=== PATIENT | female | born 1935 | race Caucasian/White ===

== ENCOUNTER → 2016-11-10 | Outpatient (CLI) | payer MEDICARE, BC ==
[2016-11-10 11:30] LABS: Basophils % (A) 0 %; CH 26.2; CHCM 31.7; Eosinophils # (A) 0.3 k/uL (0-0.7); Eosinophils % (A) 2 %; HCT 32.1 % (34.0-46.0); HDW 2.51; HGB 10.2 gm/dL (11.4-16.0); Luc # (Auto) 0.29; Luc % (Auto) 2; Lymphocytes # (A) 2.5 k/uL (1.0-4.8); Lymphocytes % (A) 17 %; MCH 26.3 pg (25.0-35.0); MCHC 31.7 g/dL (31.0-37.0); MCV 83.1 fL (80.0-100.0); Mean Platelet Volume 6.5; Monocytes # (A) 1.3 k/uL (0-1.0); Monocytes % (A) 8 %; Neutrophils # (A) 10.9 k/uL (1.3-7.7); Neutrophils % (A) 71 %; RBC 3.86 m/uL (3.80-5.40); RDW 14.2 % (11.5-15.5); WBC 15.4 k/uL (3.8-10.6); WBC (Perox) 16.29
[2016-11-10 11:33] LABS: ALT 23 U/L (9-52); AST 26 U/L (14-36); Alkaline Phosphatase 167 U/L (38-126); Anion Gap 16 mmol/L; Blood Urea Nitrogen 31 mg/dL (7-17); Calcium 9.6 mg/dL (8.4-10.2); Carbon Dioxide 20 mmol/L (22-30); Chloride 102 mmol/L (98-107); Glucose 121 mg/dL (74-99); Non-African American GFR(MDRD) 55 (>60 ml/min/1.73 sqM); Potassium 4.2 mmol/L (3.5-5.1); Sodium 138 mmol/L (137-145); Total Bilirubin 0.7 mg/dL (0.2-1.3); Total Protein 7.4 g/dL (6.3-8.2)
== END | disposition home or self-care (01) ==
LOC: LABWHC1 10:53
PROVIDERS: ATTEND Family Medicine
DX: I10 Essential (primary) hypertension (principal); R79.9 Abnormal finding of blood chemistry, unspecified
CPT/HCPCS: 36415; 80053; 85025; 87086

== ENCOUNTER → 2017-05-16 | Outpatient (CLI) | payer MEDICARE, BC ==
[2017-05-16 10:44] LABS: Basophils # (A) 0.1 k/uL (0-0.2); Basophils % (A) 0 %; CH 27.4; CHCM 30.1; Eosinophils # (A) 0.2 k/uL (0-0.7); Eosinophils % (A) 1 %; HCT 40.9 % (34.0-46.0); HDW 2.34; HGB 12.5 gm/dL (11.4-16.0); Hypochromasia Moderate; Luc # (Auto) 0.29; Luc % (Auto) 2; Lymphocytes # (A) 2.8 k/uL (1.0-4.8); Lymphocytes % (A) 23 %; MCH 28.1 pg (25.0-35.0); MCHC 30.7 g/dL (31.0-37.0); MCV 91.6 fL (80.0-100.0); Mean Platelet Volume 6.5; Monocytes # (A) 1.1 k/uL (0-1.0); Monocytes % (A) 9 %; Neutrophils # (A) 7.7 k/uL (1.3-7.7); Neutrophils % (A) 64 %; RBC 4.46 m/uL (3.80-5.40); RDW 14.6 % (11.5-15.5); WBC 12.2 k/uL (3.8-10.6); WBC (Perox) 12.27
[2017-05-16 11:07] LABS: ALT 16 U/L (9-52); AST 27 U/L (14-36); Alkaline Phosphatase 78 U/L (38-126); Anion Gap 12 mmol/L; Blood Urea Nitrogen 28 mg/dL (7-17); Calcium 10.6 mg/dL (8.4-10.2); Carbon Dioxide 26 mmol/L (22-30); Chloride 102 mmol/L (98-107); Cholesterol 188 mg/dL (<200); Glucose 100 mg/dL (74-99); HDL Cholesterol 70 mg/dL (40-60); Non-African American GFR(MDRD) >60 (>60 ml/min/1.73 sqM); Potassium 3.8 mmol/L (3.5-5.1); Sodium 140 mmol/L (137-145); Total Bilirubin 0.6 mg/dL (0.2-1.3); Total Protein 7.6 g/dL (6.3-8.2)
== END | disposition home or self-care (01) ==
LOC: LABWHC1 09:16
PROVIDERS: ATTEND Family Medicine
DX: I10 Essential (primary) hypertension (principal); R73.01 Impaired fasting glucose; E87.6 Hypokalemia; E55.9 Vitamin D deficiency, unspecified; R94.5 Abnormal results of liver function studies; D72.829 Elevated white blood cell count, unspecified; R79.89 Other specified abnormal findings of blood chemistry
CPT/HCPCS: 36415; 80053; 80061; 84443; 85025

== ENCOUNTER 2019-12-23 09:59 | Inpatient (IN) | payer MEDICARE, OTHER ==
[2019-12-23] MEDS ORDERED: SODIUM CHLORIDE 0.9% 1,000 ML IV ONE ×2 (10:11→11:55)
--- NOTE | 2019-12-23 10:15 | ED ---
General Adult HPI - General Stated complaint: Altered mental status Time Seen by Provider: 12/23/19 10:00 Source: EMS, RN notes reviewed, old records reviewed - History of Present Illness Initial comments: This is an 84-year-old female who is sent into the emergency room for altered mental status. The only report I get is from EMS. According to EMS family states they gave her Marina a muscle relaxant and a sleeping pill last night when he woke up this morning she was not able to answer any questions and she was not responding to them in any way. Patient is unable to give any history. Patient is awake but oriented 0. According to EMS family states the patient was completely fine yesterday and alert and oriented 3 and a baseline but today completely unresponsive any other questions. EMS states her sugar was in the 200s and they did give the patient Narcan it did not help. - Related Data Home Medications Medication Instructions Recorded Confirmed Losartan Potassium 100 mg PO DAILY 07/09/16 12/23/19 Baclofen [Lioresal] 10 mg PO Q6H PRN 12/23/19 12/23/19 Docusate [Colace] 100 mg PO DAILY 12/23/19 12/23/19 HYDROcodone/APAP 7.5-325MG [Parshall 1 tab PO TID 12/23/19 12/23/19 7.5-325] Hydrochlorothiazide 25 mg PO DAILY 12/23/19 12/23/19 Temazepam 30 mg PO HS PRN 12/23/19 12/23/19 methylPREDNISolone Dose Pack See Taper PO DIRECTED 12/23/19 12/23/19 [Medrol Dose Pack] Allergies Allergy/AdvReac Type Severity Reaction Status Date / Time codeine AdvReac Nausea & Verified 07/03/16 15:33 Vomiting Review of Systems ROS Statement: Those systems with pertinent positive or pertinent negative responses have been documented in the HPI. ROS Other: All systems not noted in ROS Statement are negative. Past Medical History Past Medical History: Cancer, Hypertension, Musculoskeletal Disorder Additional Past Medical History / Comment(s): CONSITPATION, DIVERTICULITIS, CHRONIC BACK PAIN History of Any Multi-Drug Resistant Organisms: None Reported Past Surgical History: Breast Surgery, Hysterectomy Additional Past Surgical History / Comment(s): RIGHT MASTECTOMY, EYE SURGERY(hole in left retina) 4-5 yrs ago. wilbert cataracts. Past Anesthesia/Blood Transfusion Reactions: No Reported Reaction Past Psychological History: Depression Smoking Status: Never smoker Past Alcohol Use History: Rare Past Drug Use History: None Reported - Past Family History Brother(s) Additional Family Medical History / Comment(s): Hodgkin's Lymphoma Mother Family Medical History: Cancer General Exam - General Exam Comments Initial Comments: GENERAL: Patient is well-developed and well-nourished. Patient is nontoxic and well- hydrated and completely unresponsive she will withdraw to pain ENT: Neck is soft and supple. No significant lymphadenopathy is noted. Oropharynx is clear. Dry mucous membranes. Neck has full range of motion without eliciti ng any pain. EYES: The sclera were anicteric and conjunctiva were pink and moist. Extraocular mo vements were intact and pupils were equal round and reactive to light. Eyelids were unremarkable. PULMONARY: Unlabored respirations. Good breath sounds bilaterally. No audible rales rhonchi or wheezing was noted. CARDIOVASCULAR: There is a regular rate and rhythm without any murmurs gallops or rubs. ABDOMEN: Soft and nontender with normal bowel sounds. SKIN: Skin is clear with no lesions or rashes and otherwise unremarkable. NEUROLOGIC: Patient is awake but unresponsive to any verbal commands and is not making is withdrawing to pain and is just moaning and groaning the pain as well patient is not speaking at all. MUSCULOSKELETAL: Patient spontaneously does move all 4 extremities PSYCHIATRIC: Normal psychiatric evaluation. Course Vital Signs 12/23/19 12/23/19 12/23/19 10:02 11:18 11:49 Temperature 99 F Pulse Rate 137 H 129 H 124 H Respiratory 18 16 22 Rate Blood Pressure 114/90 146/122 136/91 O2 Sat by Pulse 98 98 96 Oximetry Procedures - Sepsis Sepsis Focused Exam #1 Time Sepsis Criteria Met: 11:30 Sepsis Focused Exam Date: 12/23/19 Sepsis Focused Exam Time: 12:38 Sepsis Focused Exam Complete: Yes Vital Signs & RN Notes Reviewed: Yes Capillary Refill: > 2 Seconds: Fingers (Difficult to tell because the patient was anemic) Peripheral Pulses: Normal: Radial (R) (Tachycardic) Skin Color: Pallor Respiratory Exam: normal lung sounds Cardiovascular Exam: tachycardia Medical Decision Making - Medical Decision Making EKG shows sinus tachycardia at 137 bpm WI interval is 126 QRS 76 QT intervals 298 QTC is 449. Patient's EKG does not show any obvious ST segment elevation however EKG is of poor quality secondary to the fact the patient is agitated and moving Patient received Rocephin in the emergency department. Patient received over 2 L of fluid in the emergency department as well. I spoke with Dr. Madden he agreed to admit the patient admitted the patient. - Lab Data Result diagrams: 12/23/19 10:15 12/23/19 10:15 Lab Results 12/23/19 12/23/19 12/23/19 Range/Units 10:15 10:15 10:15 WBC 47.6 H (3.8-10.6) k/uL RBC 3.62 L (3.80-5.40) m/uL Hgb 6.7 L* (11.4-16.0) gm/dL Hct 24.8 L (34.0-46.0) % MCV 68.5 L (80.0-100.0) fL MCH 18.4 L (25.0-35.0) pg MCHC 26.9 L (31.0-37.0) g/dL RDW 16.4 H (11.5-15.5) % Plt Count 709 H (150-450) k/uL Neutrophils % 92 % Lymphocytes % 3 % Monocytes % 3 % Eosinophils % 0 % Basophils % 1 % Neutrophils # 43.9 H (1.3-7.7) k/uL Lymphocytes # 1.2 (1.0-4.8) k/uL Monocytes # 1.5 H (0-1.0) k/uL Eosinophils # 0.0 (0-0.7) k/uL Basophils # 0.4 H (0-0.2) k/uL Manual Slide Review Performed Polychromasia Present Hypochromasia Marked Poikilocytosis Slight Anisocytosis Slight Microcytosis Marked Target Cells Present PT 10.4 (9.0-12.0) sec INR 1.0 (<1.2) APTT 24.3 (22.0-30.0) sec Sodium 137 (137-145) mmol/L Potassium 4.1 (3.5-5.1) mmol/L Chloride 100 (98-107) mmol/L Carbon Dioxide 17 L (22-30) mmol/L Anion Gap 20 mmol/L BUN 41 H (7-17) mg/dL Creatinine 1.37 H (0.52-1.04) mg/dL Est GFR (CKD-EPI)AfAm 41 (>60 ml/min/1.73 sqM) Est GFR (CKD-EPI)NonAf 36 (>60 ml/min/1.73 sqM) Glucose 216 H (74-99) mg/dL Plasma Lactic Acid Zachariah (0.7-2.0) mmol/L Calcium 10.0 (8.4-10.2) mg/dL Total Bilirubin 0.5 (0.2-1.3) mg/dL AST 19 (14-36) U/L ALT 10 (4-34) U/L Alkaline Phosphatase 142 H (38-126) U/L Creatine Kinase 119 (30-135) U/L Troponin I (0.000-0.034) ng/mL Total Protein 7.6 (6.3-8.2) g/dL Albumin 3.7 (3.5-5.0) g/dL Urine Color Urine Appearance (Clear) Urine pH (5.0-8.0) Ur Specific [place] (1.001-1.035) Urine Protein (Negative) Urine Glucose (UA) (Negative) Urine Ketones (Negative) Urine Blood (Negative) Urine Nitrite (Negative) Urine Bilirubin (Negative) Urine Urobilinogen (<2.0) mg/dL Ur Leukocyte Esterase (Negative) Urine RBC (0-5) /hpf Urine WBC (0-5) /hpf Urine WBC Clumps (None) /hpf Stool Occult Blood (Negative) Urine Opiates Screen (NotDetected) Ur Oxycodone Screen (NotDetected) Urine Methadone Screen (NotDetected) Ur Propoxyphene Screen (NotDetected) Acetaminophen <10.0 ug/mL Ur Barbiturates Screen (NotDetected) U Tricyclic Antidepress (NotDetected) Ur Phencyclidine Scrn (NotDetected) Ur Amphetamines Screen (NotDetected) U Methamphetamines Scrn (NotDetected) U Benzodiazepines Scrn (NotDetected) Urine Cocaine Screen (NotDetected) U Marijuana (THC) Screen (NotDetected) Coronavirus (PCR) (Not Detectd) 12/23/19 12/23/19 12/23/19 Range/Units 10:15 10:15 11:15 WBC (3.8-10.6) k/uL RBC (3.80-5.40) m/uL Hgb (11.4-16.0) gm/dL Hct (34.0-46.0) % MCV (80.0-100.0) fL MCH (25.0-35.0) pg MCHC (31.0-37.0) g/dL RDW (11.5-15.5) % Plt Count (150-450) k/uL Neutrophils % % Lymphocytes % % Monocytes % % Eosinophils % % Basophils % % Neutrophils # (1.3-7.7) k/uL Lymphocytes # (1.0-4.8) k/uL Monocytes # (0-1.0) k/uL Eosinophils # (0-0.7) k/uL Basophils # (0-0.2) k/uL Manual Slide Review Polychromasia Hypochromasia Poikilocytosis Anisocytosis Microcytosis Target Cells PT (9.0-12.0) sec INR (<1.2) APTT (22.0-30.0) sec Sodium (137-145) mmol/L Potassium (3.5-5.1) mmol/L Chloride (98-107) mmol/L Carbon Dioxide (22-30) mmol/L Anion Gap mmol/L BUN (7-17) mg/dL Creatinine (0.52-1.04) mg/dL Est GFR (CKD-EPI)AfAm (>60 ml/min/1.73 sqM) Est GFR (CKD-EPI)NonAf (>60 ml/min/1.73 sqM) Glucose (74-99) mg/dL Plasma Lactic Acid Zachariah 4.3 H* (0.7-2.0) mmol/L Calcium (8.4-10.2) mg/dL Total Bilirubin (0.2-1.3) mg/dL AST (14-36) U/L ALT (4-34) U/L Alkaline Phosphatase (38-126) U/L Creatine Kinase (30-135) U/L Troponin I <0.012 (0.000-0.034) ng/mL Total Protein (6.3-8.2) g/dL Albumin (3.5-5.0) g/dL Urine Color Urine Appearance (Clear) Urine pH (5.0-8.0) Ur Specific [place] (1.001-1.035) Urine Protein (Negative) Urine Glucose (UA) (Negative) Urine Ketones (Negative) Urine Blood (Negative) Urine Nitrite (Negative) Urine Bilirubin (Negative) Urine Urobilinogen (<2.0) mg/dL Ur Leukocyte Esterase (Negative) Urine RBC (0-5) /hpf Urine WBC (0-5) /hpf Urine WBC Clumps (None) /hpf Stool Occult Blood (Negative) Urine Opiates Screen (NotDetected) Ur Oxycodone Screen (NotDetected) Urine Methadone Screen (NotDetected) Ur Propoxyphene Screen (NotDetected) Acetaminophen ug/mL Ur Barbiturates Screen (NotDetected) U Tricyclic Antidepress (NotDetected) Ur Phencyclidine Scrn (NotDetected) Ur Amphetamines Screen (NotDetected) U Methamphetamines Scrn (NotDetected) U Benzodiazepines Scrn (NotDetected) Urine Cocaine Screen (NotDetected) U Marijuana (THC) Screen (NotDetected) Coronavirus (PCR) Not Detected (Not Detectd) 12/23/19 12/23/19 12/23/19 Range/Units 11:35 11:35 11:35 WBC (3.8-10.6) k/uL RBC (3.80-5.40) m/uL Hgb (11.4-16.0) gm/dL Hct (34.0-46.0) % MCV (80.0-100.0) fL MCH (25.0-35.0) pg MCHC (31.0-37.0) g/dL RDW (11.5-15.5) % Plt Count (150-450) k/uL Neutrophils % % Lymphocytes % % Monocytes % % Eosinophils % % Basophils % % Neutrophils # (1.3-7.7) k/uL Lymphocytes # (1.0-4.8) k/uL Monocytes # (0-1.0) k/uL Eosinophils # (0-0.7) k/uL Basophils # (0-0.2) k/uL Manual Slide Review Polychromasia Hypochromasia Poikilocytosis Anisocytosis Microcytosis Target Cells PT (9.0-12.0) sec INR (<1.2) APTT (22.0-30.0) sec Sodium (137-145) mmol/L Potassium (3.5-5.1) mmol/L Chloride (98-107) mmol/L Carbon Dioxide (22-30) mmol/L Anion Gap mmol/L BUN (7-17) mg/dL Creatinine (0.52-1.04) mg/dL Est GFR (CKD-EPI)AfAm (>60 ml/min/1.73 sqM) Est GFR (CKD-EPI)NonAf (>60 ml/min/1.73 sqM) Glucose (74-99) mg/dL Plasma Lactic Acid Zachariah (0.7-2.0) mmol/L Calcium (8.4-10.2) mg/dL Total Bilirubin (0.2-1.3) mg/dL AST (14-36) U/L ALT (4-34) U/L Alkaline Phosphatase (38-126) U/L Creatine Kinase (30-135) U/L Troponin I (0.000-0.034) ng/mL Total Protein (6.3-8.2) g/dL Albumin (3.5-5.0) g/dL Urine Color Yellow Urine Appearance Turbid H (Clear) Urine pH 6.0 (5.0-8.0) Ur Specific [place] 1.015 (1.001-1.035) Urine Protein 2+ H (Negative) Urine Glucose (UA) Negative (Negative) Urine Ketones Negative (Negative) Urine Blood Moderate H (Negative) Urine Nitrite Negative (Negative) Urine Bilirubin Negative (Negative) Urine Urobilinogen <2.0 (<2.0) mg/dL Ur Leukocyte Esterase Large H (Negative) Urine RBC 12 H (0-5) /hpf Urine WBC >182 H (0-5) /hpf Urine WBC Clumps Many H (None) /hpf Stool Occult Blood Positive H (Negative) Urine Opiates Screen Detected H (NotDetected) Ur Oxycodone Screen Not Detected (NotDetected) Urine Methadone Screen Not Detected (NotDetected) Ur Propoxyphene Screen Not Detected (NotDetected) Acetaminophen ug/mL Ur Barbiturates Screen Not Detected (NotDetected) U Tricyclic Antidepress Not Detected (NotDetected) Ur Phencyclidine Scrn Not Detected (NotDetected) Ur Amphetamines Screen Not Detected (NotDetected) U Methamphetamines Scrn Not Detected (NotDetected) U Benzodiazepines Scrn Detected H (NotDetected) Urine Cocaine Screen Not Detected (NotDetected) U Marijuana (THC) Screen Not Detected (NotDetected) Coronavirus (PCR) (Not Detectd) Critical Care Time Critical Care Time: Yes Total Critical Care Time: 35 Disposition Clinical Impression: Sepsis, Urinary tract infection, GI bleed, Anemia, Altered mental status, Leukocytosis, Renal insufficiency Disposition: ADMITTED IP TO THIS HOSP Referrals: Bertha Mejia MD [Primary Care Provider] - 1-2 days Time of Disposition: 12:37
[2019-12-23 10:47] LABS: Anisocytosis Slight; Basophils # (A) 0.4 k/uL (0-0.2); Basophils % (A) 1 %; Eosinophils % (A) 0 %; HCT 24.8 % (34.0-46.0); Hypochromasia Marked; Lymphocytes # (A) 1.2 k/uL (1.0-4.8); Lymphocytes % (A) 3 %; MCH 18.4 pg (25.0-35.0); MCHC 26.9 g/dL (31.0-37.0); MCV 68.5 fL (80.0-100.0); Mean Platelet Volume 7.2; Microcytosis Marked; Monocytes # (A) 1.5 k/uL (0-1.0); Monocytes % (A) 3 %; Neutrophils # (A) 43.9 k/uL (1.3-7.7); Neutrophils % (A) 92 %; Platelet Count 709 k/uL (150-450); Poikilocytosis Slight; RBC 3.62 m/uL (3.80-5.40); RDW 16.4 % (11.5-15.5); WBC 47.6 k/uL (3.8-10.6)
[2019-12-23 10:53] LABS: Partial Thromboplastin Time 24.3 sec (22.0-30.0); Prothrombin Time 10.4 sec (9.0-12.0)
[2019-12-23 10:56] LABS: ALT 10 U/L (4-34); AST 19 U/L (14-36); Acetaminophen <10.0 ug/mL; African American GFR (CKD) 41 (>60 ml/min/1.73 sqM); Albumin 3.7 g/dL (3.5-5.0); Alkaline Phosphatase 142 U/L (38-126); Anion Gap 20 mmol/L; Blood Urea Nitrogen 41 mg/dL (7-17); Carbon Dioxide 17 mmol/L (22-30); Chloride 100 mmol/L (98-107); Creatine Kinase 119 U/L (30-135); Glucose 216 mg/dL (74-99); Non-African American GFR(CKD) 36 (>60 ml/min/1.73 sqM); Potassium 4.1 mmol/L (3.5-5.1); Sodium 137 mmol/L (137-145); Total Bilirubin 0.5 mg/dL (0.2-1.3); Total Protein 7.6 g/dL (6.3-8.2)
[2019-12-23 10:59] LABS: HGB 6.7 gm/dL (11.4-16.0)
--- NOTE | 2019-12-23 11:04 | XR ---
EXAMINATION TYPE: XR chest 1V portable DATE OF EXAM: 12/23/2019 COMPARISON: 07/11/2016 HISTORY: Altered mental status. Combative patient. TECHNIQUE: Single frontal view of the chest is obtained. FINDINGS: Diffuse interstitial prominence and mild pulmonary vascular congestion are seen although i nterstitial prominence appears chronic. Cardia mediastinal silhouette is enlarged exaggerated by low lung volumes. Diffuse osseous demineralization is seen. No sizable pleural effusion or focal consolid ation. IMPRESSION: Pulmonary vasculature is exaggerated by low lung volumes however there appears to be mil d pulmonary vascular congestion. Consider congestive heart failure. Chronic interstitial prominence.
[2019-12-23 11:07] LABS: Polychromasia Present; Target Cells Present
[2019-12-23] MEDS ORDERED: cefTRIAXone IN SWFI 1,000 MG/10 ML SYRINGE IVP STA (11:13)
--- NOTE | 2019-12-23 11:44 | CT ---
EXAMINATION TYPE: CT brain wo con DATE OF EXAM: 12/23/2019 COMPARISON: None HISTORY: altered mental status CT DLP: 1099.4 mGycm Automated exposure control for dose reduction was used. TECHNIQUE: CT scan of the head is performed without contrast. Exam is somewhat limited by patient mot ion. FINDINGS: There is no acute intracranial hemorrhage or midline shift identified. There is diffuse v entricular and sulcal prominence consistent with diffuse age-related cerebral atrophy. There is low- attenuation in the periventricular white matter consistent with chronic small vessel ischemic change. The globes are intact and the visualized sinuses are clear. IMPRESSION: No acute intracranial hemorrhage or midline shift. There is diffuse age-related cerebra l atrophy and chronic small vessel ischemic change noted.
[2019-12-23 11:59] LABS: Appearance,Urine Turbid (Clear); Bilirubin,Urine Negative (Negative); Blood,Urine Moderate (Negative); Color,Urine Yellow; Glucose,Urine (UA) Negative (Negative); Ketones,Urine Negative (Negative); Leukocyte Esterase,Urine Large (Negative); Nitrite,Urine Negative (Negative); Protein,Urine 2+ (Negative); RBC,Urine 12 /hpf (0-5); Specific Gravity,Urine 1.015 (1.001-1.035); Urobilinogen,Urine <2.0 mg/dL (<2.0); WBC,Urine >182 /hpf (0-5)
[2019-12-23 12:03] LABS: Amphetamine Screen,Urine Not Detected (NotDetected); Barbiturate Screen,Urine Not Detected (NotDetected); Benzodiazepines Screen,Urine Detected (NotDetected); Cocaine Screen,Urine Not Detected (NotDetected); Methadone Screen, Urine Not Detected (NotDetected); Opiate Screen,Urine Detected (NotDetected); Oxycodone Screen, Urine Not Detected (NotDetected); Phencyclidine Screen,Urine Not Detected (NotDetected); Tricyclic Antidepressant,Urine Not Detected (NotDetected); Urn Cannabinoid Scrn Not Detected (NotDetected)
[2019-12-23] MEDS: SODIUM CHLORIDE 0.9% 1,000 ML IV SCH ×3 (13:15→23:46)
--- NOTE | 2019-12-23 16:25 | P.HPIM ---
History of Present Illness H&P Date: 12/23/19 Chief Complaint: Mental status changes Jaqui Garza is an 84 -year-old female who was brought in to [facility] emergency room due to mental status changes, per emergency room notes, patient was fine yesterday, she took Watson baclofen and a sleeping pill b efore going to bed, this morning she was unarousable and family called EMS and patient was brought in to [facility]. In the emergency room patient had a computed tomography scan of the brain without contrast that failed to reveal any evidence of hemorrhage or any acute abnormality, Narcan was given but did not help much, patient had significantly abnormal labs with evidence of urinary tract infection, severe leukocytosis, anemia with hemoglobin of 6.9, heme positive stools, and elevated lactic acid, she was started on IV fluid, IV Rocephin, and was admitted to medical floor for further evaluation. 1 unit of red blood cell transfusion was ordered. Patient was seen and examined on the medical floor, she is responding to stimuli but goes back to sleep, she is nonverbal at this time, no history could be obtained from her. Past Medical History Past Medical History: Cancer, Hypertension, Musculoskeletal Disorder Additional Past Medical History / Comment(s): CONSITPATION, DIVERTICULITIS, CHRONIC BACK PAIN History of Any Multi-Drug Resistant Organisms: None Reported Past Surgical History: Breast Surgery, Hysterectomy Additional Past Surgical History / Comment(s): RIGHT MASTECTOMY, EYE SURGERY(hole in left retina) 4-5 yrs ago. wilbert cataracts. Past Anesthesia/Blood Transfusion Reactions: No Reported Reaction Past Psychological History: Depression Smoking Status: Never smoker Past Alcohol Use History: Rare Past Drug Use History: None Reported - Past Family History Brother(s) Additional Family Medical History / Comment(s): Hodgkin's Lymphoma Mother Family Medical History: Cancer Medications and Allergies Home Medications Medication Instructions Recorded Confirmed Type Losartan Potassium 100 mg PO DAILY 07/09/16 12/23/19 History Baclofen [Lioresal] 10 mg PO Q6H PRN 12/23/19 12/23/19 History Docusate [Colace] 100 mg PO DAILY 12/23/19 12/23/19 History HYDROcodone/APAP 7.5-325MG [Watson 1 tab PO TID 12/23/19 12/23/19 History 7.5-325] Hydrochlorothiazide 25 mg PO DAILY 12/23/19 12/23/19 History Temazepam 30 mg PO HS PRN 12/23/19 12/23/19 History methylPREDNISolone Dose Pack See Taper PO DIRECTED 12/23/19 12/23/19 History [Medrol Dose Pack] Allergies Allergy/AdvReac Type Severity Reaction Status Date / Time codeine AdvReac Nausea & Verified 07/03/16 15:33 Vomiting Physical Exam Vitals: Vital Signs Temp Pulse Resp BP Pulse Ox 12/23/19 14:08 98.5 F 121 H 18 150/78 100 12/23/19 13:51 116 H 18 129/85 98 12/23/19 13:42 98.0 F 116 H 18 148/86 98 12/23/19 13:38 98.0 F 116 H 18 148/84 97 12/23/19 13:28 98.0 F 110 H 18 138/84 97 12/23/19 13:10 118 H 18 140/67 94 L 12/23/19 12:48 122 H 20 143/88 96 12/23/19 11:49 124 H 22 136/91 96 12/23/19 11:18 129 H 16 146/122 98 12/23/19 10:02 99 F 137 H 18 114/90 98 Intake and Output 12/23/19 12/23/19 12/23/19 06:59 14:59 22:59 Intake Total 0 Balance 0 Intake: Blood Product 0 Rc As-1 Unit 0 [id number] Other: Weight 68.039 kg In general patient is somnolent, arousable to stimuli but goes back to sleep, nonverbal HEENT head normocephalic and atraumatic Neck is supple no JVD no goiter no lymphadenopathy Chest exam reveals a few scattered rhonchi no wheezing Cardiac exam reveals regular heart sounds S1 and S2 no gallops no murmurs Abdomen is soft nontender no organomegaly with normal bowel sounds Extremity exam reveals minimal edema no cyanosis or clubbing Neurological examination patient is somnolent responsive to stimuli, moving all 4 extremities Results CBC & Chem 7: 12/23/19 10:15 12/23/19 10:15 Labs: Abnormal Lab Results - Last 24 Hours (Table) 12/23/19 12/23/19 12/23/19 Range/Units 10:15 10:15 10:15 WBC 47.6 H (3.8-10.6) k/uL RBC 3.62 L (3.80-5.40) m/uL Hgb 6.7 L* (11.4-16.0) gm/dL Hct 24.8 L (34.0-46.0) % MCV 68.5 L (80.0-100.0) fL MCH 18.4 L (25.0-35.0) pg MCHC 26.9 L (31.0-37.0) g/dL RDW 16.4 H (11.5-15.5) % Plt Count 709 H (150-450) k/uL Neutrophils # 43.9 H (1.3-7.7) k/uL Monocytes # 1.5 H (0-1.0) k/uL Basophils # 0.4 H (0-0.2) k/uL Carbon Dioxide 17 L (22-30) mmol/L BUN 41 H (7-17) mg/dL Creatinine 1.37 H (0.52-1.04) mg/dL Glucose 216 H (74-99) mg/dL Plasma Lactic Acid Zachariah (0.7-2.0) mmol/L Alkaline Phosphatase 142 H (38-126) U/L Urine Appearance (Clear) Urine Protein (Negative) Urine Blood (Negative) Ur Leukocyte Esterase (Negative) Urine RBC (0-5) /hpf Urine WBC (0-5) /hpf Urine WBC Clumps (None) /hpf Stool Occult Blood (Negative) Urine Opiates Screen (NotDetected) U Benzodiazepines Scrn (NotDetected) Crossmatch See Detail 12/23/19 12/23/19 12/23/19 Range/Units 10:15 11:35 11:35 WBC (3.8-10.6) k/uL RBC (3.80-5.40) m/uL Hgb (11.4-16.0) gm/dL Hct (34.0-46.0) % MCV (80.0-100.0) fL MCH (25.0-35.0) pg MCHC (31.0-37.0) g/dL RDW (11.5-15.5) % Plt Count (150-450) k/uL Neutrophils # (1.3-7.7) k/uL Monocytes # (0-1.0) k/uL Basophils # (0-0.2) k/uL Carbon Dioxide (22-30) mmol/L BUN (7-17) mg/dL Creatinine (0.52-1.04) mg/dL Glucose (74-99) mg/dL Plasma Lactic Acid Zachariah 4.3 H* (0.7-2.0) mmol/L Alkaline Phosphatase (38-126) U/L Urine Appearance Turbid H (Clear) Urine Protein 2+ H (Negative) Urine Blood Moderate H (Negative) Ur Leukocyte Esterase Large H (Negative) Urine RBC 12 H (0-5) /hpf Urine WBC >182 H (0-5) /hpf Urine WBC Clumps Many H (None) /hpf Stool Occult Blood (Negative) Urine Opiates Screen Detected H (NotDetected) U Benzodiazepines Scrn Detected H (NotDetected) Crossmatch 12/23/19 Range/Units 11:35 WBC (3.8-10.6) k/uL RBC (3.80-5.40) m/uL Hgb (11.4-16.0) gm/dL Hct (34.0-46.0) % MCV (80.0-100.0) fL MCH (25.0-35.0) pg MCHC (31.0-37.0) g/dL RDW (11.5-15.5) % Plt Count (150-450) k/uL Neutrophils # (1.3-7.7) k/uL Monocytes # (0-1.0) k/uL Basophils # (0-0.2) k/uL Carbon Dioxide (22-30) mmol/L BUN (7-17) mg/dL Creatinine (0.52-1.04) mg/dL Glucose (74-99) mg/dL Plasma Lactic Acid Zachariah (0.7-2.0) mmol/L Alkaline Phosphatase (38-126) U/L Urine Appearance (Clear) Urine Protein (Negative) Urine Blood (Negative) Ur Leukocyte Esterase (Negative) Urine RBC (0-5) /hpf Urine WBC (0-5) /hpf Urine WBC Clumps (None) /hpf Stool Occult Blood Positive H (Negative) Urine Opiates Screen (NotDetected) U Benzodiazepines Scrn (NotDetected) Crossmatch Assessment and Plan Plan: 1. Evidence of urinary tract infection, patient was started on IV Rocephin, blood culture and urine culture were ordered, infectious disease consultation was requested. 2. Sepsis, likely related to urinary tract infection, with severe leukocytosis, elevated lactic acid, tachycardia and tachypnea 3. Severe elevation in white blood count, could be related to infection however, possibility of leukocytosis related to leukemia needs to be ruled out, consultation for hematology was initiated. 4. Severe anemia, 1 unit of red blood cell transfusion was ordered, patient has heme positive stools, consultation for gastroenterology was initiated 5. Underlying history of hypertension. At this time we are holding blood pressure medication Will monitor closely 6. Underlying history of osteoarthritis with severe pain requiring narcotic medications. At this time will hold narcotic sleeping pill and muscle relaxers will monitor mental status closely. 7. Mental status changes, likely related to sepsis, metabolic encephalopathy, and affect of narcotic medication and sleeping., No abnormality seen on computed tomography scan without contrast, however if mental status does not improve in 24 hours, will proceed was more imaging and consultation for neurology. Patient prognosis is guarded She was started on IV fluid, IV antibiotics, red blood cell transfusion Consultation for hematology, infectious disease, and gastroenterology initiated Will repeat labs and follow closely
[2019-12-23 16:34] LABS: Glucose,Whole Blood 182 mg/dL (75-99)
[2019-12-23] MEDS: HYDROcodone/APAP 7.5-325MG 1 EACH TAB PO SCH ×2 (17:49→22:11)
[2019-12-23] MEDS ORDERED: AMPICILLIN-SULBACTAM 3 GM in SODIUM CHLORIDE 0.9% 100 ML IVPB SCH (18:00)
[2019-12-23] MEDS: AMPICILLIN-SULBACTAM 3 GM in SODIUM CHLORIDE 0.9% 100 ML IVPB SCH (19:05)
[2019-12-23 19:47] LABS: Anisocytosis Slight; Basophils # (A) 0.1 k/uL (0-0.2); Basophils % (A) 0 %; Eosinophils % (A) 0 %; HCT 24.8 % (34.0-46.0); HGB 7.1 gm/dL (11.4-16.0); Hypochromasia Marked; Lymphocytes # (A) 0.8 k/uL (1.0-4.8); Lymphocytes % (A) 2 %; MCH 21.3 pg (25.0-35.0); MCHC 28.7 g/dL (31.0-37.0); Mean Platelet Volume 7.1; Microcytosis Moderate; Monocytes # (A) 1.5 k/uL (0-1.0); Monocytes % (A) 4 %; Neutrophils # (A) 36.3 k/uL (1.3-7.7); Neutrophils % (A) 93 %; Platelet Count 491 k/uL (150-450); Poikilocytosis Moderate; RBC 3.33 m/uL (3.80-5.40); WBC 39.1 k/uL (3.8-10.6)
[2019-12-23 19:48] LABS: MCV 74.4 fL (80.0-100.0)
--- NOTE | 2019-12-23 19:51 | US ---
EXAMINATION TYPE: US abdomen complete DATE OF EXAM: 12/23/2019 COMPARISON: CT & US 2016 CLINICAL HISTORY: right sided abd tenderness. Patient disoriented, exam done portable. EXAM MEASUREMENTS: Liver Length: 15.2 cm Gallbladder Wall: 0.2 cm CBD: 0.4 cm Spleen: n/a Right Kidney: 10.4 x 5.2 x 4.6 cm Left Kidney: n/a Very difficult and limited study due to patient body habitus, patient position and overlying bowel gas Pancreas: obscured by overlying midline bowel gas Liver: visualized portions appear wnl Gallbladder: wnl Evidence for sonographic Camejo's sign: n/a CBD: visualized portions wnl Spleen: not seen due to limitations listed above Right Kidney: hydronephrosis Left Kidney: not seen due to limitations listed above Upper IVC: wnl Abd Aorta: obscured by overlying midline bowel gas The liver is poorly seen in its entirety. The intrahepatic portion of the IVC is only visualized in a limited fashion. There is no evidence of cholelithiasis. Common bile duct is unremarkable. The v isualized portions of the pancreas are. Left kidney is not seen, suspect some right renal atrophy, th ere is cortical thinning. The spleen is not seen. IMPRESSION: Exam is limited technically. Right-sided hydronephrosis suspected.
[2019-12-23 20:29] LABS: Glucose,Whole Blood 175 mg/dL (75-99)
--- NOTE | 2019-12-23 22:58 | P.CONS ---
History of Present Illness - Reason for Consult Consult date: 12/23/19 UTI Requesting physician: Dalton Madden - Chief Complaint UNRESPONSIVE X 1 DAY - History of Present Illness Patient is 84 female who was brought to [facility] for evaluation of mental status changes currently the patient was doing fine yesterday and she took [place] baclofen and sleeping before going to bed this morning the patient was not arousable by the family EMS was called 9 and the patient subsequently brought to the hospital on arrival to the ER the patient had did have a low-grade fever of 99 F she did have white count of 47,000 also anemic with hemoglobin 6.7 Hemoccult positive urine was positive lactic acid was elevated urine testing was positive for opiates and benzo CT of the brain was negative for any bleed chest x-ray pulmonary vascular congestion but no consolidation gomes PCR was negative patient was started on Rocephin has been admitted to hospital infectious disease was consulted for further recommendation regarding antibiotic therapy, most information has been obtained from review the chart talking nursing staff at the patient currently do open the eyes by responding to her name but did not answer any question to provide any meaningful history Review of Systems Positive point has been mentioned in HPI rest of the systems are negative Past Medical History Past Medical History: Cancer, Hypertension, Musculoskeletal Disorder Additional Past Medical History / Comment(s): CONSITPATION, DIVERTICULITIS, CHRONIC BACK PAIN History of Any Multi-Drug Resistant Organisms: None Reported Past Surgical History: Breast Surgery, Hysterectomy Additional Past Surgical History / Comment(s): RIGHT MASTECTOMY, EYE SURGERY(hole in left retina) 4-5 yrs ago. wilbert cataracts. Past Anesthesia/Blood Transfusion Reactions: No Reported Reaction Past Psychological History: Depression Smoking Status: Never smoker Past Alcohol Use History: Rare Past Drug Use History: None Reported - Past Family History Brother(s) Additional Family Medical History / Comment(s): Hodgkin's Lymphoma Mother Family Medical History: Cancer Medications and Allergies Home Medications Medication Instructions Recorded Confirmed Type Losartan Potassium 100 mg PO DAILY 07/09/16 12/23/19 History Baclofen [Lioresal] 10 mg PO Q6H PRN 12/23/19 12/23/19 History Docusate [Colace] 100 mg PO DAILY 12/23/19 12/23/19 History HYDROcodone/APAP 7.5-325MG [[place] 1 tab PO TID 12/23/19 12/23/19 History 7.5-325] Hydrochlorothiazide 25 mg PO DAILY 12/23/19 12/23/19 History Temazepam 30 mg PO HS PRN 12/23/19 12/23/19 History methylPREDNISolone Dose Pack See Taper PO DIRECTED 12/23/19 12/23/19 History [Medrol Dose Pack] Allergies Allergy/AdvReac Type Severity Reaction Status Date / Time codeine AdvReac Nausea & Verified 07/03/16 15:33 Vomiting Physical Exam Vitals: Vital Signs Temp Pulse Resp BP Pulse Ox 12/23/19 14:08 98.5 F 121 H 18 150/78 100 12/23/19 13:51 116 H 18 129/85 98 12/23/19 13:42 98.0 F 116 H 18 148/86 98 12/23/19 13:38 98.0 F 116 H 18 148/84 97 12/23/19 13:28 98.0 F 110 H 18 138/84 97 12/23/19 13:10 118 H 18 140/67 94 L 12/23/19 12:48 122 H 20 143/88 96 12/23/19 11:49 124 H 22 136/91 96 12/23/19 11:18 129 H 16 146/122 98 12/23/19 10:02 99 F 137 H 18 114/90 98 Intake and Output 12/23/19 12/23/19 12/23/19 06:59 14:59 22:59 Intake Total 0 Balance 0 Intake: Blood Product 0 Rc As-1 Unit 0 [id number] Other: # Voids 3 Weight 68.039 kg GENERAL DESCRIPTION: Elderly female lying in bed, no distress. No tachypnea or accessory muscle of respiration use. HEENT: Shows Pallor , no scleral icterus. Oral mucous membrane is dry. NECK: Trachea central, no thyromegaly. LUNGS: Unlabored breathing. Clear to auscultation anteriorly. No wheeze or crackle. HEART: S1, S2, regular rate and rhythm. ABDOMEN: Soft, right-sided tenderness ,no guarding or rigidity EXTREMITIES: No edema of feet. SKIN: No rash, no masses palpable. NEUROLOGICAL: The patient is sleepy lethargic orientation could not be determined and no neck rigidity Results CBC & Chem 7: 12/23/19 18:40 12/23/19 10:15 Labs: Abnormal Lab Results - Last 24 Hours (Table) 12/23/19 12/23/19 12/23/19 Range/Units 10:15 10:15 10:15 WBC 47.6 H (3.8-10.6) k/uL RBC 3.62 L (3.80-5.40) m/uL Hgb 6.7 L* (11.4-16.0) gm/dL Hct 24.8 L (34.0-46.0) % MCV 68.5 L (80.0-100.0) fL MCH 18.4 L (25.0-35.0) pg MCHC 26.9 L (31.0-37.0) g/dL RDW 16.4 H (11.5-15.5) % Plt Count 709 H (150-450) k/uL Neutrophils # 43.9 H (1.3-7.7) k/uL Monocytes # 1.5 H (0-1.0) k/uL Basophils # 0.4 H (0-0.2) k/uL Carbon Dioxide 17 L (22-30) mmol/L BUN 41 H (7-17) mg/dL Creatinine 1.37 H (0.52-1.04) mg/dL Glucose 216 H (74-99) mg/dL POC Glucose (mg/dL) (75-99) mg/dL Plasma Lactic Acid Zachariah (0.7-2.0) mmol/L Alkaline Phosphatase 142 H (38-126) U/L Urine Appearance (Clear) Urine Protein (Negative) Urine Blood (Negative) Ur Leukocyte Esterase (Negative) Urine RBC (0-5) /hpf Urine WBC (0-5) /hpf Urine WBC Clumps (None) /hpf Stool Occult Blood (Negative) Urine Opiates Screen (NotDetected) U Benzodiazepines Scrn (NotDetected) Crossmatch See Detail 12/23/19 12/23/19 12/23/19 Range/Units 10:15 11:35 11:35 WBC (3.8-10.6) k/uL RBC (3.80-5.40) m/uL Hgb (11.4-16.0) gm/dL Hct (34.0-46.0) % MCV (80.0-100.0) fL MCH (25.0-35.0) pg MCHC (31.0-37.0) g/dL RDW (11.5-15.5) % Plt Count (150-450) k/uL Neutrophils # (1.3-7.7) k/uL Monocytes # (0-1.0) k/uL Basophils # (0-0.2) k/uL Carbon Dioxide (22-30) mmol/L BUN (7-17) mg/dL Creatinine (0.52-1.04) mg/dL Glucose (74-99) mg/dL POC Glucose (mg/dL) (75-99) mg/dL Plasma Lactic Acid Zachariah 4.3 H* (0.7-2.0) mmol/L Alkaline Phosphatase (38-126) U/L Urine Appearance Turbid H (Clear) Urine Protein 2+ H (Negative) Urine Blood Moderate H (Negative) Ur Leukocyte Esterase Large H (Negative) Urine RBC 12 H (0-5) /hpf Urine WBC >182 H (0-5) /hpf Urine WBC Clumps Many H (None) /hpf Stool Occult Blood (Negative) Urine Opiates Screen Detected H (NotDetected) U Benzodiazepines Scrn Detected H (NotDetected) Crossmatch 12/23/19 12/23/19 Range/Units 11:35 16:33 WBC (3.8-10.6) k/uL RBC (3.80-5.40) m/uL Hgb (11.4-16.0) gm/dL Hct (34.0-46.0) % MCV (80.0-100.0) fL MCH (25.0-35.0) pg MCHC (31.0-37.0) g/dL RDW (11.5-15.5) % Plt Count (150-450) k/uL Neutrophils # (1.3-7.7) k/uL Monocytes # (0-1.0) k/uL Basophils # (0-0.2) k/uL Carbon Dioxide (22-30) mmol/L BUN (7-17) mg/dL Creatinine (0.52-1.04) mg/dL Glucose (74-99) mg/dL POC Glucose (mg/dL) 182 H (75-99) mg/dL Plasma Lactic Acid Zachariah (0.7-2.0) mmol/L Alkaline Phosphatase (38-126) U/L Urine Appearance (Clear) Urine Protein (Negative) Urine Blood (Negative) Ur Leukocyte Esterase (Negative) Urine RBC (0-5) /hpf Urine WBC (0-5) /hpf Urine WBC Clumps (None) /hpf Stool Occult Blood Positive H (Negative) Urine Opiates Screen (NotDetected) U Benzodiazepines Scrn (NotDetected) Crossmatch Microbiology - Last 24 Hours (Table) 12/23/19 11:35 Urine Culture - Preliminary Urine,Voided Assessment and Plan Assessment: -patient presented hospital with mental status changes and this patient noticed to have significant elevated white count anemia with Hemoccult positive stool and right-sided abdominal tenderness concern for possible abdominal source with a question of pyelonephritis versus ischemic colitis and will need to cover for the enteric gram-negative both aerobes and anaerobes (1) Leukocytosis Current Visit: Yes Status: Acute Priority: High Code(s): D72.829 - ELEVATED WHITE BLOOD CELL COUNT, UNSPECIFIED SNOMED Code(s): 281745659 (2) Urinary tract infection Current Visit: Yes Status: Acute Code(s): N39.0 - URINARY TRACT INFECTION, SITE NOT SPECIFIED SNOMED Code(s): 92169194 Plan: 1-we will discontinue the Rocephin 2-start the patient Unasyn 3 g every 12hr dose adjusted to the kidney function 3-we will obtain ultrasound of the abdomen ideally would have done a CT however the patient will not be able to hold rectal contrast that would limit the usefulness of CT abdominal pelvis 4-IV fluids We will follow on clinical condition and cultures to further adjust medication if needed Thank you for this consultation we will follow the patient along with you Time with Patient: Greater than 30
[2019-12-24] MEDS: AMPICILLIN-SULBACTAM 3 GM in SODIUM CHLORIDE 0.9% 100 ML IVPB SCH ×2 (05:30→18:04)
[2019-12-24 06:05] LABS: Glucose,Whole Blood 141 mg/dL (75-99)
[2019-12-24 07:10] LABS: Anisocytosis Slight; Basophils % (A) 0 %; Eosinophils % (A) 0 %; HCT 22.4 % (34.0-46.0); Hypochromasia Marked; Lymphocytes # (A) 1.1 k/uL (1.0-4.8); Lymphocytes % (A) 3 %; MCH 21.4 pg (25.0-35.0); MCHC 28.8 g/dL (31.0-37.0); MCV 74.4 fL (80.0-100.0); Microcytosis Moderate; Monocytes # (A) 1.9 k/uL (0-1.0); Monocytes % (A) 5 %; Neutrophils # (A) 32.9 k/uL (1.3-7.7); Neutrophils % (A) 90 %; Platelet Count 548 k/uL (150-450); Poikilocytosis Marked; RBC 3.01 m/uL (3.80-5.40); RDW 17.9 % (11.5-15.5); WBC 36.5 k/uL (3.8-10.6)
[2019-12-24 07:24] LABS: HGB 6.4 gm/dL (11.4-16.0)
[2019-12-24 07:25] LABS: Albumin 2.5 g/dL (3.5-5.0); Calcium 7.9 mg/dL (8.4-10.2); Total Bilirubin 0.4 mg/dL (0.2-1.3); Total Protein 5.5 g/dL (6.3-8.2)
[2019-12-24 07:29] LABS: Potassium 2.7 mmol/L (3.5-5.1)
[2019-12-24 08:06] LABS: Polychromasia Present; Target Cells Present
[2019-12-24] MEDS ORDERED: Potassium Replacement Protocol 1 EACH MISC MISCELLANE PRN (08:30)
[2019-12-24] MEDS: PANTOPRAZOLE 40 MG/10 ML VIAL IV SCH (09:01)
[2019-12-24] MEDS: POTASSIUM CHLORIDE ER 20 MEQ TAB.ER PO SCH ×5 (09:01→19:47)
[2019-12-24] MEDS: HYDROcodone/APAP 7.5-325MG 1 EACH TAB PO SCH ×3 (09:02→23:06)
[2019-12-24] MEDS: SODIUM CHLORIDE 0.9% 1,000 ML IV SCH ×2 (09:02→19:56)
[2019-12-24 12:05] LABS: Glucose,Whole Blood 156 mg/dL (75-99)
--- NOTE | 2019-12-24 12:28 | P.CONS ---
History of Present Illness - Reason for Consult Consult date: 12/24/19 leukocytosis and anemia Requesting physician: Dalton Madden - Chief Complaint altered mentation - History of Present Illness Ms. Garza is an 84 yo female who is here for altered mentation. Work up revealed severely elevated neutrophil predominant leukocytosis at 47, as well as anemia at 6.6. UA concerning for UTI. Pt admitted for sepsis due to UTI with ID consult. We were called regarding her CBC abnormalities and possible concerns for leukemia. CBC on presentation with WBC 47, Hgb 6.7, MCV 68, pt 708. Repeat CBC with WBC down to 36, Hgb 6.4, plt 700. CMP unremarkable. Her anemia dates back to at least 2016, prior to which her Hgb was normal at 13. WBC has been elevated on several occasions in the past, mainly admissions. Plts normal until this admission. She was found to be iron deficient in 2013 as well as 2016. Review of Systems All systems: negative Constitutional: Reports as per HPI Past Medical History Past Medical History: Cancer, Hypertension, Musculoskeletal Disorder Additional Past Medical History / Comment(s): CONSITPATION, DIVERTICULITIS, CHRONIC BACK PAIN History of Any Multi-Drug Resistant Organisms: None Reported Past Surgical History: Breast Surgery, Hysterectomy Additional Past Surgical History / Comment(s): RIGHT MASTECTOMY, EYE SURGERY(hole in left retina) 4-5 yrs ago. wilbert cataracts. Past Anesthesia/Blood Transfusion Reactions: No Reported Reaction Past Psychological History: Depression Smoking Status: Never smoker Past Alcohol Use History: Rare Past Drug Use History: None Reported - Past Family History Brother(s) Additional Family Medical History / Comment(s): Hodgkin's Lymphoma Mother Family Medical History: Cancer Medications and Allergies Home Medications Medication Instructions Recorded Confirmed Type Losartan Potassium 100 mg PO DAILY 07/09/16 12/23/19 History Baclofen [Lioresal] 10 mg PO Q6H PRN 12/23/19 12/23/19 History Docusate [Colace] 100 mg PO DAILY 12/23/19 12/23/19 History HYDROcodone/APAP 7.5-325MG [[place] 1 tab PO TID 12/23/19 12/23/19 History 7.5-325] Hydrochlorothiazide 25 mg PO DAILY 12/23/19 12/23/19 History Temazepam 30 mg PO HS PRN 12/23/19 12/23/19 History methylPREDNISolone Dose Pack See Taper PO DIRECTED 12/23/19 12/23/19 History [Medrol Dose Pack] Allergies Allergy/AdvReac Type Severity Reaction Status Date / Time codeine AdvReac Nausea & Verified 07/03/16 15:33 Vomiting Physical Exam Vitals: Vital Signs Temp Pulse Pulse Resp BP BP Pulse Ox 12/24/19 04:00 98.5 F 95 18 120/60 100 12/24/19 00:00 97.6 F 103 H 18 127/79 95 12/23/19 20:00 98.6 F 73 18 110/56 92 L 12/23/19 16:30 98.7 F 112 H 16 153/67 99 12/23/19 14:08 98.5 F 121 H 18 150/78 100 12/23/19 13:51 116 H 18 129/85 98 12/23/19 13:42 98.0 F 116 H 18 148/86 98 12/23/19 13:38 98.0 F 116 H 18 148/84 97 12/23/19 13:28 98.0 F 110 H 18 138/84 97 12/23/19 13:10 118 H 18 140/67 94 L 12/23/19 12:48 122 H 20 143/88 96 12/23/19 11:49 124 H 22 136/91 96 12/23/19 11:18 129 H 16 146/122 98 12/23/19 10:02 99 F 137 H 18 114/90 98 Intake and Output 12/23/19 12/24/19 12/24/19 22:59 06:59 14:59 Intake Total 3108 Output Total 175 600 Balance 2933 -600 Intake: Intake, IV Titration 2798 Amount Ampicillin-Sulbactam 3 gm 100 In Sodium Chloride 0.9% 100 ml @ 200 mls/hr IVPB Q12H [facility] Rx#:[id number] Sodium Chloride 0.9% 1, 650 000 ml @ 130 mls/hr IV . Q7H42M [facility] Rx#:[id number] Sodium Chloride 0.9% 1, 999 000 ml @ 999 mls/hr IV . Q1H1M [facility] Rx#:[id number] Sodium Chloride 0.9% 1, 999 000 ml @ 999 mls/hr IV . Q1H1M [facility] Rx#:[id number] cefTRIAXone 1 gm In 50 Sodium Chloride 0.9% 50 ml @ 100 mls/hr IVPB [facility] Rx#:[id number] Blood Product 310 Rc As-1 Unit 310 [id number] Output: Urine 175 600 Other: Voiding Method Diaper Diaper Incontinent Incontinent # Bowel Movements 1 1 Weight 68.039 kg 65 kg Constitutional: No acute distress. HEENT: No scleral icterus. She does have conjunctival pallor. Mucosa moist. Neck: Neck supple. Lungs: No respiratory distress. Heart: Regular rate. No LE edema. Abdomen: Soft, nontender, nondistended. MSK: 4/4 strength in all 4 extremities. Neuro: Alert and oriented x 3. Skin: No jaundice or rash. Psych: Appropriate affect. Results CBC & Chem 7: 12/24/19 05:56 12/24/19 05:56 Labs: Abnormal Lab Results - Last 24 Hours (Table) 12/23/19 12/23/19 12/23/19 Range/Units 10:15 10:15 10:15 WBC 47.6 H (3.8-10.6) k/uL RBC 3.62 L (3.80-5.40) m/uL Hgb 6.7 L* (11.4-16.0) gm/dL Hct 24.8 L (34.0-46.0) % MCV 68.5 L (80.0-100.0) fL MCH 18.4 L (25.0-35.0) pg MCHC 26.9 L (31.0-37.0) g/dL RDW 16.4 H (11.5-15.5) % Plt Count 709 H (150-450) k/uL Neutrophils # 43.9 H (1.3-7.7) k/uL Lymphocytes # (1.0-4.8) k/uL Monocytes # 1.5 H (0-1.0) k/uL Basophils # 0.4 H (0-0.2) k/uL Potassium (3.5-5.1) mmol/L Chloride (98-107) mmol/L Carbon Dioxide 17 L (22-30) mmol/L BUN 41 H (7-17) mg/dL Creatinine 1.37 H (0.52-1.04) mg/dL Glucose 216 H (74-99) mg/dL POC Glucose (mg/dL) (75-99) mg/dL Plasma Lactic Acid Zachariah (0.7-2.0) mmol/L Calcium (8.4-10.2) mg/dL Alkaline Phosphatase 142 H (38-126) U/L Total Protein (6.3-8.2) g/dL Albumin (3.5-5.0) g/dL Urine Appearance (Clear) Urine Protein (Negative) Urine Blood (Negative) Ur Leukocyte Esterase (Negative) Urine RBC (0-5) /hpf Urine WBC (0-5) /hpf Urine WBC Clumps (None) /hpf Stool Occult Blood (Negative) Urine Opiates Screen (NotDetected) U Benzodiazepines Scrn (NotDetected) Crossmatch See Detail 12/23/19 12/23/19 12/23/19 Range/Units 10:15 11:35 11:35 WBC (3.8-10.6) k/uL RBC (3.80-5.40) m/uL Hgb (11.4-16.0) gm/dL Hct (34.0-46.0) % MCV (80.0-100.0) fL MCH (25.0-35.0) pg MCHC (31.0-37.0) g/dL RDW (11.5-15.5) % Plt Count (150-450) k/uL Neutrophils # (1.3-7.7) k/uL Lymphocytes # (1.0-4.8) k/uL Monocytes # (0-1.0) k/uL Basophils # (0-0.2) k/uL Potassium (3.5-5.1) mmol/L Chloride (98-107) mmol/L Carbon Dioxide (22-30) mmol/L BUN (7-17) mg/dL Creatinine (0.52-1.04) mg/dL Glucose (74-99) mg/dL POC Glucose (mg/dL) (75-99) mg/dL Plasma Lactic Acid Zachariah 4.3 H* (0.7-2.0) mmol/L Calcium (8.4-10.2) mg/dL Alkaline Phosphatase (38-126) U/L Total Protein (6.3-8.2) g/dL Albumin (3.5-5.0) g/dL Urine Appearance Turbid H (Clear) Urine Protein 2+ H (Negative) Urine Blood Moderate H (Negative) Ur Leukocyte Esterase Large H (Negative) Urine RBC 12 H (0-5) /hpf Urine WBC >182 H (0-5) /hpf Urine WBC Clumps Many H (None) /hpf Stool Occult Blood (Negative) Urine Opiates Screen Detected H (NotDetected) U Benzodiazepines Scrn Detected H (NotDetected) Crossmatch 12/23/19 12/23/19 12/23/19 Range/Units 11:35 16:33 18:40 WBC 39.1 H (3.8-10.6) k/uL RBC 3.33 L (3.80-5.40) m/uL Hgb 7.1 L (11.4-16.0) gm/dL Hct 24.8 L (34.0-46.0) % MCV 74.4 L D (80.0-100.0) fL MCH 21.3 L (25.0-35.0) pg MCHC 28.7 L (31.0-37.0) g/dL RDW 19.0 H (11.5-15.5) % Plt Count 491 H (150-450) k/uL Neutrophils # 36.3 H (1.3-7.7) k/uL Lymphocytes # 0.8 L (1.0-4.8) k/uL Monocytes # 1.5 H (0-1.0) k/uL Basophils # (0-0.2) k/uL Potassium (3.5-5.1) mmol/L Chloride (98-107) mmol/L Carbon Dioxide (22-30) mmol/L BUN (7-17) mg/dL Creatinine (0.52-1.04) mg/dL Glucose (74-99) mg/dL POC Glucose (mg/dL) 182 H (75-99) mg/dL Plasma Lactic Acid Zachariah (0.7-2.0) mmol/L Calcium (8.4-10.2) mg/dL Alkaline Phosphatase (38-126) U/L Total Protein (6.3-8.2) g/dL Albumin (3.5-5.0) g/dL Urine Appearance (Clear) Urine Protein (Negative) Urine Blood (Negative) Ur Leukocyte Esterase (Negative) Urine RBC (0-5) /hpf Urine WBC (0-5) /hpf Urine WBC Clumps (None) /hpf Stool Occult Blood Positive H (Negative) Urine Opiates Screen (NotDetected) U Benzodiazepines Scrn (NotDetected) Crossmatch 12/23/19 12/24/19 12/24/19 Range/Units 20:28 05:56 05:56 WBC 36.5 H (3.8-10.6) k/uL RBC 3.01 L (3.80-5.40) m/uL Hgb 6.4 L* (11.4-16.0) gm/dL Hct 22.4 L (34.0-46.0) % MCV 74.4 L (80.0-100.0) fL MCH 21.4 L (25.0-35.0) pg MCHC 28.8 L (31.0-37.0) g/dL RDW 17.9 H (11.5-15.5) % Plt Count 548 H (150-450) k/uL Neutrophils # (1.3-7.7) k/uL Lymphocytes # (1.0-4.8) k/uL Monocytes # (0-1.0) k/uL Basophils # (0-0.2) k/uL Potassium 2.7 L* (3.5-5.1) mmol/L Chloride 113 H (98-107) mmol/L Carbon Dioxide 19 L (22-30) mmol/L BUN 28 H (7-17) mg/dL Creatinine 1.06 H (0.52-1.04) mg/dL Glucose 120 H (74-99) mg/dL POC Glucose (mg/dL) 175 H (75-99) mg/dL Plasma Lactic Acid Zachariah (0.7-2.0) mmol/L Calcium 7.9 L (8.4-10.2) mg/dL Alkaline Phosphatase (38-126) U/L Total Protein 5.5 L (6.3-8.2) g/dL Albumin 2.5 L (3.5-5.0) g/dL Urine Appearance (Clear) Urine Protein (Negative) Urine Blood (Negative) Ur Leukocyte Esterase (Negative) Urine RBC (0-5) /hpf Urine WBC (0-5) /hpf Urine WBC Clumps (None) /hpf Stool Occult Blood (Negative) Urine Opiates Screen (NotDetected) U Benzodiazepines Scrn (NotDetected) Crossmatch 12/24/19 Range/Units 06:04 WBC (3.8-10.6) k/uL RBC (3.80-5.40) m/uL Hgb (11.4-16.0) gm/dL Hct (34.0-46.0) % MCV (80.0-100.0) fL MCH (25.0-35.0) pg MCHC (31.0-37.0) g/dL RDW (11.5-15.5) % Plt Count (150-450) k/uL Neutrophils # (1.3-7.7) k/uL Lymphocytes # (1.0-4.8) k/uL Monocytes # (0-1.0) k/uL Basophils # (0-0.2) k/uL Potassium (3.5-5.1) mmol/L Chloride (98-107) mmol/L Carbon Dioxide (22-30) mmol/L BUN (7-17) mg/dL Creatinine (0.52-1.04) mg/dL Glucose (74-99) mg/dL POC Glucose (mg/dL) 141 H (75-99) mg/dL Plasma Lactic Acid Zachariah (0.7-2.0) mmol/L Calcium (8.4-10.2) mg/dL Alkaline Phosphatase (38-126) U/L Total Protein (6.3-8.2) g/dL Albumin (3.5-5.0) g/dL Urine Appearance (Clear) Urine Protein (Negative) Urine Blood (Negative) Ur Leukocyte Esterase (Negative) Urine RBC (0-5) /hpf Urine WBC (0-5) /hpf Urine WBC Clumps (None) /hpf Stool Occult Blood (Negative) Urine Opiates Screen (NotDetected) U Benzodiazepines Scrn (NotDetected) Crossmatch Microbiology - Last 24 Hours (Table) 12/23/19 11:35 Urine Culture - Preliminary Urine,Voided CT Scan - head: report reviewed US - abdomen: report reviewed Assessment and Plan Assessment: 1. Leukocytosis, neutrophil predominant 2. Microcytic anemia 3. Thrombocytosis 4. Sepsis with UTI Plan: Ms. McKillop is a very pleasant 84 yo female who is here for altered mentation, work up revealed severely elevated WBC at 47, microcytic anemia at 6.7 with MCV 68, thrombocytosis at 700. Leukocytosis is downtrending. She was transfused 1 unit pRBC with Hgb increasing to 7. I suspect her leukocytosis is reactive due to sepsis, with reactive throbmocytosis due to infection and iron deficiency. Her microcytic anemia is likely related to iron deficiency. Will obtain anemia work up. Continue antibiotics and supportive transfusion as needed for Hgb <7 and plt <15. Further work up if pt's leukocytosis persists or initial anemia work up unrevealing.
[2019-12-24 12:36] LABS: Reticulocyte % 2.3 % (0.5-2.0)
--- NOTE | 2019-12-24 13:20 | P.PN ---
Subjective Progress Note Date: 12/24/19 Jaqui Garza is an 84 -year-old female who was brought in to [facility] emergency room due to mental status changes, per emergency room notes, patient was fine yesterday, she took [place] baclofen and a sleeping pill before going to bed, this morning she was unarousable and family called EMS and patient was brought in to [facility]. In the emergency room patient had a computed tomography scan of the brain without contrast that failed to reveal any evidence of hemorrhage or any acute abnormality, Narcan was given but did not help much, patient had significantly abnormal labs with evidence of urinary tract infection, severe leukocytosis, anemia with hemoglobin of 6.9, heme positive stools, and elevated lactic acid, she was started on IV fluid, IV Rocephin, and was admitted to medical floor for further evaluation. 1 unit of red blood cell transfusion was ordered. Patient was seen and examined on the medical floor, she is responding to stimuli but goes back to sleep, she is nonverbal at this time, no history could be obtained from her. On 12/24/2019 patient was seen and examined on the medical floor she is alert, responsive answering questions appropriately, there is no fever or chills no headache or dizziness no chest pain no shortness of breath no cough no nausea or vomiting no abdominal pain no diarrhea no blood in the stools, she is having urine incontinence and has an external catheter. Objective - Vital Signs Vital signs: Vital Signs Temp 98.9 F 12/24/19 11:41 Pulse 90 12/24/19 11:41 Resp 18 12/24/19 04:00 BP 143/65 12/24/19 11:41 Pulse Ox 99 12/24/19 11:41 Intake & Output 12/23/19 12/24/19 12/24/19 18:59 06:59 18:59 Intake Total 310 2798 0 Output Total 775 Balance 310 3 0 Weight 68.039 kg 65 kg 65 kg Intake: Intake, IV Titration 2798 Amount Ampicillin-Sulbactam 3 gm 100 In Sodium Chloride 0.9% 100 ml @ 200 mls/hr IVPB Q12H [facility] Rx#:[id number] Sodium Chloride 0.9% 1, 650 000 ml @ 130 mls/hr IV . Q7H42M [facility] Rx#:[id number] Sodium Chloride 0.9% 1, 999 000 ml @ 999 mls/hr IV . Q1H1M [facility] Rx#:[id number] Sodium Chloride 0.9% 1, 999 000 ml @ 999 mls/hr IV . Q1H1M ONE Rx#:[id number] cefTRIAXone 1 gm In 50 Sodium Chloride 0.9% 50 ml @ 100 mls/hr IVPB ONCE STA Rx#:[id number] Blood Product 310 0 Rc As-1 Unit 0 [id number] Rc As-1 Unit 310 [id number] Output: Urine 775 Other: Voiding Method Incontinent Diaper Diaper Incontinent Incontinent # Voids 3 0 # Bowel Movements 1 1 0 - Exam In general patient is alert responsive in no apparent distress HEENT head normocephalic and atraumatic Neck is supple no JVD no goiter no lymphadenopathy Chest exam reveals a few scattered rhonchi no wheezing Cardiac exam reveals regular heart sounds S1 and S2 no gallops no murmurs Abdomen is soft nontender no organomegaly with normal bowel sounds Extremity exam reveals minimal edema no cyanosis or clubbing Neurological examination patient is somnolent responsive to stimuli, moving all 4 extremities - Labs CBC & Chem 7: 12/24/19 05:56 12/24/19 05:56 Labs: Abnormal Lab Results - Last 24 Hours (Table) 12/23/19 12/23/19 12/23/19 Range/Units 10:15 16:33 18:40 WBC 39.1 H (3.8-10.6) k/uL RBC 3.33 L (3.80-5.40) m/uL Hgb 7.1 L (11.4-16.0) gm/dL Hct 24.8 L (34.0-46.0) % MCV 74.4 L D (80.0-100.0) fL MCH 21.3 L (25.0-35.0) pg MCHC 28.7 L (31.0-37.0) g/dL RDW 19.0 H (11.5-15.5) % Plt Count 491 H (150-450) k/uL Neutrophils # 36.3 H (1.3-7.7) k/uL Lymphocytes # 0.8 L (1.0-4.8) k/uL Monocytes # 1.5 H (0-1.0) k/uL Retic Count (0.5-2.0) % Potassium (3.5-5.1) mmol/L Chloride (98-107) mmol/L Carbon Dioxide (22-30) mmol/L BUN (7-17) mg/dL Creatinine (0.52-1.04) mg/dL Glucose (74-99) mg/dL POC Glucose (mg/dL) 182 H (75-99) mg/dL Calcium (8.4-10.2) mg/dL Total Protein (6.3-8.2) g/dL Albumin (3.5-5.0) g/dL Crossmatch See Detail 12/23/19 12/24/19 12/24/19 Range/Units 20:28 05:56 05:56 WBC 36.5 H (3.8-10.6) k/uL RBC 3.01 L (3.80-5.40) m/uL Hgb 6.4 L* (11.4-16.0) gm/dL Hct 22.4 L (34.0-46.0) % MCV 74.4 L (80.0-100.0) fL MCH 21.4 L (25.0-35.0) pg MCHC 28.8 L (31.0-37.0) g/dL RDW 17.9 H (11.5-15.5) % Plt Count 548 H (150-450) k/uL Neutrophils # 32.9 H (1.3-7.7) k/uL Lymphocytes # (1.0-4.8) k/uL Monocytes # 1.9 H (0-1.0) k/uL Retic Count (0.5-2.0) % Potassium 2.7 L* (3.5-5.1) mmol/L Chloride 113 H (98-107) mmol/L Carbon Dioxide 19 L (22-30) mmol/L BUN 28 H (7-17) mg/dL Creatinine 1.06 H (0.52-1.04) mg/dL Glucose 120 H (74-99) mg/dL POC Glucose (mg/dL) 175 H (75-99) mg/dL Calcium 7.9 L (8.4-10.2) mg/dL Total Protein 5.5 L (6.3-8.2) g/dL Albumin 2.5 L (3.5-5.0) g/dL Crossmatch 12/24/19 12/24/19 12/24/19 Range/Units 05:56 06:04 11:56 WBC (3.8-10.6) k/uL RBC (3.80-5.40) m/uL Hgb (11.4-16.0) gm/dL Hct (34.0-46.0) % MCV (80.0-100.0) fL MCH (25.0-35.0) pg MCHC (31.0-37.0) g/dL RDW (11.5-15.5) % Plt Count (150-450) k/uL Neutrophils # (1.3-7.7) k/uL Lymphocytes # (1.0-4.8) k/uL Monocytes # (0-1.0) k/uL Retic Count 2.3 H (0.5-2.0) % Potassium (3.5-5.1) mmol/L Chloride (98-107) mmol/L Carbon Dioxide (22-30) mmol/L BUN (7-17) mg/dL Creatinine (0.52-1.04) mg/dL Glucose (74-99) mg/dL POC Glucose (mg/dL) 141 H 156 H (75-99) mg/dL Calcium (8.4-10.2) mg/dL Total Protein (6.3-8.2) g/dL Albumin (3.5-5.0) g/dL Crossmatch Microbiology - Last 24 Hours (Table) 12/23/19 11:35 Urine Culture - Final Urine,Voided Assessment and Plan Plan: 1. Evidence of urinary tract infection, patient was started on IV Rocephin, blood culture and urine culture were ordered, infectious disease consultation was requested. 2. Sepsis, likely related to urinary tract infection, with severe leukocytosis, elevated lactic acid, tachycardia and tachypnea 3. Severe elevation in white blood count, could be related to infection however, possibility of leukocytosis related to leukemia needs to be ruled out, consultation for hematology was initiated. 4. Severe anemia, 1 unit of red blood cell transfusion was ordered, patient has heme positive stools, consultation for gastroenterology was initiated 5. Underlying history of hypertension. At this time we are holding blood pressure medication Will monitor closely 6. Underlying history of osteoarthritis with severe pain requiring narcotic medications. At this time will hold narcotic sleeping pill and muscle relaxers will monitor mental status closely. 7. Mental status changes, likely related to sepsis, metabolic encephalopathy, and affect of narcotic medication and sleeping., No abnormality seen on computed tomography scan without contrast, however if mental status does not improve in 24 hours, will proceed was more imaging and consultation for neur ology. 8. Hypokalemia Corps correcting 9. Acute renal failure on admission with elevated BUN at 41 creatinine at 1.37, improving BUN is down to 28 and creatinine 1.06 Patient prognosis is guarded She was started on IV fluid, IV antibiotics, red blood cell transfusion Consultation for hematology, infectious disease, and gastroenterology initiated Will repeat labs and follow closely
--- NOTE | 2019-12-24 14:20 | US ---
EXAMINATION TYPE: US kidneys/renal and bladder DATE OF EXAM: 12/24/2019 COMPARISON: US 12/23/2019 CLINICAL HISTORY: hydronephrosis. Difficult and limited exam. Patient is disoriented, cannot move or take a deep breath in and hold EXAM MEASUREMENTS: Right Kidney: 10.3 x 4.6 x 4.4 cm Left Kidney: 9.4 x 4.0 x 4.7 cm Right Kidney: Hydronephrosis Left Kidney: hydronephrosis Bladder: wnl Bilateral Jets seen: Yes IMPRESSION: There is bilateral hydronephrosis of uncertain etiology. Right-sided renal parenchymal thinning noted .
[2019-12-24 16:34] LABS: Anisocytosis Slight; HCT 28.3 % (34.0-46.0); HGB 8.2 gm/dL (11.4-16.0); Hypochromasia Marked; MCH 21.8 pg (25.0-35.0); MCHC 29.1 g/dL (31.0-37.0); MCV 74.9 fL (80.0-100.0); Mean Platelet Volume 6.9; Microcytosis Moderate; Platelet Count 485 k/uL (150-450); Poikilocytosis Marked; RBC 3.78 m/uL (3.80-5.40); RDW 18.2 % (11.5-15.5); WBC 33.7 k/uL (3.8-10.6)
[2019-12-24 16:43] LABS: Ferritin 56.7 ng/mL (10.0-291.0); Folate, Serum 3.8 ng/mL
[2019-12-24 16:46] LABS: % Iron Saturation 7.62 (12.00-45.00)
[2019-12-24 16:56] LABS: Protein, Total 7.2 g/dL (6.2-8.2)
[2019-12-24 17:07] LABS: Glucose,Whole Blood 113 mg/dL (75-99)
--- NOTE | 2019-12-24 17:23 | PN ---
PROGRESS NOTE DATE OF SERVICE: 12/24/2019 REASON FOR FOLLOWUP: Leukocytosis and a question of UTI. INTERVAL HISTORY: The patient is currently afebrile. The patient is more awake and alert. She is breathing comfortably. No chest pain or cough. Denies any abdominal pain or diarrhea. PHYSICAL EXAMINATION: Blood pressure 124/61 with a pulse of 83, temperature 98.9. She is 99% on 2 L nasal cannula. General description is an elderly female lying in bed in no distress. Respiratory system: Unlabored breathing. Clear to auscultation anteriorly. Heart S1, S2. Regular rate and rhythm. ABDOMEN: Soft, no tenderness. LABS: Hemoglobin 8.1 with a white count 3.7. Creatinine 1.06. Blood culture has been negative. Urine so far negative. DIAGNOSTIC IMPRESSION AND PLAN: Patient with significantly elevated white count with concern for urinary tract infection. She did have some tenderness. Ultrasound was suggestive of right sided hydronephrosis with her anemia and concern for possible diverticulosis. We will go ahead and check a CT abdomen and and pelvis with oral contrast. Continue Unasyn, dose to be adjusted up in view of improvement in kidney function and monitor clinical course closely. MMODL / IJN: [id number] /
[2019-12-24 17:30] LABS: Lymphocytes # (M) 2.02 k/uL (1.0-4.8); Neutrophils # (M) 29.32 k/uL (1.3-7.7); Neutrophils % (M) 87 %; Nucleated Red Blood Cells 0 /100 WBC (0-0); Total Cells Counted 200
[2019-12-24 17:32] LABS: Target Cells Present
[2019-12-24 20:41] LABS: Glucose,Whole Blood 217 mg/dL (75-99)
[2019-12-25] MEDS: AMPICILLIN-SULBACTAM 3 GM in SODIUM CHLORIDE 0.9% 100 ML IVPB SCH ×3 (02:25→20:31)
[2019-12-25] MEDS: SODIUM CHLORIDE 0.9% 1,000 ML IV SCH ×3 (06:07→20:35)
[2019-12-25 06:24] LABS: Glucose,Whole Blood 149 mg/dL (75-99)
[2019-12-25 07:15] LABS: Albumin 2.6 g/dL (3.5-5.0); Calcium 7.9 mg/dL (8.4-10.2); Potassium 4.1 mmol/L (3.5-5.1); Total Bilirubin 0.5 mg/dL (0.2-1.3); Total Protein 5.8 g/dL (6.3-8.2)
[2019-12-25 07:30] LABS: Anisocytosis Slight; HCT 26.4 % (34.0-46.0); HGB 7.6 gm/dL (11.4-16.0); Hypochromasia Marked; MCH 21.8 pg (25.0-35.0); MCHC 28.9 g/dL (31.0-37.0); MCV 75.3 fL (80.0-100.0); Mean Platelet Volume 7.7; Microcytosis Moderate; Platelet Count 461 k/uL (150-450); Poikilocytosis Marked; RBC 3.51 m/uL (3.80-5.40); RDW 18.6 % (11.5-15.5); WBC 30.4 k/uL (3.8-10.6)
[2019-12-25 08:34] LABS: Lymphocytes # (M) 1.52 k/uL (1.0-4.8); Monocytes # (M) 0.61 k/uL (0-1.0); Neutrophils # (M) 28.27 k/uL (1.3-7.7); Neutrophils % (M) 93 %; Nucleated Red Blood Cells 0 /100 WBC (0-0); Target Cells Present; Total Cells Counted 100
--- NOTE | 2019-12-25 08:48 | P.CONS ---
History of Present Illness - Reason for Consult Consult date: 12/24/19 Anemia Requesting physician: Dalton Madden - Chief Complaint Altered mental status - History of Present Illness 84-year-old female with a medical history significant for diverticulitis, chronic constipation, back pain and hypertension who presented to the hospital due to concerns over altered mental status. The patient had taken a [place], baclofen and a sleeping pill on the night prior to presentation. She subsequently was noted to have altered mental status, unarousable the next morning and EMS was called to bring the patient to [facility]. The patient had computed tomography scan of the head on presentation which was essentially negative. She was found to have a urinary tract infection and is currently undergoing antibiotic therapy. The patient was also found to have a significant leukocytosis with a WBC of 47,000 on presentation and was found to be anemic with a hemoglobin of 6.7, improved after transfusion. Other laboratory evaluation significant for hypokalemia with a potassium 2.1, INR 1, platelet count 548,000, total bilirubin 0.4, alkaline phosphatase 96, AST 18 and ALTs 6. Ultrasound of the abdomen showed right hydronephrosis. On review of the medical record patient was previously seen in the hospital and treated for uncomplicated diverticulitis. She believes her last colonoscopy was approximately 10 years ago. She denies any signs or symptoms of GI bleeding with no hematochezia, melena, and also denies any change in bowel habits. No nausea or vomiting. She does report tolerating her diet. Stool testing was positive for blood. Review of Systems REVIEW OF SYSTEMS: CONSTITUTIONAL: Denies any fevers, chills, weight change or fatigue. CARDIOVASCULAR: Denies any chest pain, palpitations high or low blood pressures RESPIRATORY: Denies any shortness of breath, hemoptysis or cough. GENITOURINARY: Currently being treated for urinary tract infection. MUSCULOSKELETAL: No weakness reported. SKIN: Denies any new rashes or lesions, jaundice or pallor. PSYCHIATRIC: Denies any depression or anxiety. NEUROLOGY: Denies headache, denies any new focal deficits. EARS/NOSE/THROAT: No recent hearing change, congestion, nasal discharge or sore throat. EYES: No pain in eyes, discharge or change in vision. GASTROINTESTINAL: As per HPI. Past Medical History Past Medical History: Cancer, Hypertension, Musculoskeletal Disorder Additional Past Medical History / Comment(s): CONSITPATION, DIVERTICULITIS, CHRONIC BACK PAIN History of Any Multi-Drug Resistant Organisms: None Reported Past Surgical History: Breast Surgery, Hysterectomy Additional Past Surgical History / Comment(s): RIGHT MASTECTOMY, EYE SURGERY(hole in left retina) 4-5 yrs ago. wilbert cataracts. Past Anesthesia/Blood Transfusion Reactions: No Reported Reaction Past Psychological History: Depression Smoking Status: Never smoker Past Alcohol Use History: Rare Past Drug Use History: None Reported - Past Family History Brother(s) Additional Family Medical History / Comment(s): Hodgkin's Lymphoma Mother Family Medical History: Cancer Medications and Allergies Home Medications Medication Instructions Recorded Confirmed Type Losartan Potassium 100 mg PO DAILY 07/09/16 12/23/19 History Baclofen [Lioresal] 10 mg PO Q6H PRN 12/23/19 12/23/19 History Docusate [Colace] 100 mg PO DAILY 12/23/19 12/23/19 History HYDROcodone/APAP 7.5-325MG [[place] 1 tab PO TID 12/23/19 12/23/19 History 7.5-325] Hydrochlorothiazide 25 mg PO DAILY 12/23/19 12/23/19 History Temazepam 30 mg PO HS PRN 12/23/19 12/23/19 History methylPREDNISolone Dose Pack See Taper PO DIRECTED 12/23/19 12/23/19 History [Medrol Dose Pack] Allergies Allergy/AdvReac Type Severity Reaction Status Date / Time codeine AdvReac Nausea & Verified 07/03/16 15:33 Vomiting Physical Exam Vitals: Vital Signs Temp Pulse Pulse Resp BP BP Pulse Ox 12/24/19 12:00 98.9 F 90 143/65 99 12/24/19 11:41 98.9 F 90 143/65 99 12/24/19 11:31 98.7 F 84 137/72 99 12/24/19 08:00 97.9 F 97 133/63 98 12/24/19 04:00 98.5 F 95 18 120/60 100 12/24/19 00:00 97.6 F 103 H 18 127/79 95 12/23/19 20:00 98.6 F 73 18 110/56 92 L 12/23/19 16:30 98.6 F 97 112 H 16 139/60 153/67 100 12/23/19 14:08 98.5 F 121 H 18 150/78 100 12/23/19 13:51 116 H 18 129/85 98 12/23/19 13:42 98.0 F 116 H 18 148/86 98 Intake and Output 12/23/19 12/24/19 12/24/19 22:59 06:59 14:59 Intake Total 3108 0 Output Total 175 600 Balance 2933 -600 0 Intake: Intake, IV Titration 2798 Amount Ampicillin-Sulbactam 3 gm 100 In Sodium Chloride 0.9% 100 ml @ 200 mls/hr IVPB Q12H [facility] Rx#:[id number] Sodium Chloride 0.9% 1, 650 000 ml @ 130 mls/hr IV . Q7H42M [facility] Rx#:[id number] Sodium Chloride 0.9% 1, 999 000 ml @ 999 mls/hr IV . Q1H1M [facility] Rx#:[id number] Sodium Chloride 0.9% 1, 999 000 ml @ 999 mls/hr IV . Q1H1M [facility] Rx#:[id number] cefTRIAXone 1 gm In 50 Sodium Chloride 0.9% 50 ml @ 100 mls/hr IVPB ONCE STA Rx#:[id number] Blood Product 310 0 Rc As-1 Unit 0 [id number] Rc As-1 Unit 310 [id number] Output: Urine 175 600 Other: Voiding Method Diaper Diaper Incontinent Incontinent Incontinent # Voids 0 # Bowel Movements 1 1 0 Weight 68.039 kg 65 kg 65 kg On physical examination, patient appears comfortable in no apparent distress. HEAD: Normocephalic, atraumatic. EYES: No scleral icterus. No conjunctival injection. MOUTH: No lesions, tongue midline. NECK: Trachea midline, no gross abnormalities. CHEST: Clear to auscultation with no wheezing or rhonchi appreciated. HEART: Regular rate and rhythm. ABDOMEN: Soft, obese. Bowel sounds are positive. No organomegaly. No guarding or rigidity. EXTREMITIES: No pedal edema. SKIN: No rashes, no jaundice. NEUROLOGIC: Alert and oriented to person. No focal deficits. Results CBC & Chem 7: 12/25/19 06:10 12/25/19 06:10 Labs: Abnormal Lab Results - Last 24 Hours (Table) 12/23/19 12/23/19 12/23/19 Range/Units 10:15 16:33 18:40 WBC 39.1 H (3.8-10.6) k/uL RBC 3.33 L (3.80-5.40) m/uL Hgb 7.1 L (11.4-16.0) gm/dL Hct 24.8 L (34.0-46.0) % MCV 74.4 L D (80.0-100.0) fL MCH 21.3 L (25.0-35.0) pg MCHC 28.7 L (31.0-37.0) g/dL RDW 19.0 H (11.5-15.5) % Plt Count 491 H (150-450) k/uL Neutrophils # 36.3 H (1.3-7.7) k/uL Lymphocytes # 0.8 L (1.0-4.8) k/uL Monocytes # 1.5 H (0-1.0) k/uL Retic Count (0.5-2.0) % Potassium (3.5-5.1) mmol/L Chloride (98-107) mmol/L Carbon Dioxide (22-30) mmol/L BUN (7-17) mg/dL Creatinine (0.52-1.04) mg/dL Glucose (74-99) mg/dL POC Glucose (mg/dL) 182 H (75-99) mg/dL Calcium (8.4-10.2) mg/dL Total Protein (6.3-8.2) g/dL Albumin (3.5-5.0) g/dL Crossmatch See Detail 12/23/19 12/24/19 12/24/19 Range/Units 20:28 05:56 05:56 WBC 36.5 H (3.8-10.6) k/uL RBC 3.01 L (3.80-5.40) m/uL Hgb 6.4 L* (11.4-16.0) gm/dL Hct 22.4 L (34.0-46.0) % MCV 74.4 L (80.0-100.0) fL MCH 21.4 L (25.0-35.0) pg MCHC 28.8 L (31.0-37.0) g/dL RDW 17.9 H (11.5-15.5) % Plt Count 548 H (150-450) k/uL Neutrophils # 32.9 H (1.3-7.7) k/uL Lymphocytes # (1.0-4.8) k/uL Monocytes # 1.9 H (0-1.0) k/uL Retic Count (0.5-2.0) % Potassium 2.7 L* (3.5-5.1) mmol/L Chloride 113 H (98-107) mmol/L Carbon Dioxide 19 L (22-30) mmol/L BUN 28 H (7-17) mg/dL Creatinine 1.06 H (0.52-1.04) mg/dL Glucose 120 H (74-99) mg/dL POC Glucose (mg/dL) 175 H (75-99) mg/dL Calcium 7.9 L (8.4-10.2) mg/dL Total Protein 5.5 L (6.3-8.2) g/dL Albumin 2.5 L (3.5-5.0) g/dL Crossmatch 12/24/19 12/24/19 12/24/19 Range/Units 05:56 06:04 11:56 WBC (3.8-10.6) k/uL RBC (3.80-5.40) m/uL Hgb (11.4-16.0) gm/dL Hct (34.0-46.0) % MCV (80.0-100.0) fL MCH (25.0-35.0) pg MCHC (31.0-37.0) g/dL RDW (11.5-15.5) % Plt Count (150-450) k/uL Neutrophils # (1.3-7.7) k/uL Lymphocytes # (1.0-4.8) k/uL Monocytes # (0-1.0) k/uL Retic Count 2.3 H (0.5-2.0) % Potassium (3.5-5.1) mmol/L Chloride (98-107) mmol/L Carbon Dioxide (22-30) mmol/L BUN (7-17) mg/dL Creatinine (0.52-1.04) mg/dL Glucose (74-99) mg/dL POC Glucose (mg/dL) 141 H 156 H (75-99) mg/dL Calcium (8.4-10.2) mg/dL Total Protein (6.3-8.2) g/dL Albumin (3.5-5.0) g/dL Crossmatch Microbiology - Last 24 Hours (Table) 12/23/19 11:35 Urine Culture - Final Urine,Voided US - abdomen: report reviewed (Technically limited ultrasound of the abdomen with some right hydronephrosis noted.) Assessment and Plan (1) Iron deficiency anemia Narrative/Plan: 84-year-old female with multiple medical comorbidities presenting due to altered mental status. The patient had taken [place], baclofen and a sleeping pill on the night prior to presentation. She was found to be unarousable next day and brought in for further evaluation. Computed tomography scan at that was negative the patient was found to have a urinary tract infection with some hydronephrosis on ultrasound of the abdomen and is currently being treated with antibiotic therapy. Patient also found to have markedly elevated leukocytosis with a microcytic iron deficiency anemia and thrombocytosis. Hematology has been consult to see the patient. She denies any signs or symptoms of GI bleeding but was found to have stool testing that was positive for blood. Unclear if anemia is partly due to urinary tract infection and hematuria, cannot rule out a component of GI bleed, with the hematology service evaluating possible hematologic pathology. Current Visit: Yes Status: Acute Code(s): D50.9 - IRON DEFICIENCY ANEMIA, UNSPECIFIED SNOMED Code(s): 63696297 (2) Altered mental status Current Visit: Yes Status: Acute Code(s): R41.82 - ALTERED MENTAL STATUS, UNSPECIFIED SNOMED Code(s): 341769701 (3) Urinary tract infection Current Visit: Yes Status: Acute Code(s): N39.0 - URINARY TRACT INFECTION, SITE NOT SPECIFIED SNOMED Code(s): 02605094 Plan: Supportive care Continue monitor hemoglobin and hematocrit and transfuse as needed Iron supplementation ordered Appreciate recommendations from infectious disease, hematology and primary team Anemia workup per hematology service Continue broad-spectrum antibiotic therapy We'll continue to follow the patient, with consideration for endoscopic evaluation when the patient is medically stable if no source for anemia is found Thank you for allowing us to participate in the care of the patient
[2019-12-25] MEDS: IOPAMIDOL CONTRAST (ORAL USE) VIAL PO PRN ×2 (08:56→09:30)
[2019-12-25] MEDS: HYDROcodone/APAP 7.5-325MG 1 EACH TAB PO SCH ×3 (08:56→22:40)
[2019-12-25] MEDS: PANTOPRAZOLE 40 MG/10 ML VIAL IV SCH (08:57)
[2019-12-25] MEDS: SODIUM FERRIC GLUCONAT-SUCROSE 125 MG in SODIUM CHLORIDE 0.9% 100 ML IVPB SCH (09:23)
--- NOTE | 2019-12-25 11:10 | CT ---
EXAMINATION TYPE: CT abdomen pelvis wo con DATE OF EXAM: 12/25/2019 COMPARISON: Previous study dated 03/14/2016. HISTORY: Patient poor historian. CT DLP: 618.9 mGycm Automated exposure control for dose reduction was used. FINDINGS: There are small, bilateral effusions. There is associated relaxation atelectasis. There is no pericardial fluid. The heart is enlarged. There is a moderate, sliding hiatal hernia. Within the abdomen, the liver, spleen and gallbladder are normal. Both adrenal glands are normal. There is bilateral hydronephrosis and hydroureter down to the level of the bladder. No definite urete titus calculus is seen on the right. There is a 1 to 2 mm calcification just cephalad to the UVJ on the left. I do not believe this is within the ureter. The pancreas is atrophic. There is moderate atheromatous calcification of the visualized arterial tree. There is no significant retroperitoneal, iliac or inguinal adenopathy. The bladder is unremarkable. There is a large amount of stool within the rectum. There is some thickening of the sigmoid colon. Th is may Stercoral colitis. There are scattered diverticula present throughout the sigmoid colon without radio graphic evidence of diverticulitis. There is a large filling defect within the cecum. This may repres ent feces. Neoplasm cannot be excluded based on this examination. The appendix is normal. Small bowel loops are normal. There is no free fluid and no free air. There is minor anasarca overlying the lower pelvis and proximal thighs. There is been a previous interpedicular fusion at L3, L4 and L5. There is degenerative disc disease a nd hypertrophic spondylosis throughout the spine. There has been a laminectomy at L4 and L5. IMPRESSION: 1. SMALL, BILATERAL EFFUSIONS. 2. CARDIOMEGALY. 3. MODERATE SLIDING HIATAL HERNIA. 4. BILATERAL HYDRONEPHROSIS AND HYDROURETER WITHOUT DEFINITE OBSTRUCTING CALCULUS. 5. CONSTIPATION. THICKENING OF THE SIGMOID COLON MAY BE SECONDARY TO STERCORAL COLITIS. 6. FILLING DEFECT IN THE CECUM MAY SIMPLY REPRESENT STOOL. DIRECT VISUALIZATION WOULD BE SUGGESTED. 7. MILD ANASARCA. 8. DEGENERATIVE AND POSTSURGICAL CHANGES WITHIN THE SPINE.
--- NOTE | 2019-12-25 11:11 | P.GSCN ---
History of Present Illness Consult date: 12/25/19 Reason for Consult: Bilateral hydronephrosis History of present illness: The patient is an 84-year-old female who was taken to the emergency room on 12/22 by her family due to decreased responsiveness. Her white blood count was elevated at 39,000 and hemoglobin was 7.1. She has received a blood transfusion and there is concern for a GI source of the bleeding due to dark-colored stools. BUN/creatinine on admission were 41/1.37 and her bicarbonate was 17. Her urinalysis showed pyuria and she was suspected to be septic from a urinary tract infection and was started on Rocephin and then switched to Unasyn. Urine culture has shown no growth. Her white blood count this morning is 30,400. BUN/creatinine are 26/1.13. Bicarb is 15. She is back to her normal level of mentation. Abdominal ultrasound was performed on 12/23 and this showed moderately severe bilateral hydronephrosis. I was asked to see the patient for further evaluation. I had previously seen the patient over 20 years ago due to microscopic hematuria. IVP and cystoscopy at that time were unremarkable. The patient was seen by Dr. Davenport in 2013 due to urinary retention and at that time 1000 cc drained from her bladder. CT scan of the abdomen on 03/14/2016 showed some dilation of the right renal pelvis and a somewhat distended bladder. The patient has had 2 bladder scans over the last 24 hours that have shown less than 180 cc in the bladder. CT scan of the abdomen and pelvis without IV contrast performed this morning shows evidence of bilateral hydroureteronephrosis with dilated ureters down to the level of the bladder. There was no evidence of calculus present in the kidneys or ureters. The bladder wall shows some non- specific thickening. The patient has a history of urge and stress incontinence and has been wearing a pad. She says she usually voids every 2 hours during the day and once at night. She says her bowels have been moving. She has had some urinary tract infections in the past. Review of Systems - Constitutional Denies chills, Denies fever - Cardiovascular Denies shortness of breath - Gastrointestinal Denies abdominal pain - Genitourinary Genitourinary: Reports as per HPI - Neurological Reports balance difficulties, Reports memory loss Past Medical History Past Medical History: Cancer (right breast), Hypertension, Musculoskeletal Disorder Additional Past Medical History / Comment(s): CONSITPATION, DIVERTICULITIS, CHRONIC BACK PAIN History of Any Multi-Drug Resistant Organisms: None Reported Past Surgical History: Breast Surgery, Hysterectomy (abdominal) Additional Past Surgical History / Comment(s): RIGHT MASTECTOMY, EYE SURGERY(hole in left retina) 4-5 yrs ago. wilbert cataracts. Past Anesthesia/Blood Transfusion Reactions: No Reported Reaction Past Psychological History: Depression Smoking Status: Never smoker Past Alcohol Use History: Rare Past Drug Use History: None Reported - Past Family History Brother(s) Additional Family Medical History / Comment(s): Hodgkin's Lymphoma Mother Family Medical History: Cancer Medications and Allergies Home Medications Medication Instructions Recorded Confirmed Type Losartan Potassium 100 mg PO DAILY 07/09/16 12/23/19 History Baclofen [Lioresal] 10 mg PO Q6H PRN 12/23/19 12/23/19 History Docusate [Colace] 100 mg PO DAILY 12/23/19 12/23/19 History HYDROcodone/APAP 7.5-325MG [[place] 1 tab PO TID 12/23/19 12/23/19 History 7.5-325] Hydrochlorothiazide 25 mg PO DAILY 12/23/19 12/23/19 History Temazepam 30 mg PO HS PRN 12/23/19 12/23/19 History methylPREDNISolone Dose Pack See Taper PO DIRECTED 12/23/19 12/23/19 History [Medrol Dose Pack] Allergies Allergy/AdvReac Type Severity Reaction Status Date / Time codeine AdvReac Nausea & Verified 07/03/16 15:33 Vomiting Surgical - Exam Vital Signs Temp Pulse Resp BP Pulse Ox 99 F 137 H 18 114/90 98 12/23/19 10:02 12/23/19 10:02 12/23/19 10:02 12/23/19 10:02 12/23/19 10:02 - General well developed, well nourished, no distress - ENT no hearing loss - Neck no masses, no lymphadectomy - Respiratory normal respiratory effort - Abdomen Abdomen: soft, no organomegaly Hernia: none - Psychiatric oriented to time, oriented to place, speech is normal Results - Labs 12/25/19 06:10 12/25/19 06:10 Abnormal Lab Results - Last 24 Hours (Table) 12/23/19 12/24/19 12/24/19 Range/Units 10:15 05:56 05:56 WBC (3.8-10.6) k/uL RBC (3.80-5.40) m/uL Hgb (11.4-16.0) gm/dL Hct (34.0-46.0) % MCV (80.0-100.0) fL MCH (25.0-35.0) pg MCHC (31.0-37.0) g/dL RDW (11.5-15.5) % Plt Count (150-450) k/uL Neutrophils # (Manual) (1.3-7.7) k/uL Monocytes # (Manual) (0-1.0) k/uL Retic Count 2.3 H (0.5-2.0) % Potassium (3.5-5.1) mmol/L Chloride (98-107) mmol/L Carbon Dioxide (22-30) mmol/L BUN (7-17) mg/dL Creatinine (0.52-1.04) mg/dL Glucose (74-99) mg/dL POC Glucose (mg/dL) (75-99) mg/dL Calcium (8.4-10.2) mg/dL Iron 17 L (50-170) ug/dL TIBC 223 L (228-460) ug/dL % Saturation 7.62 L (12.00-45.00) Total Protein (6.3-8.2) g/dL Albumin (3.5-5.0) g/dL Vitamin B12 1431.0 H (200.0-944.0) pg/mL Crossmatch See Detail 12/24/19 12/24/19 12/24/19 Range/Units 11:56 15:50 15:50 WBC 33.7 H (3.8-10.6) k/uL RBC 3.78 L (3.80-5.40) m/uL Hgb 8.2 L D (11.4-16.0) gm/dL Hct 28.3 L (34.0-46.0) % MCV 74.9 L (80.0-100.0) fL MCH 21.8 L (25.0-35.0) pg MCHC 29.1 L (31.0-37.0) g/dL RDW 18.2 H (11.5-15.5) % Plt Count 485 H (150-450) k/uL Neutrophils # (Manual) 29.32 H (1.3-7.7) k/uL Monocytes # (Manual) 2.70 H (0-1.0) k/uL Retic Count (0.5-2.0) % Potassium 3.4 L (3.5-5.1) mmol/L Chloride (98-107) mmol/L Carbon Dioxide (22-30) mmol/L BUN (7-17) mg/dL Creatinine (0.52-1.04) mg/dL Glucose (74-99) mg/dL POC Glucose (mg/dL) 156 H (75-99) mg/dL Calcium (8.4-10.2) mg/dL Iron (50-170) ug/dL TIBC (228-460) ug/dL % Saturation (12.00-45.00) Total Protein (6.3-8.2) g/dL Albumin (3.5-5.0) g/dL Vitamin B12 (200.0-944.0) pg/mL Crossmatch 12/24/19 12/24/19 12/25/19 Range/Units 16:58 20:39 06:10 WBC 30.4 H (3.8-10.6) k/uL RBC 3.51 L (3.80-5.40) m/uL Hgb 7.6 L (11.4-16.0) gm/dL Hct 26.4 L (34.0-46.0) % MCV 75.3 L (80.0-100.0) fL MCH 21.8 L (25.0-35.0) pg MCHC 28.9 L (31.0-37.0) g/dL RDW 18.6 H (11.5-15.5) % Plt Count 461 H (150-450) k/uL Neutrophils # (Manual) 28.27 H (1.3-7.7) k/uL Monocytes # (Manual) (0-1.0) k/uL Retic Count (0.5-2.0) % Potassium (3.5-5.1) mmol/L Chloride (98-107) mmol/L Carbon Dioxide (22-30) mmol/L BUN (7-17) mg/dL Creatinine (0.52-1.04) mg/dL Glucose (74-99) mg/dL POC Glucose (mg/dL) 113 H 217 H (75-99) mg/dL Calcium (8.4-10.2) mg/dL Iron (50-170) ug/dL TIBC (228-460) ug/dL % Saturation (12.00-45.00) Total Protein (6.3-8.2) g/dL Albumin (3.5-5.0) g/dL Vitamin B12 (200.0-944.0) pg/mL Crossmatch 12/25/19 12/25/19 Range/Units 06:10 06:22 WBC (3.8-10.6) k/uL RBC (3.80-5.40) m/uL Hgb (11.4-16.0) gm/dL Hct (34.0-46.0) % MCV (80.0-100.0) fL MCH (25.0-35.0) pg MCHC (31.0-37.0) g/dL RDW (11.5-15.5) % Plt Count (150-450) k/uL Neutrophils # (Manual) (1.3-7.7) k/uL Monocytes # (Manual) (0-1.0) k/uL Retic Count (0.5-2.0) % Potassium (3.5-5.1) mmol/L Chloride 115 H (98-107) mmol/L Carbon Dioxide 15 L (22-30) mmol/L BUN 26 H (7-17) mg/dL Creatinine 1.13 H (0.52-1.04) mg/dL Glucose 123 H (74-99) mg/dL POC Glucose (mg/dL) 149 H (75-99) mg/dL Calcium 7.9 L (8.4-10.2) mg/dL Iron (50-170) ug/dL TIBC (228-460) ug/dL % Saturation (12.00-45.00) Total Protein 5.8 L (6.3-8.2) g/dL Albumin 2.6 L (3.5-5.0) g/dL Vitamin B12 (200.0-944.0) pg/mL Crossmatch Microbiology - Last 24 Hours (Table) 12/23/19 11:43 Blood Culture - Preliminary Blood No Growth after 24 hours 12/23/19 11:35 Urine Culture - Final Urine,Voided Diabetes panel 12/24/19 12/25/19 Range/Units 15:50 06:10 Sodium 140 (137-145) mmol/L Potassium 3.4 L 4.1 (3.5-5.1) mmol/L Chloride 115 H (98-107) mmol/L Carbon Dioxide 15 L (22-30) mmol/L BUN 26 H (7-17) mg/dL Creatinine 1.13 H (0.52-1.04) mg/dL Glucose 123 H (74-99) mg/dL Calcium 7.9 L (8.4-10.2) mg/dL AST 22 (14-36) U/L ALT 9 (4-34) U/L Alkaline Phosphatase 91 (38-126) U/L Total Protein 5.8 L (6.3-8.2) g/dL Albumin 2.6 L (3.5-5.0) g/dL Calcium panel 12/25/19 Range/Units 06:10 Calcium 7.9 L (8.4-10.2) mg/dL Albumin 2.6 L (3.5-5.0) g/dL Pituitary panel 12/24/19 12/25/19 Range/Units 15:50 06:10 Sodium 140 (137-145) mmol/L Potassium 3.4 L 4.1 (3.5-5.1) mmol/L Chloride 115 H (98-107) mmol/L Carbon Dioxide 15 L (22-30) mmol/L BUN 26 H (7-17) mg/dL Creatinine 1.13 H (0.52-1.04) mg/dL Glucose 123 H (74-99) mg/dL Calcium 7.9 L (8.4-10.2) mg/dL Adrenal panel 12/24/19 12/25/19 Range/Units 15:50 06:10 Sodium 140 (137-145) mmol/L Potassium 3.4 L 4.1 (3.5-5.1) mmol/L Chloride 115 H (98-107) mmol/L Carbon Dioxide 15 L (22-30) mmol/L BUN 26 H (7-17) mg/dL Creatinine 1.13 H (0.52-1.04) mg/dL Glucose 123 H (74-99) mg/dL Calcium 7.9 L (8.4-10.2) mg/dL Total Bilirubin 0.5 (0.2-1.3) mg/dL AST 22 (14-36) U/L ALT 9 (4-34) U/L Alkaline Phosphatase 91 (38-126) U/L Total Protein 5.8 L (6.3-8.2) g/dL Albumin 2.6 L (3.5-5.0) g/dL Assessment and Plan (1) Hydroureteronephrosis Narrative/Plan: The source of the patient's bilateral hydroureteronephrosis is unclear. I initially suspected that the hydronephrosis was from urinary retention but she does not appear to have a distended bladder at this time. It is possible that she has partial obstruction where the ureters entered the bladder due to bladder wall thickening or elevated intravesical pressures due to a noncompliant bladder. Temporarily I believe placement of a Thacker catheter would be reasonable. If the hydronephrosis improves then a combination of anti- cholinergics and possibly intermittent catheterization may be a treatment option. If the hydronephrosis persists then double-J catheters may need to be considered. None of this is urgent as her renal function has not been severely compromised. Current Visit: Yes Status: Acute Code(s): N13.30 - UNSPECIFIED HYDRON EPHROSIS SNOMED Code(s): 04443207
[2019-12-25 11:32] LABS: Glucose,Whole Blood 194 mg/dL (75-99)
--- NOTE | 2019-12-25 13:06 | P.PN ---
Subjective Progress Note Date: 12/25/19 Jaqui Garza is an 84 -year-old female who was brought in to [facility] emergency room due to mental status changes, per emergency room notes, patient was fine yesterday, she took [place] baclofen and a sleeping pill before going to bed, this morning she was unarousable and family called EMS and patient was brought in to [facility]. In the emergency room patient had a computed tomography scan of the brain without contrast that failed to reveal any evidence of hemorrhage or any acute abnormality, Narcan was given but did not help much, patient had significantly abnormal labs with evidence of urinary tract infection, severe leukocytosis, anemia with hemoglobin of 6.9, heme positive stools, and elevated lactic acid, she was started on IV fluid, IV Rocephin, and was admitted to medical floor for further evaluation. 1 unit of red blood cell transfusion was ordered. Patient was seen and examined on the medical floor, she is responding to stimuli but goes back to sleep, she is nonverbal at this time, no history could be obtained from her. On 12/24/2019 patient was seen and examined on the medical floor she is alert, responsive answering questions appropriately, there is no fever or chills no headache or dizziness no chest pain no shortness of breath no cough no nausea or vomiting no abdominal pain no diarrhea no blood in the stools, she is having urine incontinence and has an external catheter. On 12/25/2019 patient was seen and examined on the medical floor she is alert and oriented 3 in no apparent distress, clinically she is doing much better, vitals are stable and within normal limits, white blood count still significantly elevated at 30.4 but down from yesterday and the day before hemoglobin 7.6 patient has iron deficiency anemia and order for IV iron was placed. Patient has elevated BUN and creatinine that are gradually improving. Gastroenterology consultation requested, Dr. Thao is planning EGD and colonoscopy tomorrow. Urology consultation requested patient has evidence of bilateral hydronephrosis. Objective - Vital Signs Vital signs: Vital Signs Temp 97.8 F 12/25/19 08:00 Pulse 90 12/25/19 08:00 Resp 16 12/25/19 04:00 BP 130/88 12/25/19 08:00 Pulse Ox 98 12/25/19 08:00 Intake & Output 12/24/19 12/25/19 12/25/19 18:59 06:59 18:59 Intake Total 1310 Balance 1310 Weight 65 kg 70 kg Intake: Intake, IV Titration 1000 Amount Sodium Chloride 0.9% 1, 1000 000 ml @ 130 mls/hr IV . Q7H42M [facility] Rx#:[id number] Blood Product 310 Rc As-1 Unit 310 [id number] Other: Voiding Method Incontinent Incontinent Incontinent # Voids 0 1 1 # Bowel Movements 2 1 1 - Exam In general patient is alert responsive in no apparent distress HEENT head normocephalic and atraumatic Neck is supple no JVD no goiter no lymphadenopathy Chest exam reveals a few scattered rhonchi no wheezing Cardiac exam reveals regular heart sounds S1 and S2 no gallops no murmurs Abdomen is soft nontender no organomegaly with normal bowel sounds Extremity exam reveals minimal edema no cyanosis or clubbing Neurological examination patient is somnolent responsive to stimuli, moving all 4 extremities - Labs CBC & Chem 7: 12/25/19 06:10 12/25/19 06:10 Labs: Abnormal Lab Results - Last 24 Hours (Table) 12/23/19 12/24/19 12/24/19 Range/Units 10:15 05:56 05:56 WBC (3.8-10.6) k/uL RBC (3.80-5.40) m/uL Hgb (11.4-16.0) gm/dL Hct (34.0-46.0) % MCV (80.0-100.0) fL MCH (25.0-35.0) pg MCHC (31.0-37.0) g/dL RDW (11.5-15.5) % Plt Count (150-450) k/uL Neutrophils # (Manual) (1.3-7.7) k/uL Monocytes # (Manual) (0-1.0) k/uL Retic Count 2.3 H (0.5-2.0) % Potassium (3.5-5.1) mmol/L Chloride (98-107) mmol/L Carbon Dioxide (22-30) mmol/L BUN (7-17) mg/dL Creatinine (0.52-1.04) mg/dL Glucose (74-99) mg/dL POC Glucose (mg/dL) (75-99) mg/dL Calcium (8.4-10.2) mg/dL Iron 17 L (50-170) ug/dL TIBC 223 L (228-460) ug/dL % Saturation 7.62 L (12.00-45.00) Total Protein (6.3-8.2) g/dL Albumin (3.5-5.0) g/dL Vitamin B12 1431.0 H (200.0-944.0) pg/mL Crossmatch See Detail 12/24/19 12/24/19 12/24/19 Range/Units 15:50 15:50 16:58 WBC 33.7 H (3.8-10.6) k/uL RBC 3.78 L (3.80-5.40) m/uL Hgb 8.2 L D (11.4-16.0) gm/dL Hct 28.3 L (34.0-46.0) % MCV 74.9 L (80.0-100.0) fL MCH 21.8 L (25.0-35.0) pg MCHC 29.1 L (31.0-37.0) g/dL RDW 18.2 H (11.5-15.5) % Plt Count 485 H (150-450) k/uL Neutrophils # (Manual) 29.32 H (1.3-7.7) k/uL Monocytes # (Manual) 2.70 H (0-1.0) k/uL Retic Count (0.5-2.0) % Potassium 3.4 L (3.5-5.1) mmol/L Chloride (98-107) mmol/L Carbon Dioxide (22-30) mmol/L BUN (7-17) mg/dL Creatinine (0.52-1.04) mg/dL Glucose (74-99) mg/dL POC Glucose (mg/dL) 113 H (75-99) mg/dL Calcium (8.4-10.2) mg/dL Iron (50-170) ug/dL TIBC (228-460) ug/dL % Saturation (12.00-45.00) Total Protein (6.3-8.2) g/dL Albumin (3.5-5.0) g/dL Vitamin B12 (200.0-944.0) pg/mL Crossmatch 12/24/19 12/25/19 12/25/19 Range/Units 20:39 06:10 06:10 WBC 30.4 H (3.8-10.6) k/uL RBC 3.51 L (3.80-5.40) m/uL Hgb 7.6 L (11.4-16.0) gm/dL Hct 26.4 L (34.0-46.0) % MCV 75.3 L (80.0-100.0) fL MCH 21.8 L (25.0-35.0) pg MCHC 28.9 L (31.0-37.0) g/dL RDW 18.6 H (11.5-15.5) % Plt Count 461 H (150-450) k/uL Neutrophils # (Manual) 28.27 H (1.3-7.7) k/uL Monocytes # (Manual) (0-1.0) k/uL Retic Count (0.5-2.0) % Potassium (3.5-5.1) mmol/L Chloride 115 H (98-107) mmol/L Carbon Dioxide 15 L (22-30) mmol/L BUN 26 H (7-17) mg/dL Creatinine 1.13 H (0.52-1.04) mg/dL Glucose 123 H (74-99) mg/dL POC Glucose (mg/dL) 217 H (75-99) mg/dL Calcium 7.9 L (8.4-10.2) mg/dL Iron (50-170) ug/dL TIBC (228-460) ug/dL % Saturation (12.00-45.00) Total Protein 5.8 L (6.3-8.2) g/dL Albumin 2.6 L (3.5-5.0) g/dL Vitamin B12 (200.0-944.0) pg/mL Crossmatch 12/25/19 12/25/19 Range/Units 06:22 11:31 WBC (3.8-10.6) k/uL RBC (3.80-5.40) m/uL Hgb (11.4-16.0) gm/dL Hct (34.0-46.0) % MCV (80.0-100.0) fL MCH (25.0-35.0) pg MCHC (31.0-37.0) g/dL RDW (11.5-15.5) % Plt Count (150-450) k/uL Neutrophils # (Manual) (1.3-7.7) k/uL Monocytes # (Manual) (0-1.0) k/uL Retic Count (0.5-2.0) % Potassium (3.5-5.1) mmol/L Chloride (98-107) mmol/L Carbon Dioxide (22-30) mmol/L BUN (7-17) mg/dL Creatinine (0.52-1.04) mg/dL Glucose (74-99) mg/dL POC Glucose (mg/dL) 149 H 194 H (75-99) mg/dL Calcium (8.4-10.2) mg/dL Iron (50-170) ug/dL TIBC (228-460) ug/dL % Saturation (12.00-45.00) Total Protein (6.3-8.2) g/dL Albumin (3.5-5.0) g/dL Vitamin B12 (200.0-944.0) pg/mL Crossmatch Microbiology - Last 24 Hours (Table) 12/23/19 11:43 Blood Culture - Preliminary Blood No Growth after 24 hours 12/23/19 11:35 Urine Culture - Final Urine,Voided Assessment and Plan Plan: 1. Evidence of urinary tract infection, patient was started on IV Unasyn, blood culture and urine culture were ordered, infectious disease consultation was requested. 2. Sepsis, likely related to urinary tract infection, with severe leukocytosis, elevated lactic acid, tachycardia and tachypnea 3. Severe elevation in white blood count, could be related to infection however, possibility of leukocytosis related to leukemia needs to be ruled out, consultation for hematology was initiated. 4. Severe anemia, patient received a total of 2 units of red blood cell transfusion, patient has heme positive stools, consultation for gastroenterology was initiated, patient has a history of peptic ulcer disease, computed tomography scan is revealing possible lesion in the cecum, plan by gastroenterology to proceed with upper and lower GI scopes tomorrow. 5. Underlying history of hypertension. At this time we are holding blood pressure medication Will monitor closely 6. Underlying history of osteoarthritis with severe pain requiring narcotic medications. At this time will hold narcotic sleeping pill and muscle relaxers will monitor mental status closely. 7. Mental status changes, likely related to sepsis, metabolic encephalopathy, and affect of narcotic medication and sleeping., No abnormality seen on computed tomography scan without contrast, however if mental status does not improve in 24 hours, will proceed was more imaging and consultation for neurology. 8. Hypokalemia Corps correcting 9. Acute renal failure on admission with elevated BUN at 41 creatinine at 1.37, improving BUN is down to 28 and creatinine 1.06 10. Bilateral hydronephrosis urology consultation reviewed, at this time plan for Thacker catheter. Patient prognosis is guarded She was started on IV fluid, IV antibiotics, red blood cell transfusion Consultation for hematology, infectious disease, and gastroenterology initiated Will repeat labs and follow closely
[2019-12-25 16:32] LABS: Glucose,Whole Blood 175 mg/dL (75-99)
[2019-12-25] MEDS ORDERED: PEG 3350-NA SULF,BICARB,CL/KCL 4,000 ML BOTTLE PO ONE (17:00)
[2019-12-25] MEDS ORDERED: BISACODYL 5 MG TABLET.DR PO ONE (17:00)
--- NOTE | 2019-12-25 18:24 | P.PN ---
Subjective Progress Note Date: 12/25/19 Principal diagnosis: Anemia of acute blood loss, melena, iron deficiency anemia Patient is seen lying but today denies any acute complaints. In conversation with the nursing staff she has been passing melanotic stool. Objective - Vital Signs Vital signs: Vital Signs Temp 97.6 F 12/25/19 04:00 Pulse 94 12/25/19 04:00 Resp 16 12/25/19 04:00 BP 130/65 12/25/19 04:00 Pulse Ox 95 12/25/19 04:00 Intake & Output 12/24/19 12/25/19 12/25/19 18:59 06:59 18:59 Intake Total 1310 Balance 1310 Weight 65 kg 70 kg Intake: Intake, IV Titration 1000 Amount Sodium Chloride 0.9% 1, 1000 000 ml @ 130 mls/hr IV . Q7H42M [facility] Rx#:[id number] Blood Product 310 Rc As-1 Unit 310 [id number] Other: Voiding Method Incontinent Incontinent # Voids 0 1 1 # Bowel Movements 2 1 1 - Exam On physical examination, patient appears comfortable in no apparent distress. HEAD: Normocephalic, atraumatic. EYES: No scleral icterus. No conjunctival injection. MOUTH: No lesions, tongue midline. NECK: Trachea midline, no gross abnormalities. ABDOMEN: Soft, obese. Bowel sounds are positive. No organomegaly. No guarding or rigidity. EXTREMITIES: No pedal edema. SKIN: No rashes, no jaundice. NEUROLOGIC: Alert and oriented to person. - Labs CBC & Chem 7: 12/25/19 06:10 12/25/19 06:10 Labs: Abnormal Lab Results - Last 24 Hours (Table) 12/23/19 12/24/19 12/24/19 Range/Units 10:15 05:56 05:56 WBC (3.8-10.6) k/uL RBC (3.80-5.40) m/uL Hgb (11.4-16.0) gm/dL Hct (34.0-46.0) % MCV (80.0-100.0) fL MCH (25.0-35.0) pg MCHC (31.0-37.0) g/dL RDW (11.5-15.5) % Plt Count (150-450) k/uL Neutrophils # (Manual) (1.3-7.7) k/uL Monocytes # (Manual) (0-1.0) k/uL Retic Count 2.3 H (0.5-2.0) % Potassium (3.5-5.1) mmol/L Chloride (98-107) mmol/L Carbon Dioxide (22-30) mmol/L BUN (7-17) mg/dL Creatinine (0.52-1.04) mg/dL Glucose (74-99) mg/dL POC Glucose (mg/dL) (75-99) mg/dL Calcium (8.4-10.2) mg/dL Iron 17 L (50-170) ug/dL TIBC 223 L (228-460) ug/dL % Saturation 7.62 L (12.00-45.00) Total Protein (6.3-8.2) g/dL Albumin (3.5-5.0) g/dL Vitamin B12 1431.0 H (200.0-944.0) pg/mL Crossmatch See Detail 12/24/19 12/24/19 12/24/19 Range/Units 11:56 15:50 15:50 WBC 33.7 H (3.8-10.6) k/uL RBC 3.78 L (3.80-5.40) m/uL Hgb 8.2 L D (11.4-16.0) gm/dL Hct 28.3 L (34.0-46.0) % MCV 74.9 L (80.0-100.0) fL MCH 21.8 L (25.0-35.0) pg MCHC 29.1 L (31.0-37.0) g/dL RDW 18.2 H (11.5-15.5) % Plt Count 485 H (150-450) k/uL Neutrophils # (Manual) 29.32 H (1.3-7.7) k/uL Monocytes # (Manual) 2.70 H (0-1.0) k/uL Retic Count (0.5-2.0) % Potassium 3.4 L (3.5-5.1) mmol/L Chloride (98-107) mmol/L Carbon Dioxide (22-30) mmol/L BUN (7-17) mg/dL Creatinine (0.52-1.04) mg/dL Glucose (74-99) mg/dL POC Glucose (mg/dL) 156 H (75-99) mg/dL Calcium (8.4-10.2) mg/dL Iron (50-170) ug/dL TIBC (228-460) ug/dL % Saturation (12.00-45.00) Total Protein (6.3-8.2) g/dL Albumin (3.5-5.0) g/dL Vitamin B12 (200.0-944.0) pg/mL Crossmatch 12/24/19 12/24/19 12/25/19 Range/Units 16:58 20:39 06:10 WBC 30.4 H (3.8-10.6) k/uL RBC 3.51 L (3.80-5.40) m/uL Hgb 7.6 L (11.4-16.0) gm/dL Hct 26.4 L (34.0-46.0) % MCV 75.3 L (80.0-100.0) fL MCH 21.8 L (25.0-35.0) pg MCHC 28.9 L (31.0-37.0) g/dL RDW 18.6 H (11.5-15.5) % Plt Count 461 H (150-450) k/uL Neutrophils # (Manual) 28.27 H (1.3-7.7) k/uL Monocytes # (Manual) (0-1.0) k/uL Retic Count (0.5-2.0) % Potassium (3.5-5.1) mmol/L Chloride (98-107) mmol/L Carbon Dioxide (22-30) mmol/L BUN (7-17) mg/dL Creatinine (0.52-1.04) mg/dL Glucose (74-99) mg/dL POC Glucose (mg/dL) 113 H 217 H (75-99) mg/dL Calcium (8.4-10.2) mg/dL Iron (50-170) ug/dL TIBC (228-460) ug/dL % Saturation (12.00-45.00) Total Protein (6.3-8.2) g/dL Albumin (3.5-5.0) g/dL Vitamin B12 (200.0-944.0) pg/mL Crossmatch 12/25/19 12/25/19 Range/Units 06:10 06:22 WBC (3.8-10.6) k/uL RBC (3.80-5.40) m/uL Hgb (11.4-16.0) gm/dL Hct (34.0-46.0) % MCV (80.0-100.0) fL MCH (25.0-35.0) pg MCHC (31.0-37.0) g/dL RDW (11.5-15.5) % Plt Count (150-450) k/uL Neutrophils # (Manual) (1.3-7.7) k/uL Monocytes # (Manual) (0-1.0) k/uL Retic Count (0.5-2.0) % Potassium (3.5-5.1) mmol/L Chloride 115 H (98-107) mmol/L Carbon Dioxide 15 L (22-30) mmol/L BUN 26 H (7-17) mg/dL Creatinine 1.13 H (0.52-1.04) mg/dL Glucose 123 H (74-99) mg/dL POC Glucose (mg/dL) 149 H (75-99) mg/dL Calcium 7.9 L (8.4-10.2) mg/dL Iron (50-170) ug/dL TIBC (228-460) ug/dL % Saturation (12.00-45.00) Total Protein 5.8 L (6.3-8.2) g/dL Albumin 2.6 L (3.5-5.0) g/dL Vitamin B12 (200.0-944.0) pg/mL Crossmatch Microbiology - Last 24 Hours (Table) 12/23/19 11:43 Blood Culture - Preliminary Blood No Growth after 24 hours 12/23/19 11:35 Urine Culture - Final Urine,Voided Assessment and Plan (1) Iron deficiency anemia Narrative/Plan: 84-year-old female with multiple medical comorbidities presenting due to altered mental status. The patient had taken [place], baclofen and a sleeping pill on the night prior to presentation. She was found to be unarousable next day and brought in for further evaluation. Computed tomography scan at that was negative the patient was found to have a urinary tract infection with some hydronephrosis on ultrasound of the abdomen and is currently being treated with antibiotic therapy. Patient also found to have markedly elevated leukocytosis with a microcytic iron deficiency anemia and thrombocytosis. Hematology has been consult to see the patient. She denies any signs or symptoms of GI bleeding but was found to have stool testing that was positive for blood. Unclear etiology, but nursing staff does report black tarry stool. We'll plan for endoscopic evaluation to rule out GI bleed. Current Visit: Yes Status: Acute Code(s): D50.9 - IRON DEFICIENCY ANEMIA, UNSPECIFIED SNOMED Code(s): 41665454 (2) Altered mental status Current Visit: Yes Status: Acute Code(s): R41.82 - ALTERED MENTAL STATUS, UNSPECIFIED SNOMED Code(s): 217261692 (3) Urinary tract infection Current Visit: Yes Status: Acute Code(s): N39.0 - URINARY TRACT INFECTION, S ITE NOT SPECIFIED SNOMED Code(s): 16822326 (4) Melena Current Visit: Yes Status: Acute Code(s): K92.1 - MELENA SNOMED Code(s): 3081318 (5) Anemia associated with acute blood loss Current Visit: Yes Status: Acute Code(s): D62 - ACUTE POSTHEMORRHAGIC ANEMIA SNOMED Code(s): 886210908 Plan: Supportive care Continue monitor hemoglobin and hematocrit and transfuse as needed Iron supplementation ordered Appreciate recommendations from infectious disease, hematology and primary team Anemia workup per hematology service Continue broad-spectrum antibiotic therapy Bowel prep ordered Plan for EGD and colonoscopy tomorrow for evaluation Thank you for allowing us to participate in the care of the patient
[2019-12-25 20:13] LABS: Glucose,Whole Blood 208 mg/dL (75-99)
--- NOTE | 2019-12-25 23:38 | PN ---
PROGRESS NOTE DATE OF SERVICE: 12/25/2019 REASON FOR FOLLOWUP: UTI and colitis. INTERVAL HISTORY: The patient is currently afebrile. Patient is more awake and alert. She is breathing comfortably. No chest pain or cough. No abdominal pain. She did have some diarrhea for which the patient did have fecal management system and also getting a bowel prep for an EGD and colonoscopy tomorrow per RN. PHYSICAL EXAMINATION: Blood pressure 135/77 with a pulse of 92, temperature is 97.8. She is 96% on 2 L nasal cannula. General description is an elderly female lying in bed in no distress. RESPIRATORY SYSTEM: Unlabored breathing, clear to auscultation anteriorly. HEART: S1, S2. Regular rate and rhythm. ABDOMEN: Soft, no tenderness. No guarding or rigidity. LABS: White count down to 30,000 with a BUN of 26, creatinine 1.13. CT abdomen and pelvis did show evidence of bilateral hydronephrosis and colitis versus colon tumor. DIAGNOSTIC IMPRESSION AND PLAN: Patient with significantly elevated white count which is likely multifactorial with concern for urinary tract infection complicated as the patient did have bilateral hydronephrosis for which Urology has been consulted. Also with question of possible colitis versus tumor for EGD and colonoscopy tomorrow. Patient is covered with Unasyn, white count showing a downward trend, to continue. Monitor clinical course closely. MMODL / IJN: [id number] /
[2019-12-26] MEDS: AMPICILLIN-SULBACTAM 3 GM in SODIUM CHLORIDE 0.9% 100 ML IVPB SCH ×3 (03:15→16:14)
[2019-12-26] MEDS: SODIUM CHLORIDE 0.9% 1,000 ML IV SCH ×3 (03:29→20:44)
[2019-12-26 07:18] LABS: Anisocytosis Slight; HCT 25.1 % (34.0-46.0); HGB 7.6 gm/dL (11.4-16.0); Hypochromasia Marked; MCH 22.7 pg (25.0-35.0); MCHC 30.1 g/dL (31.0-37.0); MCV 75.5 fL (80.0-100.0); Mean Platelet Volume 7.4; Microcytosis Moderate; Platelet Count 469 k/uL (150-450); Poikilocytosis Marked; RBC 3.32 m/uL (3.80-5.40); RDW 18.8 % (11.5-15.5); WBC 20.3 k/uL (3.8-10.6)
[2019-12-26 07:37] LABS: ALT 11 U/L (4-34); AST 22 U/L (14-36); African American GFR (CKD) >90 (>60 ml/min/1.73 sqM); Albumin 2.6 g/dL (3.5-5.0); Alkaline Phosphatase 82 U/L (38-126); Anion Gap 10 mmol/L; Blood Urea Nitrogen 15 mg/dL (7-17); Calcium 7.6 mg/dL (8.4-10.2); Carbon Dioxide 18 mmol/L (22-30); Chloride 112 mmol/L (98-107); Glucose 104 mg/dL (74-99); Non-African American GFR(CKD) 80 (>60 ml/min/1.73 sqM); Sodium 140 mmol/L (137-145); Total Bilirubin 0.3 mg/dL (0.2-1.3); Total Protein 5.5 g/dL (6.3-8.2)
[2019-12-26 07:40] LABS: Potassium 2.7 mmol/L (3.5-5.1)
[2019-12-26] MEDS ORDERED: Potassium Replacement Protocol 1 EACH MISC MISCELLANE PRN (08:17)
[2019-12-26] MEDS: SODIUM FERRIC GLUCONAT-SUCROSE 125 MG in SODIUM CHLORIDE 0.9% 100 ML IVPB SCH (08:43)
[2019-12-26] MEDS: PANTOPRAZOLE 40 MG/10 ML VIAL IV SCH (08:45)
[2019-12-26] MEDS: POTASSIUM CHLORIDE 10 MEQ in WATER FOR INJECTION 1 100ML.BAG IVPB SCH ×5 (08:45→20:37)
[2019-12-26 08:46] LABS: Lymphocytes # (M) 0.61 k/uL (1.0-4.8); Monocytes # (M) 1.83 k/uL (0-1.0); Myelocytes # (M) 0.61 k/uL (0); Myelocytes % 3 %; Neutrophils # (M) 17.26 k/uL (1.3-7.7); Neutrophils % (M) 85 %; Nucleated Red Blood Cells 0 /100 WBC (0-0); Promyelocytes % 1 %; Total Cells Counted 200
[2019-12-26 08:50] LABS: Mixed Population RBC Present
[2019-12-26 08:51] LABS: Anisocytosis (M) Present; Poikilocytosis (M) Present; Polychromasia Present
[2019-12-26 09:35] LABS: Free Kappa Lt Chain Qnt, Serum 3.04 mg/dL (0.33-1.94)
[2019-12-26] MEDS: HYDROcodone/APAP 7.5-325MG 1 EACH TAB PO SCH ×3 (11:17→20:42)
[2019-12-26 13:32] LABS: Albumin 3.17 g/dL (3.80-4.90); Gamma Globulin 1.07 g/dL (0.70-1.50)
[2019-12-26] MEDS ORDERED: IV FLUID CONTINUATION 1,000 ML IV ONE (13:39)
[2019-12-26] MEDS ORDERED: PROPOFOL 10 MG/ML 20 ML VIAL IV ONE (14:02)
--- NOTE | 2019-12-26 14:29 | P.PCN ---
Date of Procedure: 12/26/19 Procedure(s) Performed: Brief history: Patient is a pleasant 84-year-old white female, admitted with severe symptomatic anemia and hemoglobin of 7 g/dL. She is hence scheduled for an upper endoscopy as well as colonoscopy as a part of evaluation of anemia. Procedure performed: Esophagogastroduodenoscopy with biopsy Colonoscopy up to hepatic flexure Preoperative diagnosis: Severe symptomatic anemia. Anesthesia: MAC Procedure: After informed consent was obtained from the patient was brought into the endoscopy unit and IV sedation was administered by anesthesia under continuous monitoring. Initially upper endoscopy was done. The Olympus GF 160 video endoscope was inserted inserted into the mouth and esophagus intubated without any difficulty and was gradually advanced into the stomach and duodenum and carefully examined. The bulb and second part of the duodenum appeared normal. The scope was then withdrawn into the stomach adequately insufflated with air and upon careful examination the antrum appeared normal. The proximal body the stomach revealed multiple ulcerations measuring at least 5-6 measuring 1.5 cm in size with a clean base and no active bleeding. Biopsies were done from these areas. The , cardia and fundus appeared normal. The scope was then withdrawn into the esophagus. The GE junction was located at 34 cm to the incisors. small sliding type hiatal hernia noted. It appeared regular with no erythema erosions or ulcerations. Rest of the esophagus appeared normal. Patient tolerated the procedure well. At this time the patient continued to remain sedation. Initial digital rectal examination was normal. Olympus CF 160 video colonoscope was then inserted into the rectum and gradually advanced to the hepatic flexure with great difficulty. Further advancement was not possible despite multiple attempts. The visualized portions of the transverse colon, descending colon, sigmoid colon and rectum appeared normal. There were moderate sigmoid diverticulosis seen. There was muscular hypertrophy noted in the sigmoid colon. Rectum appeared normal. Retroflexion was performed and rectum and no lesions were noted. Patient tolerated the procedure well. . Impression: 1. Upper endoscopy revealed multiple gastric ulcerations in the proximal body of the stomach measuring between 1-1.5 cm in size status post biopsy, small hiatal hernia 2. Colonoscopy up to hepatic flexure revealed sigmoid diverticulosis. Scope could not be advanced beyond the hepatic flexure because of extreme looping in the sigmoid colon. Recommendations: Findings of this examination were discussed with the patient. She will be scheduled for a double contrast barium enema tomorrow to evaluate the right colon. She'll be on a clear liquid diet today. In the meantime she will continue with Protonix 40 mg daily.
--- NOTE | 2019-12-26 16:04 | P.PN ---
Subjective Progress Note Date: 12/26/19 Principal diagnosis: microcytic, hypochromic anemia, elevated WBC and platelets In follow-up today patient is in good spirits, feeling a little tired, denies unusual bleeding, she states her last colonoscopy was maybe 5 or 6 years ago, she does not recall ever having an EGD. Denies recent illnesses, treatment with antibiotics, fevers, nausea, chest pain or difficulty in breathing, acute changes in bowel or bladder habits that she is noticed. She is not in any pain Objective - Vital Signs Vital signs: Vital Signs Temp 98.4 F 12/26/19 12:00 Pulse 84 12/26/19 12:00 Resp 16 12/26/19 12:00 BP 145/80 12/26/19 12:00 Pulse Ox 99 12/26/19 12:00 Intake & Output 12/25/19 12/26/19 12/26/19 18:59 06:59 18:59 Intake Total 600 300 Output Total 500 1500 3000 Balance 100 -1500 -2700 Weight 71 kg Intake: IV 300 Oral 600 Output: Urine 277 859 7887 Stool 1000 1800 Other: Voiding Method Indwelling Catheter Indwelling Catheter Indwelling Catheter # Voids 2 # Bowel Movements 2 - Constitutional General appearance: Present: cooperative, no acute distress, obese - EENT Eyes: Present: anicteric sclerae, EOMI ENT: Present: hearing grossly normal - Respiratory Respiratory: bilateral: CTA - Cardiovascular Heart sounds: normal: S1, S2 Abnormal Heart Sounds: Absent: systolic murmur, diastolic murmur, rub, S3 Gall op, S4 Gallop, click, other - Peripheral edema leg Peripheral Edema: bilateral: None - Gastrointestinal General gastrointestinal: Present: normal bowel sounds, soft. Absent: absent bowel sounds, decreased bowel sounds, distended, hepatomegaly, hyperactive bowel sounds, organomegaly, rigid, scaphoid, splenomegaly, tenderness, umbilical hernia, ventral hernia - Integumentary Integumentary: Present: normal turgor, pale - Neurologic Neurologic: Present: CNII-XII intact - Musculoskeletal Musculoskeletal: Present: generalized weakness, strength equal bilaterally - Psychiatric Psychiatric: Present: A&O x's 3, appropriate affect, intact judgment & insight - Labs CBC & Chem 7: 12/26/19 06:40 12/26/19 06:40 Labs: Abnormal Lab Results - Last 24 Hours (Table) 12/23/19 12/24/19 12/25/19 Range/Units 10:15 05:56 16:31 WBC (3.8-10.6) k/uL RBC (3.80-5.40) m/uL Hgb (11.4-16.0) gm/dL Hct (34.0-46.0) % MCV (80.0-100.0) fL MCH (25.0-35.0) pg MCHC (31.0-37.0) g/dL RDW (11.5-15.5) % Plt Count (150-450) k/uL Neutrophils # (Manual) (1.3-7.7) k/uL Lymphocytes # (Manual) (1.0-4.8) k/uL Monocytes # (Manual) (0-1.0) k/uL Myelocytes # (Manual) (0) k/uL Promyelocytes # (Man) (0) k/uL Haptoglobin 533.0 H (31.2-198.0) mg/dL Potassium (3.5-5.1) mmol/L Chloride (98-107) mmol/L Carbon Dioxide (22-30) mmol/L Glucose (74-99) mg/dL POC Glucose (mg/dL) 175 H (75-99) mg/dL Calcium (8.4-10.2) mg/dL Total Protein (6.3-8.2) g/dL Albumin (3.5-5.0) g/dL Albumin (PEP) 3.17 L (3.80-4.90) g/dL Jgvmv-1-Sjooscykp 0.73 H (0.10-0.40) g/dL Sjllw-3-Injvudogy 1.32 H (0.60-1.00) g/dL Free [place] LC, Quant 3.04 H (0.33-1.94) mg/dL Crossmatch See Detail 12/25/19 12/26/19 12/26/19 Range/Units 20:11 06:40 06:40 WBC 20.3 H (3.8-10.6) k/uL RBC 3.32 L (3.80-5.40) m/uL Hgb 7.6 L (11.4-16.0) gm/dL Hct 25.1 L (34.0-46.0) % MCV 75.5 L (80.0-100.0) fL MCH 22.7 L (25.0-35.0) pg MCHC 30.1 L (31.0-37.0) g/dL RDW 18.8 H (11.5-15.5) % Plt Count 469 H (150-450) k/uL Neutrophils # (Manual) 17.26 H (1.3-7.7) k/uL Lymphocytes # (Manual) 0.61 L (1.0-4.8) k/uL Monocytes # (Manual) 1.83 H (0-1.0) k/uL Myelocytes # (Manual) 0.61 H (0) k/uL Promyelocytes # (Man) 0.20 H (0) k/uL Haptoglobin (31.2-198.0) mg/dL Potassium 2.7 L* (3.5-5.1) mmol/L Chloride 112 H (98-107) mmol/L Carbon Dioxide 18 L (22-30) mmol/L Glucose 104 H (74-99) mg/dL POC Glucose (mg/dL) 208 H (75-99) mg/dL Calcium 7.6 L (8.4-10.2) mg/dL Total Protein 5.5 L (6.3-8.2) g/dL Albumin 2.6 L (3.5-5.0) g/dL Albumin (PEP) (3.80-4.90) g/dL Wppag-3-Xwyagztwa (0.10-0.40) g/dL Tofoe-2-Bygynpctr (0.60-1.00) g/dL Free [place] LC, Quant (0.33-1.94) mg/dL Crossmatch Microbiology - Last 24 Hours (Table) 12/23/19 11:43 Blood Culture - Preliminary Blood No Growth after 72 hours - Imaging and Cardiology CT scan - abdomen: report reviewed CT scan - pelvis: report reviewed Assessment and Plan (1) Folate deficiency Narrative/Plan: Folate supplement initiated Current Visit: Yes Status: Acute Priority: High Code(s): E53.8 - DEFICIENCY OF OTHER SPECIFIED B GROUP VITAMINS SNOMED Code(s): 593003028 (2) Microcytic hypochromic anemia Narrative/Plan: Patient has a history of iron deficiency, her labs are suggestive of the same. She is being seen by gastroenterology for workup. She states her last colonoscopy was quite some time ago, no recent EGD. Current Visit: Yes Status: Acute Priority: High Code(s): D50.9 - IRON DEFICIENCY ANEMIA, UNSPECIFIED SNOMED Code(s): 66304631 (3) Iron deficiency anemia Narrative/Plan: Patient is being supplemented with parenteral iron. Occult positive. Gastroenterology seeing patient. Current Visit: Yes Status: Acute Priority: High Code(s): D50.9 - IRON DEFICIENCY ANEMIA, UNSPECIFIED SNOMED Code(s): 47178465 Plan: No paraproteinemia, kappa light chain only slightly deviated from normal.
[2019-12-26] MEDS: FOLIC ACID 1 MG TAB PO SCH (16:13)
--- NOTE | 2019-12-26 18:29 | PN ---
PROGRESS NOTE DATE OF SERVICE: 12/26/2019 REASON FOR FOLLOWUP: UTI and colitis. INTERVAL HISTORY: The patient is afebrile. The patient is breathing comfortably. Denies having any chest pain or shortness of breath or cough. No abdominal pain. No nausea. No vomiting. PHYSICAL EXAMINATION: Blood pressure is 152/91 with a pulse of 88, temperature 98.4. She is 98% on 2 L nasal cannula. General description is an elderly female lying in bed in no distress. RESPIRATORY SYSTEM: Unlabored breathing. Clear to auscultation anteriorly. HEART: S1, S2. Regular rate and rhythm. ABDOMEN: Soft. No tenderness. LABS: Hemoglobin 7.6, white count 20.3, BUN of 15, creatinine 0.70. DIAGNOSTIC IMPRESSION AND PLAN: Patient with elevated white count which is multifactorial in this patient who did have a component of urinary tract infection and a question of colitis, status post EGD and colonoscopy. The patient is covered with Unasyn. White count is showing a downward trend. To continue. Monitor clinical course closely. MMODL / IJN: [id number] /
[2019-12-27] MEDS: POTASSIUM CHLORIDE 10 MEQ in WATER FOR INJECTION 1 100ML.BAG IVPB SCH (00:18)
[2019-12-27] MEDS: POTASSIUM CHLORIDE ER 20 MEQ TAB.ER PO SCH ×2 (00:34→01:40)
[2019-12-27] MEDS: SODIUM CHLORIDE 0.9% 1,000 ML IV SCH ×3 (01:46→19:21)
[2019-12-27] MEDS: AMPICILLIN-SULBACTAM 3 GM in SODIUM CHLORIDE 0.9% 100 ML IVPB SCH ×3 (03:50→16:30)
[2019-12-27] MEDS: ALPRAZolam 0.25 MG TAB PO PRN ×2 (05:43→17:42)
[2019-12-27 06:39] LABS: Anisocytosis Slight; Basophils % (A) 0 %; Eosinophils # (A) 0.1 k/uL (0-0.7); Eosinophils % (A) 1 %; HCT 27.1 % (34.0-46.0); Hypochromasia Marked; Lymphocytes # (A) 1.4 k/uL (1.0-4.8); Lymphocytes % (A) 7 %; MCH 22.6 pg (25.0-35.0); MCHC 29.5 g/dL (31.0-37.0); MCV 76.5 fL (80.0-100.0); Mean Platelet Volume 7.4; Microcytosis Slight; Monocytes # (A) 1.5 k/uL (0-1.0); Monocytes % (A) 8 %; Neutrophils # (A) 15.9 k/uL (1.3-7.7); Neutrophils % (A) 82 %; Platelet Count 467 k/uL (150-450); Poikilocytosis Marked; RBC 3.55 m/uL (3.80-5.40); RDW 19.9 % (11.5-15.5); WBC 19.4 k/uL (3.8-10.6)
[2019-12-27 06:50] LABS: ALT 13 U/L (4-34); AST 24 U/L (14-36); African American GFR (CKD) >90 (>60 ml/min/1.73 sqM); Albumin 2.8 g/dL (3.5-5.0); Alkaline Phosphatase 81 U/L (38-126); Anion Gap 10 mmol/L; Blood Urea Nitrogen 13 mg/dL (7-17); Calcium 8.2 mg/dL (8.4-10.2); Carbon Dioxide 17 mmol/L (22-30); Chloride 112 mmol/L (98-107); Glucose 106 mg/dL (74-99); Non-African American GFR(CKD) 82 (>60 ml/min/1.73 sqM); Potassium 3.9 mmol/L (3.5-5.1); Sodium 139 mmol/L (137-145); Total Bilirubin 0.3 mg/dL (0.2-1.3); Total Protein 5.8 g/dL (6.3-8.2)
[2019-12-27] MEDS: PANTOPRAZOLE 40 MG/10 ML VIAL IV SCH (10:02)
[2019-12-27] MEDS: SODIUM FERRIC GLUCONAT-SUCROSE 125 MG in SODIUM CHLORIDE 0.9% 100 ML IVPB SCH (10:02)
[2019-12-27] MEDS: HYDROcodone/APAP 7.5-325MG 1 EACH TAB PO SCH ×3 (10:02→21:28)
[2019-12-27] MEDS: FOLIC ACID 1 MG TAB PO SCH (10:02)
--- NOTE | 2019-12-27 10:06 | FL ---
EXAMINATION TYPE: FL barium enema w air contrast DATE OF EXAM: 12/27/2019 COMPARISON: CT abdomen and pelvis 2 days ago. HISTORY: Incomplete colonoscopy. Abnormal CT, filling defect in cecum. TECHNIQUE: A double contrast barium enema study is attempted. 28 seconds of fluoroscopic time utiliz ed. 4 spot images saved to PACS. FINDINGS: [employer] view of the abdomen shows overall non-obstructive bowel gas pattern. Gas-filled smal l and large bowel loops. Surgical changes to lower lumbar spine redemonstrated. Scattered pelvic phle boliths redemonstrated. Enema study is attempted. Due to patient's age, underlying back surgery and pain, and limited mobilit y along with inability to hold contrast and enema despite balloon inflation, contrast only could be i nstilled into the rectum retrograde to the distal aspect sigmoid colon. Exam had to be terminated due to above limitations. IMPRESSION: Nondiagnostic study. Unable to assess base of cecum. Further investigation with CT colon ography advised.
--- NOTE | 2019-12-27 11:11 | P.PN ---
Subjective Progress Note Date: 12/27/19 Principal diagnosis: microcytic, hypochromic anemia, elevated WBC and platelets In follow-up today patient is doing ok, she had her EGD and an incomplete colonoscopy, barium enema. She has tolerated the IV iron, started folic acid without side effects. No fever, nausea, vomiting, difficulty breathing, she is generally weak, denies pain, her baseline is constipation, in the last 2 weeks she has had episodes of near incontinence of stool-no sensation until too last. This is getting better. No pain in the abd. Objective - Vital Signs Vital signs: Vital Signs Temp 97.8 F 12/27/19 04:00 Pulse 99 12/27/19 04:00 Resp 18 12/27/19 04:00 BP 146/77 12/27/19 04:00 Pulse Ox 98 12/27/19 04:00 Intake & Output 12/26/19 12/27/19 12/27/19 18:59 06:59 18:59 Intake Total 540 Output Total 3000 550 Balance -2460 -550 Weight 75 kg 75 kg Intake: IV 300 Oral 240 Output: Urine 1200 550 Stool 1800 Other: Voiding Method Indwelling Catheter Indwelling Catheter - Constitutional General appearance: Present: cooperative, no acute distress, obese - EENT Eyes: Present: anicteric sclerae, EOMI ENT: Present: hearing grossly normal - Respiratory Respiratory: bilateral: CTA - Cardiovascular Heart sounds: normal: S1, S2 - Peripheral edema leg Peripheral Edema: bilateral: None - Gastrointestinal General gastrointestinal: Present: normal bowel sounds, soft. Absent: absent bowel sounds, decreased bowel sounds, distended, hepatomegaly, hyperactive bowel sounds, organomegaly, rigid, scaphoid, splenomegaly, tenderness, umbilical hernia, ventral hernia - Integumentary Integumentary: Present: normal turgor, pale - Neurologic Neurologic: Present: CNII-XII intact - Musculoskeletal Musculoskeletal: Present: generalized weakness, strength equal bilaterally - Psychiatric Psychiatric: Present: A&O x's 3, appropriate affect, intact judgment & insight - Labs CBC & Chem 7: 12/27/19 05:46 12/27/19 05:46 Labs: Abnormal Lab Results - Last 24 Hours (Table) 12/24/19 12/26/19 12/27/19 Range/Units 05:56 23:25 05:46 WBC 19.4 H (3.8-10.6) k/uL RBC 3.55 L (3.80-5.40) m/uL Hgb 8.0 L (11.4-16.0) gm/dL Hct 27.1 L (34.0-46.0) % MCV 76.5 L (80.0-100.0) fL MCH 22.6 L (25.0-35.0) pg MCHC 29.5 L (31.0-37.0) g/dL RDW 19.9 H (11.5-15.5) % Plt Count 467 H (150-450) k/uL Neutrophils # 15.9 H (1.3-7.7) k/uL Monocytes # 1.5 H (0-1.0) k/uL Potassium 3.4 L (3.5-5.1) mmol/L Chloride (98-107) mmol/L Carbon Dioxide (22-30) mmol/L Glucose (74-99) mg/dL Calcium (8.4-10.2) mg/dL Total Protein (6.3-8.2) g/dL Albumin (3.5-5.0) g/dL Albumin (PEP) 3.17 L (3.80-4.90) g/dL Uapap-7-Nothhjrsp 0.73 H (0.10-0.40) g/dL Dlmkm-6-Xvudgjtpq 1.32 H (0.60-1.00) g/dL 12/27/19 Range/Units 05:46 WBC (3.8-10.6) k/uL RBC (3.80-5.40) m/uL Hgb (11.4-16.0) gm/dL Hct (34.0-46.0) % MCV (80.0-100.0) fL MCH (25.0-35.0) pg MCHC (31.0-37.0) g/dL RDW (11.5-15.5) % Plt Count (150-450) k/uL Neutrophils # (1.3-7.7) k/uL Monocytes # (0-1.0) k/uL Potassium (3.5-5.1) mmol/L Chloride 112 H (98-107) mmol/L Carbon Dioxide 17 L (22-30) mmol/L Glucose 106 H (74-99) mg/dL Calcium 8.2 L (8.4-10.2) mg/dL Total Protein 5.8 L (6.3-8.2) g/dL Albumin 2.8 L (3.5-5.0) g/dL Albumin (PEP) (3.80-4.90) g/dL Ggeap-5-Zldmlsgrl (0.10-0.40) g/dL Oxqht-2-Lxsszrbyl (0.60-1.00) g/dL Microbiology - Last 24 Hours (Table) 12/23/19 11:43 Blood Culture - Preliminary Blood No Growth after 72 hours - Imaging and Cardiology GI procedure notes reviewed Assessment and Plan (1) Folate deficiency Narrative/Plan: Folate supplement initiated, Rx sent pt pt preferred pharmacy Current Visit: Yes Status: Acute Priority: High Code(s): E53.8 - DEFICIENCY OF OTHER SPECIFIED B GROUP VITAMINS SNOMED Code(s): 643460242 (2) Microcytic hypochromic anemia Narrative/Plan: Patient has a history of iron deficiency, her labs are suggestive of the same. Gastroenterology workup showing gastric ulcers, incomplete colonoscopy, pending barium enema. Current Visit: Yes Status: Acute Priority: High Code(s): D50.9 - IRON DEFICIENCY ANEMIA, UNSPECIFIED SNOMED Code(s): 26581432 (3) Iron deficiency anemia Narrative/Plan: Patient is being supplemented with parenteral iron 3 doses. F/U Hematology in 4-6 weeks Current Visit: Yes Status: Acute Priority: High Code(s): D50.9 - IRON DEFICIENCY ANEMIA, UNSPECIFIED SNOMED Code(s): 97185636 Plan: No paraproteinemia, kappa light chain only slightly deviated from normal.
--- NOTE | 2019-12-27 14:47 | P.PN ---
Subjective Progress Note Date: 12/27/19 Jaqui Garza is an 84 -year-old female who was brought in to [facility] emergency room due to mental status changes, per emergency room notes, patient was fine yesterday, she took [place] baclofen and a sleeping pill before going to bed, this morning she was unarousable and family called EMS and patient was brought in to [facility]. In the emergency room patient had a computed tomography scan of the brain without contrast that failed to reveal any evidence of hemorrhage or any acute abnormality, Narcan was given but did not help much, patient had significantly abnormal labs with evidence of urinary tract infection, severe leukocytosis, anemia with hemoglobin of 6.9, heme positive stools, and elevated lactic acid, she was started on IV fluid, IV Rocephin, and was admitted to medical floor for further evaluation. 1 unit of red blood cell transfusion was ordered. Patient was seen and examined on the medical floor, she is responding to stimuli but goes back to sleep, she is nonverbal at this time, no history could be obtained from her. On 12/24/2019 patient was seen and examined on the medical floor she is alert, responsive answering questions appropriately, there is no fever or chills no headache or dizziness no chest pain no shortness of breath no cough no nausea or vomiting no abdominal pain no diarrhea no blood in the stools, she is having urine incontinence and has an external catheter. On 12/25/2019 patient was seen and examined on the medical floor she is alert and oriented 3 in no apparent distress, clinically she is doing much better, vitals are stable and within normal limits, white blood count still significantly elevated at 30.4 but down from yesterday and the day before hemoglobin 7.6 patient has iron deficiency anemia and order for IV iron was placed. Patient has elevated BUN and creatinine that are gradually improving. Gastroenterology consultation requested, Dr. Thao is planning EGD and colonoscopy tomorrow. Urology consultation requested patient has evidence of bilateral hydronephrosis. On 12/26/2019 patient was seen and examined on the medical floor she is alert and oriented 3 in no distress there is no fever or chills no headache or dizziness no chest pain no shortness of breath no cough no nausea or vomiting no abdominal pain no diarrhea and no urinary symptoms potassium is going been corrected by protocol, patient is scheduled for EGD and colonoscopy today. On 12/27/2019 patient was seen and examined on the medical floor she is alert and oriented 3 in no distress results from GI investigations reviewed, still and able to rule out any abnormality in the cecum area, awaiting further recommendation from gastroenterology, otherwise patient is doing well she denies any fever or chills no headache or dizziness no chest pain no shortness of breath no cough no nausea or vomiting no abdominal pain no diarrhea no blood in the stools no burning with urination no frequency or urgency and no hematuria, she still has significant unsteadiness with her gait, and would benefit of subacute rehab on discharge. Objective - Vital Signs Vital signs: Vital Signs Temp 97.9 F 12/27/19 08:00 Pulse 99 12/27/19 08:00 Resp 16 12/27/19 08:00 BP 155/76 12/27/19 08:00 Pulse Ox 99 12/27/19 08:00 Intake & Output 12/26/19 12/27/19 12/27/19 18:59 06:59 18:59 Intake Total 540 Output Total 3000 550 600 Balance -2460 -550 -600 Weight 75 kg 75 kg Intake: IV 300 Oral 240 Output: Urine 1200 550 Stool 1800 600 Other: Voiding Method Indwelling Catheter Indwelling Catheter Indwelling Catheter - Exam In general patient is alert responsive in no apparent distress HEENT head normocephalic and atraumatic Neck is supple no JVD no goiter no lymphadenopathy Chest exam reveals a few scattered rhonchi no wheezing Cardiac exam reveals regular heart sounds S1 and S2 no gallops no murmurs Abdomen is soft nontender no organomegaly with normal bowel sounds Extremity exam reveals minimal edema no cyanosis or clubbing Neurological examination patient is somnolent responsive to stimuli, moving all 4 extremities - Labs CBC & Chem 7: 12/27/19 05:46 12/27/19 05:46 Labs: Abnormal Lab Results - Last 24 Hours (Table) 12/26/19 12/27/19 12/27/19 Range/Units 23:25 05:46 05:46 WBC 19.4 H (3.8-10.6) k/uL RBC 3.55 L (3.80-5.40) m/uL Hgb 8.0 L (11.4-16.0) gm/dL Hct 27.1 L (34.0-46.0) % MCV 76.5 L (80.0-100.0) fL MCH 22.6 L (25.0-35.0) pg MCHC 29.5 L (31.0-37.0) g/dL RDW 19.9 H (11.5-15.5) % Plt Count 467 H (150-450) k/uL Neutrophils # 15.9 H (1.3-7.7) k/uL Monocytes # 1.5 H (0-1.0) k/uL Potassium 3.4 L (3.5-5.1) mmol/L Chloride 112 H (98-107) mmol/L Carbon Dioxide 17 L (22-30) mmol/L Glucose 106 H (74-99) mg/dL Calcium 8.2 L (8.4-10.2) mg/dL Total Protein 5.8 L (6.3-8.2) g/dL Albumin 2.8 L (3.5-5.0) g/dL Microbiology - Last 24 Hours (Table) 12/23/19 11:43 Blood Culture - Preliminary Blood No Growth after 96 hours Assessment and Plan Plan: 1. Evidence of urinary tract infection, patient was started on IV Unasyn, blood culture and urine culture were ordered, infectious disease consultation was requested. 2. Sepsis, likely related to urinary tract infection, with severe leukocytosis, elevated lactic acid, tachycardia and tachypnea 3. Severe elevation in white blood count, could be related to infection however, possibility of leukocytosis related to leukemia needs to be ruled out, consultation for hematology was initiated. 4. Severe anemia, patient received a total of 2 units of red blood cell transfusion, patient has heme positive stools, consultation for gastroenterology was initiated, patient has a history of peptic ulcer disease, computed tomography scan is revealing possible lesion in the cecum. Still and able to rule out abnormality in the cecum, colonoscopy was unable to reach the cecum, and barium enema was inconclusive, awaiting further recommendation from gastroenterology 5. Underlying history of hypertension. At this time we are holding blood pressure medication Will monitor closely 6. Underlying history of osteoarthritis with severe pain requiring narcotic medications. At this time will hold narcotic sleeping pill and muscle relaxers will monitor mental status closely. 7. Mental status changes, likely related to sepsis, metabolic encephalopathy, and affect of narcotic medication and sleeping., No abnormality seen on computed tomography scan without contrast, however if mental status does not i mprove in 24 hours, will proceed was more imaging and consultation for neurology. 8. Hypokalemia Corps correcting 9. Acute renal failure on admission with elevated BUN at 41 creatinine at 1.37, improving BUN is down to 28 and creatinine 1.06 10. Bilateral hydronephrosis urology consultation reviewed, at this time plan for Thacker catheter. Patient prognosis is guarded She was started on IV fluid, IV antibiotics, red blood cell transfusion Consultation for hematology, infectious disease, and gastroenterology initiated Will repeat labs and follow closely
--- NOTE | 2019-12-27 16:54 | PN ---
PROGRESS NOTE DATE OF SERVICE: 12/27/2019 REASON FOR FOLLOWUP: UTI and possible diverticulitis. INTERVAL HISTORY: The patient is currently afebrile. The patient is breathing comfortably. Denies having any chest pain or cough. No abdominal pain or any diarrhea. PHYSICAL EXAMINATION: Blood pressure 155/76, pulse of 91, temperature 97.9. She is 98% on 2 L nasal cannula. General description is an elderly female, lying in bed in no distress. RESPIRATORY SYSTEM: Unlabored breathing, clear to auscultation anteriorly. HEART: S1, S2. Regular rate and rhythm. ABDOMEN: Soft, no tenderness. LABS: Hemoglobin is 8, white count 19.4, BUN of 13, creatinine 0.67, blood culture has been negative. DIAGNOSTIC IMPRESSION AND PLAN: Patient admitted to the hospital with present illness, possible sepsis with did have positive UA, initial concern for a UTI infection, significant elevated white count. CT has been suspicious for a possible colonic diverticulitis and mass. The patient is covered with Unasyn. White count has shown a downward trend to continue and monitor clinical course closely. MMODL / IJN: [id number] /
--- NOTE | 2019-12-27 17:27 | PN ---
PROGRESS NOTE DATE OF SERVICE: 12/27/2019 Patient is an 84-year-old pleasant white female who was admitted to the hospital with urinary tract infection, presently on antibiotics and doing well. She was noted to have severe anemia during this hospitalization. She had a CT of the abdomen and pelvis done at the time of admission to the hospital that showed a questionable filling defect in the cecum. She was also noted to have anemia with a hemoglobin of 7 and hence underwent an upper endoscopy as well as colonoscopy yesterday. Upper endoscopy revealed multiple gastric ulcerations in the proximal body of the stomach measuring between 1-2 cm in size and the colonoscopy was extremely difficult and I was able to advance the scope up to the hepatic flexure and the right colon could not be visualized. Hence, she was scheduled for a barium enema, double-contrast barium enema today. Apparently, at the time of barium enema, she was not able to hold the barium and the barium could be passed only up to the sigmoid colon and the procedure was terminated because of patient discomfort and limited mobility of the patient. In the meantime, she is doing well. She denies any symptoms. PHYSICAL EXAMINATION: Appears comfortable, in no apparent distress. VITAL SIGNS: Stable. Blood pressure is 155/76, pulse rate 91, temperature 97.9. HEENT: Examination unremarkable. Conjunctivae are pink, sclerae nonicteric, oral cavity no lesions. NECK: No JVD or lymph node enlargement. CHEST: Clear to auscultation. HEART: Regular rate and rhythm. ABDOMEN: Soft, nontender, nondistended. Bowel sounds are positive. No organomegaly. EXTREMITIES: No pedal edema. SKIN: No rashes. NEUROLOGIC: Alert and oriented x3. No focal deficits. LABS: From today WBC is 19.4, hemoglobin 8, platelets 467. Basic metabolic panel is within normal limits. IMPRESSION: 1. Severe symptomatic anemia with a hemoglobin of 8 g/dL, status post 2 units of blood transfusion for hemoglobin of 6.9, status post EGD and colonoscopy up to the hepatic flexure yesterday. Upper endoscopy revealed multiple proximal gastric ulcers. No active bleeding. Colonoscopy up to the hepatic flexure was normal, but the cecum could not be visualized because of difficulty in advancing the scope. A barium enema done this morning was inconclusive as the barium could be advanced only up to the sigmoid colon and patient could not tolerate the procedure. 2. Acute UTI with sepsis, on IV Unasyn, doing well. 3. Leukocytosis, improving. 4. History of hypertension and degenerative joint disease. 5. Altered mental status, has significantly improved. RECOMMENDATION: I had a lengthy discussion with the patient regarding the findings of upper endoscopy as well as colonoscopy. I also spoke to the patient's [id number] on the phone and communicated the results. At this time, she will continue with Protonix 40 mg daily for the gastric ulcers and will await the biopsy results. In regard to the incomplete colonoscopy where the cecum could not be visualized and an inconclusive barium enema, I recommended that we perform a CT colonography on an outpatient basis in the next 2-3 weeks at [facility]. The patient is agreeable to this plan. She was advised to follow up in the office in 2 weeks following discharge from the hospital. Thank you for this consultation. GIANLUCA / ANNAMARIA: [id number] /
[2019-12-28] MEDS: AMPICILLIN-SULBACTAM 3 GM in SODIUM CHLORIDE 0.9% 100 ML IVPB SCH ×3 (02:23→17:05)
[2019-12-28] MEDS: SODIUM CHLORIDE 0.9% 1,000 ML IV SCH ×4 (02:24→23:04)
[2019-12-28 06:22] LABS: Anisocytosis Moderate; Basophils # (A) 0.1 k/uL (0-0.2); Basophils % (A) 0 %; Eosinophils # (A) 0.1 k/uL (0-0.7); Eosinophils % (A) 1 %; HCT 25.8 % (34.0-46.0); HGB 7.5 gm/dL (11.4-16.0); Hypochromasia Marked; Lymphocytes # (A) 1.8 k/uL (1.0-4.8); Lymphocytes % (A) 8 %; MCH 22.2 pg (25.0-35.0); MCHC 29.1 g/dL (31.0-37.0); MCV 76.3 fL (80.0-100.0); Mean Platelet Volume 7.1; Microcytosis Moderate; Monocytes # (A) 1.8 k/uL (0-1.0); Monocytes % (A) 7 %; Neutrophils # (A) 19.2 k/uL (1.3-7.7); Neutrophils % (A) 81 %; Platelet Count 398 k/uL (150-450); Poikilocytosis Moderate; RBC 3.38 m/uL (3.80-5.40); WBC 23.6 k/uL (3.8-10.6)
[2019-12-28 06:30] LABS: ALT 13 U/L (4-34); AST 20 U/L (14-36); African American GFR (CKD) >90 (>60 ml/min/1.73 sqM); Albumin 2.5 g/dL (3.5-5.0); Alkaline Phosphatase 70 U/L (38-126); Anion Gap 10 mmol/L; Blood Urea Nitrogen 10 mg/dL (7-17); Calcium 7.9 mg/dL (8.4-10.2); Carbon Dioxide 18 mmol/L (22-30); Chloride 112 mmol/L (98-107); Glucose 115 mg/dL (74-99); Non-African American GFR(CKD) 86 (>60 ml/min/1.73 sqM); Potassium 3.3 mmol/L (3.5-5.1); Sodium 140 mmol/L (137-145); Total Bilirubin 0.2 mg/dL (0.2-1.3); Total Protein 5.5 g/dL (6.3-8.2)
[2019-12-28] MEDS: POTASSIUM CHLORIDE ER 20 MEQ TAB.ER PO SCH ×2 (07:10→08:03)
--- NOTE | 2019-12-28 08:52 | P.PN ---
Progress Note - Text Progress Note Date: 12/28/19 The Thacker catheter remains in place, draining clear yellow urine. The serum creatinine level has normalized and today was 0.57. It is difficult to determine whether or not the Thacker catheter placement contributed to the improved serum creatinine level. The patient denies flank pain. The etiology of her hydronephrosis is indeterminate. However, she is asymptomatic and has normal renal function. Given that the hydronephrosis is bilateral, it is very unlikely that this is due to ureteral obstruction. Rather, it is likely due to bladder dysfunction. Urinary retention could cause this, as could a poorly compliant, high-pressure neurogenic bladder. In either case, I do not believe that the patient would be able to perform intermittent self-catheterization, and I am thus inclined to recommend observation at this time. I would suggest that the Thacker catheter be removed were no longer medically needed, and postvoid residuals checked to assess bladder emptying.
[2019-12-28] MEDS: PANTOPRAZOLE 40 MG/10 ML VIAL IV SCH (09:20)
[2019-12-28] MEDS: FOLIC ACID 1 MG TAB PO SCH (09:22)
[2019-12-28] MEDS: HYDROcodone/APAP 7.5-325MG 1 EACH TAB PO SCH ×3 (09:22→20:56)
[2019-12-28] MEDS: SODIUM FERRIC GLUCONAT-SUCROSE 125 MG in SODIUM CHLORIDE 0.9% 100 ML IVPB SCH (09:23)
--- NOTE | 2019-12-28 13:37 | P.PN ---
Subjective Progress Note Date: 12/28/19 Principal diagnosis: microcytic, hypochromic anemia, elevated WBC and platelets In follow-up today patient is doing ok, tolerated IV iron, started folic acid without side effects. No fever, nausea, vomiting, she is eating her lunch, denies difficulty breathing, pain or bleeding. Objective - Vital Signs Vital signs: Vital Signs Temp 97.8 F 12/28/19 12:00 Pulse 90 12/28/19 12:00 Resp 18 12/28/19 12:00 BP 143/87 12/28/19 12:00 Pulse Ox 97 12/28/19 12:00 Intake & Output 12/27/19 12/28/19 12/28/19 18:59 06:59 18:59 Intake Total 920 Output Total 1200 625 Balance -1200 -625 920 Weight 75 kg 74 kg Intake: Intake, IV Titration 720 Amount Ampicillin-Sulbactam 3 gm 100 In Sodium Chloride 0.9% 100 ml @ 200 mls/hr IVPB Q8H MARIBETH Rx#:[id number] Sodium Chloride 0.9% 1, 520 000 ml @ 130 mls/hr IV . [id number] MARIBETH Rx#:[id number] Sodium Ferric Gluconat- 100 Sucrose 125 mg In Sodium Chloride 0.9% 100 ml @ 100 mls/hr IVPB DAILY MARIBETH Rx#:[id number] Oral 200 Output: Urine 600 625 Uretheral (Thacker) 25 Stool 600 Other: Voiding Method Indwelling Catheter Indwelling Catheter Indwelling Catheter # Bowel Movements 0 - Constitutional General appearance: Present: cooperative, no acute distress, obese - EENT Eyes: Present: anicteric sclerae, EOMI ENT: Present: hearing grossly normal - Respiratory Details: Respirations even and unlabored, no adventitious breath sounds - Cardiovascular Details: Skin warm and dry, radial pulse regular, 2+ - Neurologic Neurologic: Present: CNII-XII intact - Musculoskeletal Musculoskeletal: Present: generalized weakness - Psychiatric Psychiatric: Present: A&O x's 3, appropriate affect, intact judgment & insight - Labs CBC & Chem 7: 12/28/19 05:16 12/28/19 05:16 Labs: Abnormal Lab Results - Last 24 Hours (Table) 12/28/19 12/28/19 Range/Units 05:16 05:16 WBC 23.6 H (3.8-10.6) k/uL RBC 3.38 L (3.80-5.40) m/uL Hgb 7.5 L (11.4-16.0) gm/dL Hct 25.8 L (34.0-46.0) % MCV 76.3 L (80.0-100.0) fL MCH 22.2 L (25.0-35.0) pg MCHC 29.1 L (31.0-37.0) g/dL RDW 21.0 H (11.5-15.5) % Neutrophils # 19.2 H (1.3-7.7) k/uL Monocytes # 1.8 H (0-1.0) k/uL Potassium 3.3 L (3.5-5.1) mmol/L Chloride 112 H (98-107) mmol/L Carbon Dioxide 18 L (22-30) mmol/L Glucose 115 H (74-99) mg/dL Calcium 7.9 L (8.4-10.2) mg/dL Total Protein 5.5 L (6.3-8.2) g/dL Albumin 2.5 L (3.5-5.0) g/dL Microbiology - Last 24 Hours (Table) 12/23/19 11:43 Blood Culture - Preliminary Blood No Growth after 96 hours Assessment and Plan (1) Folate deficiency Narrative/Plan: Folate supplement initiated, patient tolerating well. Rx sent to pt preferred pharmacy to continue outpatient Current Visit: Yes Status: Acute Priority: High Code(s): E53.8 - DEFICIENCY OF OTHER SPECIFIED B GROUP VITAMINS SNOMED Code(s): 304690239 (2) Microcytic hypochromic anemia Narrative/Plan: Patient has a history of iron deficiency, her labs are suggestive of the same. Gastroenterology workup showing gastric ulcers, incomplete colonoscopy and barium enema. CT of the abdomen and pelvis discusses an area near the cecum that that cannot completely rule out a malignant process. Due to procedures not being able to be completed because of the area, possibly a PET scan outpatient for further evaluation would be reasonable. Current Visit: Yes Status: Acute Priority: High Code(s): D50.9 - IRON DEFICIENCY ANEMIA, UNSPECIFIED SNOMED Code(s): 42495362 (3) Iron deficiency anemia Narrative/Plan: Patient is being supplemented with parenteral iron x 3 doses. F/U Hematology in 4-6 weeks Current Visit: Yes Status: Acute Priority: High Code(s): D50.9 - IRON DEFICIENCY ANEMIA, UNSPECIFIED SNOMED Code(s): 38561514 (4) Leukocytosis Narrative/Plan: Mostly neutrophils. The number started to come down and now has went up to 23.6. We'll continue to monitor while inpatient. Patient will be monitored in the outpatient setting as well. There are no plans for a bone marrow at this time. Current Visit: Yes Status: Acute Priority: High Code(s): D72.829 - ELEVATED WHITE BLOOD CELL COUNT, UNSPECIFIED SNOMED Code(s): 033002860 Plan: No paraproteinemia, kappa light chain only slightly deviated from normal.
--- NOTE | 2019-12-28 15:13 | PN ---
PROGRESS NOTE DATE OF SERVICE: 12/28/2019 Patient is an 84-year-old white female admitted to hospital with UTI on broad-spectrum antibiotics. Symptoms are gradually improving. She denies any abdominal pain. No rectal bleeding, no melena. She was given IV infusion of iron yesterday. No new complaints. PHYSICAL EXAMINATION: Appears comfortable, in no apparent distress. Vital signs are stable. Blood pressure 143/87, pulse rate 90, temperature 97.8. HEENT: Examination unremarkable, conjunctivae are pink, sclerae nonicteric, oral cavity no lesions. NECK: No JVD or lymph node enlargement. CHEST: Clear to auscultation. HEART: Regular rate and rhythm. ABDOMEN: Soft, bowel sounds are positive. No organomegaly. EXTREMITIES: No pedal edema. SKIN: No rashes. NEUROLOGIC: Alert and oriented x3. No focal deficits. LABS: WBC 23.6, hemoglobin 7.5, platelets normal. Basic metabolic panel is within normal limits. IMPRESSION: 1. Iron deficiency anemia, status post EGD and colonoscopy of the hepatic flexure 2 days ago. The EGD revealed multiple gastric ulcers for which she is on Protonix 40 mg daily. Her colonoscopy could not evaluate the right colon. Subsequent barium enema was inconclusive. Patient needs CT colonography on an outpatient basis. 2. Urinary tract infection, on broad-spectrum antibiotics, leukocytosis gradually improving. 3. Mild hypokalemia, potassium being replaced. RECOMMENDATION: 1. Continue with broad-spectrum antibiotics. 2. Agree with iron infusions. 3. Monitor CBC on a daily basis. 4. Will schedule the patient for a CT colonography on an outpatient basis to evaluate the right colon. She was advised to follow up in the office in 2 weeks following discharge from the hospital. Thank you for this consultation. MMODL / IJN: [id number] /
--- NOTE | 2019-12-28 15:15 | P.PN ---
Subjective Progress Note Date: 12/28/19 Jaqui Garza is an 84 -year-old female who was brought in to [facility] emergency room due to mental status changes, per emergency room notes, patient was fine yesterday, she took [place] baclofen and a sleeping pill before going to bed, this morning she was unarousable and family called EMS and patient was brought in to [facility]. In the emergency room patient had a computed tomography scan of the brain without contrast that failed to reveal any evidence of hemorrhage or any acute abnormality, Narcan was given but did not help much, patient had significantly abnormal labs with evidence of urinary tract infection, severe leukocytosis, anemia with hemoglobin of 6.9, heme positive stools, and elevated lactic acid, she was started on IV fluid, IV Rocephin, and was admitted to medical floor for further evaluation. 1 unit of red blood cell transfusion was ordered. Patient was seen and examined on the medical floor, she is responding to stimuli but goes back to sleep, she is nonverbal at this time, no history could be obtained from her. On 12/24/2019 patient was seen and examined on the medical floor she is alert, responsive answering questions appropriately, there is no fever or chills no headache or dizziness no chest pain no shortness of breath no cough no nausea or vomiting no abdominal pain no diarrhea no blood in the stools, she is having urine incontinence and has an external catheter. On 12/25/2019 patient was seen and examined on the medical floor she is alert and oriented 3 in no apparent distress, clinically she is doing much better, vitals are stable and within normal limits, white blood count still significantly elevated at 30.4 but down from yesterday and the day before hemoglobin 7.6 patient has iron deficiency anemia and order for IV iron was placed. Patient has elevated BUN and creatinine that are gradually improving. Gastroenterology consultation requested, Dr. Thao is planning EGD and colonoscopy tomorrow. Urology consultation requested patient has evidence of bilateral hydronephrosis. On 12/26/2019 patient was seen and examined on the medical floor she is alert and oriented 3 in no distress there is no fever or chills no headache or dizziness no chest pain no shortness of breath no cough no nausea or vomiting no abdominal pain no diarrhea and no urinary symptoms potassium is going been corrected by protocol, patient is scheduled for EGD and colonoscopy today. On 12/27/2019 patient was seen and examined on the medical floor she is alert and oriented 3 in no distress results from GI investigations reviewed, still and able to rule out any abnormality in the cecum area, awaiting further recommendation from gastroenterology, otherwise patient is doing well she denies any fever or chills no headache or dizziness no chest pain no shortness of breath no cough no nausea or vomiting no abdominal pain no diarrhea no blood in the stools no burning with urination no frequency or urgency and no hematuria, she still has significant unsteadiness with her gait, and would benefit of subacute rehab on discharge. On 12/28/2019 patient was seen and examined on the medical floor she is alert and oriented 3 in no apparent distress patient is denying any complaints at this time there is no fever or chills no headache or dizziness no chest pain no shortness of breath no cough no nausea or vomiting no abdominal pain no diarrhea and no urinary symptoms. Clinically her hemoglobin is down to 7.5, white blood count is up to 23.6, patient still has significant unsteadiness with her gait. Input from gastroenterology and urology reviewed. Objective - Vital Signs Vital signs: Vital Signs Temp 97.8 F 12/28/19 12:00 Pulse 90 12/28/19 12:00 Resp 18 12/28/19 12:00 BP 143/87 12/28/19 12:00 Pulse Ox 97 12/28/19 12:00 Intake & Output 12/27/19 12/28/19 12/28/19 18:59 06:59 18:59 Intake Total 920 Output Total 1200 625 450 Balance -1200 -625 470 Weight 75 kg 74 kg Intake: Intake, IV Titration 720 Amount Ampicillin-Sulbactam 3 gm 100 In Sodium Chloride 0.9% 100 ml @ 200 mls/hr IVPB Q8H [facility] Rx#:[id number] Sodium Chloride 0.9% 1, 520 000 ml @ 130 mls/hr IV . Q7H42M [facility] Rx#:[id number] Sodium Ferric Gluconat- 100 Sucrose 125 mg In Sodium Chloride 0.9% 100 ml @ 100 mls/hr IVPB DAILY [facility] Rx#:[id number] Oral 200 Output: Urine 600 625 450 Uretheral (Thacker) 25 Stool 600 Other: Voiding Method Indwelling Catheter Indwelling Catheter Indwelling Catheter # Bowel Movements 0 - Exam In general patient is alert responsive in no apparent distress HEENT head normocephalic and atraumatic Neck is supple no JVD no goiter no lymphadenopathy Chest exam reveals a few scattered rhonchi no wheezing Cardiac exam reveals regular heart sounds S1 and S2 no gallops no murmurs Abdomen is soft nontender no organomegaly with normal bowel sounds Extremity exam reveals minimal edema no cyanosis or clubbing Neurological examination patient is somnolent responsive to stimuli, moving all 4 extremities - Labs CBC & Chem 7: 12/28/19 05:16 12/28/19 05:16 Labs: Abnormal Lab Results - Last 24 Hours (Table) 12/28/19 12/28/19 Range/Units 05:16 05:16 WBC 23.6 H (3.8-10.6) k/uL RBC 3.38 L (3.80-5.40) m/uL Hgb 7.5 L (11.4-16.0) gm/dL Hct 25.8 L (34.0-46.0) % MCV 76.3 L (80.0-100.0) fL MCH 22.2 L (25.0-35.0) pg MCHC 29.1 L (31.0-37.0) g/dL RDW 21.0 H (11.5-15.5) % Neutrophils # 19.2 H (1.3-7.7) k/uL Monocytes # 1.8 H (0-1.0) k/uL Potassium 3.3 L (3.5-5.1) mmol/L Chloride 112 H (98-107) mmol/L Carbon Dioxide 18 L (22-30) mmol/L Glucose 115 H (74-99) mg/dL Calcium 7.9 L (8.4-10.2) mg/dL Total Protein 5.5 L (6.3-8.2) g/dL Albumin 2.5 L (3.5-5.0) g/dL Microbiology - Last 24 Hours (Table) 12/23/19 11:43 Blood Culture - Preliminary Blood No Growth after 120 hours Assessment and Plan Plan: 1. Evidence of urinary tract infection, patient was started on IV Unasyn, blood culture and urine culture were ordered, infectious disease consultation was requested. 2. Sepsis, likely related to urinary tract infection, with severe leukocytosis, elevated lactic acid, tachycardia and tachypnea 3. Severe elevation in white blood count, could be related to infection [place] moody, possibility of leukocytosis related to leukemia needs to be ruled out, consultation for hematology was initiated. 4. Severe anemia, patient received a total of 2 units of red blood cell transfu ebony, patient has heme positive stools, consultation for gastroenterology was initiated, patient has a history of peptic ulcer disease, computed tomography scan is revealing possible lesion in the cecum. Still and able to rule out abnormality in the cecum, colonoscopy was unable to reach the cecum, and barium enema was inconclusive, awaiting further recommendation from gastroenterology 5. Underlying history of hypertension. At this time we are holding blood pressure medication Will monitor closely 6. Underlying history of osteoarthritis with severe pain requiring narcotic medications. At this time will hold narcotic sleeping pill and muscle relaxers will monitor mental status closely. 7. Mental status changes, likely related to sepsis, metabolic encephalopathy, and affect of narcotic medication and sleeping., No abnormality seen on computed tomography scan without contrast, however if mental status does not improve in 24 hours, will proceed was more imaging and consultation for neurology. 8. Hypokalemia Corps correcting 9. Acute renal failure on admission with elevated BUN at 41 creatinine at 1.37, improving BUN is down to 28 and creatinine 1.06 10. Bilateral hydronephrosis urology consultation reviewed, at this time plan for Thacker catheter. Patient prognosis is guarded She was started on IV fluid, IV antibiotics, red blood cell transfusion Consultation for hematology, infectious disease, urology and gastroenterology initiated Will repeat labs and follow closely
--- NOTE | 2019-12-28 16:56 | PN ---
PROGRESS NOTE DATE OF SERVICE: 12/28/2019 REASON FOR FOLLOWUP: UTI and colitis. INTERVAL HISTORY: The patient is currently afebrile, patient is breathing comfortably. Denies having any chest pain. Occasional cough. No vomiting or diarrhea. PHYSICAL EXAMINATION: On examination, her blood pressure is 143/87 with a pulse of 90, temperature 96.8. She is 97% on room air. General description is an elderly female, lying in bed in no distress. RESPIRATORY SYSTEM: Unlabored breathing, clear to auscultation anteriorly. HEART: S1, S2. Regular rate and rhythm. ABDOMEN: Soft, no tenderness. LABS: Hemoglobin 7.5, white count of 23.6, BUN of 10, creatinine 0.57. DIAGNOSTIC IMPRESSION AND PLAN: Patient with elevated white count which is multifactorial. This patient did have a component of UTI, diverticulitis, or chronic inflammation of the sigmoid. The patient is covered with Unasyn. White count showing a downward trend slightly up today and we will monitor closely and continue supportive care. MMODL / IJN: [id number] /
[2019-12-28] MEDS: ALPRAZolam 0.25 MG TAB PO PRN (23:07)
[2019-12-29] MEDS ORDERED: FUROSEMIDE 10 MG/ML 2 ML VIAL IV ONE ×2 (00:59→16:26)
[2019-12-29] MEDS: AMPICILLIN-SULBACTAM 3 GM in SODIUM CHLORIDE 0.9% 100 ML IVPB SCH ×3 (01:11→17:16)
[2019-12-29] MEDS: ALPRAZolam 0.25 MG TAB PO PRN ×2 (05:35→21:45)
[2019-12-29 08:00] LABS: Anisocytosis Moderate; HCT 29.7 % (34.0-46.0); HGB 8.8 gm/dL (11.4-16.0); Hypochromasia Marked; MCH 22.8 pg (25.0-35.0); MCHC 29.6 g/dL (31.0-37.0); MCV 77.1 fL (80.0-100.0); Mean Platelet Volume 7.6; Microcytosis Moderate; Platelet Count 395 k/uL (150-450); Poikilocytosis Moderate; RBC 3.86 m/uL (3.80-5.40); RDW 20.8 % (11.5-15.5); WBC 21.6 k/uL (3.8-10.6)
[2019-12-29] MEDS: FOLIC ACID 1 MG TAB PO SCH (08:13)
[2019-12-29] MEDS: PANTOPRAZOLE 40 MG/10 ML VIAL IV SCH (08:13)
[2019-12-29] MEDS: HYDROcodone/APAP 7.5-325MG 1 EACH TAB PO SCH ×3 (08:13→21:45)
[2019-12-29 08:17] LABS: ALT 13 U/L (4-34); AST 20 U/L (14-36); African American GFR (CKD) >90 (>60 ml/min/1.73 sqM); Albumin 2.8 g/dL (3.5-5.0); Alkaline Phosphatase 77 U/L (38-126); Anion Gap 8 mmol/L; Blood Urea Nitrogen 8 mg/dL (7-17); Calcium 8.2 mg/dL (8.4-10.2); Carbon Dioxide 19 mmol/L (22-30); Chloride 113 mmol/L (98-107); Glucose 116 mg/dL (74-99); Non-African American GFR(CKD) 84 (>60 ml/min/1.73 sqM); Potassium 3.4 mmol/L (3.5-5.1); Sodium 140 mmol/L (137-145); Total Bilirubin 0.3 mg/dL (0.2-1.3); Total Protein 5.9 g/dL (6.3-8.2)
[2019-12-29 08:31] LABS: Band Neutrophils % 1 %; Eosinophils # (M) 0.22 k/uL (0-0.7); Lymphocytes # (M) 2.38 k/uL (1.0-4.8); Monocytes # (M) 1.51 k/uL (0-1.0); Myelocytes # (M) 0.22 k/uL (0); Myelocytes % 1 %; Neutrophils % (M) 81 %; Nucleated Red Blood Cells 0 /100 WBC (0-0); Total Cells Counted 200
[2019-12-29] MEDS: POTASSIUM CHLORIDE ER 20 MEQ TAB.ER PO SCH ×2 (11:13→12:52)
--- NOTE | 2019-12-29 16:24 | P.PN ---
Subjective Progress Note Date: 12/29/19 Principal diagnosis: microcytic, hypochromic anemia, elevated WBC and platelets In follow-up today patient is doing well, she is in a good mood, has no c/o on a 10 point review of systems. Denies bleeding or pain. Objective - Vital Signs Vital signs: Vital Signs Temp 98 F 12/29/19 12:00 Pulse 89 12/29/19 12:00 Resp 16 12/29/19 12:00 BP 147/78 12/29/19 12:00 Pulse Ox 96 12/29/19 12:00 Intake & Output 12/28/19 12/29/19 12/29/19 18:59 06:59 18:59 Intake Total 1160 400 Output Total 1450 2400 800 Balance -290 -2400 -400 Weight 75.5 kg Intake: Intake, IV Titration 720 100 Amount Ampicillin-Sulbactam 3 gm 100 100 In Sodium Chloride 0.9% 100 ml @ 200 mls/hr IVPB Q8H [facility] Rx#:[id number] Sodium Chloride 0.9% 1, 520 000 ml @ 130 mls/hr IV . Q7H42M [facility] Rx#:[id number] Sodium Ferric Gluconat- 100 Sucrose 125 mg In Sodium Chloride 0.9% 100 ml @ 100 mls/hr IVPB DAILY [facility] Rx#:[id number] Oral 440 300 Output: Urine 850 2400 800 Stool 600 Other: Voiding Method Indwelling Catheter Indwelling Catheter Indwelling Catheter - Constitutional General appearance: Present: cooperative, no acute distress, obese - EENT Eyes: Present: anicteric sclerae, EOMI ENT: Present: hearing grossly normal - Respiratory Details: respirations even and unlabored - Cardiovascular Details: skin warm and dry, patient has some pink to her cheeks today. - Musculoskeletal Musculoskeletal: Present: generalized weakness - Psychiatric Psychiatric: Present: A&O x's 3, appropriate affect, intact judgment & insight - Labs CBC & Chem 7: 12/29/19 06:57 12/29/19 06:57 Labs: Abnormal Lab Results - Last 24 Hours (Table) 12/29/19 12/29/19 Range/Units 06:57 06:57 WBC 21.6 H (3.8-10.6) k/uL Hgb 8.8 L (11.4-16.0) gm/dL Hct 29.7 L (34.0-46.0) % MCV 77.1 L (80.0-100.0) fL MCH 22.8 L (25.0-35.0) pg MCHC 29.6 L (31.0-37.0) g/dL RDW 20.8 H (11.5-15.5) % Neutrophils # (Manual) 17.70 H (1.3-7.7) k/uL Monocytes # (Manual) 1.51 H (0-1.0) k/uL Myelocytes # (Manual) 0.22 H (0) k/uL Potassium 3.4 L (3.5-5.1) mmol/L Chloride 113 H (98-107) mmol/L Carbon Dioxide 19 L (22-30) mmol/L Glucose 116 H (74-99) mg/dL Calcium 8.2 L (8.4-10.2) mg/dL Total Protein 5.9 L (6.3-8.2) g/dL Albumin 2.8 L (3.5-5.0) g/dL Microbiology - Last 24 Hours (Table) 12/23/19 11:43 Blood Culture - Final Blood No Growth after 144 hours Assessment and Plan (1) Folate deficiency Narrative/Plan: Folate supplement initiated, patient tolerating well. Rx sent to pt preferred pharmacy to continue outpatient Current Visit: Yes Status: Acute Priority: High Code(s): E53.8 - DEFICIENCY OF OTHER SPECIFIED B GROUP VITAMINS SNOMED Code(s): 010914124 (2) Microcytic hypochromic anemia Narrative/Plan: Patient has a history of iron deficiency, her labs are suggestive of the same. patient has received parenteral iron 3. Recommendation is for a one-month follow-up to reevaluate iron stores, supplementation if needed. Gastroenterology workup showing gastric ulcers, incomplete colonoscopy and barium enema. CT of the abdomen and pelvis discusses an area near the cecum that that cannot completely rule out a malignant process. Due to procedures not being able to be completed because of the area there is mention of doing a CT colonoscopy. Agree with Gastroenterology is plans for the same. Current Visit: Yes Status: Acute Priority: High Code(s): D50.9 - IRON DEFICIENCY ANEMIA, UNSPECIFIED SNOMED Code(s): 91397029 (3) Iron deficiency anemia Current Visit: Yes Status: Acute Priority: High Code(s): D50.9 - IRON DEFICIENCY ANEMIA, UNSPECIFIED SNOMED Code(s): 16215544 (4) Leukocytosis Narrative/Plan: Mostly neutrophils. Starting to trend down again. There are no plans for a bone marrow at this time. Current Visit: Yes Status: Acute Priority: High Code(s): D72.829 - ELEVATED WHITE BLOOD CELL COUNT, UNSPECIFIED SNOMED Code(s): 435387448 Plan: No paraproteinemia, kappa light chain only slightly deviated from normal.
--- NOTE | 2019-12-29 16:29 | P.PN ---
Subjective Progress Note Date: 12/29/19 Jaqui Garza is an 84 -year-old female who was brought in to [facility] emergency room due to mental status changes, per emergency room notes, patient was fine yesterday, she took [place] baclofen and a sleeping pill before going to bed, this morning she was unarousable and family called EMS and patient was brought in to [facility]. In the emergency room patient had a computed tomography scan of the brain without contrast that failed to reveal any evidence of hemorrhage or any acute abnormality, Narcan was given but did not help much, patient had significantly abnormal labs with evidence of urinary tract infection, severe leukocytosis, anemia with hemoglobin of 6.9, heme positive stools, and elevated lactic acid, she was started on IV fluid, IV Rocephin, and was admitted to medical floor for further evaluation. 1 unit of red blood cell transfusion was ordered. Patient was seen and examined on the medical floor, she is responding to stimuli but goes back to sleep, she is nonverbal at this time, no history could be obtained from her. On 12/24/2019 patient was seen and examined on the medical floor she is alert, responsive answering questions appropriately, there is no fever or chills no headache or dizziness no chest pain no shortness of breath no cough no nausea or vomiting no abdominal pain no diarrhea no blood in the stools, she is having urine incontinence and has an external catheter. On 12/25/2019 patient was seen and examined on the medical floor she is alert and oriented 3 in no apparent distress, clinically she is doing much better, vitals are stable and within normal limits, white blood count still significantly elevated at 30.4 but down from yesterday and the day before hemoglobin 7.6 patient has iron deficiency anemia and order for IV iron was placed. Patient has elevated BUN and creatinine that are gradually improving. Gastroenterology consultation requested, Dr. Thao is planning EGD and colonoscopy tomorrow. Urology consultation requested patient has evidence of bilateral hydronephrosis. On 12/26/2019 patient was seen and examined on the medical floor she is alert and oriented 3 in no distress there is no fever or chills no headache or dizziness no chest pain no shortness of breath no cough no nausea or vomiting no abdominal pain no diarrhea and no urinary symptoms potassium is going been corrected by protocol, patient is scheduled for EGD and colonoscopy today. On 12/27/2019 patient was seen and examined on the medical floor she is alert and oriented 3 in no distress results from GI investigations reviewed, still and able to rule out any abnormality in the cecum area, awaiting further recommendation from gastroenterology, otherwise patient is doing well she denies any fever or chills no headache or dizziness no chest pain no shortness of breath no cough no nausea or vomiting no abdominal pain no diarrhea no blood in the stools no burning with urination no frequency or urgency and no hematuria, she still has significant unsteadiness with her gait, and would benefit of subacute rehab on discharge. On 12/28/2019 patient was seen and examined on the medical floor she is alert and oriented 3 in no apparent distress patient is denying any complaints at this time there is no fever or chills no headache or dizziness no chest pain no shortness of breath no cough no nausea or vomiting no abdominal pain no diarrhea and no urinary symptoms. Clinically her hemoglobin is down to 7.5, white blood count is up to 23.6, patient still has significant unsteadiness with her gait. Input from gastroenterology and urology reviewed. On 12/29/2019 patient was seen and examined on the medical floor, she is alert and oriented 3 in no distress there is no fever or chills no headache or dizziness no chest pain no shortness of breath no cough no nausea or vomiting no abdominal pain no diarrhea no burning was urination no frequency or urgency no hematuria. Patient has significant wheezing and prolonged expiratory phase with check chest x-ray, IV fluid discontinued will be given 1 dose of IV Lasix today Objective - Vital Signs Vital signs: Vital Signs Temp 98 F 12/29/19 12:00 Pulse 89 12/29/19 12:00 Resp 16 12/29/19 12:00 BP 147/78 12/29/19 12:00 Pulse Ox 96 12/29/19 12:00 Intake & Output 12/28/19 12/29/19 12/29/19 18:59 06:59 18:59 Intake Total 1160 400 Output Total 1450 2400 800 Balance -290 -2400 -400 Weight 75.5 kg Intake: Intake, IV Titration 720 100 Amount Ampicillin-Sulbactam 3 gm 100 100 In Sodium Chloride 0.9% 100 ml @ 200 mls/hr IVPB Q8H [facility] Rx#:[id number] Sodium Chloride 0.9% 1, 520 000 ml @ 130 mls/hr IV . Q7H42M [facility] Rx#:[id number] Sodium Ferric Gluconat- 100 Sucrose 125 mg In Sodium Chloride 0.9% 100 ml @ 100 mls/hr IVPB DAILY [facility] Rx#:[id number] Oral 440 300 Output: Urine 850 2400 800 Stool 600 Other: Voiding Method Indwelling Catheter Indwelling Catheter Indwelling Catheter - Exam In general patient is alert responsive in no apparent distress HEENT head normocephalic and atraumatic Neck is supple no JVD no goiter no lymphadenopathy Chest exam reveals a few scattered rhonchi no wheezing Cardiac exam reveals regular heart sounds S1 and S2 no gallops no murmurs Abdomen is soft nontender no organomegaly with normal bowel sounds Extremity exam reveals minimal edema no cyanosis or clubbing Neurological examination patient is somnolent responsive to stimuli, moving all 4 extremities - Labs CBC & Chem 7: 12/29/19 06:57 12/29/19 06:57 Labs: Abnormal Lab Results - Last 24 Hours (Table) 12/29/19 12/29/19 Range/Units 06:57 06:57 WBC 21.6 H (3.8-10.6) k/uL Hgb 8.8 L (11.4-16.0) gm/dL Hct 29.7 L (34.0-46.0) % MCV 77.1 L (80.0-100.0) fL MCH 22.8 L (25.0-35.0) pg MCHC 29.6 L (31.0-37.0) g/dL RDW 20.8 H (11.5-15.5) % Neutrophils # (Manual) 17.70 H (1.3-7.7) k/uL Monocytes # (Manual) 1.51 H (0-1.0) k/uL Myelocytes # (Manual) 0.22 H (0) k/uL Potassium 3.4 L (3.5-5.1) mmol/L Chloride 113 H (98-107) mmol/L Carbon Dioxide 19 L (22-30) mmol/L Glucose 116 H (74-99) mg/dL Calcium 8.2 L (8.4-10.2) mg/dL Total Protein 5.9 L (6.3-8.2) g/dL Albumin 2.8 L (3.5-5.0) g/dL Microbiology - Last 24 Hours (Table) 12/23/19 11:43 Blood Culture - Final Blood No Growth after 144 hours Assessment and Plan Plan: 1. Evidence of urinary tract infection, patient was started on IV Unasyn, blood culture and urine culture were ordered, infectious disease consultation was requested. 2. Sepsis, likely related to urinary tract infection, with severe leukocytosis, elevated lactic acid, tachycardia and tachypnea 3. Severe elevation in white blood count, could be related to infection however, possibility of leukocytosis related to leukemia needs to be ruled out, consultation for hematology was initiated. 4. Severe anemia, patient received a total of 2 units of red blood cell transfusion, patient has heme positive stools, consultation for gastroenterology was initiated, patient has a history of peptic ulcer disease, computed tomography scan is revealing possible lesion in the cecum. Still and able to rule out abnormality in the cecum, colonoscopy was unable to reach the cecum, and barium enema was inconclusive, awaiting further recommendation from gastroenterology 5. Underlying history of hypertension. At this time we are holding blood pressure medication Will monitor closely 6. Underlying history of osteoarthritis with severe pain requiring narcotic medications. At this time will hold narcotic sleeping pill and muscle relaxers will monitor mental status closely. 7. Mental status changes, likely related to sepsis, metabolic encephalopathy, and affect of narcotic medication and sleeping., No abnormality seen on computed tomography scan without contrast, however if mental status does not improve in 24 hours, will proceed was more imaging and consultation for neurology. 8. Hypokalemia Corps correcting 9. Acute renal failure on admission with elevated BUN at 41 creatinine at 1.37, improving BUN is down to 28 and creatinine 1.06 10. Bilateral hydronephrosis urology consultation reviewed, at this time plan for Thcaker catheter. Patient prognosis is guarded She was started on IV fluid, IV antibiotics, red blood cell transfusion Consultation for hematology, infectious disease, urology and gastroenterology initiated Will repeat labs and follow closely
--- NOTE | 2019-12-29 17:12 | XR ---
EXAMINATION TYPE: XR chest 1V portable DATE OF EXAM: 12/29/2019 COMPARISON: 12/23/2019 INDICATION: Dyspnea TECHNIQUE: Single frontal view of the chest is obtained. FINDINGS: The heart size is slightly prominent. The pulmonary vasculature is minute. There is diffuse increased lung markings. Findings can be compatible with pulmonary edema. Small left pleural effusion is present. IMPRESSION: 1. Clinical correlation recommended for congestive heart failure. 2. Small left pleural effusion. 3. Follow-up exams are recommended
--- NOTE | 2019-12-29 22:46 | PN ---
PROGRESS NOTE DATE OF SERVICE: 12/29/2019 REASON FOR FOLLOWUP: UTI and possible colitis. INTERVAL HISTORY: The patient is currently afebrile. The patient is breathing comfortably. Denies having any chest pain. Some shortness of breath. Minimal cough. No nausea, vomiting, abdominal pain or diarrhea. PHYSICAL EXAMINATION: Blood pressure is 144/72 with a pulse of 89, temperature 98.5. She is 97% on room air. General description is an elderly female lying in bed in no distress. RESPIRATORY SYSTEM: Unlabored breathing. Clear to auscultation anteriorly. HEART: S1, S2. Regular rate and rhythm. ABDOMEN: Soft. No tenderness. LABS: White count down to 21,000. DIAGNOSTIC IMPRESSION AND PLAN: Patient with leukocytosis which is multifactorial with a component of urinary tract infection, possible colitis, with abnormality seen on the CT. Colonoscopy could not be completed because of stricture. Status post biopsies. Those are currently pending. To continue with Unasyn and monitor her clinical course closely. MMODL / IJN: [id number] /
[2019-12-30] MEDS: AMPICILLIN-SULBACTAM 3 GM in SODIUM CHLORIDE 0.9% 100 ML IVPB SCH ×3 (02:44→19:00)
[2019-12-30 09:30] LABS: Anisocytosis Moderate; Basophils # (A) 0.1 k/uL (0-0.2); Basophils % (A) 0 %; Eosinophils # (A) 0.2 k/uL (0-0.7); Eosinophils % (A) 1 %; HCT 30.3 % (34.0-46.0); HGB 9.1 gm/dL (11.4-16.0); Hypochromasia Marked; Lymphocytes # (A) 1.6 k/uL (1.0-4.8); Lymphocytes % (A) 6 %; MCH 23.1 pg (25.0-35.0); MCHC 30.2 g/dL (31.0-37.0); MCV 76.4 fL (80.0-100.0); Mean Platelet Volume 7.7; Microcytosis Moderate; Monocytes # (A) 1.7 k/uL (0-1.0); Monocytes % (A) 6 %; Neutrophils # (A) 22.5 k/uL (1.3-7.7); Neutrophils % (A) 85 %; Platelet Count 418 k/uL (150-450); Poikilocytosis Moderate; RBC 3.96 m/uL (3.80-5.40); RDW 22.3 % (11.5-15.5); WBC 26.4 k/uL (3.8-10.6)
[2019-12-30] MEDS: HYDROcodone/APAP 7.5-325MG 1 EACH TAB PO SCH ×3 (10:00→22:12)
[2019-12-30] MEDS: FOLIC ACID 1 MG TAB PO SCH (10:00)
[2019-12-30] MEDS: PANTOPRAZOLE 40 MG/10 ML VIAL IV SCH (10:00)
[2019-12-30] MEDS ORDERED: FUROSEMIDE 10 MG/ML 4 ML VIAL IV STA (10:11)
[2019-12-30 10:15] LABS: ALT 14 U/L (4-34); AST 22 U/L (14-36); African American GFR (CKD) >90 (>60 ml/min/1.73 sqM); Albumin 2.7 g/dL (3.5-5.0); Alkaline Phosphatase 71 U/L (38-126); Anion Gap 14 mmol/L; Blood Urea Nitrogen 7 mg/dL (7-17); Calcium 8.1 mg/dL (8.4-10.2); Carbon Dioxide 20 mmol/L (22-30); Chloride 107 mmol/L (98-107); Glucose 194 mg/dL (74-99); Magnesium 1.1 mg/dL (1.6-2.3); Non-African American GFR(CKD) 84 (>60 ml/min/1.73 sqM); Potassium 3.2 mmol/L (3.5-5.1); Sodium 141 mmol/L (137-145); Total Bilirubin 0.4 mg/dL (0.2-1.3); Total Protein 5.7 g/dL (6.3-8.2)
--- NOTE | 2019-12-30 12:00 | P.CNPUL ---
History of Present Illness Consult date: 12/30/19 Requesting physician: Dalton Madden Reason for consult: dyspnea Chief complaint: Shortness of breath, pulmonary edema History of present illness: 84-year-old white female patient of Dr. Madden with past medical history of hypertension, chronic back pain related to history of osteoarthritis on [place], baclofen on the regular basis, diverticulitis, chronic constipation, history of breast cancer status post right mastectomy, depression, never smoker, urinary incontinence, history of urinary tract infections, who initially was admitted to the hospital on 12/23/2019 for evaluation altered mental status, apparently patient took her [place], baclofen and sleeping pills and she was not arousable by the family in the morning and EMS was called. Brain CT showed no acute intracranial process, did show diffuse age-related cerebral atrophy and chronic small vessel ischemic changes. Chest x-ray on admission showed pulmonary vascular congestion with what seems to be chronic interstitial prominence, low lung volumes, and slightly enlarged cardiac mediastinal silhouette. Patient had a low-grade fever on presentation with a temp of 99F, and significant leukocytosis with white blood cell count of 47,000, anemia with hemoglobin of 6.7 with positive hemoccult, and patient was transfused with packed red blood cells. Patient had evidence of urinary tract infection, lactic acidosis, right abdominal tenderness with concern for pyelonephritis versus ischemic colitis. She was started on Rocephin which was later changed to Unasyn, ID service consulted. Renal ultrasound showed bilateral hydronephrosis and thickening of the right-sided renal parenchyma. Patient was seen by urology service, computed tomography scan of the abdomen and pelvis without IV contrast showed evidence of bilateral hydroureteronephrosis with dilated ureters down to the level of the bladder, with no evidence of calculus present in the kidneys or ureters, bladder wall thickening was nonspecific. Medical management was recommended, patient's mentation started to improve. Urine culture showed no growth, blood culture was negative as well. Leukocytosis started to improve from the initial 47.6 on 12/23/2019 to 26.4 on today's labs on all 12/30/2019. She was evaluated for GI bleeding, on 12/26/2019 she underwent EGD and colonoscopy, EGD showed multiple gastric ulcerations in the proximal body of the stomach measuring 1-1.5 centimeters in size status post biopsy, small hiatal hernia. And colonoscopy up to the hepatic flexure revealed sigmoid diverticulosis, and scope could not be advanced beyond the hepatic flexure because of extreme looping in the sigmoid colon. Double contrast barium enema was nondiagnostic. Patient is on Protonix, she received a total of 2 units of pack red blood cells, and today's labs reveal hemoglobin of 9.1. Hematology was also consulted in regards to anemia. Apparently yesterday on 12/29/2019 patient develops significant wheezing and shortness of breath, her chest x-ray revealed small left pleural effusion, and diffuse increased lung markings that could be compatible with pulmonary edema. She received a dose of Lasix, she has been in negative fluid balance, she is a - 2485 ML fluid balance over the last 24 hours, she appears to be in no acute respiratory distress on today's exam, she is on 2 L of oxygen her pulse ox of 94-97%, she is afebrile, hemodynamically she is stable, she has no cough, no complaints of chest pain, no phlegm production, no nausea vomiting abdominal pain or diarrhea, she continues on Unasyn for urinary tract infection with possible colitis. Clear lung sounds on today's exam. Review of Systems All systems: negative Constitutional: Denies chills, Denies fever Eyes: denies blurred vision, denies pain Ears, nose, mouth and throat: Denies headache, Denies sore throat Cardiovascular: Denies chest pain, Denies shortness of breath Respiratory: Reports dyspnea, Reports wheezing, Denies cough Gastrointestinal: Denies abdominal pain, Denies diarrhea, Denies nausea, Denies vomiting Genitourinary: Denies dysuria, Denies hematuria Musculoskeletal: Denies myalgias Integumentary: Denies pruritus, Denies rash Neurological: Reports change in mentation, Denies numbness, Denies weakness Psychiatric: Denies anxiety, Denies depression Endocrine: Denies fatigue, Denies weight change Past Medical History Past Medical History: Cancer (right breast), Hypertension, Musculoskeletal Disorder Additional Past Medical History / Comment(s): CONSITPATION, DIVERTICULITIS, CHRONIC BACK PAIN History of Any Multi-Drug Resistant Organisms: None Reported Past Surgical History: Breast Surgery, Hysterectomy (abdominal) Additional Past Surgical History / Comment(s): RIGHT MASTECTOMY, EYE SURGERY(hole in left retina) 4-5 yrs ago. wilbert cataracts. Past Anesthesia/Blood Transfusion Reactions: No Reported Reaction Past Psychological History: Depression Smoking Status: Never smoker Past Alcohol Use History: Rare Past Drug Use History: None Reported - Past Family History Brother(s) Additional Family Medical History / Comment(s): Hodgkin's Lymphoma Mother Family Medical History: Cancer Medications and Allergies Home Medications Medication Instructions Recorded Confirmed Type Losartan Potassium 100 mg PO DAILY 07/09/16 12/23/19 History Baclofen [Lioresal] 10 mg PO Q6H PRN 12/23/19 12/23/19 History Docusate [Colace] 100 mg PO DAILY 12/23/19 12/23/19 History HYDROcodone/APAP 7.5-325MG [[place] 1 tab PO TID 12/23/19 12/23/19 History 7.5-325] Hydrochlorothiazide 25 mg PO DAILY 12/23/19 12/23/19 History Temazepam 30 mg PO HS PRN 12/23/19 12/23/19 History methylPREDNISolone Dose Pack See Taper PO DIRECTED 12/23/19 12/23/19 History [Medrol Dose Pack] Allergies Allergy/AdvReac Type Severity Reaction Status Date / Time codeine AdvReac Nausea & Verified 07/03/16 15:33 Vomiting Physical Exam Vitals: Vital Signs Temp Pulse Resp BP Pulse Ox 12/30/19 03:18 97.9 F 84 18 159/78 94 L 12/29/19 22:16 97.9 F 86 17 147/86 97 12/29/19 19:47 98.5 F 89 18 144/72 96 12/29/19 12:00 98 F 89 16 147/78 96 Intake and Output 12/29/19 12/30/19 12/30/19 22:59 06:59 14:59 Intake Total 240 Output Total 800 2325 Balance -560 -232 Intake: Oral 240 Output: Urine 800 2325 Other: Voiding Method Indwelling Catheter Indwelling Catheter # Bowel Movements 1 Weight 74.5 kg GENERAL EXAM: Alert, very pleasant, 84-year-old white female, on 2 L of oxygen with a pulse ox of 94% sitting up in the chair, in no acute distress comfortable in no apparent distress. HEAD: Normocephalic/atraumatic. EYES: Normal reaction of pupils, equal size. Conjunctiva pink, sclera white. NOSE: Clear with pink turbinates. THROAT: No erythema or exudates. NECK: No masses, no JVD, no thyroid enlargement, no adenopathy. CHEST: No chest wall deformity. Symmetrical expansion. LUNGS: Equal air entry with no crackles, wheeze, rhonchi or dullness. CVS: Regular rate and rhythm, normal S1 and S2, no gallops, no murmurs, no rubs ABDOMEN: Soft, nontender. No hepatosplenomegaly, normal bowel sounds, no guarding or rigidity. EXTREMITIES: No clubbing, no edema, no cyanosis, 2+ pulses and upper and lower extremities. MUSCULOSKELETAL: Muscle strength and tone normal. SPINE: No scoliosis or deformity SKIN: No rashes CENTRAL NERVOUS SYSTEM: Alert and oriented -3. No focal deficits, tone is normal in all 4 extremities. PSYCHIATRIC: Alert and oriented -3. Appropriate affect. Intact judgment and insight. Results - Laboratory Findings CBC and BMP: 12/30/19 09:04 12/30/19 09:04 PT/INR, D-dimer PT 10.4 sec (9.0-12.0) 12/23/19 10:15 INR 1.0 (<1.2) 12/23/19 10:15 Abnormal lab findings: Abnormal Labs 12/23/19 12/23/19 12/23/19 10:15 10:15 10:15 WBC 47.6 H RBC 3.62 L Hgb 6.7 L* Hct 24.8 L MCV 68.5 L MCH 18.4 L MCHC 26.9 L RDW 16.4 H Plt Count 709 H Neutrophils # 43.9 H Neutrophils # (Manual) Lymphocytes # Lymphocytes # (Manual) Monocytes # 1.5 H Monocytes # (Manual) Basophils # 0.4 H Myelocytes # (Manual) Promyelocytes # (Man) Retic Count Haptoglobin Potassium Chloride Carbon Dioxide 17 L BUN 41 H Creatinine 1.37 H Glucose 216 H POC Glucose (mg/dL) Plasma Lactic Acid Zachariah Calcium Magnesium Iron TIBC % Saturation Alkaline Phosphatase 142 H Total Protein Albumin Albumin (PEP) Ppepy-6-Jjwtbvopm Mglxa-9-Gdkdodcka Vitamin B12 Urine Appearance Urine Protein Urine Blood Ur Leukocyte Esterase Urine RBC Urine WBC Urine WBC Clumps Stool Occult Blood Urine Opiates Screen U Benzodiazepines Scrn Free Maury LC, Quant Crossmatch See Detail 12/23/19 12/23/1920 10:15 11:35 11:35 WBC RBC Hgb Hct MCV MCH MCHC RDW Plt Count Neutrophils # Neutrophils # (Manual) Lymphocytes # Lymphocytes # (Manual) Monocytes # Monocytes # (Manual) Basophils # Myelocytes # (Manual) Promyelocytes # (Man) Retic Count Haptoglobin Potassium Chloride Carbon Dioxide BUN Creatinine Glucose POC Glucose (mg/dL) Plasma Lactic Acid Zachariah 4.3 H* Calcium Magnesium Iron TIBC % Saturation Alkaline Phosphatase Total Protein Albumin Albumin (PEP) Oazuf-6-Klfwxlbdf Cnmqn-9-Rsqjyzshq Vitamin B12 Urine Appearance Turbid H Urine Protein 2+ H Urine Blood Moderate H Ur Leukocyte Esterase Large H Urine RBC 12 H Urine WBC >182 H Urine WBC Clumps Many H Stool Occult Blood Urine Opiates Screen Detected H U Benzodiazepines Scrn Detected H Free Maury LC, Quant Crossmatch 12/23/19 12/23/19 12/23/19 11:35 16:33 18:40 WBC 39.1 H RBC 3.33 L Hgb 7.1 L Hct 24.8 L MCV 74.4 L D MCH 21.3 L MCHC 28.7 L RDW 19.0 H Plt Count 491 H Neutrophils # 36.3 H Neutrophils # (Manual) Lymphocytes # 0.8 L Lymphocytes # (Manual) Monocytes # 1.5 H Monocytes # (Manual) Basophils # Myelocytes # (Manual) Promyelocytes # (Man) Retic Count Haptoglobin Potassium Chloride Carbon Dioxide BUN Creatinine Glucose POC Glucose (mg/dL) 182 H Plasma Lactic Acid Zachariah Calcium Magnesium Iron TIBC % Saturation Alkaline Phosphatase Total Protein Albumin Albumin (PEP) Ndxms-0-Qqolyuuhm Gllzc-4-Gigiwjdhl Vitamin B12 Urine Appearance Urine Protein Urine Blood Ur Leukocyte Esterase Urine RBC Urine WBC Urine WBC Clumps Stool Occult Blood Positive H Urine Opiates Screen U Benzodiazepines Scrn Free Maury LC, Quant Crossmatch 12/23/19 12/24/19 12/24/19 20:28 05:56 05:56 WBC 36.5 H RBC 3.01 L Hgb 6.4 L* Hct 22.4 L MCV 74.4 L MCH 21.4 L MCHC 28.8 L RDW 17.9 H Plt Count 548 H Neutrophils # 32.9 H Neutrophils # (Manual) Lymphocytes # Lymphocytes # (Manual) Monocytes # 1.9 H Monocytes # (Manual) Basophils # Myelocytes # (Manual) Promyelocytes # (Man) Retic Count Haptoglobin Potassium 2.7 L* Chloride 113 H Carbon Dioxide 19 L BUN 28 H Creatinine 1.06 H Glucose 120 H POC Glucose (mg/dL) 175 H Plasma Lactic Acid Zachariah Calcium 7.9 L Magnesium Iron TIBC % Saturation Alkaline Phosphatase Total Protein 5.5 L Albumin 2.5 L Albumin (PEP) Qzksx-0-Noxsmvkos Hcdrk-6-Bxqjewhju Vitamin B12 Urine Appearance Urine Protein Urine Blood Ur Leukocyte Esterase Urine RBC Urine WBC Urine WBC Clumps Stool Occult Blood Urine Opiates Screen U Benzodiazepines Scrn Free Maury LC, Quant Crossmatch 12/24/19 12/24/19 12/24/19 05:56 05:56 05:56 WBC RBC Hgb Hct MCV MCH MCHC RDW Plt Count Neutrophils # Neutrophils # (Manual) Lymphocytes # Lymphocytes # (Manual) Monocytes # Monocytes # (Manual) Basophils # Myelocytes # (Manual) Promyelocytes # (Man) Retic Count 2.3 H Haptoglobin 533.0 H Potassium Chloride Carbon Dioxide BUN Creatinine Glucose POC Glucose (mg/dL) Plasma Lactic Acid Zachariah Calcium Magnesium Iron 17 L TIBC 223 L % Saturation 7.62 L Alkaline Phosphatase Total Protein Albumin Albumin (PEP) 3.17 L Dldyv-2-Yibwmilcy 0.73 H Kuhxp-6-Illpaafpk 1.32 H Vitamin B12 1431.0 H Urine Appearance Urine Protein Urine Blood Ur Leukocyte Esterase Urine RBC Urine WBC Urine WBC Clumps Stool Occult Blood Urine Opiates Screen U Benzodiazepines Scrn Free Maury LC, Quant 3.04 H Crossmatch 12/24/19 12/24/19 12/24/19 06:04 11:56 15:50 WBC 33.7 H RBC 3.78 L Hgb 8.2 L D Hct 28.3 L MCV 74.9 L MCH 21.8 L MCHC 29.1 L RDW 18.2 H Plt Count 485 H Neutrophils # Neutrophils # (Manual) 29.32 H Lymphocytes # Lymphocytes # (Manual) Monocytes # Monocytes # (Manual) 2.70 H Basophils # Myelocytes # (Manual) Promyelocytes # (Man) Retic Count Haptoglobin Potassium Chloride Carbon Dioxide BUN Creatinine Glucose POC Glucose (mg/dL) 141 H 156 H Plasma Lactic Acid Zachariah Calcium Magnesium Iron TIBC % Saturation Alkaline Phosphatase Total Protein Albumin Albumin (PEP) Iwhhb-3-Wqaqqhzlk Ygncn-2-Gbuiacsww Vitamin B12 Urine Appearance Urine Protein Urine Blood Ur Leukocyte Esterase Urine RBC Urine WBC Urine WBC Clumps Stool Occult Blood Urine Opiates Screen U Benzodiazepines Scrn Free Maury LC, Quant Crossmatch 12/24/19 12/24/19 12/24/19 15:50 16:58 20:39 WBC RBC Hgb Hct MCV MCH MCHC RDW Plt Count Neutrophils # Neutrophils # (Manual) Lymphocytes # Lymphocytes # (Manual) Monocytes # Monocytes # (Manual) Basophils # Myelocytes # (Manual) Promyelocytes # (Man) Retic Count Haptoglobin Potassium 3.4 L Chloride Carbon Dioxide BUN Creatinine Glucose POC Glucose (mg/dL) 113 H 217 H Plasma Lactic Acid Zachariah Calcium Magnesium Iron TIBC % Saturation Alkaline Phosphatase Total Protein Albumin Albumin (PEP) Jccwd-1-Vawxbktrq Ilcnx-4-Jkklkhmne Vitamin B12 Urine Appearance Urine Protein Urine Blood Ur Leukocyte Esterase Urine RBC Urine WBC Urine WBC Clumps Stool Occult Blood Urine Opiates Screen U Benzodiazepines Scrn Free Maury LC, Quant Crossmatch 12/25/19 12/25/19 12/25/19 06:10 06:10 06:22 WBC 30.4 H RBC 3.51 L Hgb 7.6 L Hct 26.4 L MCV 75.3 L MCH 21.8 L MCHC 28.9 L RDW 18.6 H Plt Count 461 H Neutrophils # Neutrophils # (Manual) 28.27 H Lymphocytes # Lymphocytes # (Manual) Monocytes # Monocytes # (Manual) Basophils # Myelocytes # (Manual) Promyelocytes # (Man) Retic Count Haptoglobin Potassium Chloride 115 H Carbon Dioxide 15 L BUN 26 H Creatinine 1.13 H Glucose 123 H POC Glucose (mg/dL) 149 H Plasma Lactic Acid Zachariah Calcium 7.9 L Magnesium Iron TIBC % Saturation Alkaline Phosphatase Total Protein 5.8 L Albumin 2.6 L Albumin (PEP) Ipmhf-9-Hwffrowff Gvudd-8-Mirpjkjvc Vitamin B12 Urine Appearance Urine Protein Urine Blood Ur Leukocyte Esterase Urine RBC Urine WBC Urine WBC Clumps Stool Occult Blood Urine Opiates Screen U Benzodiazepines Scrn Free Maury LC, Quant Crossmatch 12/25/19 12/25/19 12/25/19 11:31 16:31 20:11 WBC RBC Hgb Hct MCV MCH MCHC RDW Plt Count Neutrophils # Neutrophils # (Manual) Lymphocytes # Lymphocytes # (Manual) Monocytes # Monocytes # (Manual) Basophils # Myelocytes # (Manual) Promyelocytes # (Man) Retic Count Haptoglobin Potassium Chloride Carbon Dioxide BUN Creatinine Glucose POC Glucose (mg/dL) 194 H 175 H 208 H Plasma Lactic Acid Zachariah Calcium Magnesium Iron TIBC % Saturation Alkaline Phosphatase Total Protein Albumin Albumin (PEP) Uqdag-6-Kvksnkmam Gjfyt-6-Anligxpeh Vitamin B12 Urine Appearance Urine Protein Urine Blood Ur Leukocyte Esterase Urine RBC Urine WBC Urine WBC Clumps Stool Occult Blood Urine Opiates Screen U Benzodiazepines Scrn Free Maury LC, Quant Crossmatch 12/26/19 12/26/19 12/26/19 06:40 06:40 23:25 WBC 20.3 H RBC 3.32 L Hgb 7.6 L Hct 25.1 L MCV 75.5 L MCH 22.7 L MCHC 30.1 L RDW 18.8 H Plt Count 469 H Neutrophils # Neutrophils # (Manual) 17.26 H Lymphocytes # Lymphocytes # (Manual) 0.61 L Monocytes # Monocytes # (Manual) 1.83 H Basophils # Myelocytes # (Manual) 0.61 H Promyelocytes # (Man) 0.20 H Retic Count Haptoglobin Potassium 2.7 L* 3.4 L Chloride 112 H Carbon Dioxide 18 L BUN Creatinine Glucose 104 H POC Glucose (mg/dL) Plasma Lactic Acid Zachariah Calcium 7.6 L Magnesium Iron TIBC % Saturation Alkaline Phosphatase Total Protein 5.5 L Albumin 2.6 L Albumin (PEP) Xbkbx-8-Jlclxkroz Icglx-1-Halncpurq Vitamin B12 Urine Appearance Urine Protein Urine Blood Ur Leukocyte Esterase Urine RBC Urine WBC Urine WBC Clumps Stool Occult Blood Urine Opiates Screen U Benzodiazepines Scrn Free Maury LC, Quant Crossmatch 12/27/19 12/27/19 12/28/19 05:46 05:46 05:16 WBC 19.4 H 23.6 H RBC 3.55 L 3.38 L Hgb 8.0 L 7.5 L Hct 27.1 L 25.8 L MCV 76.5 L 76.3 L MCH 22.6 L 22.2 L MCHC 29.5 L 29.1 L RDW 19.9 H 21.0 H Plt Count 467 H Neutrophils # 15.9 H 19.2 H Neutrophils # (Manual) Lymphocytes # Lymphocytes # (Manual) Monocytes # 1.5 H 1.8 H Monocytes # (Manual) Basophils # Myelocytes # (Manual) Promyelocytes # (Man) Retic Count Haptoglobin Potassium Chloride 112 H Carbon Dioxide 17 L BUN Creatinine Glucose 106 H POC Glucose (mg/dL) Plasma Lactic Acid Zachariah Calcium 8.2 L Magnesium Iron TIBC % Saturation Alkaline Phosphatase Total Protein 5.8 L Albumin 2.8 L Albumin (PEP) Utjay-6-Nkzixlmfw Momvm-0-Qipklwlnx Vitamin B12 Urine Appearance Urine Protein Urine Blood Ur Leukocyte Esterase Urine RBC Urine WBC Urine WBC Clumps Stool Occult Blood Urine Opiates Screen U Benzodiazepines Scrn Free Maury LC, Quant Crossmatch 12/28/19 12/29/19 12/29/19 05:16 06:57 06:57 WBC 21.6 H RBC Hgb 8.8 L Hct 29.7 L MCV 77.1 L MCH 22.8 L MCHC 29.6 L RDW 20.8 H Plt Count Neutrophils # Neutrophils # (Manual) 17.70 H Lymphocytes # Lymphocytes # (Manual) Monocytes # Monocytes # (Manual) 1.51 H Basophils # Myelocytes # (Manual) 0.22 H Promyelocytes # (Man) Retic Count Haptoglobin Potassium 3.3 L 3.4 L Chloride 112 H 113 H Carbon Dioxide 18 L 19 L BUN Creatinine Glucose 115 H 116 H POC Glucose (mg/dL) Plasma Lactic Acid Zachariah Calcium 7.9 L 8.2 L Magnesium Iron TIBC % Saturation Alkaline Phosphatase Total Protein 5.5 L 5.9 L Albumin 2.5 L 2.8 L Albumin (PEP) Tdvct-1-Amutvqyhg Noszv-5-Bcbjaryns Vitamin B12 Urine Appearance Urine Protein Urine Blood Ur Leukocyte Esterase Urine RBC Urine WBC Urine WBC Clumps Stool Occult Blood Urine Opiates Screen U Benzodiazepines Scrn Free Maury LC, Quant Crossmatch 12/30/19 12/30/19 09:04 09:04 WBC 26.4 H RBC Hgb 9.1 L Hct 30.3 L MCV 76.4 L MCH 23.1 L MCHC 30.2 L RDW 22.3 H Plt Count Neutrophils # 22.5 H Neutrophils # (Manual) Lymphocytes # Lymphocytes # (Manual) Monocytes # 1.7 H Monocytes # (Manual) Basophils # Myelocytes # (Manual) Promyelocytes # (Man) Retic Count Haptoglobin Potassium 3.2 L Chloride Carbon Dioxide 20 L BUN Creatinine Glucose 194 H POC Glucose (mg/dL) Plasma Lactic Acid Zachariah Calcium 8.1 L Magnesium 1.1 L Iron TIBC % Saturation Alkaline Phosphatase Total Protein 5.7 L Albumin 2.7 L Albumin (PEP) Ktmfq-0-Xlriqjjgo Vtxvx-7-Jsmijrdso Vitamin B12 Urine Appearance Urine Protein Urine Blood Ur Leukocyte Esterase Urine RBC Urine WBC Urine WBC Clumps Stool Occult Blood Urine Opiates Screen U Benzodiazepines Scrn Free Maury LC, Quant Crossmatch - Diagnostic Findings Chest x-ray: report reviewed, image reviewed Additional studies: Results of the brain CT, renal ultrasound, CT of the abdomen and pelvis, procedure notes from Dr. Teague, double barium enema and repeat chest x-ray reviewed Assessment and Plan Plan: Assessment: #1. Shortness of breath, related to fluid volume overload and congestive heart failure with unknown EF, chest x-ray showed diffuse increased lung markings, pulmonary edema and small left pleural effusion #2. Acute urinary tract infection with sepsis, currently on Unasyn, urine c ulture is negative #3. Possible colitis, and colonoscopy could not be completed because of sigmoid diverticulosis, and barium enema was inconclusive, GI service is following #4. Altered mental status present on admission, related to acute sepsis related to urinary tract infection and possibility of colitis, improved #5. Leukocytosis, related to sepsis secondary to UTI, improving on broad-spe ctrum antibiotics, culture data including blood cultures and urine cultures remain negative to date #6. Iron deficiency anemia, status post EGD and colonoscopy of the hepatic flexure, with EGD showing multiple gastric ulcers and patient is on PPI therapy, colonoscopy could not evaluate the right colon, and subsequent barium enema was inconclusive #7. Acute anemia related to GI bleeding, status post transfusion with 2 units of packed red blood cells with initial hemoglobin of 6.7, positive Hemoccult, and dark stools #8. Chronic back pain #9. Hypertension #10. Previous history of urinary tract infection #11. Urinary incontinence #12. Hydronephrosis of unclear etiology, with no evidence of stone in the kidneys or the ureters, patient is being followed by urology service #13. History of osteoarthritis #14. Hypokalemia, improving #15. Acute kidney injury present on admission, improving #16. History of depression #17. Lifetime nonsmoker #18. History of diverticulitis #19. Previous history of right mastectomy Plan: Reviewed chest x-ray with Dr. Abad, patient was seen and evaluated by Dr. Abad, we will give the patient additional dose of Lasix today, no complaints of chest pain, her mentation is much improved, no fever or chills, continues on broad-spectrum antibiotics, infectious disease is following, we will continue to follow, patient has responded well to IV diuretics. Repeat chest x-ray tomorrow, repeat blood work electrolytes and renal profile. I performed a history & physical examination of the patient and discussed their management with my nurse practitioner, Kayy Pimentel. I reviewed the nurse practitioner's note and agree with the documented findings and plan of care. Lung sounds are positive for clear breath sounds. The findings and the impression was discussed with the patient. I attest to the documentation by the nurse practitioner. Time with Patient: Greater than 30
[2019-12-30] MEDS ORDERED: Potassium Replacement Protocol 1 EACH MISC MISCELLANE PRN ×2 (14:17→18:28)
--- NOTE | 2019-12-30 14:39 | P.PN ---
Subjective Progress Note Date: 12/30/19 Jaqui Garza is an 84 -year-old female who was brought in to [facility] emergency room due to mental status changes, per emergency room notes, patient was fine yesterday, she took [place] baclofen and a sleeping pill before going to bed, this morning she was unarousable and family called EMS and patient was brought in to [facility]. In the emergency room patient had a computed tomography scan of the brain without contrast that failed to reveal any evidence of hemorrhage or any acute abnormality, Narcan was given but did not help much, patient had significantly abnormal labs with evidence of urinary tract infection, severe leukocytosis, anemia with hemoglobin of 6.9, heme positive stools, and elevated lactic acid, she was started on IV fluid, IV Rocephin, and was admitted to medical floor for further evaluation. 1 unit of red blood cell transfusion was ordered. Patient was seen and examined on the medical floor, she is responding to stimuli but goes back to sleep, she is nonverbal at this time, no history could be obtained from her. On 12/24/2019 patient was seen and examined on the medical floor she is alert, responsive answering questions appropriately, there is no fever or chills no headache or dizziness no chest pain no shortness of breath no cough no nausea or vomiting no abdominal pain no diarrhea no blood in the stools, she is having urine incontinence and has an external catheter. On 12/25/2019 patient was seen and examined on the medical floor she is alert and oriented 3 in no apparent distress, clinically she is doing much better, vitals are stable and within normal limits, white blood count still significantly elevated at 30.4 but down from yesterday and the day before hemoglobin 7.6 patient has iron deficiency anemia and order for IV iron was placed. Patient has elevated BUN and creatinine that are gradually improving. Gastroenterology consultation requested, Dr. Thao is planning EGD and colonoscopy tomorrow. Urology consultation requested patient has evidence of bilateral hydronephrosis. On 12/26/2019 patient was seen and examined on the medical floor she is alert and oriented 3 in no distress there is no fever or chills no headache or dizziness no chest pain no shortness of breath no cough no nausea or vomiting no abdominal pain no diarrhea and no urinary symptoms potassium is going been corrected by protocol, patient is scheduled for EGD and colonoscopy today. On 12/27/2019 patient was seen and examined on the medical floor she is alert and oriented 3 in no distress results from GI investigations reviewed, still and able to rule out any abnormality in the cecum area, awaiting further recommendation from gastroenterology, otherwise patient is doing well she denies any fever or chills no headache or dizziness no chest pain no shortness of breath no cough no nausea or vomiting no abdominal pain no diarrhea no blood in the stools no burning with urination no frequency or urgency and no hematuria, she still has significant unsteadiness with her gait, and would benefit of subacute rehab on discharge. On 12/28/2019 patient was seen and examined on the medical floor she is alert and oriented 3 in no apparent distress patient is denying any complaints at this time there is no fever or chills no headache or dizziness no chest pain no shortness of breath no cough no nausea or vomiting no abdominal pain no diarrhea and no urinary symptoms. Clinically her hemoglobin is down to 7.5, white blood count is up to 23.6, patient still has significant unsteadiness with her gait. Input from gastroenterology and urology reviewed. On 12/29/2019 patient was seen and examined on the medical floor, she is alert and oriented 3 in no distress there is no fever or chills no headache or dizziness no chest pain no shortness of breath no cough no nausea or vomiting no abdominal pain no diarrhea no burning was urination no frequency or urgency no hematuria. Patient has significant wheezing and prolonged expiratory phase with check chest x-ray, IV fluid discontinued will be given 1 dose of IV Lasix today On 12/30/2019 patient was seen and examined on the medical floor, she is feeling better her shortness of breath has improved, chest x-ray revealed evidence of pulmonary congestion, patient received IV Lasix and had significant improvement, otherwise she denies any complaints there is no fever or chills no headache or dizziness no chest pain, no cough no nausea or vomiting no abdominal pain no diarrhea no burning was urination no frequency or urgency and no hematuria, white blood count is increasing, she is followed by hematology and infectious disease Objective - Vital Signs Vital signs: Vital Signs Temp 97.9 F 12/30/19 03:18 Pulse 86 12/30/19 03:18 Resp 18 12/30/19 03:18 BP 159/78 12/30/19 03:18 Pulse Ox 94 L 12/30/19 03:18 Intake & Output 12/29/19 12/30/19 12/30/19 18:59 06:59 18:59 Intake Total 640 Output Total 800 2325 Balance -160 -2325 Weight 74.5 kg 74.5 kg Intake: Intake, IV Titration 100 Amount Ampicillin-Sulbactam 3 gm 100 In Sodium Chloride 0.9% 100 ml @ 200 mls/hr IVPB Q8H [facility] Rx#:[id number] Oral 540 Output: Urine 800 2325 Other: Voiding Method Indwelling Catheter Indwelling Catheter # Bowel Movements 1 - Exam In general patient is alert responsive in no apparent distress HEENT head normocephalic and atraumatic Neck is supple no JVD no goiter no lymphadenopathy Chest exam reveals a few scattered rhonchi no wheezing Cardiac exam reveals regular heart sounds S1 and S2 no gallops no murmurs Abdomen is soft nontender no organomegaly with normal bowel sounds Extremity exam reveals minimal edema no cyanosis or clubbing Neurological examination patient is somnolent responsive to stimuli, moving all 4 extremities - Labs CBC & Chem 7: 12/30/19 09:04 12/30/19 09:04 Labs: Abnormal Lab Results - Last 24 Hours (Table) 12/30/19 12/30/19 Range/Units 09:04 09:04 WBC 26.4 H (3.8-10.6) k/uL Hgb 9.1 L (11.4-16.0) gm/dL Hct 30.3 L (34.0-46.0) % MCV 76.4 L (80.0-100.0) fL MCH 23.1 L (25.0-35.0) pg MCHC 30.2 L (31.0-37.0) g/dL RDW 22.3 H (11.5-15.5) % Neutrophils # 22.5 H (1.3-7.7) k/uL Monocytes # 1.7 H (0-1.0) k/uL Potassium 3.2 L (3.5-5.1) mmol/L Carbon Dioxide 20 L (22-30) mmol/L Glucose 194 H (74-99) mg/dL Calcium 8.1 L (8.4-10.2) mg/dL Magnesium 1.1 L (1.6-2.3) mg/dL Total Protein 5.7 L (6.3-8.2) g/dL Albumin 2.7 L (3.5-5.0) g/dL Microbiology - Last 24 Hours (Table) 12/23/19 11:43 Blood Culture - Final Blood No Growth after 144 hours Assessment and Plan Plan: 1. Evidence of urinary tract infection, patient was started on IV Unasyn, blood culture and urine culture were ordered, infectious disease consultation was requested. 2. Sepsis, likely related to urinary tract infection, with severe leukocytosis, elevated lactic acid, tachycardia and tachypnea 3. Severe elevation in white blood count, could be related to infection however, possibility of leukocytosis related to leukemia needs to be ruled out, consultation for hematology was initiated. 4. Severe anemia, patient received a total of 2 units of red blood cell transfusion, patient has heme positive stools, consultation for gastroenterology was initiated, patient has a history of peptic ulcer disease, computed tomography scan is revealing possible lesion in the cecum. Still and able to rule out abnormality in the cecum, colonoscopy was unable to reach the cecum, and barium enema was inconclusive, awaiting further recommendation from gastroenterology 5. Underlying history of hypertension. At this time we are holding blood pressure medication Will monitor closely 6. Underlying history of osteoarthritis with severe pain requiring narcotic medications. At this time will hold narcotic sleeping pill and muscle relaxers will monitor mental status closely. 7. Mental status changes, likely related to sepsis, metabolic encephalopathy, and affect of narcotic medication and sleeping., No abnormality seen on computed tomography scan without contrast, however if mental status does not improve in 24 hours, will proceed was more imaging and consultation for neurology. 8. Hypokalemia Corps correcting 9. Acute renal failure on admission with elevated BUN at 41 creatinine at 1.37, improving BUN is down to 28 and creatinine 1.06 10. Bilateral hydronephrosis urology consultation reviewed, at this time plan for Thacker catheter. Patient prognosis is guarded She was started on IV fluid, IV antibiotics, red blood cell transfusion Consultation for hematology, infectious disease, urology and gastroenterology initiated Will repeat labs and follow closely
--- NOTE | 2019-12-30 17:10 | P.PN ---
Subjective Progress Note Date: 12/30/19 Principal diagnosis: Anemia Hemoglobin is stable, Potassium and magnesium decreased today and supplemented per primary team. Objective - Vital Signs Vital signs: Vital Signs Temp 97.9 F 12/30/19 03:18 Pulse 86 12/30/19 03:18 Resp 18 12/30/19 03:18 BP 159/78 12/30/19 03:18 Pulse Ox 94 L 12/30/19 03:18 Intake & Output 12/29/19 12/30/19 12/30/19 18:59 06:59 18:59 Intake Total 640 Output Total 800 2325 Balance -160 -2325 Weight 74.5 kg 74.5 kg Intake: Intake, IV Titration 100 Amount Ampicillin-Sulbactam 3 gm 100 In Sodium Chloride 0.9% 100 ml @ 200 mls/hr IVPB Q8H [facility] Rx#:[id number] Oral 540 Output: Urine 800 2325 Other: Voiding Method Indwelling Catheter Indwelling Catheter # Bowel Movements 1 - Exam - Constitutional General appearance: Present: cooperative, no acute distress, obese - EENT Eyes: Present: anicteric sclerae, EOMI ENT: Present: hearing grossly normal Neck: Supple - Respiratory Details: respirations even and unlabored - Cardiovascular Heart: Irregular, Regular Details: skin warm and dry, patient has some pink to her cheeks today. Abdomen: Soft, ND - Musculoskeletal Musculoskeletal: Present: generalized weakness - Psychiatric Psychiatric: Present: A&O x's 3, appropriate affect, intact judgment & insight - Labs CBC & Chem 7: 12/30/19 09:04 12/30/19 09:04 Labs: Abnormal Lab Results - Last 24 Hours (Table) 12/30/19 12/30/19 Range/Units 09:04 09:04 WBC 26.4 H (3.8-10.6) k/uL Hgb 9.1 L (11.4-16.0) gm/dL Hct 30.3 L (34.0-46.0) % MCV 76.4 L (80.0-100.0) fL MCH 23.1 L (25.0-35.0) pg MCHC 30.2 L (31.0-37.0) g/dL RDW 22.3 H (11.5-15.5) % Neutrophils # 22.5 H (1.3-7.7) k/uL Monocytes # 1.7 H (0-1.0) k/uL Potassium 3.2 L (3.5-5.1) mmol/L Carbon Dioxide 20 L (22-30) mmol/L Glucose 194 H (74-99) mg/dL Calcium 8.1 L (8.4-10.2) mg/dL Magnesium 1.1 L (1.6-2.3) mg/dL Total Protein 5.7 L (6.3-8.2) g/dL Albumin 2.7 L (3.5-5.0) g/dL Microbiology - Last 24 Hours (Table) 12/23/19 11:43 Blood Culture - Final Blood No Growth after 144 hours Assessment and Plan Plan: Assessment and Plan: Microcytic Hypochromic Anemia: - Patient has a history of iron deficiency, her labs are suggestive of the same. - Patient has received parenteral iron 3. Recommendation is for a one-month follow-up to reevaluate iron stores, supplementation if needed. - A follow-up in office to see Dr. Yee on 02/07/20 has been made for the patient - Gastroenterology workup showing gastric ulcers, incomplete colonoscopy and barium enema. - CT of the abdomen and pelvis discusses an area near the cecum that that cannot completely rule out a malignant process. - Due to procedures not being able to be completed because of the area there is mention of doing a CT colonoscopy. Agree with Gastroenterology is plans for the same. - Hemoglobin 9.1 no intervention needed Folate deficiency, Iron deficiency anemia - Folate supplement initiated, patient tolerating well. - Rx sent to pt preferred pharmacy to continue outpatient Leukocytosis - Mostly neutrophils. Starting to trend down again. - There are no plans for a bone marrow at this time. No paraproteinemia, kappa light chain only slightly deviated from normal. Physician Attest: I have completed the full history and physical and agree with above dictation, dictated as a scribe
[2019-12-30] MEDS: POTASSIUM CHLORIDE ER 20 MEQ TAB.ER PO SCH ×2 (19:01→20:25)
[2019-12-30] MEDS ORDERED: Magnesium Replacement Protocol 1 EACH MISC MISCELLANE PRN (19:31)
[2019-12-30] MEDS: ALPRAZolam 0.25 MG TAB PO PRN (20:24)
[2019-12-30] MEDS: MAGNESIUM SULFATE-D5W PMX 1 GM in DEXTROSE/WATER 1 100ML.BAG IVPB SCH ×3 (20:25→23:26)
[2019-12-30] MEDS: FLUCONAZOLE 100 MG TAB PO SCH (22:12)
--- NOTE | 2019-12-30 22:32 | PN ---
PROGRESS NOTE DATE OF SERVICE: 12/30/2019 REASON FOR FOLLOWUP: Leukocytosis, UTI and colitis. INTERVAL HISTORY: The patient is currently afebrile. The patient has been breathing comfortably. She denies having any chest pain or any cough. No nausea or vomiting. No abdominal pain or diarrhea. PHYSICAL EXAMINATION: Blood pressure is 153/81 with a pulse of 93, temperature of 99. She is 95% on room air. General description is an elderly female up in the bed in no distress. RESPIRATORY SYSTEM: Unlabored breathing. Clear to auscultation anteriorly. HEART: S1, S2. Regular rate and rhythm. ABDOMEN: Soft. No tenderness. LABS: Hemoglobin 9.1, white count 6.4, BUN of 7, creatinine 0.62. DIAGNOSTIC IMPRESSION AND PLAN: Patient with leukocytosis, multifactorial, in this patient with a component of urinary tract infection and colitis. White count downward trend but now showing upward. Will add baclofen to the current antibiotic regimen and monitor her white count closely. Continue with supportive care. MMODL / IJN: [id number] /
[2019-12-31] MEDS: AMPICILLIN-SULBACTAM 3 GM in SODIUM CHLORIDE 0.9% 100 ML IVPB SCH ×3 (02:26→18:28)
[2019-12-31 03:11] LABS: African American GFR (CKD) >90 (>60 ml/min/1.73 sqM); Anion Gap 6 mmol/L; Blood Urea Nitrogen 7 mg/dL (7-17); Calcium 7.7 mg/dL (8.4-10.2); Carbon Dioxide 27 mmol/L (22-30); Chloride 102 mmol/L (98-107); Glucose 141 mg/dL (74-99); Magnesium 2.3 mg/dL (1.6-2.3); Non-African American GFR(CKD) 83 (>60 ml/min/1.73 sqM); Potassium 3.6 mmol/L (3.5-5.1); Sodium 135 mmol/L (137-145)
--- NOTE | 2019-12-31 07:33 | XR ---
EXAMINATION TYPE: XR chest 1V portable DATE OF EXAM: 12/31/2019 HISTORY: shortness of breath. REFERENCE: Previous study dated 12/29/2019. FINDINGS: The heart is mildly prominent. There is vascular congestion and interstitial change compati ble with congestive heart failure. There is a small left effusion. IMPRESSION: CONTINUING CHANGES OF CONGESTIVE HEART FAILURE.
[2019-12-31] MEDS: FLUCONAZOLE 100 MG TAB PO SCH (10:17)
[2019-12-31] MEDS: HYDROcodone/APAP 7.5-325MG 1 EACH TAB PO SCH ×3 (10:18→21:13)
[2019-12-31] MEDS: PANTOPRAZOLE 40 MG/10 ML VIAL IV SCH (10:18)
[2019-12-31 10:19] LABS: ALT 15 U/L (4-34); AST 30 U/L (14-36); African American GFR (CKD) >90 (>60 ml/min/1.73 sqM); Albumin 2.7 g/dL (3.5-5.0); Alkaline Phosphatase 74 U/L (38-126); Anion Gap 8 mmol/L; Blood Urea Nitrogen 9 mg/dL (7-17); Carbon Dioxide 25 mmol/L (22-30); Chloride 104 mmol/L (98-107); Glucose 165 mg/dL (74-99); Non-African American GFR(CKD) 83 (>60 ml/min/1.73 sqM); Potassium 3.6 mmol/L (3.5-5.1); Sodium 137 mmol/L (137-145); Total Bilirubin 0.3 mg/dL (0.2-1.3); Total Protein 5.6 g/dL (6.3-8.2)
[2019-12-31] MEDS: FOLIC ACID 1 MG TAB PO SCH (10:19)
[2019-12-31 10:29] LABS: Anisocytosis Moderate; HCT 30.1 % (34.0-46.0); HGB 9.1 gm/dL (11.4-16.0); Hypochromasia Marked; MCH 23.6 pg (25.0-35.0); MCHC 30.2 g/dL (31.0-37.0); MCV 78.2 fL (80.0-100.0); Mean Platelet Volume 7.3; Microcytosis Moderate; Platelet Count 387 k/uL (150-450); Poikilocytosis Slight; RBC 3.85 m/uL (3.80-5.40); WBC 20.7 k/uL (3.8-10.6)
[2019-12-31 11:41] LABS: Nucleated Red Blood Cells 0 /100 WBC (0-0)
--- NOTE | 2019-12-31 11:44 | P.PN ---
Subjective Progress Note Date: 12/31/19 Principal diagnosis: Acute dyspnea 84-year-old white female patient of Dr. Madden with past medical history of hypertension, chronic back pain related to history of osteoarthritis on [place], baclofen on the regular basis, diverticulitis, chronic constipation, history of breast cancer status post right mastectomy, depression, never smoker, urinary incontinence, history of urinary tract infections, who initially was admitted to the hospital on 12/23/2019 for evaluation altered mental status, apparently patient took her [place], baclofen and sleeping pills and she was not arousable by the family in the morning and EMS was called. Brain CT showed no acute intracranial process, did show diffuse age-related cerebral atrophy and chronic small vessel ischemic changes. Chest x-ray on admission showed pulmonary vascular congestion with what seems to be chronic interstitial prominence, low lung volumes, and slightly enlarged cardiac mediastinal silhouette. Patient had a low-grade fever on presentation with a temp of 99F, and significant leukocytosis with white blood cell count of 47,000, anemia with hemoglobin of 6.7 with positive hemoccult, and patient was transfused with packed red blood cells. Patient had evidence of urinary tract infection, lactic acidosis, right abdominal tenderness with concern for pyelonephritis versus ischemic colitis. She was started on Rocephin which was later changed to Unasyn, ID service consulted. Renal ultrasound showed bilateral hydronephrosis and thickening of the right-sided renal parenchyma. Patient was seen by urology service, computed tomography scan of the abdomen and pelvis without IV contrast showed evidence of bilateral hydroureteronephrosis with dilated ureters down to the level of the bladder, with no evidence of calculus present in the kidneys or ureters, bladder wall thickening was nonspecific. Medical management was recommended, patient's mentation started to improve. Urine culture showed no growth, blood culture was negative as well. Leukocytosis started to improve from the initial 47.6 on 12/23/2019 to 26.4 on today's labs on all 12/30/2019. She was evaluated for GI bleeding, on 12/26/2019 she underwent EGD and colonoscopy, EGD showed multiple gastric ulcerations in the proximal body of the stomach measuring 1-1.5 centimeters in size status post biopsy, small hiatal hernia. And colonoscopy up to the hepatic flexure revealed sigmoid diverticulosis, and scope could not be advanced beyond the hepatic flexure because of extreme looping in the sigmoid colon. Double contrast barium enema was nondiagnostic. Patient is on Protonix, she received a total of 2 units of pack red blood cells, and today's labs reveal hemoglobin of 9.1. Hematology was also consulted in regards to anemia. Appa rently yesterday on 12/29/2019 patient develops significant wheezing and shortness of breath, her chest x-ray revealed small left pleural effusion, and diffuse increased lung markings that could be compatible with pulmonary edema. She received a dose of Lasix, she has been in negative fluid balance, she is a - 2485 ML fluid balance over the last 24 hours, she appears to be in no acute respiratory distress on today's exam, she is on 2 L of oxygen her pulse ox of 94-97%, she is afebrile, hemodynamically she is stable, she has no cough, no complaints of chest pain, no phlegm production, no nausea vomiting abdominal pain or diarrhea, she continues on Unasyn for urinary tract infection with possi ble colitis. Clear lung sounds on today's exam. The patient is seen today 12/31/2019 in follow-up on the selective care unit. She is currently resting in bed. Maintaining O2 saturations in the 90s on room air. She's afebrile. Hemodynamically stable. White count 20.7. Hemoglobin 9.1. Sodium 137. Potassium 3.6. Creatinine 0.65. Glucose 165. She is currently on Unasyn. Today's chest x-ray shows continuing interstitial changes and vascular congestion compatible with congestive heart failure. Status post 2 units of packed red blood cells this admission. Current hemoglobin 9.1. Blood cultures revealed no growth. Objective - Vital Signs Vital signs: Vital Signs Temp 98.6 F 12/31/19 10:15 Pulse 85 12/31/19 10:15 Resp 18 12/31/19 10:15 BP 130/66 12/31/19 10:15 Pulse Ox 94 L 12/31/19 10:15 Intake & Output 12/30/19 12/31/19 12/31/19 18:59 06:59 18:59 Intake Total 200 300 0 Output Total 400 1475 Balance -200 -1175 0 Weight 74.5 kg 72 kg Intake: Intake, IV Titration 300 Amount Ampicillin-Sulbactam 3 gm 100 In Sodium Chloride 0.9% 100 ml @ 200 mls/hr IVPB Q8H [facility] Rx#:[id number] Magnesium Sulfate-D5w Pmx 200 1 gm In Dextrose/Water 1 100ml.bag @ 100 mls/hr IVPB Q1H [facility] Rx#: [id number] Oral 200 0 Output: Urine 400 1475 Other: Voiding Method Indwelling Catheter Indwelling Catheter # Voids 0 - Exam GENERAL EXAM: Alert, very pleasant, 84-year-old white female, on room air with a pulse ox of 94%, in no acute distress comfortable in no apparent distress. HEAD: Normocephalic/atraumatic. EYES: Normal reaction of pupils, equal size. Conjunctiva pink, sclera white. NOSE: Clear with pink turbinates. THROAT: No erythema or exudates. NECK: No masses, no JVD, no thyroid enlargement, no adenopathy. CHEST: No chest wall deformity. Symmetrical expansion. LUNGS: Equal air entry with no crackles, wheeze, rhonchi or dullness. CVS: Regular rate and rhythm, normal S1 and S2, no gallops, no murmurs, no rubs ABDOMEN: Soft, nontender. No hepatosplenomegaly, normal bowel sounds, no guarding or rigidity. EXTREMITIES: No clubbing, no edema, no cyanosis, 2+ pulses and upper and lower extremities. MUSCULOSKELETAL: Muscle strength and tone normal. SPINE: No scoliosis or deformity SKIN: No rashes CENTRAL NERVOUS SYSTEM: No focal deficits, tone is normal in all 4 extremities. PSYCHIATRIC: Alert and oriented -3. Appropriate affect. Intact judgment and insight. - Labs CBC & Chem 7: 12/31/19 09:44 12/31/19 09:44 Labs: Abnormal Lab Results - Last 24 Hours (Table) 12/31/19 12/31/19 12/31/19 Range/Units 01:59 09:44 09:44 WBC 20.7 H (3.8-10.6) k/uL Hgb 9.1 L (11.4-16.0) gm/dL Hct 30.1 L (34.0-46.0) % MCV 78.2 L (80.0-100.0) fL MCH 23.6 L (25.0-35.0) pg MCHC 30.2 L (31.0-37.0) g/dL RDW 23.0 H (11.5-15.5) % Sodium 135 L (137-145) mmol/L Glucose 141 H 165 H (74-99) mg/dL Calcium 7.7 L 8.0 L (8.4-10.2) mg/dL Total Protein 5.6 L (6.3-8.2) g/dL Albumin 2.7 L (3.5-5.0) g/dL Assessment and Plan Assessment: #1. Shortness of breath, related to fluid volume overload and congestive heart failure with unknown EF, chest x-ray showed diffuse increased lung markings, pulmonary edema and small left pleural effusion #2. Acute urinary tract infection with sepsis, currently on Unasyn, urine culture is negative #3. Possible colitis, and colonoscopy could not be completed because of sigmoid diverticulosis, and barium enema was inconclusive, GI service is following #4. Altered mental status present on admission, related to acute sepsis related to urinary tract infection and possibility of colitis, improved #5. Leukocytosis, related to sepsis secondary to UTI, improving on broad- spectrum antibiotics, culture data including blood cultures and urine cultures remain negative to date #6. Iron deficiency anemia, status post EGD and colonoscopy of the hepatic flexure, with EGD showing multiple gastric ulcers and patient is on PPI therapy, colonoscopy could not evaluate the right colon, and subsequent barium enema was inconclusive #7. Acute anemia related to GI bleeding, status post transfusion with 2 units of packed red blood cells with initial hemoglobin of 6.7, positive Hemoccult, and dark stools #8. Chronic back pain #9. Hypertension #10. Previous history of urinary tract infection #11. Urinary incontinence #12. Hydronephrosis of unclear etiology, with no evidence of stone in the kidne ys or the ureters, patient is being followed by urology service #13. History of osteoarthritis #14. Hypokalemia, improving #15. Acute kidney injury present on admission, improving #16. History of depression #17. Lifetime nonsmoker #18. History of diverticulitis #19. Previous history of right mastectomy Plan: The patient was seen and evaluated by Dr. Abad Chest x-ray and labs reviewed Continue the current treatment plan We'll continue to follow I, the cosigning physician, performed a history & physical examination of the patient. Lungs sounds are clear. Maintaining good O2 saturations in the 90s on room air. I discussed the assessment and plan of care with my nurse practitioner, Roxanna Perez. I attest to the above note as dictated by her.
[2019-12-31 11:49] LABS: Eosinophils # (M) 0.21 k/uL (0-0.7); Lymphocytes # (M) 1.66 k/uL (1.0-4.8); Monocytes # (M) 1.45 k/uL (0-1.0); Myelocytes # (M) 0.21 k/uL (0); Myelocytes % 1 %; Neutrophils # (M) 17.39 k/uL (1.3-7.7); Neutrophils % (M) 84 %; Total Cells Counted 200
--- NOTE | 2019-12-31 12:02 | P.PN ---
Progress Note - Text Progress Note Date: 12/31/19 The patient denies flank pain. The Thacker catheter remains in place, draining blood-tinged urine. The serum creatinine level is stable at 0.65. Once the catheter is no longer medically needed, I would suggest that it be removed and post-void residuals be checked to assess bladder emptying.
--- NOTE | 2019-12-31 12:39 | ECHOF ---
Referral Reason:CHF MEASUREMENTS -------- HEIGHT: 160.0 cm WEIGHT: 71.7 kg BP: 137/79 RVIDd: 3.0 cm (< 3.3) IVSd: 1.1 cm (0.6 - 1.1) LVIDd: 3.5 cm (3.9 - 5.3) LVPWd: 1.1 cm (0.6 - 1.1) IVSs: 1.8 cm LVIDs: 2.2 cm LVPWs: 1.6 cm LA Diam: 3.2 cm (2.7 - 3.8) LAESV Index (A-L): 23.23 ml/m Ao Diam: 3.0 cm (2.0 - 3.7) AV Cusp: 1.7 cm (1.5 - 2.6) MV EXCURSION: 19.436 mm (> 18.000) MV EF SLOPE: 105 mm/s (70 - 150) EPSS: 0.5 cm MV E Ced: 0.81 m/s MV DecT: 185 ms MV A Ced: 1.03 m/s MV E/A Ratio: 0.79 AR PHT: 510 ms RAP: 5.00 mmHg RVSP: 52.82 mmHg FINDINGS -------- Sinus rhythm. This was a technically adequate study. The left ventricular size is normal. There is borderline concentric left ventricular hypertrophy. Overall left ventricular systolic function is normal with, an EF between 60 - 65 %. The right ventricle is mildly enlarged. Normal LA size by volume 22+/-6 ml/m2. The right atrium is normal in size. Interatrial and interventricular septum intact. There is mild aortic valve sclerosis. There is mild aortic regurgitation. Mild mitral regurgitation is present. Mild tricuspid regurgitation present. There is moderate pulmonary hypertension. The right ventric ular systolic pressure, as measured by Doppler, is 52.82mmHg. There is no pulmonic regurgitation present. The aortic root size is normal. Normal inferior vena cava with normal inspiratory collapse consistent with estimated right atrial pre ssure of 5 mmHg. There is no pericardial effusion. CONCLUSIONS -------- 1. Sinus rhythm. 2. This was a technically adequate study. 3. The left ventricular size is normal. 4. There is borderline concentric left ventricular hypertrophy. 5. Overall left ventricular systolic function is normal with, an EF between 60 - 65 %. 6. The right ventricle is mildly enlarged. 7. Normal LA size by volume 22+/-6 ml/m2. 8. The right atrium is normal in size. 9. Interatrial and interventricular septum intact. 10. There is mild aortic valve sclerosis. 11. There is mild aortic regurgitation. 12. Mild mitral regurgitation is present. 13. Mild tricuspid regurgitation present. 14. There is moderate pulmonary hypertension. 15. The right ventricular systolic pressure, as measured by Doppler, is 52.82mmHg. 16. There is no pulmonic regurgitation present. 17. The aortic root size is normal. 18. Normal inferior vena cava with normal inspiratory collapse consistent with estimated right atrial pressure of 5 mmHg. 19. There is no pericardial effusion. SOFTWARE SYSTEMS ARCHITECT: Louise Demarco RDCS
--- NOTE | 2019-12-31 13:20 | P.PN ---
Subjective Progress Note Date: 12/31/19 Jaqui Garza is an 84 -year-old female who was brought in to [facility] emergency room due to mental status changes, per emergency room notes, patient was fine yesterday, she took Jamison baclofen and a sleeping pill before going to bed, this morning she was unarousable and family called EMS and patient was brought in to [facility]. In the emergency room patient had a computed tomography scan of the brain without contrast that failed to reveal any evidence of hemorrhage or any acute abnormality, Narcan was given but did not help much, patient had significantly abnormal labs with evidence of urinary tract infection, severe leukocytosis, anemia with hemoglobin of 6.9, heme positive stools, and elevated lactic acid, she was started on IV fluid, IV Rocephin, and was admitted to medical floor for further evaluation. 1 unit of red blood cell transfusion was ordered. Patient was seen and examined on the medical floor, she is responding to stimuli but goes back to sleep, she is nonverbal at this time, no history could be obtained from her. On 12/24/2019 patient was seen and examined on the medical floor she is alert, responsive answering questions appropriately, there is no fever or chills no headache or dizziness no chest pain no shortness of breath no cough no nausea or vomiting no abdominal pain no diarrhea no blood in the stools, she is having urine incontinence and has an external catheter. On 12/25/2019 patient was seen and examined on the medical floor she is alert and oriented 3 in no apparent distress, clinically she is doing much better, vitals are stable and within normal limits, white blood count still significantly elevated at 30.4 but down from yesterday and the day before hemoglobin 7.6 patient has iron deficiency anemia and order for IV iron was placed. Patient has elevated BUN and creatinine that are gradually improving. Gastroenterology consultation requested, Dr. Thao is planning EGD and colonoscopy tomorrow. Urology consultation requested patient has evidence of bilateral hydronephrosis. On 12/26/2019 patient was seen and examined on the medical floor she is alert and oriented 3 in no distress there is no fever or chills no headache or dizziness no chest pain no shortness of breath no cough no nausea or vomiting no abdominal pain no diarrhea and no urinary symptoms potassium is going been corrected by protocol, patient is scheduled for EGD and colonoscopy today. On 12/27/2019 patient was seen and examined on the medical floor she is alert and oriented 3 in no distress results from GI investigations reviewed, still and able to rule out any abnormality in the cecum area, awaiting further recommendation from gastroenterology, otherwise patient is doing well she denies any fever or chills no headache or dizziness no chest pain no shortness of breath no cough no nausea or vomiting no abdominal pain no diarrhea no blood in the stools no burning with urination no frequency or urgency and no hematuria, she still has significant unsteadiness with her gait, and would benefit of subacute rehab on discharge. On 12/28/2019 patient was seen and examined on the medical floor she is alert and oriented 3 in no apparent distress patient is denying any complaints at this time there is no fever or chills no headache or dizziness no chest pain no shortness of breath no cough no nausea or vomiting no abdominal pain no diarrhea and no urinary symptoms. Clinically her hemoglobin is down to 7.5, white blood count is up to 23.6, patient still has significant unsteadiness with her gait. Input from gastroenterology and urology reviewed. On 12/29/2019 patient was seen and examined on the medical floor, she is alert and oriented 3 in no distress there is no fever or chills no headache or dizziness no chest pain no shortness of breath no cough no nausea or vomiting no abdominal pain no diarrhea no burning was urination no frequency or urgency no hematuria. Patient has significant wheezing and prolonged expiratory phase with check chest x-ray, IV fluid discontinued will be given 1 dose of IV Lasix today On 12/30/2019 patient was seen and examined on the medical floor, she is feeling better her shortness of breath has improved, chest x-ray revealed evidence of pulmonary congestion, patient received IV Lasix and had significant improvement, otherwise she denies any complaints there is no fever or chills no headache or dizziness no chest pain, no cough no nausea or vomiting no abdominal pain no diarrhea no burning was urination no frequency or urgency and no hematuria, white blood count is increasing, she is followed by hematology and infectious disease. On 12/31/2019 patient was seen and examined on the medical floor she is alert and oriented 3 in no apparent distress there is no fever or chills no headache or dizziness no chest pain no shortness of breath no cough no nausea or vomiting no abdominal pain no diarrhea and no urinary symptoms white blood count is still elevated at 20,000 chest x-ray still showing signs of congestive heart failure, Lasix 40 mg by mouth daily added to her regimen. Physical therapy and occupational therapy consult requested. Objective - Vital Signs Vital signs: Vital Signs Temp 98.6 F 12/31/19 10:15 Pulse 85 12/31/19 10:15 Resp 18 12/31/19 10:15 BP 130/66 12/31/19 10:15 Pulse Ox 94 L 12/31/19 10:15 Intake & Output 12/30/19 12/31/19 12/31/19 18:59 06:59 18:59 Intake Total 200 300 0 Output Total 400 1475 Balance -200 -1175 0 Weight 74.5 kg 72 kg Intake: Intake, IV Titration 300 Amount Ampicillin-Sulbactam 3 gm 100 In Sodium Chloride 0.9% 100 ml @ 200 mls/hr IVPB Q8H MARIBETH Rx#:[id number] Magnesium Sulfate-D5w Pmx 200 1 gm In Dextrose/Water 1 100ml.bag @ 100 mls/hr IVPB Q1H MARIBETH Rx#: [id number] Oral 200 0 Output: Urine 400 1475 Other: Voiding Method Indwelling Catheter Indwelling Catheter # Voids 0 - Exam In general patient is alert responsive in no apparent distress HEENT head normocephalic and atraumatic Neck is supple no JVD no goiter no lymphadenopathy Chest exam reveals a few scattered rhonchi no wheezing Cardiac exam reveals regular heart sounds S1 and S2 no gallops no murmurs Abdomen is soft nontender no organomegaly with normal bowel sounds Extremity exam reveals minimal edema no cyanosis or clubbing Neurological examination patient is somnolent responsive to stimuli, moving all 4 extremities - Labs CBC & Chem 7: 12/31/19 09:44 12/31/19 09:44 Labs: Abnormal Lab Results - Last 24 Hours (Table) 12/31/19 12/31/19 12/31/19 Range/Units 01:59 09:44 09:44 WBC 20.7 H (3.8-10.6) k/uL Hgb 9.1 L (11.4-16.0) gm/dL Hct 30.1 L (34.0-46.0) % MCV 78.2 L (80.0-100.0) fL MCH 23.6 L (25.0-35.0) pg MCHC 30.2 L (31.0-37.0) g/dL RDW 23.0 H (11.5-15.5) % Neutrophils # (Manual) 17.39 H (1.3-7.7) k/uL Monocytes # (Manual) 1.45 H (0-1.0) k/uL Myelocytes # (Manual) 0.21 H (0) k/uL Sodium 135 L (137-145) mmol/L Glucose 141 H 165 H (74-99) mg/dL Calcium 7.7 L 8.0 L (8.4-10.2) mg/dL Total Protein 5.6 L (6.3-8.2) g/dL Albumin 2.7 L (3.5-5.0) g/dL Assessment and Plan Plan: 1. Evidence of urinary tract infection, patient was started on IV Unasyn, blood culture and urine culture were ordered, infectious disease consultation was requested. 2. Sepsis, likely related to urinary tract infection, with severe leukocytosis, elevated lactic acid, tachycardia and tachypnea 3. Severe elevation in white blood count, could be related to infection however, possibility of leukocytosis related to leukemia needs to be ruled out, consultation for hematology was initiated. 4. Severe anemia, patient received a total of 2 units of red blood cell tr ansfusion, patient has heme positive stools, consultation for gastroenterology was initiated, patient has a history of peptic ulcer disease, computed tomography scan is revealing possible lesion in the cecum. Still and able to rule out abnormality in the cecum, colonoscopy was unable to reach the cecum, and barium enema was inconclusive, awaiting further recommendation from gastroenterology 5. Underlying history of hypertension. At this time we are holding blood pressure medication Will monitor closely 6. Underlying history of osteoarthritis with severe pain requiring narcotic medications. At this time will hold narcotic sleeping pill and muscle relaxers will monitor mental status closely. 7. Mental status changes, likely related to sepsis, metabolic encephalopathy, and affect of narcotic medication and sleeping., No abnormality seen on computed tomography scan without contrast, however if mental status does not improve in 24 hours, will proceed was more imaging and consultation for neurology. 8. Hypokalemia Corps correcting 9. Acute renal failure on admission with elevated BUN at 41 creatinine at 1.37, improving BUN is down to 28 and creatinine 1.06 10. Bilateral hydronephrosis urology consultation reviewed, at this time plan for Thacker catheter. Patient prognosis is guarded She was started on IV fluid, IV antibiotics, red blood cell transfusion Consultation for hematology, infectious disease, urology and gastroenterology initiated Will repeat labs and follow closely
--- NOTE | 2019-12-31 16:13 | PN ---
PROGRESS NOTE DATE OF SERVICE: 12/31/2019 REASON FOR FOLLOW UP: Leukocytosis, UTI and colitis. INTERVAL HISTORY: The patient is currently afebrile. The patient is breathing comfortably. The patient denies having any chest pain or cough. No nausea, vomiting. No abdominal pain or diarrhea. PHYSICAL EXAMINATION: Blood pressure 130/66, pulse of 85, temperature 98.6. She is 94% on room air. General description is an elderly female lying in bed in no distress. Respiratory system: Unlabored breathing, clear to auscultation anteriorly. Heart S1, S2. Regular rate and rhythm. Abdomen soft, no tenderness. LABS: Hemoglobin 9.1, white count 20.7, BUN of 9, creatinine 0.65. Blood culture so far negative. DIAGNOSTIC IMPRESSION AND PLAN: Patient with leukocytosis which is likely multifactorial with concern for UTI and possible colitis. The patient white count showing a downward trend currently. Unasyn and Diflucan to continue and monitor clinical course closely. MMODL / IJN: [id number] /
[2019-12-31] MEDS: FUROSEMIDE 40 MG TAB PO SCH (16:21)
[2019-12-31] MEDS: ALPRAZolam 0.25 MG TAB PO PRN (21:14)
[2020-01-01] MEDS: AMPICILLIN-SULBACTAM 3 GM in SODIUM CHLORIDE 0.9% 100 ML IVPB SCH ×3 (03:08→18:10)
[2020-01-01 08:42] LABS: Anisocytosis Moderate; Basophils % (A) 0 %; Eosinophils # (A) 0.1 k/uL (0-0.7); Eosinophils % (A) 1 %; HCT 28.9 % (34.0-46.0); HGB 8.6 gm/dL (11.4-16.0); Hypochromasia Marked; Lymphocytes # (A) 2.2 k/uL (1.0-4.8); Lymphocytes % (A) 11 %; MCH 23.4 pg (25.0-35.0); MCHC 29.7 g/dL (31.0-37.0); Mean Platelet Volume 8.4; Microcytosis Moderate; Monocytes # (A) 1.8 k/uL (0-1.0); Monocytes % (A) 9 %; Neutrophils # (A) 14.8 k/uL (1.3-7.7); Neutrophils % (A) 77 %; Platelet Count 371 k/uL (150-450); Poikilocytosis Slight; RBC 3.66 m/uL (3.80-5.40); RDW 23.2 % (11.5-15.5); WBC 19.2 k/uL (3.8-10.6)
[2020-01-01] MEDS: PANTOPRAZOLE 40 MG TABLET PO SCH (10:40)
[2020-01-01] MEDS: HYDROcodone/APAP 7.5-325MG 1 EACH TAB PO SCH ×3 (10:40→21:59)
[2020-01-01] MEDS: FLUCONAZOLE 100 MG TAB PO SCH (10:40)
[2020-01-01] MEDS: FOLIC ACID 1 MG TAB PO SCH (10:40)
[2020-01-01] MEDS: FUROSEMIDE 40 MG TAB PO SCH (10:40)
--- NOTE | 2020-01-01 11:39 | P.PN ---
Subjective Progress Note Date: 01/01/20 Principal diagnosis: Acute dyspnea 84-year-old white female patient of Dr. Madden with past medical history of hypertension, chronic back pain related to history of osteoarthritis on [place], baclofen on the regular basis, diverticulitis, chronic constipation, history of breast cancer status post right mastectomy, depression, never smoker, urinary incontinence, history of urinary tract infections, who initially was admitted to the hospital on 12/23/2019 for evaluation altered mental status, apparently patient took her [place], baclofen and sleeping pills and she was not arousable by the family in the morning and EMS was called. Brain CT showed no acute intracranial process, did show diffuse age-related cerebral atrophy and chronic small vessel ischemic changes. Chest x-ray on admission showed pulmonary vascular congestion with what seems to be chronic interstitial prominence, low lung volumes, and slightly enlarged cardiac mediastinal silhouette. Patient had a low-grade fever on presentation with a temp of 99F, and significant leukocytosis with white blood cell count of 47,000, anemia with hemoglobin of 6.7 with positive hemoccult, and patient was transfused with packed red blood cells. Patient had evidence of urinary tract infection, lactic acidosis, right abdominal tenderness with concern for pyelonephritis versus ischemic colitis. She was started on Rocephin which was later changed to Unasyn, ID service consulted. Renal ultrasound showed bilateral hydronephrosis and thickening of the right-sided renal parenchyma. Patient was seen by urology service, computed tomography scan of the abdomen and pelvis without IV contrast showed evidence of bilateral hydroureteronephrosis with dilated ureters down to the level of the bladder, with no evidence of calculus present in the kidneys or ureters, bladder wall thickening was nonspecific. Medical management was recommended, patient's mentation started to improve. Urine culture showed no growth, blood culture was negative as well. Leukocytosis started to improve from the initial 47.6 on 12/23/2019 to 26.4 on today's labs on all 12/30/2019. She was evaluated for GI bleeding, on 12/26/2019 she underwent EGD and colonoscopy, EGD showed multiple gastric ulcerations in the proximal body of the stomach measuring 1-1.5 centimeters in size status post biopsy, small hiatal hernia. And colonoscopy up to the hepatic flexure revealed sigmoid diverticulosis, and scope could not be advanced beyond the hepatic flexure because of extreme looping in the sigmoid colon. Double contrast barium enema was nondiagnostic. Patient is on Protonix, she received a total of 2 units of pack red blood cells, and today's labs reveal hemoglobin of 9.1. Hematology was also consulted in regards to anemia. Appfaraz salastly yesterday on 12/29/2019 patient develops significant wheezing and shortness of breath, her chest x-ray revealed small left pleural effusion, and diffuse increased lung markings that could be compatible with pulmonary edema. She received a dose of Lasix, she has been in negative fluid balance, she is a - 2485 ML fluid balance over the last 24 hours, she appears to be in no acute respiratory distress on today's exam, she is on 2 L of oxygen her pulse ox of 94-97%, she is afebrile, hemodynamically she is stable, she has no cough, no complaints of chest pain, no phlegm production, no nausea vomiting abdominal pain or diarrhea, she continues on Unasyn for urinary tract infection with possi ble colitis. Clear lung sounds on today's exam. The patient is seen today 12/31/2019 in follow-up on the selective care unit. She is currently resting in bed. Maintaining O2 saturations in the 90s on room air. She's afebrile. Hemodynamically stable. White count 20.7. Hemoglobin 9.1. Sodium 137. Potassium 3.6. Creatinine 0.65. Glucose 165. She is currently on Unasyn. Today's chest x-ray shows continuing interstitial changes and vascular congestion compatible with congestive heart failure. Status post 2 units of packed red blood cells this admission. Current hemoglobin 9.1. Blood cultures revealed no growth. The patient is seen today 01/01/2020 in follow-up on the selective care unit. She is awake and alert in no acute distress. Currently resting comfortably in bed. Continues to maintain good O2 saturation in the 90s on room air. She's afebrile. Hemodynamically stable. White count 19.2. Hemoglobin 8.6. She is currently on Unasyn. She remains in a negative balance. Weight is down to 69.5 kg. Objective - Vital Signs Vital signs: Vital Signs Temp 98.2 F 01/01/20 03:13 Pulse 87 01/01/20 03:13 Resp 18 01/01/20 03:13 BP 129/65 01/01/20 03:13 Pulse Ox 96 01/01/20 03:13 Intake & Output 12/31/19 01/01/20 01/01/20 18:59 06:59 18:59 Intake Total 330 Output Total 1300 Balance 330 -1300 Weight 69.5 kg Intake: Oral 330 Output: Urine 1300 Other: Voiding Method Indwelling Catheter Indwelling Catheter # Voids 0 - Exam GENERAL EXAM: Alert, very pleasant, 84-year-old white female, on room air with a pulse ox of 96%, in no acute distress comfortable in no apparent distress. HEAD: Normocephalic/atraumatic. EYES: Normal reaction of pupils, equal size. Conjunctiva pink, sclera white. NOSE: Clear with pink turbinates. THROAT: No erythema or exudates. NECK: No masses, no JVD, no thyroid enlargement, no adenopathy. CHEST: No chest wall deformity. Symmetrical expansion. LUNGS: Equal air entry with faint crackles in the posterior bases. CVS: Regular rate and rhythm, normal S1 and S2, no gallops, no murmurs, no rubs ABDOMEN: Soft, nontender. No hepatosplenomegaly, normal bowel sounds, no guarding or rigidity. EXTREMITIES: No clubbing, no edema, no cyanosis, 2+ pulses and upper and lower extremities. MUSCULOSKELETAL: Muscle strength and tone normal. SPINE: No scoliosis or deformity SKIN: No rashes CENTRAL NERVOUS SYSTEM: No focal deficits, tone is normal in all 4 extremities. PSYCHIATRIC: Alert and oriented -3. Appropriate affect. Intact judgment and insight. - Labs CBC & Chem 7: 01/01/20 06:50 12/31/19 09:44 Labs: Abnormal Lab Results - Last 24 Hours (Table) 12/31/19 01/01/20 Range/Units 09:44 06:50 WBC 19.2 H (3.8-10.6) k/uL RBC 3.66 L (3.80-5.40) m/uL Hgb 8.6 L (11.4-16.0) gm/dL Hct 28.9 L (34.0-46.0) % MCV 79.0 L (80.0-100.0) fL MCH 23.4 L (25.0-35.0) pg MCHC 29.7 L (31.0-37.0) g/dL RDW 23.2 H (11.5-15.5) % Neutrophils # 14.8 H (1.3-7.7) k/uL Neutrophils # (Manual) 17.39 H (1.3-7.7) k/uL Monocytes # 1.8 H (0-1.0) k/uL Monocytes # (Manual) 1.45 H (0-1.0) k/uL Myelocytes # (Manual) 0.21 H (0) k/uL Assessment and Plan Assessment: #1. Shortness of breath, related to fluid volume overload and diastolic congestive heart failure, chest x-ray showed diffuse increased lung markings, pulmonary edema and small left pleural effusion #2. Acute urinary tract infection with sepsis, currently on Unasyn, urine culture is negative #3. Possible colitis, and colonoscopy could not be completed because of sigmoid diverticulosis, and barium enema was inconclusive, GI service is following #4. Altered mental status present on admission, related to acute sepsis related to urinary tract infection and possibility of colitis, improved #5. Leukocytosis, related to sepsis secondary to UTI, improving on broad- spectrum antibiotics, culture data including blood cultures and urine cultures remain negative to date #6. Iron deficiency anemia, status post EGD and colonoscopy of the hepatic flexure, with EGD showing multiple gastric ulcers and patient is on PPI therapy, colonoscopy could not evaluate the right colon, and subsequent barium enema was inconclusive #7. Acute anemia related to GI bleeding, status post transfusion with 2 units of packed red blood cells with initial hemoglobin of 6.7, positive Hemoccult, and dark stools #8. Chronic back pain #9. Hypertension #10. Previous history of urinary tract infection #11. Urinary incontinence #12. Hydronephrosis of unclear etiology, with no evidence of stone in the kidneys or the ureters, patient is being followed by urology service #13. History of osteoarthritis #14. Hypokalemia, improving #15. Acute kidney injury present on admission, improving #16. History of depression #17. Lifetime nonsmoker #18. History of diverticulitis #19. Previous history of right mastectomy Plan: The patient was seen and evaluated by Dr. Abad She is stable from the pulmonary standpoint Continue the current treatment plan We'll continue to follow I, the cosigning physician, performed a history & physical examination of the patient. Lungs sounds faint crackles in posterior bases. Maintaining good O2 saturations in the 90s on room air. I discussed the assessment and plan of care with my nurse practitioner, Roxanna Perez. I attest to the above note as dictated by her.
[2020-01-01] MEDS ORDERED: CYCLOBENZAPRINE 5 MG TAB PO PRN (12:43)
--- NOTE | 2020-01-01 12:43 | P.PN ---
Subjective Progress Note Date: 01/01/20 Jaqui Garza is an 84 -year-old female who was brought in to [facility] emergency room due to mental status changes, per emergency room notes, patient was fine yesterday, she took [place] baclofen and a sleeping pill before going to bed, this morning she was unarousable and family called EMS and patient was brought in to [facility]. In the emergency room patient had a computed tomography scan of the brain without contrast that failed to reveal any evidence of hemorrhage or any acute abnormality, Narcan was given but did not help much, patient had significantly abnormal labs with evidence of urinary tract infection, severe leukocytosis, anemia with hemoglobin of 6.9, heme positive stools, and elevated lactic acid, she was started on IV fluid, IV Rocephin, and was admitted to medical floor for further evaluation. 1 unit of red blood cell transfusion was ordered. Patient was seen and examined on the medical floor, she is responding to stimuli but goes back to sleep, she is nonverbal at this time, no history could be obtained from her. On 12/24/2019 patient was seen and examined on the medical floor she is alert, responsive answering questions appropriately, there is no fever or chills no headache or dizziness no chest pain no shortness of breath no cough no nausea or vomiting no abdominal pain no diarrhea no blood in the stools, she is having urine incontinence and has an external catheter. On 12/25/2019 patient was seen and examined on the medical floor she is alert and oriented 3 in no apparent distress, clinically she is doing much better, vitals are stable and within normal limits, white blood count still significantly elevated at 30.4 but down from yesterday and the day before hemoglobin 7.6 patient has iron deficiency anemia and order for IV iron was placed. Patient has elevated BUN and creatinine that are gradually improving. Gastroenterology consultation requested, Dr. Thao is planning EGD and colonoscopy tomorrow. Urology consultation requested patient has evidence of bilateral hydronephrosis. On 12/26/2019 patient was seen and examined on the medical floor she is alert and oriented 3 in no distress there is no fever or chills no headache or dizziness no chest pain no shortness of breath no cough no nausea or vomiting no abdominal pain no diarrhea and no urinary symptoms potassium is going been corrected by protocol, patient is scheduled for EGD and colonoscopy today. On 12/27/2019 patient was seen and examined on the medical floor she is alert and oriented 3 in no distress results from GI investigations reviewed, still and able to rule out any abnormality in the cecum area, awaiting further recommendation from gastroenterology, otherwise patient is doing well she denies any fever or chills no headache or dizziness no chest pain no shortness of breath no cough no nausea or vomiting no abdominal pain no diarrhea no blood in the stools no burning with urination no frequency or urgency and no hematuria, she still has significant unsteadiness with her gait, and would benefit of subacute rehab on discharge. On 12/28/2019 patient was seen and examined on the medical floor she is alert and oriented 3 in no apparent distress patient is denying any complaints at this time there is no fever or chills no headache or dizziness no chest pain no shortness of breath no cough no nausea or vomiting no abdominal pain no diarrhea and no urinary symptoms. Clinically her hemoglobin is down to 7.5, white blood count is up to 23.6, patient still has significant unsteadiness with her gait. Input from gastroenterology and urology reviewed. On 12/29/2019 patient was seen and examined on the medical floor, she is alert and oriented 3 in no distress there is no fever or chills no headache or dizziness no chest pain no shortness of breath no cough no nausea or vomiting no abdominal pain no diarrhea no burning was urination no frequency or urgency no hematuria. Patient has significant wheezing and prolonged expiratory phase with check chest x-ray, IV fluid discontinued will be given 1 dose of IV Lasix today On 12/30/2019 patient was seen and examined on the medical floor, she is feeling better her shortness of breath has improved, chest x-ray revealed evidence of pulmonary congestion, patient received IV Lasix and had significant improvement, otherwise she denies any complaints there is no fever or chills no headache or dizziness no chest pain, no cough no nausea or vomiting no abdominal pain no diarrhea no burning was urination no frequency or urgency and no hematuria, white blood count is increasing, she is followed by hematology and infectious disease. On 12/31/2019 patient was seen and examined on the medical floor she is alert and oriented 3 in no apparent distress there is no fever or chills no headache or dizziness no chest pain no shortness of breath no cough no nausea or vomiting no abdominal pain no diarrhea and no urinary symptoms white blood count is still elevated at 20,000 chest x-ray still showing signs of congestive heart failure, Lasix 40 mg by mouth daily added to her regimen. Physical therapy and occupational therapy consult requested. On 01/01/2020 patient was seen and examined on the medical floor she is alert and oriented in no apparent distress she is complaining of lower back pain otherwise no complaints there is no fever or chills no headache or dizziness no chest pain no shortness of breath no cough no nausea or vomiting no abdominal pain no diarrhea no burning was urination no frequency or urgency and no hematuria, white blood count is still significantly elevated at 19.5, at this time will increase mobility with physical therapy, will remove Thacker catheter tomorrow morning at 8 AM and check post void residual. Objective - Vital Signs Vital signs: Vital Signs Temp 98.9 F 01/01/20 10:40 Pulse 92 01/01/20 10:40 Resp 18 01/01/20 10:40 BP 141/63 01/01/20 10:40 Pulse Ox 96 01/01/20 10:40 Intake & Output 12/31/19 01/01/20 01/01/20 18:59 06:59 18:59 Intake Total 330 Output Total 1300 Balance 330 -1300 Weight 69.5 kg Intake: Oral 330 Output: Urine 1300 Other: Voiding Method Indwelling Catheter Indwelling Catheter Indwelling Catheter # Voids 0 - Exam In general patient is alert responsive in no apparent distress HEENT head normocephalic and atraumatic Neck is supple no JVD no goiter no lymphadenopathy Chest exam reveals a few scattered rhonchi no wheezing Cardiac exam reveals regular heart sounds S1 and S2 no gallops no murmurs Abdomen is soft nontender no organomegaly with normal bowel sounds Extremity exam reveals minimal edema no cyanosis or clubbing Neurological examination patient is somnolent responsive to stimuli, moving all 4 extremities - Labs CBC & Chem 7: 01/01/20 06:50 12/31/19 09:44 Labs: Abnormal Lab Results - Last 24 Hours (Table) 01/01/20 Range/Units 06:50 WBC 19.2 H (3.8-10.6) k/uL RBC 3.66 L (3.80-5.40) m/uL Hgb 8.6 L (11.4-16.0) gm/dL Hct 28.9 L (34.0-46.0) % MCV 79.0 L (80.0-100.0) fL MCH 23.4 L (25.0-35.0) pg MCHC 29.7 L (31.0-37.0) g/dL RDW 23.2 H (11.5-15.5) % Neutrophils # 14.8 H (1.3-7.7) k/uL Monocytes # 1.8 H (0-1.0) k/uL Assessment and Plan Plan: 1. Evidence of urinary tract infection, patient was started on IV Unasyn, blood culture and urine culture were ordered, infectious disease consultation was requested. 2. Sepsis, likely related to urinary tract infection, with severe leukocytosis, elevated lactic acid, tachycardia and tachypnea 3. Severe elevation in white blood count, could be related to infection howeve r, possibility of leukocytosis related to leukemia needs to be ruled out, consultation for hematology was initiated. 4. Severe anemia, patient received a total of 2 units of red blood cell transfusion, patient has heme positive stools, consultation for gastroenterology was initiated, patient has a history of peptic ulcer disease, computed tomography scan is revealing possible lesion in the cecum. Still and able to rule out abnormality in the cecum, colonoscopy was unable to reach the cecum, a nd barium enema was inconclusive, awaiting further recommendation from gastroenterology 5. Underlying history of hypertension. At this time we are holding blood pressure medication Will monitor closely 6. Underlying history of osteoarthritis with severe pain requiring narcotic medications. At this time will hold narcotic sleeping pill and muscle relaxers will monitor mental status closely. 7. Mental status changes, likely related to sepsis, metabolic encephalopathy, and affect of narcotic medication and sleeping., No abnormality seen on computed tomography scan without contrast, however if mental status does not improve in 24 hours, will proceed was more imaging and consultation for neurology. 8. Hypokalemia Corps correcting 9. Acute renal failure on admission with elevated BUN at 41 creatinine at 1.37, improving BUN is down to 28 and creatinine 1.06 10. Bilateral hydronephrosis urology consultation reviewed, at this time plan for Thacker catheter. 11. Low back pain Will add muscle relaxant will follow closely Patient prognosis is guarded She was started on IV fluid, IV antibiotics, red blood cell transfusion Consultation for hematology, infectious disease, urology and gastroenterology initiated Will repeat labs and follow closely
[2020-01-01] MEDS: ALPRAZolam 0.25 MG TAB PO PRN (21:59)
--- NOTE | 2020-01-02 00:03 | PN ---
PROGRESS NOTE DATE OF SERVICE: 01/01/2020 REASON FOR FOLLOWUP: UTI and leukocytosis. INTERVAL HISTORY: The patient is currently afebrile. She is breathing comfortably. No chest pain or shortness of breath or cough. No abdominal pain or diarrhea. PHYSICAL EXAMINATION: Blood pressure 124/72 with a pulse of 87, temperature 98.9. She is 95% on room air. General description is an elderly female lying in bed in no distress. RESPIRATORY SYSTEM: Unlabored breathing, clear to auscultation anteriorly. HEART: S1, S2. Regular rate and rhythm. ABDOMEN: Soft, no tenderness. LABS: Hemoglobin 8.6, white count 19.2, creatinine 0.65. Blood and urine culture has been negative so far. DIAGNOSTIC IMPRESSION AND PLAN: Patient with elevated white count which is multifactorial in this patient with a component of urinary tract infection and changes around the rectosigmoid area. The patient is currently receiving Diflucan. White count showing a downward trend and continue with supportive care. MMODL / IJN: [id number] /
[2020-01-02] MEDS: AMPICILLIN-SULBACTAM 3 GM in SODIUM CHLORIDE 0.9% 100 ML IVPB SCH ×3 (02:09→17:58)
[2020-01-02 07:11] LABS: ALT 13 U/L (4-34); AST 20 U/L (14-36); African American GFR (CKD) >90 (>60 ml/min/1.73 sqM); Albumin 2.6 g/dL (3.5-5.0); Alkaline Phosphatase 65 U/L (38-126); Anion Gap 7 mmol/L; Blood Urea Nitrogen 15 mg/dL (7-17); Carbon Dioxide 30 mmol/L (22-30); Chloride 98 mmol/L (98-107); Glucose 133 mg/dL (74-99); Non-African American GFR(CKD) 85 (>60 ml/min/1.73 sqM); Potassium 3.6 mmol/L (3.5-5.1); Sodium 135 mmol/L (137-145); Total Bilirubin 0.3 mg/dL (0.2-1.3); Total Protein 5.4 g/dL (6.3-8.2)
[2020-01-02 07:59] LABS: Anisocytosis Moderate; Basophils % (A) 0 %; Eosinophils # (A) 0.1 k/uL (0-0.7); Eosinophils % (A) 1 %; HCT 28.4 % (34.0-46.0); HGB 8.4 gm/dL (11.4-16.0); Hypochromasia Marked; Lymphocytes % (A) 12 %; MCH 23.6 pg (25.0-35.0); MCHC 29.5 g/dL (31.0-37.0); Mean Platelet Volume 8.2; Microcytosis Moderate; Monocytes # (A) 1.8 k/uL (0-1.0); Monocytes % (A) 11 %; Neutrophils # (A) 12.9 k/uL (1.3-7.7); Neutrophils % (A) 75 %; Platelet Count 365 k/uL (150-450); Poikilocytosis Slight; RBC 3.55 m/uL (3.80-5.40); RDW 23.6 % (11.5-15.5); WBC 17.2 k/uL (3.8-10.6)
[2020-01-02] MEDS: HYDROcodone/APAP 7.5-325MG 1 EACH TAB PO SCH ×3 (08:34→21:54)
[2020-01-02] MEDS: FLUCONAZOLE 100 MG TAB PO SCH (08:35)
[2020-01-02] MEDS: FUROSEMIDE 40 MG TAB PO SCH (08:35)
[2020-01-02] MEDS: FOLIC ACID 1 MG TAB PO SCH (08:35)
[2020-01-02] MEDS: PANTOPRAZOLE 40 MG TABLET PO SCH (08:35)
[2020-01-02] MEDS: ALPRAZolam 0.25 MG TAB PO PRN ×2 (08:35→17:58)
--- NOTE | 2020-01-02 14:52 | P.PN ---
Subjective Progress Note Date: 01/02/20 Principal diagnosis: Shortness of breath, acute exacerbation of diastolic CHF 84-year-old white female patient of Dr. Madden with past medical history of hypertension, chronic back pain related to history of osteoarthritis on [place], baclofen on the regular basis, diverticulitis, chronic constipation, history of breast cancer status post right mastectomy, depression, never smoker, urinary incontinence, history of urinary tract infections, who initially was admitted to the hospital on 12/23/2019 for evaluation altered mental status, apparently patient took her [place], baclofen and sleeping pills and she was not arousable by the family in the morning and EMS was called. Brain CT showed no acute intracranial process, did show diffuse age-related cerebral atrophy and chronic small vessel ischemic changes. Chest x-ray on admission showed pulmonary vascular congestion with what seems to be chronic interstitial prominence, low lung volumes, and slightly enlarged cardiac mediastinal silhouette. Patient had a low-grade fever on presentation with a temp of 99F, and significant leukocytosis with white blood cell count of 47,000, anemia with hemoglobin of 6.7 with positive hemoccult, and patient was transfused with packed red blood cells. Patient had evidence of urinary tract infection, lactic acidosis, right abdominal tenderness with concern for pyelonephritis versus ischemic colitis. She was started on Rocephin which was later changed to Unasyn, ID service consu lted. Renal ultrasound showed bilateral hydronephrosis and thickening of the right-sided renal parenchyma. Patient was seen by urology service, computed tomography scan of the abdomen and pelvis without IV contrast showed evidence of bilateral hydroureteronephrosis with dilated ureters down to the level of the bladder, with no evidence of calculus present in the kidneys or ureters, bladder wall thickening was nonspecific. Medical management was recommended, patient's mentation started to improve. Urine culture showed no growth, blood culture was negative as well. Leukocytosis started to improve from the initial 47.6 on 12/23/2019 to 26.4 on today's labs on all 12/30/2019. She was evaluated for GI bleeding, on 12/26/2019 she underwent EGD and colonoscopy, EGD showed multiple gastric ulcerations in the proximal body of the stomach measuring 1-1.5 centimeters in size status post biopsy, small hiatal hernia. And colonoscopy up to the hepatic flexure revealed sigmoid diverticulosis, and scope could not be advanced beyond the hepatic flexure because of extreme looping in the sigmoid colon. Double contrast barium enema was nondiagnostic. Patient is on Protonix, she received a total of 2 units of pack red blood cells, and today's labs reveal hemoglobin of 9.1. Hematology was also consulted in regards to anemia. Apparently yesterday on 12/29/2019 patient develops significant wheezing and shortness of breath, her chest x-ray revealed small left pleural effusion, and diffuse increased lung markings that could be compatible with pulmonary edema. She received a dose of Lasix, she has been in negative fluid balance, she is a - 2485 ML fluid balance over the last 24 hours, she appears to be in no acute respiratory distress on today's exam, she is on 2 L of oxygen her pulse ox of 94-97%, she is afebrile, hemodynamically she is stable, she has no cough, no complaints of chest pain, no phlegm production, no nausea vomiting abdominal pain or diarrhea, she continues on Unasyn for urinary tract infection with possible colitis. Clear lung sounds on today's exam. The patient is seen today 12/31/2019 in follow-up on the selective care unit. She is currently resting in bed. Maintaining O2 saturations in the 90s on room air. She's afebrile. Hemodynamically stable. White count 20.7. Hemoglobin 9.1. Sodium 137. Potassium 3.6. Creatinine 0.65. Glucose 165. She is currently on Unasyn. Today's chest x-ray shows continuing interstitial changes and vascular congestion compatible with congestive heart failure. Status post 2 units of packed red blood cells this admission. Current hemoglobin 9.1. Blood cultures revealed no growth. The patient is seen today 01/01/2020 in follow-up on the selective care unit. She is awake and alert in no acute distress. Currently resting comfortably in bed. Continues to maintain good O2 saturation in the 90s on room air. She's afebrile. Hemodynamically stable. White count 19.2. Hemoglobin 8.6. She is currently on Unasyn. She remains in a negative balance. Weight is down to 69.5 kg. On 01/02/2020 patient is seen in follow-up on selective care unit, she is calm and comfortable, she is resting comfortably in bed, lung sounds are clear on auscultation, no cough or congestion, no complaints of chest pain, mentation is appropriate, she is answering questions appropriately, she is afebrile, continues on a combination of Unasyn and Diflucan for acute urinary tract infection a possibility of colitis. She is on oral dose of Lasix at 40 mg daily, no crackles, no rhonchi or wheezing on today's exam, room air pulse ox is 93%, last chest x-ray was done on 12/31/2019 showing some vascular congestion and interstitial changes compatible congestive heart failure, she is doing well, she is maintaining negative fluid balance. Objective - Vital Signs Vital signs: Vital Signs Temp 97.8 F 01/02/20 12:00 Pulse 82 01/02/20 12:00 Resp 14 01/02/20 12:00 BP 129/65 01/02/20 12:00 Pulse Ox 93 L 01/02/20 12:00 Intake & Output 01/01/20 01/02/20 01/02/20 18:59 06:59 18:59 Intake Total 120 240 Output Total 870 700 Balance 120 -870 -460 Weight 69.5 kg 71 kg Intake: Oral 120 240 Output: Urine 870 700 Other: Voiding Method Indwelling Catheter Indwelling Catheter Indwelling Catheter # Bowel Movements 1 - Exam GENERAL EXAM: Alert, very pleasant, 84-year-old white female, on room air with a pulse ox of 93% sitting up in the chair, in no acute distress comfortable in no apparent distress. HEAD: Normocephalic/atraumatic. EYES: Normal reaction of pupils, equal size. Conjunctiva pink, sclera white. NOSE: Clear with pink turbinates. THROAT: No erythema or exudates. NECK: No masses, no JVD, no thyroid enlargement, no adenopathy. CHEST: No chest wall deformity. Symmetrical expansion. LUNGS: Equal air entry with no crackles, wheeze, rhonchi or dullness. CVS: Regular rate and rhythm, normal S1 and S2, no gallops, no murmurs, no rubs ABDOMEN: Soft, nontender. No hepatosplenomegaly, normal bowel sounds, no guarding or rigidity. EXTREMITIES: No clubbing, no edema, no cyanosis, 2+ pulses and upper and lower extremities. MUSCULOSKELETAL: Muscle strength and tone normal. SPINE: No scoliosis or deformity SKIN: No rashes CENTRAL NERVOUS SYSTEM: Alert and oriented -3. No focal deficits, tone is normal in all 4 extremities. PSYCHIATRIC: Alert and oriented -3. Appropriate affect. Intact judgment and insight. - Labs CBC & Chem 7: 01/02/20 06:08 01/02/20 06:08 Labs: Abnormal Lab Results - Last 24 Hours (Table) 01/02/20 01/02/20 Range/Units 06:08 06:08 WBC 17.2 H (3.8-10.6) k/uL RBC 3.55 L (3.80-5.40) m/uL Hgb 8.4 L (11.4-16.0) gm/dL Hct 28.4 L (34.0-46.0) % MCH 23.6 L (25.0-35.0) pg MCHC 29.5 L (31.0-37.0) g/dL RDW 23.6 H (11.5-15.5) % Neutrophils # 12.9 H (1.3-7.7) k/uL Monocytes # 1.8 H (0-1.0) k/uL Sodium 135 L (137-145) mmol/L Glucose 133 H (74-99) mg/dL Calcium 8.0 L (8.4-10.2) mg/dL Total Protein 5.4 L (6.3-8.2) g/dL Albumin 2.6 L (3.5-5.0) g/dL Assessment and Plan Plan: Assessment: #1. Shortness of breath, related to fluid volume overload and congestive heart failure with unknown EF, chest x-ray showed diffuse increased lung markings, pulmonary edema and small left pleural effusion #2. Acute urinary tract infection with sepsis, currently on Unasyn, urine culture is negative #3. Possible colitis, and colonoscopy could not be completed because of sigmoid diverticulosis, and barium enema was inconclusive, GI service is following #4. Altered mental status present on admission, related to acute sepsis related to urinary tract infection and possibility of colitis, improved #5. Leukocytosis, related to sepsis secondary to UTI, improving on broad- spectrum antibiotics, culture data including blood cultures and urine cultures remain negative to date #6. Iron deficiency anemia, status post EGD and colonoscopy of the hepatic flexure, with EGD showing multiple gastric ulcers and patient is on PPI therapy, colonoscopy could not evaluate the right colon, and subsequent barium enema was inconclusive #7. Acute anemia related to GI bleeding, status post transfusion with 2 units of packed red blood cells with initial hemoglobin of 6.7, positive Hemoccult, and dark stools #8. Chronic back pain #9. Hypertension #10. Previous history of urinary tract infection #11. Urinary incontinence #12. Hydronephrosis of unclear etiology, with no evidence of stone in the kidneys or the ureters, patient is being followed by urology service #13. History of osteoarthritis #14. Hypokalemia, improving #15. Acute kidney injury present on admission, improving #16. History of depression #17. Lifetime nonsmoker #18. History of diverticulitis #19. Previous history of right mastectomy Plan: Follow-up chest x-ray in the morning, continue current dose of oral diuretics, patient is maintaining negative fluid balance, she is on room air, no specific complaints, she remains on antibiotics for acute urinary tract infection and possibility of colitis, ID service is following. We'll continue to follow I performed a history & physical examination of the patient and discussed their management with my nurse practitioner, Kayy Pimentel. I reviewed the nurse practitioner's note and agree with the documented findings and plan of care. Lung sounds are positive for clear breath sounds. The findings and the impression was discussed with the patient. I attest to the documentation by the nurse practitioner. Time with Patient: Less than 30
--- NOTE | 2020-01-02 16:39 | P.PN ---
Subjective Progress Note Date: 01/02/20 Principal diagnosis: Anemia Katherine appears more comfortable today. Her hemoglobin has dropped mildly, although remains in safe range Objective - Vital Signs Vital signs: Vital Signs Temp 97.7 F 01/02/20 15:59 Pulse 94 01/02/20 15:59 Resp 16 01/02/20 15:59 BP 143/76 01/02/20 15:59 Pulse Ox 94 L 01/02/20 15:59 Intake & Output 01/01/20 01/02/20 01/02/20 18:59 06:59 18:59 Intake Total 120 476 Output Total 870 700 Balance 120 -870 -224 Weight 69.5 kg 71 kg Intake: Oral 120 476 Output: Urine 870 700 Other: Voiding Method Indwelling Catheter Indwelling Catheter Indwelling Catheter # Bowel Movements 1 - Exam - Constitutional General appearance: Present: cooperative, no acute distress, obese - EENT Eyes: Present: anicteric sclerae, EOMI ENT: Present: hearing grossly normal Neck: Supple - Respiratory Details: respirations even and unlabored - Cardiovascular Heart: Irregular, Regular Details: skin warm and dry, patient has some pink to her cheeks today. Abdomen: Soft, ND - Musculoskeletal Musculoskeletal: Present: generalized weakness - Psychiatric Psychiatric: Present: A&O x's 3, appropriate affect, intact judgment & insight - Labs CBC & Chem 7: 01/02/20 06:08 01/02/20 06:08 Labs: Abnormal Lab Results - Last 24 Hours (Table) 01/02/20 01/02/20 Range/Units 06:08 06:08 WBC 17.2 H (3.8-10.6) k/uL RBC 3.55 L (3.80-5.40) m/uL Hgb 8.4 L (11.4-16.0) gm/dL Hct 28.4 L (34.0-46.0) % MCH 23.6 L (25.0-35.0) pg MCHC 29.5 L (31.0-37.0) g/dL RDW 23.6 H (11.5-15.5) % Neutrophils # 12.9 H (1.3-7.7) k/uL Monocytes # 1.8 H (0-1.0) k/uL Sodium 135 L (137-145) mmol/L Glucose 133 H (74-99) mg/dL Calcium 8.0 L (8.4-10.2) mg/dL Total Protein 5.4 L (6.3-8.2) g/dL Albumin 2.6 L (3.5-5.0) g/dL Assessment and Plan Plan: Assessment and Plan: Microcytic Hypochromic Anemia: - Patient has a history of iron deficiency, her labs are suggestive of the same. - Patient has received parenteral iron 3. Recommendation is for a one-month follow-up to reevaluate iron stores, supplementation if needed. - Review of GI eval and CTs - Hemoglobin 8.4 no intervention needed, mild decrease from previous recheck in am Folate deficiency, Iron deficiency anemia - Folate supplement initiated, patient tolerating well. - Rx sent to pt preferred pharmacy to continue outpatient Leukocytosis - Mostly neutrophils. Starting to trend down again. - There are no plans for a bone marrow at this time. No paraproteinemia, kappa light chain only slightly deviated from normal. Plan: - Monitor CBC - Can follow-up in office after discharge to receive further iron infusion if necessary Physician Attest: I have completed the full history and physical and agree with above dictation, dictated as a scribe
--- NOTE | 2020-01-02 17:19 | P.PN ---
Subjective Progress Note Date: 01/02/20 Jaqui Garza is an 84 -year-old female who was brought in to [facility] emergency room due to mental status changes, per emergency room notes, patient was fine yesterday, she took [place] baclofen and a sleeping pill before going to bed, this morning she was unarousable and family called EMS and patient was brought in to [facility]. In the emergency room patient had a computed tomography scan of the brain without contrast that failed to reveal any evidence of hemorrhage or any acute abnormality, Narcan was given but did not help much, patient had significantly abnormal labs with evidence of urinary tract infection, severe leukocytosis, anemia with hemoglobin of 6.9, heme positive stools, and elevated lactic acid, she was started on IV fluid, IV Rocephin, and was admitted to medical floor for further evaluation. 1 unit of red blood cell transfusion was ordered. Patient was seen and examined on the medical floor, she is responding to stimuli but goes back to sleep, she is nonverbal at this time, no history could be obtained from her. On 12/24/2019 patient was seen and examined on the medical floor she is alert, responsive answering questions appropriately, there is no fever or chills no headache or dizziness no chest pain no shortness of breath no cough no nausea or vomiting no abdominal pain no diarrhea no blood in the stools, she is having urine incontinence and has an external catheter. On 12/25/2019 patient was seen and examined on the medical floor she is alert and oriented 3 in no apparent distress, clinically she is doing much better, vitals are stable and within normal limits, white blood count still significantly elevated at 30.4 but down from yesterday and the day before hemoglobin 7.6 patient has iron deficiency anemia and order for IV iron was placed. Patient has elevated BUN and creatinine that are gradually improving. Gastroenterology consultation requested, Dr. Thao is planning EGD and colonoscopy tomorrow. Urology consultation requested patient has evidence of bilateral hydronephrosis. On 12/26/2019 patient was seen and examined on the medical floor she is alert and oriented 3 in no distress there is no fever or chills no headache or dizziness no chest pain no shortness of breath no cough no nausea or vomiting no abdominal pain no diarrhea and no urinary symptoms potassium is going been corrected by protocol, patient is scheduled for EGD and colonoscopy today. On 12/27/2019 patient was seen and examined on the medical floor she is alert and oriented 3 in no distress results from GI investigations reviewed, still and able to rule out any abnormality in the cecum area, awaiting further recommendation from gastroenterology, otherwise patient is doing well she denies any fever or chills no headache or dizziness no chest pain no shortness of breath no cough no nausea or vomiting no abdominal pain no diarrhea no blood in the stools no burning with urination no frequency or urgency and no hematuria, she still has significant unsteadiness with her gait, and would benefit of subacute rehab on discharge. On 12/28/2019 patient was seen and examined on the medical floor she is alert and oriented 3 in no apparent distress patient is denying any complaints at this time there is no fever or chills no headache or dizziness no chest pain no shortness of breath no cough no nausea or vomiting no abdominal pain no diarrhea and no urinary symptoms. Clinically her hemoglobin is down to 7.5, white blood count is up to 23.6, patient still has significant unsteadiness with her gait. Input from gastroenterology and urology reviewed. On 12/29/2019 patient was seen and examined on the medical floor, she is alert and oriented 3 in no distress there is no fever or chills no headache or dizziness no chest pain no shortness of breath no cough no nausea or vomiting no abdominal pain no diarrhea no burning was urination no frequency or urgency no hematuria. Patient has significant wheezing and prolonged expiratory phase with check chest x-ray, IV fluid discontinued will be given 1 dose of IV Lasix today On 12/30/2019 patient was seen and examined on the medical floor, she is feeling better her shortness of breath has improved, chest x-ray revealed evidence of pulmonary congestion, patient received IV Lasix and had significant improvement, otherwise she denies any complaints there is no fever or chills no headache or dizziness no chest pain, no cough no nausea or vomiting no abdominal pain no diarrhea no burning was urination no frequency or urgency and no hematuria, white blood count is increasing, she is followed by hematology and infectious disease. On 12/31/2019 patient was seen and examined on the medical floor she is alert and oriented 3 in no apparent distress there is no fever or chills no headache or dizziness no chest pain no shortness of breath no cough no nausea or vomiting no abdominal pain no diarrhea and no urinary symptoms white blood count is still elevated at 20,000 chest x-ray still showing signs of congestive heart failure, Lasix 40 mg by mouth daily added to her regimen. Physical therapy and occupational therapy consult requested. On 01/01/2020 patient was seen and examined on the medical floor she is alert and oriented in no apparent distress she is complaining of lower back pain otherwise no complaints there is no fever or chills no headache or dizziness no chest pain no shortness of breath no cough no nausea or vomiting no abdominal pain no diarrhea no burning was urination no frequency or urgency and no hematuria, white blood count is still significantly elevated at 19.5, at this time will increase mobility with physical therapy, will remove Thacker catheter tomorrow morning at 8 AM and check post void residual. On 01/02/2020 patient was seen and examined on the medical floor she is somnolent and arousable in no apparent distress, she is complaining of pain in the sacral area, otherwise no other complaints, there is no fever or chills no headache or dizziness no chest pain no shortness of breath no cough no nausea or vomiting no abdominal pain no diarrhea no burning was urination no frequency or urgency and no hematuria Objective - Vital Signs Vital signs: Vital Signs Temp 97.7 F 01/02/20 15:59 Pulse 94 01/02/20 15:59 Resp 16 01/02/20 15:59 BP 143/76 01/02/20 15:59 Pulse Ox 94 L 01/02/20 15:59 Intake & Output 01/01/20 01/02/20 01/02/20 18:59 06:59 18:59 Intake Total 120 476 Output Total 870 700 Balance 120 -870 -224 Weight 69.5 kg 71 kg Intake: Oral 120 476 Output: Urine 870 700 Other: Voiding Method Indwelling Catheter Indwelling Catheter Indwelling Catheter # Bowel Movements 1 - Exam In general patient is alert responsive in no apparent distress HEENT head normocephalic and atraumatic Neck is supple no JVD no goiter no lymphadenopathy Chest exam reveals a few scattered rhonchi no wheezing Cardiac exam reveals regular heart sounds S1 and S2 no gallops no murmurs Abdomen is soft nontender no organomegaly with normal bowel sounds Extremity exam reveals minimal edema no cyanosis or clubbing Neurological examination patient is somnolent responsive to stimuli, moving all 4 extremities - Labs CBC & Chem 7: 01/02/20 06:08 01/02/20 06:08 Labs: Abnormal Lab Results - Last 24 Hours (Table) 01/02/20 01/02/20 Range/Units 06:08 06:08 WBC 17.2 H (3.8-10.6) k/uL RBC 3.55 L (3.80-5.40) m/uL Hgb 8.4 L (11.4-16.0) gm/dL Hct 28.4 L (34.0-46.0) % MCH 23.6 L (25.0-35.0) pg MCHC 29.5 L (31.0-37.0) g/dL RDW 23.6 H (11.5-15.5) % Neutrophils # 12.9 H (1.3-7.7) k/uL Monocytes # 1.8 H (0-1.0) k/uL Sodium 135 L (137-145) mmol/L Glucose 133 H (74-99) mg/dL Calcium 8.0 L (8.4-10.2) mg/dL Total Protein 5.4 L (6.3-8.2) g/dL Albumin 2.6 L (3.5-5.0) g/dL Assessment and Plan Plan: 1. Evidence of urinary tract infection, patient was started on IV Unasyn, blood culture and urine culture were ordered, infectious disease consultation was requested. 2. Sepsis, likely related to urinary tract infection, with severe leukocytosis, elevated lactic acid, tachycardia and tachypnea 3. Severe elevation in white blood count, could be related to infection however, possibility of leukocytosis related to leukemia needs to be ruled out, consultation for hematology was initiated. 4. Severe anemia, patient received a total of 2 units of red blood cell transfusion, patient has heme positive stools, consultation for gastroenterology was initiated, patient has a history of peptic ulcer disease, computed tomography scan is revealing possible lesion in the cecum. Still and able to rule out abnormality in the cecum, colonoscopy was unable to reach the cecum, and barium enema was inconclusive, awaiting further recommendation from gastroen terology 5. Underlying history of hypertension. At this time we are holding blood pressure medication Will monitor closely 6. Underlying history of osteoarthritis with severe pain requiring narcotic medications. At this time will hold narcotic sleeping pill and muscle relaxers will monitor mental status closely. 7. Mental status changes, likely related to sepsis, metabolic encephalopathy, and affect of narcotic medication and sleeping., No abnormality seen on computed tomography scan without contrast, however if mental status does not improve in 24 hours, will proceed was more imaging and consultation for neurology. 8. Hypokalemia Corps correcting 9. Acute renal failure on admission with elevated BUN at 41 creatinine at 1.37, improving BUN is down to 28 and creatinine 1.06 10. Bilateral hydronephrosis urology consultation reviewed, at this time plan for Thacker catheter. 11. Sacral area pain, will check computed tomography scan of the sacrum without contrast Patient prognosis is guarded She was started on IV fluid, IV antibiotics, red blood cell transfusion Consultation for hematology, infectious disease, urology and gastroenterology initiated Will repeat labs and follow closely
--- NOTE | 2020-01-02 18:38 | PN ---
PROGRESS NOTE DATE OF SERVICE: 01/02/2020 REASON FOR FOLLOWUP: UTI, colitis and leukocytosis. INTERVAL HISTORY: The patient is currently afebrile. The patient is breathing comfortably. Denies having any chest pain or cough. No nausea, no vomiting or abdominal pain. started reporting diarrhea, starting this morning. PHYSICAL EXAMINATION: Blood pressure 143/76, pulse of 94, temperature 97.6. She is 94% on room air. General description is an elderly female lying in bed in no distress. RESPIRATORY SYSTEM: Unlabored breathing. Clear to auscultation anteriorly. HEART: S1, S2. Regular rate and rhythm. ABDOMEN: Soft. No tenderness. LABS: Hemoglobin 8.4, white count 17.2, BUN of 15, creatinine 0.60. DIAGNOSTIC IMPRESSION AND PLAN: 1. Patient with leukocytosis, multifactorial, in this patient with initial concern for urinary tract infection and possible colitis. White count is already showing a downward trend with Unasyn and Diflucan; to continue. 2. Patient with diarrhea. Will check stool for C difficile and treat if positive. 3. Sacral pain. Sacral CT has been ordered. Results will be followed. MMODL / IJN: [id number] /
[2020-01-02] MEDS: CYCLOBENZAPRINE 5 MG TAB PO SCH (21:54)
--- NOTE | 2020-01-02 22:29 | CT ---
EXAMINATION TYPE: CT sacrum wo con DATE OF EXAM: 01/02/2020 COMPARISON: HISTORY: Sacral pain CT DLP: 298.9 mGycm Automated exposure control for dose reduction was used. Multiple axial sections were obtained from the level of L4-5 disc to the tip of the coccyx with no co ntrast. Segments have normal alignment. There is no evidence of a fracture. There is advanced spondylosis at L4-5. There is metal artifact from posterior fusion surgery at L4 level. There is vacuum disc at L5-S 1. The visualized bony pelvis is intact. Hip joints are intact. I see no focal bone destruction. There are multiple diverticula in the sigmoid colon. There is urinary bladder wall thickening. Air bu bble in the urinary bladder probably from catheterization. There is mild fat stranding around the uri nary bladder. The ureters are dilated. IMPRESSION: No evidence of osteomyelitis. No fracture. 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 Urinary bladder wall thickening and fat stranding suggestive of nonspecific cystitis. Bilateral hydro ureter. Sigmoid diverticulosis.
[2020-01-03] MEDS: AMPICILLIN-SULBACTAM 3 GM in SODIUM CHLORIDE 0.9% 100 ML IVPB SCH ×3 (02:30→17:12)
[2020-01-03 06:27] LABS: Anisocytosis Moderate; Basophils % (A) 0 %; Eosinophils # (A) 0.2 k/uL (0-0.7); Eosinophils % (A) 1 %; HCT 31.2 % (34.0-46.0); HGB 9.3 gm/dL (11.4-16.0); Hypochromasia Marked; Lymphocytes % (A) 12 %; MCH 24.1 pg (25.0-35.0); MCHC 29.6 g/dL (31.0-37.0); MCV 81.4 fL (80.0-100.0); Mean Platelet Volume 8.2; Microcytosis Slight; Monocytes % (A) 12 %; Neutrophils # (A) 11.9 k/uL (1.3-7.7); Neutrophils % (A) 72 %; Platelet Count 337 k/uL (150-450); Poikilocytosis Slight; RBC 3.84 m/uL (3.80-5.40); RDW 23.9 % (11.5-15.5); WBC 16.5 k/uL (3.8-10.6)
[2020-01-03 06:39] LABS: ALT 13 U/L (4-34); AST 24 U/L (14-36); African American GFR (CKD) >90 (>60 ml/min/1.73 sqM); Albumin 2.9 g/dL (3.5-5.0); Alkaline Phosphatase 60 U/L (38-126); Anion Gap 8 mmol/L; Blood Urea Nitrogen 19 mg/dL (7-17); Calcium 8.8 mg/dL (8.4-10.2); Carbon Dioxide 33 mmol/L (22-30); Chloride 95 mmol/L (98-107); Glucose 120 mg/dL (74-99); Non-African American GFR(CKD) 81 (>60 ml/min/1.73 sqM); Potassium 4.1 mmol/L (3.5-5.1); Sodium 136 mmol/L (137-145); Total Bilirubin 0.4 mg/dL (0.2-1.3); Total Protein 5.7 g/dL (6.3-8.2)
--- NOTE | 2020-01-03 07:00 | XR ---
EXAMINATION TYPE: XR chest 1V portable DATE OF EXAM: 01/03/2020 CLINICAL HISTORY: Difficulty breathing and CHF progress study. TECHNIQUE: Single AP portable upright view of the chest is obtained. COMPARISON: Chest x-ray from 3 days earlier and older studies. FINDINGS: Diminished inspiration on current study with background chronic parenchymal change and mul tifocal bilateral opacities involving upper and lower lungs. Suspect stable tiny bilateral pleural ef fusions. Suspect central vascular congestion. Osseous structures remain demineralized. Partial visual ization of surgical change in the lumbar spine noted. IMPRESSION: Suspect persistent CHF exacerbation as there is cardiomegaly with central vascular conges tion and probable interstitial edema with tiny bilateral pleural effusions. Multifocal areas of acute infiltrate and/or atelectasis also are thought redemonstrated. No significant change from most recen t x-ray.
[2020-01-03] MEDS: FLUCONAZOLE 100 MG TAB PO SCH (08:08)
[2020-01-03] MEDS: FUROSEMIDE 40 MG TAB PO SCH (08:08)
[2020-01-03] MEDS: FOLIC ACID 1 MG TAB PO SCH (08:08)
[2020-01-03] MEDS: PANTOPRAZOLE 40 MG TABLET PO SCH (08:08)
[2020-01-03] MEDS: HYDROcodone/APAP 7.5-325MG 1 EACH TAB PO SCH ×3 (08:08→20:59)
--- NOTE | 2020-01-03 19:00 | P.PN ---
Subjective Progress Note Date: 01/03/20 Jaqui Garza is an 84 -year-old female who was brought in to [facility] emergency room due to mental status changes, per emergency room notes, patient was fine yesterday, she took [place] baclofen and a sleeping pill before going to bed, this morning she was unarousable and family called EMS and patient was brought in to [facility]. In the emergency room patient had a computed tomography scan of the brain without contrast that failed to reveal any evidence of hemorrhage or any acute abnormality, Narcan was given but did not help much, patient had significantly abnormal labs with evidence of urinary tract infection, severe leukocytosis, anemia with hemoglobin of 6.9, heme positive stools, and elevated lactic acid, she was started on IV fluid, IV Rocephin, and was admitted to medical floor for further evaluation. 1 unit of red blood cell transfusion was ordered. Patient was seen and examined on the medical floor, she is responding to stimuli but goes back to sleep, she is nonverbal at this time, no history could be obtained from her. On 12/24/2019 patient was seen and examined on the medical floor she is alert, responsive answering questions appropriately, there is no fever or chills no headache or dizziness no chest pain no shortness of breath no cough no nausea or vomiting no abdominal pain no diarrhea no blood in the stools, she is having urine incontinence and has an external catheter. On 12/25/2019 patient was seen and examined on the medical floor she is alert and oriented 3 in no apparent distress, clinically she is doing much better, vitals are stable and within normal limits, white blood count still significantly elevated at 30.4 but down from yesterday and the day before hemoglobin 7.6 patient has iron deficiency anemia and order for IV iron was placed. Patient has elevated BUN and creatinine that are gradually improving. Gastroenterology consultation requested, Dr. Thao is planning EGD and colonoscopy tomorrow. Urology consultation requested patient has evidence of bilateral hydronephrosis. On 12/26/2019 patient was seen and examined on the medical floor she is alert and oriented 3 in no distress there is no fever or chills no headache or dizziness no chest pain no shortness of breath no cough no nausea or vomiting no abdominal pain no diarrhea and no urinary symptoms potassium is going been corrected by protocol, patient is scheduled for EGD and colonoscopy today. On 12/27/2019 patient was seen and examined on the medical floor she is alert and oriented 3 in no distress results from GI investigations reviewed, still and able to rule out any abnormality in the cecum area, awaiting further recommendation from gastroenterology, otherwise patient is doing well she denies any fever or chills no headache or dizziness no chest pain no shortness of breath no cough no nausea or vomiting no abdominal pain no diarrhea no blood in the stools no burning with urination no frequency or urgency and no hematuria, she still has significant unsteadiness with her gait, and would benefit of subacute rehab on discharge. On 12/28/2019 patient was seen and examined on the medical floor she is alert and oriented 3 in no apparent distress patient is denying any complaints at this time there is no fever or chills no headache or dizziness no chest pain no shortness of breath no cough no nausea or vomiting no abdominal pain no diarrhea and no urinary symptoms. Clinically her hemoglobin is down to 7.5, white blood count is up to 23.6, patient still has significant unsteadiness with her gait. Input from gastroenterology and urology reviewed. On 12/29/2019 patient was seen and examined on the medical floor, she is alert and oriented 3 in no distress there is no fever or chills no headache or dizziness no chest pain no shortness of breath no cough no nausea or vomiting no abdominal pain no diarrhea no burning was urination no frequency or urgency no hematuria. Patient has significant wheezing and prolonged expiratory phase with check chest x-ray, IV fluid discontinued will be given 1 dose of IV Lasix today On 12/30/2019 patient was seen and examined on the medical floor, she is feeling better her shortness of breath has improved, chest x-ray revealed evidence of pulmonary congestion, patient received IV Lasix and had significant improvement, otherwise she denies any complaints there is no fever or chills no headache or dizziness no chest pain, no cough no nausea or vomiting no abdominal pain no diarrhea no burning was urination no frequency or urgency and no hematuria, white blood count is increasing, she is followed by hematology and infectious disease. On 12/31/2019 patient was seen and examined on the medical floor she is alert and oriented 3 in no apparent distress there is no fever or chills no headache or dizziness no chest pain no shortness of breath no cough no nausea or vomiting no abdominal pain no diarrhea and no urinary symptoms white blood count is still elevated at 20,000 chest x-ray still showing signs of congestive heart failure, Lasix 40 mg by mouth daily added to her regimen. Physical therapy and occupational therapy consult requested. On 01/01/2020 patient was seen and examined on the medical floor she is alert and oriented in no apparent distress she is complaining of lower back pain otherwise no complaints there is no fever or chills no headache or dizziness no chest pain no shortness of breath no cough no nausea or vomiting no abdominal pain no diarrhea no burning was urination no frequency or urgency and no hematuria, white blood count is still significantly elevated at 19.5, at this time will increase mobility with physical therapy, will remove Thacker catheter tomorrow morning at 8 AM and check post void residual. On 01/02/2020 patient was seen and examined on the medical floor she is somnolent and arousable in no apparent distress, she is complaining of pain in the sacral area, otherwise no other complaints, there is no fever or chills no headache or dizziness no chest pain no shortness of breath no cough no nausea or vomiting no abdominal pain no diarrhea no burning was urination no frequency or urgency and no hematuria. On 01/03/2020 patient was seen and examined on the medical floor, she is more alert and oriented today in no apparent distress pain in the lower back has improved, there is no fever or chills no headache or dizziness no chest pain no shortness of breath no cough no nausea or vomiting no abdominal pain no diarrhea no burning was urination no frequency or urgency and no hematuria, white blood count is still significantly elevated but is trending down, today it 16.5 down from 17.2 yesterday Objective - Vital Signs Vital signs: Vital Signs Temp 96.5 F L 01/03/20 16:00 Pulse 87 01/03/20 16:00 Resp 18 01/03/20 16:00 BP 139/66 01/03/20 16:00 Pulse Ox 96 01/03/20 16:00 Intake & Output 01/02/20 01/03/20 01/03/20 18:59 06:59 18:59 Intake Total 476 700 Output Total 700 720 600 Balance -224 -720 100 Weight 71.6 kg Intake: Intake, IV Titration 100 Amount Ampicillin-Sulbactam 3 gm 100 In Sodium Chloride 0.9% 100 ml @ 200 mls/hr IVPB Q8H [facility] Rx#:[id number] Oral 476 600 Output: Urine 700 720 600 Other: Voiding Method Indwelling Catheter Diaper Diaper Incontinent Incontinent # Voids 4 1 0 # Bowel Movements 2 2 - Exam In general patient is alert responsive in no apparent distress HEENT head normocephalic and atraumatic Neck is supple no JVD no goiter no lymphadenopathy Chest exam reveals a few scattered rhonchi no wheezing Cardiac exam reveals regular heart sounds S1 and S2 no gallops no murmurs Abdomen is soft nontender no organomegaly with normal bowel sounds Extremity exam reveals minimal edema no cyanosis or clubbing Neurological examination patient is somnolent responsive to stimuli, moving all 4 extremities - Labs CBC & Chem 7: 01/03/20 05:42 01/03/20 05:42 Labs: Abnormal Lab Results - Last 24 Hours (Table) 01/03/20 01/03/20 Range/Units 05:42 05:42 WBC 16.5 H (3.8-10.6) k/uL Hgb 9.3 L (11.4-16.0) gm/dL Hct 31.2 L (34.0-46.0) % MCH 24.1 L (25.0-35.0) pg MCHC 29.6 L (31.0-37.0) g/dL RDW 23.9 H (11.5-15.5) % Neutrophils # 11.9 H (1.3-7.7) k/uL Monocytes # 2.0 H (0-1.0) k/uL Sodium 136 L (137-145) mmol/L Chloride 95 L (98-107) mmol/L Carbon Dioxide 33 H (22-30) mmol/L BUN 19 H (7-17) mg/dL Glucose 120 H (74-99) mg/dL Total Protein 5.7 L (6.3-8.2) g/dL Albumin 2.9 L (3.5-5.0) g/dL Assessment and Plan Plan: 1. Evidence of urinary tract infection, patient was started on IV Unasyn, blood culture and urine culture were ordered, infectious disease consultation was requested. 2. Sepsis, likely related to urinary tract infection, with severe leukocytosis, elevated lactic acid, tachycardia and tachypnea 3. Severe elevation in white blood count, could be related to infection however, possibility of leukocytosis related to leukemia needs to be ruled out, consultation for hematology was initiated. 4. Severe anemia, patient received a total of 2 units of red blood cell transfusion, patient has heme positive stools, consultation for gastroenterology was initiated, patient has a history of peptic ulcer disease, computed tomograph y scan is revealing possible lesion in the cecum. Still and able to rule out abnormality in the cecum, colonoscopy was unable to reach the cecum, and barium enema was inconclusive, awaiting further recommendation from gastroenterology 5. Underlying history of hypertension. At this time we are holding blood pressure medication Will monitor closely 6. Underlying history of osteoarthritis with severe pain requiring narcotic medications. At this time will hold narcotic sleeping pill and muscle relaxers will monitor mental status closely. 7. Mental status changes, likely related to sepsis, metabolic encephalopathy, and affect of narcotic medication and sleeping., No abnormality seen on computed tomography scan without contrast, however if mental status does not improve in 24 hours, will proceed was more imaging and consultation for neurology. 8. Hypokalemia Corps correcting 9. Acute renal failure on admission with elevated BUN at 41 creatinine at 1.37, improving BUN is down to 28 and creatinine 1.06 10. Bilateral hydronephrosis urology consultation reviewed, at this time plan for Thacker catheter. 11. Sacral area pain, will check computed tomography scan of the sacrum without contrast Patient prognosis is guarded She was started on IV fluid, IV antibiotics, red blood cell transfusion Consultation for hematology, infectious disease, urology and gastroenterology initiated Will repeat labs and follow closely
[2020-01-03] MEDS: CYCLOBENZAPRINE 5 MG TAB PO SCH (21:00)
[2020-01-03] MEDS: ALPRAZolam 0.25 MG TAB PO PRN (21:00)
--- NOTE | 2020-01-03 22:09 | PN ---
PROGRESS NOTE DATE OF SERVICE: 01/03/2020 REASON FOR FOLLOWUP: Leukocytosis, UTI and a question of colitis. INTERVAL HISTORY: The patient is afebrile. The patient is breathing comfortably. No chest pain or shortness of breath or cough. No nausea, vomiting. No abdominal pain. Still has a pain in the low back, but no worsening. PHYSICAL EXAMINATION: Blood pressure 139/66, pulse of 87, temperature 96.5. She is 96% on room air. General description is an elderly female lying in bed in no distress. RESPIRATORY SYSTEM: Unlabored breathing. Clear to auscultation anteriorly. HEART: S1, S2. Regular rate and rhythm. ABDOMEN: Soft. No tenderness. LABS/IMAGING: Hemoglobin 9.3, white count 16.5, BUN of 19, creatinine 0.68. CT of the sacrum did not show any destructive changes. DIAGNOSTIC IMPRESSION AND PLAN: Patient with leukocytosis, likely multifactorial in this patient with concern for possible urinary tract infection and colitis, covered with Unasyn and Diflucan, finishing therapy with oral Augmentin on discharge. Continue supportive care. MMODL / IJN: [id number] /
[2020-01-04] MEDS: AMPICILLIN-SULBACTAM 3 GM in SODIUM CHLORIDE 0.9% 100 ML IVPB SCH ×3 (05:13→18:23)
[2020-01-04 08:20] LABS: Albumin 2.9 g/dL (3.5-5.0); Calcium 8.8 mg/dL (8.4-10.2); Potassium 4.1 mmol/L (3.5-5.1); Total Bilirubin 0.5 mg/dL (0.2-1.3); Total Protein 5.8 g/dL (6.3-8.2)
[2020-01-04 08:24] LABS: Anisocytosis Marked; Basophils % (A) 0 %; Eosinophils # (A) 0.2 k/uL (0-0.7); Eosinophils % (A) 1 %; HCT 30.5 % (34.0-46.0); Hypochromasia Marked; Lymphocytes # (A) 1.8 k/uL (1.0-4.8); Lymphocytes % (A) 14 %; MCHC 29.6 g/dL (31.0-37.0); MCV 81.1 fL (80.0-100.0); Mean Platelet Volume 7.8; Microcytosis Moderate; Monocytes # (A) 1.7 k/uL (0-1.0); Monocytes % (A) 13 %; Neutrophils # (A) 8.8 k/uL (1.3-7.7); Neutrophils % (A) 69 %; Platelet Count 326 k/uL (150-450); Poikilocytosis Slight; RBC 3.76 m/uL (3.80-5.40); RDW 24.2 % (11.5-15.5); WBC 12.8 k/uL (3.8-10.6)
[2020-01-04] MEDS: HYDROcodone/APAP 7.5-325MG 1 EACH TAB PO SCH ×3 (08:58→20:47)
[2020-01-04] MEDS: FLUCONAZOLE 100 MG TAB PO SCH (08:59)
[2020-01-04] MEDS: PANTOPRAZOLE 40 MG TABLET PO SCH (08:59)
[2020-01-04] MEDS: FUROSEMIDE 40 MG TAB PO SCH (08:59)
[2020-01-04] MEDS: FOLIC ACID 1 MG TAB PO SCH (08:59)
[2020-01-04 11:25] VITALS: BMI 24.5
[2020-01-04 15:34] LABS: % Iron Saturation 12.55 (12.00-45.00); Folate, Serum 14.1 ng/mL
--- NOTE | 2020-01-04 15:43 | P.PN ---
Subjective Progress Note Date: 01/04/20 Principal diagnosis: Anemia Katherine appears more comfortable today. Objective - Vital Signs Vital signs: Vital Signs Temp 98.5 F 01/04/20 12:00 Pulse 93 01/04/20 12:00 Resp 16 01/04/20 12:00 BP 126/68 01/04/20 12:00 Pulse Ox 95 01/04/20 12:00 Intake & Output 01/03/20 01/04/20 01/04/20 18:59 06:59 18:59 Intake Total 700 480 Output Total 600 700 Balance 100 -700 480 Weight 63 kg 63 kg Intake: Intake, IV Titration 100 120 Amount Ampicillin-Sulbactam 3 gm 100 100 In Sodium Chloride 0.9% 100 ml @ 200 mls/hr IVPB Q8H [facility] Rx#:[id number] IV Fluid Continuation 1, 20 000 ml @ 0 mls/hr IV .STK -MED ONE Rx#:[id number] Oral 600 360 Output: Urine 600 700 Other: Voiding Method Diaper Diaper Diaper Incontinent Incontinent Incontinent # Voids 0 2 2 # Bowel Movements 2 2 - Exam - Constitutional General appearance: Present: cooperative, no acute distress, obese - EENT Eyes: Present: anicteric sclerae, EOMI ENT: Present: hearing grossly normal Neck: Supple - Respiratory Details: respirations even and unlabored - Cardiovascular Heart: Irregular, Regular Details: skin warm and dry, patient has some pink to her cheeks today. Abdomen: Soft, ND - Musculoskeletal Musculoskeletal: Present: generalized weakness - Psychiatric Psychiatric: Present: A&O x's 3, appropriate affect, intact judgment & insight - Labs CBC & Chem 7: 01/04/20 07:03 01/04/20 07:03 Labs: Abnormal Lab Results - Last 24 Hours (Table) 01/04/20 01/04/20 Range/Units 07:03 07:03 WBC 12.8 H (3.8-10.6) k/uL RBC 3.76 L (3.80-5.40) m/uL Hgb 9.0 L (11.4-16.0) gm/dL Hct 30.5 L (34.0-46.0) % MCH 24.0 L (25.0-35.0) pg MCHC 29.6 L (31.0-37.0) g/dL RDW 24.2 H (11.5-15.5) % Neutrophils # 8.8 H (1.3-7.7) k/uL Monocytes # 1.7 H (0-1.0) k/uL Sodium 135 L (137-145) mmol/L Chloride 93 L (98-107) mmol/L Carbon Dioxide 34 H (22-30) mmol/L BUN 21 H (7-17) mg/dL Glucose 120 H (74-99) mg/dL Iron 33 L (50-170) ug/dL Total Protein 5.8 L (6.3-8.2) g/dL Albumin 2.9 L (3.5-5.0) g/dL Vitamin B12 950.0 H (200.0-944.0) pg/mL Assessment and Plan Plan: Assessment and Plan: Microcytic Hypochromic Anemia: - Patient has a history of iron deficiency, her labs are suggestive of the s fl[place]. - Patient has received parenteral iron 3. Recommendation is for a one-month follow-up to reevaluate iron stores, supplementation if needed. - Review of GI eval and CTs - Hemoglobin stable no intervention needed, mild decrease from previous recheck in am Folate deficiency, Iron deficiency anemia - Folate supplement initiated, patient tolerating well. - Rx sent to pt preferred pharmacy to continue outpatient Leukocytosis - Mostly neutrophils. Starting to trend down again. - There are no plans for a bone marrow at this time. No paraproteinemia, kappa light chain only slightly deviated from normal. Plan: - Monitor CBC Stable today no intervention needed
--- NOTE | 2020-01-04 16:52 | PN ---
PROGRESS NOTE DATE OF SERVICE: 01/04/2020 REASON FOR FOLLOWUP: UTI, colitis. INTERVAL HISTORY: The patient is currently afebrile. Patient is breathing comfortably. Denies having any chest pain. No shortness of breath or cough. No abdominal pain. Pain in the back, but no worsening. PHYSICAL EXAMINATION: On examination, her blood pressure is 136/55 with a pulse of 80, temperature 98.2. She is 97% on room air. General description is an elderly female, lying in bed in no distress. RESPIRATORY SYSTEM: Unlabored breathing, clear to auscultation anteriorly. HEART: S1, S2. Regular rate and rhythm. ABDOMEN: Soft, no tenderness. LABS: Hemoglobin 9, white count 12.8, BUN of 21, creatinine 0.84. DIAGNOSTIC IMPRESSION AND PLAN: Patient with leukocytosis which is likely multifactorial in this patient who did have initial concern for UTI, now with also concern for possible colitis. The patient's white count responded well to the Unasyn, will be transitioned to oral Augmentin for a short course on discharge. Continue supportive care. MMODL / IJN: [id number] /
--- NOTE | 2020-01-04 18:27 | P.PN ---
Subjective Progress Note Date: 01/04/20 Jaqui Garza is an 84 -year-old female who was brought in to [facility] emergency room due to mental status changes, per emergency room notes, patient was fine yesterday, she took [place] baclofen and a sleeping pill before going to bed, this morning she was unarousable and family called EMS and patient was brought in to [facility]. In the emergency room patient had a computed tomography scan of the brain without contrast that failed to reveal any evidence of hemorrhage or any acute abnormality, Narcan was given but did not help much, patient had significantly abnormal labs with evidence of urinary tract infection, severe leukocytosis, anemia with hemoglobin of 6.9, heme positive stools, and elevated lactic acid, she was started on IV fluid, IV Rocephin, and was admitted to medical floor for further evaluation. 1 unit of red blood cell transfusion was ordered. Patient was seen and examined on the medical floor, she is responding to stimuli but goes back to sleep, she is nonverbal at this time, no history could be obtained from her. On 12/24/2019 patient was seen and examined on the medical floor she is alert, responsive answering questions appropriately, there is no fever or chills no headache or dizziness no chest pain no shortness of breath no cough no nausea or vomiting no abdominal pain no diarrhea no blood in the stools, she is having urine incontinence and has an external catheter. On 12/25/2019 patient was seen and examined on the medical floor she is alert and oriented 3 in no apparent distress, clinically she is doing much better, vitals are stable and within normal limits, white blood count still significantly elevated at 30.4 but down from yesterday and the day before hemoglobin 7.6 patient has iron deficiency anemia and order for IV iron was placed. Patient has elevated BUN and creatinine that are gradually improving. Gastroenterology consultation requested, Dr. Thao is planning EGD and colonoscopy tomorrow. Urology consultation requested patient has evidence of bilateral hydronephrosis. On 12/26/2019 patient was seen and examined on the medical floor she is alert and oriented 3 in no distress there is no fever or chills no headache or dizziness no chest pain no shortness of breath no cough no nausea or vomiting no abdominal pain no diarrhea and no urinary symptoms potassium is going been corrected by protocol, patient is scheduled for EGD and colonoscopy today. On 12/27/2019 patient was seen and examined on the medical floor she is alert and oriented 3 in no distress results from GI investigations reviewed, still and able to rule out any abnormality in the cecum area, awaiting further recommendation from gastroenterology, otherwise patient is doing well she denies any fever or chills no headache or dizziness no chest pain no shortness of breath no cough no nausea or vomiting no abdominal pain no diarrhea no blood in the stools no burning with urination no frequency or urgency and no hematuria, she still has significant unsteadiness with her gait, and would benefit of subacute rehab on discharge. On 12/28/2019 patient was seen and examined on the medical floor she is alert and oriented 3 in no apparent distress patient is denying any complaints at this time there is no fever or chills no headache or dizziness no chest pain no shortness of breath no cough no nausea or vomiting no abdominal pain no diarrhea and no urinary symptoms. Clinically her hemoglobin is down to 7.5, white blood count is up to 23.6, patient still has significant unsteadiness with her gait. Input from gastroenterology and urology reviewed. On 12/29/2019 patient was seen and examined on the medical floor, she is alert and oriented 3 in no distress there is no fever or chills no headache or dizziness no chest pain no shortness of breath no cough no nausea or vomiting no abdominal pain no diarrhea no burning was urination no frequency or urgency no hematuria. Patient has significant wheezing and prolonged expiratory phase with check chest x-ray, IV fluid discontinued will be given 1 dose of IV Lasix today On 12/30/2019 patient was seen and examined on the medical floor, she is feeling better her shortness of breath has improved, chest x-ray revealed evidence of pulmonary congestion, patient received IV Lasix and had significant improvement, otherwise she denies any complaints there is no fever or chills no headache or dizziness no chest pain, no cough no nausea or vomiting no abdominal pain no diarrhea no burning was urination no frequency or urgency and no hematuria, white blood count is increasing, she is followed by hematology and infectious disease. On 12/31/2019 patient was seen and examined on the medical floor she is alert and oriented 3 in no apparent distress there is no fever or chills no headache or dizziness no chest pain no shortness of breath no cough no nausea or vomiting no abdominal pain no diarrhea and no urinary symptoms white blood count is still elevated at 20,000 chest x-ray still showing signs of congestive heart failure, Lasix 40 mg by mouth daily added to her regimen. Physical therapy and occupational therapy consult requested. On 01/01/2020 patient was seen and examined on the medical floor she is alert and oriented in no apparent distress she is complaining of lower back pain otherwise no complaints there is no fever or chills no headache or dizziness no chest pain no shortness of breath no cough no nausea or vomiting no abdominal pain no diarrhea no burning was urination no frequency or urgency and no hematuria, white blood count is still significantly elevated at 19.5, at this time will increase mobility with physical therapy, will remove Thacker catheter tomorrow morning at 8 AM and check post void residual. On 01/02/2020 patient was seen and examined on the medical floor she is somnolent and arousable in no apparent distress, she is complaining of pain in the sacral area, otherwise no other complaints, there is no fever or chills no headache or dizziness no chest pain no shortness of breath no cough no nausea or vomiting no abdominal pain no diarrhea no burning was urination no frequency or urgency and no hematuria. On 01/03/2020 patient was seen and examined on the medical floor, she is more alert and oriented today in no apparent distress pain in the lower back has improved, there is no fever or chills no headache or dizziness no chest pain no shortness of breath no cough no nausea or vomiting no abdominal pain no diarrhea no burning was urination no frequency or urgency and no hematuria, white blood count is still significantly elevated but is trending down, today it 16.5 down from 17.2 yesterday. On 01/04/2020 patient was seen and examined on the medical floor she is alert and oriented 3 in no distress there is no fever or chills no headache or dizziness no chest pain no shortness of breath no cough no nausea or vomiting no abdominal pain no diarrhea no burning was urination no frequency or urgency and no hematuria. White blood count is down from 16.5-12.8, possible transfer to care home tomorrow if white blood count continues to decline Objective - Vital Signs Vital signs: Vital Signs Temp 98.2 F 01/04/20 15:46 Pulse 88 05/20/20 15:46 Resp 16 01/04/20 15:46 BP 136/65 01/04/20 15:46 Pulse Ox 95 01/04/20 15:46 Intake & Output 01/03/20 01/04/20 01/04/20 18:59 06:59 18:59 Intake Total 700 600 Output Total 600 700 Balance 100 -700 600 Weight 63 kg 63 kg Intake: Intake, IV Titration 100 120 Amount Ampicillin-Sulbactam 3 gm 100 100 In Sodium Chloride 0.9% 100 ml @ 200 mls/hr IVPB Q8H [facility] Rx#:[id number] IV Fluid Continuation 1, 20 000 ml @ 0 mls/hr IV .STK -MED ONE Rx#:[id number] Oral 600 480 Output: Urine 600 700 Other: Voiding Method Diaper Diaper Diaper Incontinent Incontinent Incontinent # Voids 0 2 1 # Bowel Movements 2 2 - Exam In general patient is alert responsive in no apparent distress HEENT head normocephalic and atraumatic Neck is supple no JVD no goiter no lymphadenopathy Chest exam reveals a few scattered rhonchi no wheezing Cardiac exam reveals regular heart sounds S1 and S2 no gallops no murmurs Abdomen is soft nontender no organomegaly with normal bowel sounds Extremity exam reveals minimal edema no cyanosis or clubbing Neurological examination patient is somnolent responsive to stimuli, moving all 4 extremities - Labs CBC & Chem 7: 01/04/20 07:03 01/04/20 07:03 Labs: Abnormal Lab Results - Last 24 Hours (Table) 01/04/20 01/04/20 Range/Units 07:03 07:03 WBC 12.8 H (3.8-10.6) k/uL RBC 3.76 L (3.80-5.40) m/uL Hgb 9.0 L (11.4-16.0) gm/dL Hct 30.5 L (34.0-46.0) % MCH 24.0 L (25.0-35.0) pg MCHC 29.6 L (31.0-37.0) g/dL RDW 24.2 H (11.5-15.5) % Neutrophils # 8.8 H (1.3-7.7) k/uL Monocytes # 1.7 H (0-1.0) k/uL Sodium 135 L (137-145) mmol/L Chloride 93 L (98-107) mmol/L Carbon Dioxide 34 H (22-30) mmol/L BUN 21 H (7-17) mg/dL Glucose 120 H (74-99) mg/dL Iron 33 L (50-170) ug/dL Total Protein 5.8 L (6.3-8.2) g/dL Albumin 2.9 L (3.5-5.0) g/dL Vitamin B12 950.0 H (200.0-944.0) pg/mL Assessment and Plan Plan: 1. Evidence of urinary tract infection, patient was started on IV Unasyn, blood culture and urine culture were ordered, infectious disease consultation was requ ested. 2. Sepsis, likely related to urinary tract infection, with severe leukocytosis, elevated lactic acid, tachycardia and tachypnea 3. Severe elevation in white blood count, could be related to infection however, possibility of leukocytosis related to leukemia needs to be ruled out, consultation for hematology was initiated. 4. Severe anemia, patient received a total of 2 units of red blood cell transfusion, patient has heme positive stools, consultation for gastroenterology was initiated, patient has a history of peptic ulcer disease, computed tomography scan is revealing possible lesion in the cecum. Still and able to rule out abnormality in the cecum, colonoscopy was unable to reach the cecum, and barium enema was inconclusive, awaiting further recommendation from gastroenterology 5. Underlying history of hypertension. At this time we are holding blood pressure medication Will monitor closely 6. Underlying history of osteoarthritis with severe pain requiring narcotic medications. At this time will hold narcotic sleeping pill and muscle relaxers will monitor mental status closely. 7. Mental status changes, likely related to sepsis, metabolic encephalopathy, and affect of narcotic medication and sleeping., No abnormality seen on computed tomography scan without contrast, however if mental status does not improve in 24 hours, will proceed was more imaging and consultation for neurology. 8. Hypokalemia Corps correcting 9. Acute renal failure on admission with elevated BUN at 41 creatinine at 1.37, improving BUN is down to 28 and creatinine 1.06 10. Bilateral hydronephrosis urology consultation reviewed, at this time plan for Thacker catheter. 11. Sacral area pain, will check computed tomography scan of the sacrum without contrast Patient prognosis is guarded She was started on IV fluid, IV antibiotics, red blood cell transfusion Consultation for hematology, infectious disease, urology and gastroenterology initiated Will repeat labs and follow closely
[2020-01-04] MEDS: CYCLOBENZAPRINE 5 MG TAB PO SCH (20:47)
[2020-01-05] MEDS: AMPICILLIN-SULBACTAM 3 GM in SODIUM CHLORIDE 0.9% 100 ML IVPB SCH ×2 (03:12→09:15)
[2020-01-05 07:30] LABS: Albumin 2.9 g/dL (3.5-5.0); Total Bilirubin 0.5 mg/dL (0.2-1.3); Total Protein 5.9 g/dL (6.3-8.2)
[2020-01-05 07:51] LABS: Anisocytosis Moderate; Basophils % (A) 0 %; Eosinophils # (A) 0.2 k/uL (0-0.7); Eosinophils % (A) 1 %; HCT 30.4 % (34.0-46.0); HGB 8.9 gm/dL (11.4-16.0); Hypochromasia Marked; Lymphocytes # (A) 1.6 k/uL (1.0-4.8); Lymphocytes % (A) 14 %; MCH 23.9 pg (25.0-35.0); MCHC 29.5 g/dL (31.0-37.0); MCV 81.3 fL (80.0-100.0); Mean Platelet Volume 9.3; Microcytosis Moderate; Monocytes # (A) 1.6 k/uL (0-1.0); Monocytes % (A) 14 %; Neutrophils # (A) 7.7 k/uL (1.3-7.7); Neutrophils % (A) 68 %; Platelet Count 331 k/uL (150-450); Poikilocytosis Slight; RBC 3.74 m/uL (3.80-5.40); RDW 23.9 % (11.5-15.5); WBC 11.3 k/uL (3.8-10.6)
[2020-01-05 08:34] VITALS: RESP 20
[2020-01-05] MEDS: PANTOPRAZOLE 40 MG TABLET PO SCH (08:42)
[2020-01-05] MEDS: FOLIC ACID 1 MG TAB PO SCH (08:42)
[2020-01-05] MEDS: HYDROcodone/APAP 7.5-325MG 1 EACH TAB PO SCH (08:42)
[2020-01-05] MEDS: FLUCONAZOLE 100 MG TAB PO SCH (08:43)
[2020-01-05] MEDS: FUROSEMIDE 40 MG TAB PO SCH (08:43)
[2020-01-05 11:46] VITALS: BP 124/62; PULSE 99; TEMP 99
--- NOTE | 2020-01-05 13:58 | P.DS ---
Providers Date of admission: 12/23/19 12:40 Expected date of discharge: 01/05/20 Attending physician: Dalton Madden Consults: 12/23/19 16:09 Consult Physician Routine Consulting Provider: Yasmeen Vail Consult Reason/Comments: leukocytosis Do you want consulting provider notified?: Yes 12/23/19 16:10 Consult Physician Routine Consulting Provider: Abraham Yee Consult Reason/Comments: anemia, leukocytosis Do you want consulting provider notified?: Yes 12/24/19 12:51 Consult Physician Routine Consulting Provider: George Dsouza Consult Reason/Comments: hydronephrosis Do you want consulting provider notified?: Yes 12/29/19 16:26 Consult Physician Routine Consulting Provider: Esequiel Abad Consult Reason/Comments: shortness of breath Do you want consulting provider notified?: Yes [facility] Course: Diagnosis on discharge: 1. Evidence of urinary tract infection, patient was started on IV Unasyn, blood culture and urine culture were ordered, infectious disease consultation was requested. 2. Sepsis, likely related to urinary tract infection, with severe leukocytosis, elevated lactic acid, tachycardia and tachypnea 3. Severe elevation in white blood count, could be related to infection however, possibility of leukocytosis related to leukemia needs to be ruled out, consultation for hematology was initiated. 4. Severe anemia, patient received a total of 2 units of red blood cell transfusion, patient has heme positive stools, consultation for gastroenterology was initiated, patient has a history of peptic ulcer disease, computed tomography scan is revealing possible lesion in the cecum. Still and able to rule out abnormality in the cecum, colonoscopy was unable to reach the cecum, and barium enema was inconclusive, awaiting further recommendation from gastroenterology 5. Underlying history of hypertension. At this time we are holding blood pressure medication Will monitor closely 6. Underlying history of osteoarthritis with severe pain requiring narcotic medications. At this time will hold narcotic sleeping pill and muscle relaxers will monitor mental status closely. 7. Mental status changes, likely related to sepsis, metabolic encephalopathy, and affect of narcotic medication and sleeping., No abnormality seen on computed tomography scan without contrast, however if mental status does not improve in 24 hours, will proceed was more imaging and consultation for neurology. 8. Hypokalemia Corps correcting 9. Acute renal failure on admission with elevated BUN at 41 creatinine at 1.37, improving BUN is down to 28 and creatinine 1.06 10. Bilateral hydronephrosis urology consultation reviewed, at this time plan for Thacker catheter. 11. Sacral area pain, will check computed tomography scan of the sacrum without contrast Hospital course: Jaqui Garza is an 84 -year-old female who was brought in to [facility] emergency room due to mental status changes, per emergency room notes, patient was fine yesterday, she took [place] baclofen and a sleeping pill before going to bed, this morning she was unarousable and family called EMS and patient was brought in to [facility]. In the emergency room patient had a computed tomography scan of the brain without contrast that failed to reveal any evidence of hemorrhage or any acute abnormality, Narcan was given but did not help much, patient had significantly abnormal labs with evidence of urinary tract infection, severe leukocytosis, anemia with hemoglobin of 6.9, heme positive stools, and elevated lactic acid, she was started on IV fluid, IV Rocephin, and was admitted to medical floor for further evaluation. 1 unit of red blood cell transfusion was ordered. Patient was seen and examined on the medical floor, she is responding to stimuli but goes back to sleep, she is nonverbal at this time, no history could be obtained from her. On 12/24/2019 patient was seen and examined on the medical floor she is alert, responsive answering questions appropriately, there is no fever or chills no headache or dizziness no chest pain no shortness of breath no cough no nausea or vomiting no abdominal pain no diarrhea no blood in the stools, she is having urine incontinence and has an external catheter. On 12/25/2019 patient was seen and examined on the medical floor she is alert and oriented 3 in no apparent distress, clinically she is doing much better, vitals are stable and within normal limits, white blood count still sig nificantly elevated at 30.4 but down from yesterday and the day before hemoglobin 7.6 patient has iron deficiency anemia and order for IV iron was placed. Patient has elevated BUN and creatinine that are gradually improving. Gastroenterology consultation requested, Dr. Thao is planning EGD and colonoscopy tomorrow. Urology consultation requested patient has evidence of bilateral hydronephrosis. On 12/26/2019 patient was seen and examined on the medical floor she is alert and oriented 3 in no distress there is no fever or chills no headache or dizziness no chest pain no shortness of breath no cough no nausea or vomiting no abdominal pain no diarrhea and no urinary symptoms potassium is going been corrected by protocol, patient is scheduled for EGD and colonoscopy today. On 12/27/2019 patient was seen and examined on the medical floor she is alert and oriented 3 in no distress results from GI investigations reviewed, still and able to rule out any abnormality in the cecum area, awaiting further recommendation from gastroenterology, otherwise patient is doing well she denies any fever or chills no headache or dizziness no chest pain no shortness of breath no cough no nausea or vomiting no abdominal pain no diarrhea no blood in the stools no burning with urination no frequency or urgency and no hematuria, she still has significant unsteadiness with her gait, and would benefit of subacute rehab on discharge. On 12/28/2019 patient was seen and examined on the medical floor she is alert and oriented 3 in no apparent distress patient is denying any complaints at this time there is no fever or chills no headache or dizziness no chest pain no shortness of breath no cough no nausea or vomiting no abdominal pain no diarrhea and no urinary symptoms. Clinically her hemoglobin is down to 7.5, white blood count is up to 23.6, patient still has significant unsteadiness with her gait. Input from gastroenterology and urology reviewed. On 12/29/2019 patient was seen and examined on the medical floor, she is alert and oriented 3 in no distress there is no fever or chills no headache or dizziness no chest pain no shortness of breath no cough no nausea or vomiting no abdominal pain no diarrhea no burning was urination no frequency or urgency no hematuria. Patient has significant wheezing and prolonged expiratory phase with check chest x-ray, IV fluid discontinued will be given 1 dose of IV Lasix today On 12/30/2019 patient was seen and examined on the medical floor, she is feeling better her shortness of breath has improved, chest x-ray revealed evidence of pulmonary congestion, patient received IV Lasix and had significant improvement, otherwise she denies any complaints there is no fever or chills no headache or dizziness no chest pain, no cough no nausea or vomiting no abdominal pain no diarrhea no burning was urination no frequency or urgency and no hematuria, white blood count is increasing, she is followed by hematology and infectious disease. On 12/31/2019 patient was seen and examined on the medical floor she is alert and oriented 3 in no apparent distress there is no fever or chills no headache or dizziness no chest pain no shortness of breath no cough no nausea or vomiting no abdominal pain no diarrhea and no urinary symptoms white blood count is still elevated at 20,000 chest x-ray still showing signs of congestive heart failure, Lasix 40 mg by mouth daily added to her regimen. Physical therapy and occupational therapy consult requested. On 01/01/2020 patient was seen and examined on the medical floor she is alert and oriented in no apparent distress she is complaining of lower back pain otherwise no complaints there is no fever or chills no headache or dizziness no chest pain no shortness of breath no cough no nausea or vomiting no abdominal pain no diarrhea no burning was urination no frequency or urgency and no hematuria, white blood count is still significantly elevated at 19.5, at this time will increase mobility with physical therapy, will remove Thacker catheter tomorrow morning at 8 AM and check post void residual. On 01/02/2020 patient was seen and examined on the medical floor she is somnolent and arousable in no apparent distress, she is complaining of pain in the sacral area, otherwise no other complaints, there is no fever or chills no headache or dizziness no chest pain no shortness of breath no cough no nausea or vomiting no abdominal pain no diarrhea no burning was urination no frequency or urgency and no hematuria. On 01/03/2020 patient was seen and examined on the medical floor, she is more alert and oriented today in no apparent distress pain in the lower back has improved, there is no fever or chills no headache or dizziness no chest pain no shortness of breath no cough no nausea or vomiting no abdominal pain no diarrhea no burning was urination no frequency or urgency and no hematuria, white blood count is still significantly elevated but is trending down, today it 16.5 down from 17.2 yesterday. On 01/04/2020 patient was seen and examined on the medical floor she is alert and oriented 3 in no distress there is no fever or chills no headache or dizziness no chest pain no shortness of breath no cough no nausea or vomiting no abdominal pain no diarrhea no burning was urination no frequency or urgency and no hematuria. White blood count is down from 16.5-12.8, possible transfer to [facility] tomorrow if white blood count continues to decline On 01/05/2020 patient was seen and examined on the medical floor she is alert and oriented 3 she denies any complaints at this time there is no fever or chills no headache or dizziness no chest pain no shortness of breath no cough no nausea or vomiting no abdominal pain no diarrhea and no urinary symptoms, patient is still having significant weakness and gait disturbance, she would need rehab prior to going home, white blood count came down further today patient to 11.3 patient was switched to oral Augmentin 500 mg twice a day for 10 more days, she will be discharged to a [facility] today for rehab Plan - Discharge Summary Discharge Rx Participant: No New Discharge Prescriptions: New Amoxicillin/Potassium Clav [Augmentin 500-125 Tablet] 1 tab PO Q12HR 10 Days #20 tab Fluconazole [Diflucan] 100 mg PO DAILY tab Folic Acid 1 mg PO DAILY tab Furosemide [Lasix] 40 mg PO DAILY tab Pantoprazole [Protonix] 40 mg PO DAILY tablet. ALPRAZolam [Xanax] 0.25 mg PO QID PRN tab PRN Reason: Anxiety Continue Docusate [Colace] 100 mg PO DAILY Baclofen [Lioresal] 10 mg PO Q6H PRN PRN Reason: Muscle Pain Temazepam 30 mg PO HS PRN PRN Reason: Insomnia HYDROcodone/APAP 7.5-325MG [[place] 7.5-325] 1 tab PO TID Discontinued Losartan Potassium 100 mg PO DAILY methylPREDNISolone Dose Pack [Medrol Dose Pack] See Taper PO DIRECTED Hydrochlorothiazide 25 mg PO DAILY Discharge Medication List Baclofen [Lioresal] 10 mg PO Q6H PRN 12/23/19 [History] Docusate [Colace] 100 mg PO DAILY 12/23/19 [History] HYDROcodone/APAP 7.5-325MG [[place] 7.5-325] 1 tab PO TID 12/23/19 [History] Temazepam 30 mg PO HS PRN 12/23/19 [History] ALPRAZolam [Xanax] 0.25 mg PO QID PRN tab 01/05/20 [Rx] Amoxicillin/Potassium Clav [Augmentin 500-125 Tablet] 1 tab PO Q12HR 10 Days #20 tab 01/05/20 [Rx] Fluconazole [Diflucan] 100 mg PO DAILY tab 01/05/20 [Rx] Folic Acid 1 mg PO DAILY tab 01/05/20 [Rx] Furosemide [Lasix] 40 mg PO DAILY tab 01/05/20 [Rx] Pantoprazole [Protonix] 40 mg PO DAILY tablet. 01/05/20 [Rx] Follow up Appointment(s)/Referral(s): Abraham Yee MD [STAFF PHYSICIAN] - 6 Weeks Bertha Mejia MD [Primary Care Provider] - 1-2 days Francesca Teague MD [STAFF PHYSICIAN] - 2 Weeks Patient Instructions/Handouts: Urinary Tract Infection in Women (DC), Sepsis (GEN)
--- NOTE | 2020-01-05 16:10 | P.PN ---
Progress Note - Text Progress Note Date: 01/05/20 REASON FOR FOLLOWUP: UTI, colitis. INTERVAL HISTORY: The patient denies any fever or chills. Patient is breathing comfortably. Patient denies having any chest pain. No shortness of breath or cough. No abdominal pain. Pain in the back, but no worsening. PHYSICAL EXAMINATION: On examination, her blood pressure is 124/62 with a pulse of 99, temperature 98.2. She is 97% on room air. General description is an elderly female, lying in chair in no distress. RESPIRATORY SYSTEM: Unlabored breathing, clear to auscultation anteriorly. HEART: S1, S2. Regular rate and rhythm. ABDOMEN: Soft, no tenderness. LABS: Hemoglobin 8.9, white count 11.3 DIAGNOSTIC IMPRESSION AND PLAN: Patient with leukocytosis which is likely multifactorial in this patient who did have initial concern for UTI, now with also concern for possible colitis. The patient's white count responded well to the Unasyn, and the patient white count is almost normal she will finish therapy with a short course of oral Augmentin close outpatient follow-up
== END 2020-01-05 15:50 | DRG 871 ==
LOC: EC 09:59 → 3SCARD 12:40
PROVIDERS: ADMIT Internal Medicine; ATTEND Internal Medicine
PROC: 30233N1 Transfusion of Nonautologous Red Blood Cells into Peripheral Vein, Percutaneous Approach (ICD-10-PCS; 2019-12-23)
PROC: 0DJD8ZZ Inspection of Lower Intestinal Tract, Via Natural or Artificial Opening Endoscopic (ICD-10-PCS; principal; 2019-12-26 09:35)
PROC: 0DB68ZX Excision of Stomach, Via Natural or Artificial Opening Endoscopic, Diagnostic (ICD-10-PCS; principal; 2019-12-26 09:35)
DX: A41.9 Sepsis, unspecified organism (principal); G93.41 Metabolic encephalopathy; I50.33 Acute on chronic diastolic (congestive) heart failure; G92 Toxic encephalopathy; D62 Acute posthemorrhagic anemia; N13.6 Pyonephrosis; N17.9 Acute kidney failure, unspecified; D69.6 Thrombocytopenia, unspecified; D52.9 Folate deficiency anemia, unspecified; I11.0 Hypertensive heart disease with heart failure; E87.6 Hypokalemia; K63.9 Disease of intestine, unspecified; D50.9 Iron deficiency anemia, unspecified; F32.9 Major depressive disorder, single episode, unspecified; G89.29 Other chronic pain; K25.9 Gastric ulcer, unspecified as acute or chronic, without hemorrhage or perforation; Z11.59 Encounter for screening for other viral diseases; K44.9 Diaphragmatic hernia without obstruction or gangrene; K52.9 Noninfective gastroenteritis and colitis, unspecified; M53.3 Sacrococcygeal disorders, not elsewhere classified; R31.0 Gross hematuria; N39.46 Mixed incontinence; K59.09 Other constipation; M19.90 Unspecified osteoarthritis, unspecified site; M54.5 Low back pain; K57.30 Diverticulosis of large intestine without perforation or abscess without bleeding; T40.605A Adverse effect of unspecified narcotics, initial encounter; T45.0X5A Adverse effect of antiallergic and antiemetic drugs, initial encounter; R41.3 Other amnesia; Z79.899 Other long term (current) drug therapy; Z79.891 Long term (current) use of opiate analgesic; Z88.5 Allergy status to narcotic agent; Z90.710 Acquired absence of both cervix and uterus; Z90.11 Acquired absence of right breast and nipple; Z87.440 Personal history of urinary (tract) infections; Z87.11 Personal history of peptic ulcer disease; Z85.3 Personal history of malignant neoplasm of breast; Z98.42 Cataract extraction status, left eye; Z98.41 Cataract extraction status, right eye; Z80.7 Family history of other malignant neoplasms of lymphoid, hematopoietic and related tissues
CPT/HCPCS: 36415; 36430; 43239; 70450; 71045; 72192; 74176; 74280; 76700; 76770; 80048; 80053; 80306; 80329; 81001; 82272; 82550; 82607; 82728; 82746; 83010; 83540; 83550; 83605; 83615; 83735; 83883; 84132; 84165; 84484; 85025; 85045; 85610; 85730; 86334; 86850; 86900; 86901; 86920; 87040; 87086; 87635; 88305; 88342; 93005; 93306; 96361; 96365; 96376; 99291

== ENCOUNTER 2020-01-15 20:05 | Inpatient (IN) | payer MEDICARE, OTHER ==
[2020-01-15 21:04] LABS: Anisocytosis Moderate; Basophils # (A) 0.1 k/uL (0-0.2); Basophils % (A) 1 %; Eosinophils # (A) 0.6 k/uL (0-0.7); Eosinophils % (A) 3 %; HCT 38.2 % (34.0-46.0); HGB 11.9 gm/dL (11.4-16.0); Hypochromasia Marked; Lymphocytes % (A) 9 %; MCH 24.7 pg (25.0-35.0); MCV 79.8 fL (80.0-100.0); Mean Platelet Volume 8.5; Microcytosis Moderate; Monocytes # (A) 1.8 k/uL (0-1.0); Monocytes % (A) 8 %; Neutrophils # (A) 16.7 k/uL (1.3-7.7); Neutrophils % (A) 77 %; Platelet Count 428 k/uL (150-450); RBC 4.79 m/uL (3.80-5.40); WBC 21.7 k/uL (3.8-10.6)
[2020-01-15 21:17] LABS: Partial Thromboplastin Time 26.4 sec (22.0-30.0); Prothrombin Time 10.1 sec (9.0-12.0)
[2020-01-15 21:32] LABS: Albumin 3.9 g/dL (3.5-5.0); Calcium 9.1 mg/dL (8.4-10.2); Potassium 4.7 mmol/L (3.5-5.1); Total Bilirubin 0.3 mg/dL (0.2-1.3); Total Protein 7.4 g/dL (6.3-8.2)
[2020-01-15] MEDS ORDERED: SODIUM CHLORIDE 0.9% 500 ML 500 ML IV ONE (21:46)
[2020-01-15] MEDS: SODIUM CHLORIDE 0.9% 1,000 ML IV SCH (22:13)
[2020-01-15] MEDS ORDERED: cefTRIAXone IN SWFI 1,000 MG/10 ML SYRINGE IVP STA (22:17)
--- NOTE | 2020-01-15 22:35 | ED ---
General Adult HPI - General Chief complaint: Recheck/Abnormal Lab/Rx Stated complaint: abnormal labs Source: patient, EMS Mode of arrival: EMS Limitations: physical limitation - History of Present Illness Initial comments: Patient is an 84-year-old female who is a transfer from [facility] for abnormal lab studies. Patient was transferred to our facility for a rash, leukocytosis and tachycardia. Patient arrives stating that she has felt weak over the past couple of days. She is a poor historian. Review the patient's labs demonstrate that she was admitted on the for possible urinary tract infection with leukocytosis. She is discharged on Augmentin. She states she's been taking antibiotics for the past week and did develop a rash. Evaluation the patient's marked demonstrates that it appears the antibiotic was stopped on the . I do not see any new antibiotics added. The patient denies any fevers or chills. No nausea or vomiting. Denies any chest pain or shortness of breath. Denies cough or hemoptysis. No headaches or visual changes. There are no other alleviating, precipitating or modifying factors - Related Data Home Medications Medication Instructions Recorded Confirmed Baclofen [Lioresal] 10 mg PO Q6H PRN 12/23/19 01/15/20 Docusate [Colace] 100 mg PO DAILY@209912/23/19 01/15/20 HYDROcodone/APAP 7.5-325MG [[place] 1 tab PO TID@0600,1300,209912/23/19 01/15/20 7.5-325] Acetaminophen Tab [Tylenol] 650 mg PO Q4H PRN 01/15/20 01/15/20 Calcium Carbonate [Tums] 1,000 mg PO Q6H PRN 01/15/20 01/15/20 Folic Acid 1 mg PO DAILY@0901/15/20 01/15/20 Furosemide [Lasix] 40 mg PO DAILY@59901/15/20 01/15/20 Menthol [Biofreeze] 1 applic TOPICAL Q6H PRN 01/15/20 01/15/20 Metoprolol Tartrate [Lopressor] 25 mg PO ONCE 01/15/20 01/15/20 Pantoprazole [Protonix] 40 mg PO DAILY@59901/15/20 01/15/20 Previous Rx's Medication Instructions Recorded ALPRAZolam [Xanax] 0.25 mg PO QID PRN tab 01/05/20 Allergies Allergy/AdvReac Type Severity Reaction Status Date / Time codeine AdvReac Nausea & Verified 01/15/20 22:49 Vomiting Review of Systems ROS Statement: Those systems with pertinent positive or pertinent negative responses have been documented in the HPI. ROS Other: All systems not noted in ROS Statement are negative. 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 wilbert cataracts. Past Anesthesia/Blood Transfusion Reactions: No Reported Reaction Past Psychological History: Depression Smoking Status: Never smoker Past Alcohol Use History: Rare Past Drug Use History: None Reported - Past Family History Brother(s) Additional Family Medical History / Comment(s): Hodgkin's Lymphoma Mother Family Medical History: Cancer General Exam Limitations: physical limitation Course Vital Signs 01/15/20 01/15/20 01/15/20 20:19 21:00 22:00 Temperature 98.9 F Pulse Rate 104 H 101 H 99 Respiratory 16 16 16 Rate Blood Pressure 127/80 143/84 149/88 O2 Sat by Pulse 97 94 L 94 L Oximetry 01/15/20 01/15/20 23:00 23:28 Temperature 97.4 F L Pulse Rate 99 Respiratory 16 16 Rate Blood Pressure 149/89 149/89 O2 Sat by Pulse 94 L 94 L Oximetry EKG Findings - EKG Comments: EKG Findings:: EKG demonstrates a normal sinus rhythm with ventricular rate of 97. AR 158. QRS E4. QTC of [address] segment elevations or depressions concerning for ischemic changes. Inverted T-wave in lead 3. Medical Decision Making - Medical Decision Making Upon arrival patient was placed into room 17. A thorough history and physical exam was performed. Review the patient's transfer paperwork demonstrate that antibiotics appear to have been discontinued on the . I did repeat laboratory studies. Patient does have a leukocytosis of 21,000. Sodium low at 125. Lactic acid 2.3. The patient was given a 500 mL bolus normal saline followed by 75 mL per hour. I also gave patient a dose of Rocephin. Last urine culture was negative. I did draw blood cultures. I did recommend hospital admission for which the patient did agree. Discussed case with Dr. Madden who accepted admission. I will hold the patient's diuretics at this time. Patient was in agreement with this treatment plan she was transported to floor in stable condition - Lab Data Result diagrams: 01/15/20 20:48 01/15/20 20:48 Lab Results 01/15/20 01/15/20 01/15/20 Range/Units 20:48 20:48 20:48 WBC 21.7 H (3.8-10.6) k/uL RBC 4.79 (3.80-5.40) m/uL Hgb 11.9 (11.4-16.0) gm/dL Hct 38.2 (34.0-46.0) % MCV 79.8 L (80.0-100.0) fL MCH 24.7 L (25.0-35.0) pg MCHC 31.0 (31.0-37.0) g/dL RDW 21.0 H (11.5-15.5) % Plt Count 428 (150-450) k/uL Neutrophils % 77 % Lymphocytes % 9 % Monocytes % 8 % Eosinophils % 3 % Basophils % 1 % Neutrophils # 16.7 H (1.3-7.7) k/uL Lymphocytes # 2.0 (1.0-4.8) k/uL Monocytes # 1.8 H (0-1.0) k/uL Eosinophils # 0.6 (0-0.7) k/uL Basophils # 0.1 (0-0.2) k/uL Hypochromasia Marked Anisocytosis Moderate Microcytosis Moderate PT 10.1 (9.0-12.0) sec INR 1.0 (<1.2) APTT 26.4 (22.0-30.0) sec Sodium 125 L (137-145) mmol/L Potassium 4.7 (3.5-5.1) mmol/L Chloride 85 L (98-107) mmol/L Carbon Dioxide 26 (22-30) mmol/L Anion Gap 14 mmol/L BUN 37 H (7-17) mg/dL Creatinine 1.18 H (0.52-1.04) mg/dL Est GFR (CKD-EPI)AfAm 49 (>60 ml/min/1.73 sqM) Est GFR (CKD-EPI)NonAf 43 (>60 ml/min/1.73 sqM) Glucose 204 H (74-99) mg/dL Plasma Lactic Acid Zachariah (0.7-2.0) mmol/L Calcium 9.1 (8.4-10.2) mg/dL Total Bilirubin 0.3 (0.2-1.3) mg/dL AST 24 (14-36) U/L ALT 13 (4-34) U/L Alkaline Phosphatase 95 (38-126) U/L Total Protein 7.4 (6.3-8.2) g/dL Albumin 3.9 (3.5-5.0) g/dL 01/15/20 Range/Units 20:48 WBC (3.8-10.6) k/uL RBC (3.80-5.40) m/uL Hgb (11.4-16.0) gm/dL Hct (34.0-46.0) % MCV (80.0-100.0) fL MCH (25.0-35.0) pg MCHC (31.0-37.0) g/dL RDW (11.5-15.5) % Plt Count (150-450) k/uL Neutrophils % % Lymphocytes % % Monocytes % % Eosinophils % % Basophils % % Neutrophils # (1.3-7.7) k/uL Lymphocytes # (1.0-4.8) k/uL Monocytes # (0-1.0) k/uL Eosinophils # (0-0.7) k/uL Basophils # (0-0.2) k/uL Hypochromasia Anisocytosis Microcytosis PT (9.0-12.0) sec INR (<1.2) APTT (22.0-30.0) sec Sodium (137-145) mmol/L Potassium (3.5-5.1) mmol/L Chloride (98-107) mmol/L Carbon Dioxide (22-30) mmol/L Anion Gap mmol/L BUN (7-17) mg/dL Creatinine (0.52-1.04) mg/dL Est GFR (CKD-EPI)AfAm (>60 ml/min/1.73 sqM) Est GFR (CKD-EPI)NonAf (>60 ml/min/1.73 sqM) Glucose (74-99) mg/dL Plasma Lactic Acid Zachariah 2.3 H* (0.7-2.0) mmol/L Calcium (8.4-10.2) mg/dL Total Bilirubin (0.2-1.3) mg/dL AST (14-36) U/L ALT (4-34) U/L Alkaline Phosphatase (38-126) U/L Total Protein (6.3-8.2) g/dL Albumin (3.5-5.0) g/dL Disposition Clinical Impression: Leukocytosis, Hyponatremia Disposition: ADMITTED IP TO THIS [facility] Condition: Stable Is patient prescribed a controlled substance at d/c from ED?: No Decision to Admit Reason: Admit from EC Decision Date: 01/15/20 Decision Time: 22:47
[2020-01-15] MEDS ORDERED: NALOXONE 0.4 MG/ML 1 ML VIAL IV PRN (22:47)
[2020-01-15] MEDS ORDERED: BACLOFEN 10 MG TAB PO PRN (23:34)
[2020-01-16] MEDS: ACETAMINOPHEN TAB 325 MG TAB PO PRN (00:18)
[2020-01-16] MEDS: HYDROcodone/APAP 7.5-325MG 1 EACH TAB PO SCH ×3 (05:40→21:14)
[2020-01-16] MEDS: PANTOPRAZOLE 40 MG TABLET PO SCH (05:40)
[2020-01-16 07:20] LABS: Anisocytosis Moderate; Basophils # (A) 0.1 k/uL (0-0.2); Basophils % (A) 1 %; Eosinophils # (A) 0.5 k/uL (0-0.7); Eosinophils % (A) 3 %; HCT 37.2 % (34.0-46.0); HGB 10.9 gm/dL (11.4-16.0); Hypochromasia Marked; Lymphocytes # (A) 1.8 k/uL (1.0-4.8); Lymphocytes % (A) 10 %; MCH 23.6 pg (25.0-35.0); MCHC 29.3 g/dL (31.0-37.0); MCV 80.6 fL (80.0-100.0); Mean Platelet Volume 8.5; Microcytosis Moderate; Monocytes # (A) 1.8 k/uL (0-1.0); Monocytes % (A) 10 %; Neutrophils # (A) 13.5 k/uL (1.3-7.7); Neutrophils % (A) 74 %; Platelet Count 360 k/uL (150-450); RBC 4.62 m/uL (3.80-5.40); RDW 21.7 % (11.5-15.5); WBC 18.2 k/uL (3.8-10.6)
[2020-01-16 07:36] LABS: Calcium 8.7 mg/dL (8.4-10.2); Potassium 4.3 mmol/L (3.5-5.1)
[2020-01-16] MEDS ORDERED: METOPROLOL TARTRATE 25 MG TAB PO SCH (09:00)
[2020-01-16] MEDS: SODIUM CHLORIDE 0.9% 1,000 ML IV SCH ×2 (12:22→21:15)
--- NOTE | 2020-01-16 17:39 | P.HPIM ---
History of Present Illness H&P Date: 01/16/20 Jaqui Garza is an 84-year-old female who presented to [facility] emergency room, due to skin rash, leukocytosis with white blood count of more than 20,000, and tachycardia with heart rate of 110 she was evaluated in emergency room and was admitted to medical floor for further evaluation, patient was recently admitted to [facility] with severe leukocytosis white blood count was in excess of 40,000 at that time it was felt that patient had urinary tract infection she was kept on Unasyn and was discharged to the half-way on oral Augmentin, white blood count at the time of discharge was 10,000, however patient developed a rash tachycardia and her white blood count was up again to 20,000 patient was admitted to medical floor and consultation for infectious disease was initiated at culture urine culture and urinalysis was ordered Past Medical History Past Medical History: Cancer, Hypertension, Musculoskeletal Disorder Additional Past Medical History / Comment(s): CONSITPATION, DIVERTICULITIS, CHRONIC BACK PAIN, ANEMIA History of Any Multi-Drug Resistant Organisms: None Reported Past Surgical History: Breast Surgery, Hysterectomy Additional Past Surgical History / Comment(s): RIGHT MASTECTOMY, EYE SURGERY(h ole in left retina) 4-5 yrs ago. wilbert cataracts. Past Anesthesia/Blood Transfusion Reactions: No Reported Reaction Past Psychological History: Depression Smoking Status: Never smoker Past Alcohol Use History: Rare Past Drug Use History: None Reported - Past Family History Brother(s) Additional Family Medical History / Comment(s): Hodgkin's Lymphoma Mother Family Medical History: Cancer Medications and Allergies Home Medications Medication Instructions Recorded Confirmed Type Baclofen [Lioresal] 10 mg PO Q6H PRN 12/23/19 01/15/20 History Docusate [Colace] 100 mg PO DAILY@209912/23/19 01/15/20 History HYDROcodone/APAP 7.5-325MG [[place] 1 tab PO TID@0600,1300,209912/23/19 01/15/20 History 7.5-325] ALPRAZolam [Xanax] 0.25 mg PO QID PRN tab 01/05/20 01/15/20 Rx Acetaminophen Tab [Tylenol] 650 mg PO Q4H PRN 01/15/20 01/15/20 History Calcium Carbonate [Tums] 1,000 mg PO Q6H PRN 01/15/20 01/15/20 History Folic Acid 1 mg PO DAILY@0900 01/15/20 01/15/20 History Furosemide [Lasix] 40 mg PO DAILY@59901/15/20 01/15/20 History Menthol [Biofreeze] 1 applic TOPICAL Q6H PRN 01/15/20 01/15/20 History Metoprolol Tartrate [Lopressor] 25 mg PO ONCE 01/15/20 01/15/20 History Pantoprazole [Protonix] 40 mg PO DAILY@59901/15/20 01/15/20 History Allergies Allergy/AdvReac Type Severity Reaction Status Date / Time codeine AdvReac Nausea & Verified 01/15/20 22:49 Vomiting Physical Exam Vitals: Vital Signs Temp Pulse Pulse Resp BP BP Pulse Ox 01/16/20 16:00 102 H 01/16/20 15:32 98.1 F 88 16 114/73 96 01/16/20 07:25 98.2 F 102 H 16 124/80 97 01/16/20 04:17 97.6 F 102 H 18 129/79 98 01/16/20 00:01 97.5 F L 16 115/77 96 01/15/20 23:28 97.4 F L 99 16 149/89 94 L 01/15/20 23:00 16 149/89 94 L 01/15/20 22:00 99 16 149/88 94 L 01/15/20 21:00 101 H 16 143/84 94 L 01/15/20 20:19 98.9 F 104 H 16 127/80 97 Intake and Output 01/16/20 01/16/20 01/16/20 06:59 14:59 22:59 Intake Total 300 Balance 300 Intake: Intake, IV Titration 300 Amount Sodium Chloride 0.9% 1, 300 000 ml @ 75 mls/hr IV . [id number] [facility] Rx#:[id number] Other: # Voids 1 3 Weight 58.967 kg In general patient is alert and oriented 3 in no apparent distress HEENT head normocephalic and atraumatic neck is supple no JVD no goiter no lymphadenopathy Chest exam reveals a few scattered rhonchi no wheezing Cardiac exam reveals regular heart sounds S1 and S2 no gallops no murmurs Abdomen is soft nontender no organomegaly with normal bowel sounds Extremity exam reveals no edema no cyanosis or clubbing Neurological examination reveals no gross focal deficit Results CBC & Chem 7: 01/16/20 06:44 01/16/20 06:44 Labs: Abnormal Lab Results - Last 24 Hours (Table) 01/15/20 01/15/20 01/15/20 Range/Units 20:48 20:48 20:48 WBC 21.7 H (3.8-10.6) k/uL Hgb (11.4-16.0) gm/dL MCV 79.8 L (80.0-100.0) fL MCH 24.7 L (25.0-35.0) pg MCHC (31.0-37.0) g/dL RDW 21.0 H (11.5-15.5) % Neutrophils # 16.7 H (1.3-7.7) k/uL Monocytes # 1.8 H (0-1.0) k/uL Sodium 125 L (137-145) mmol/L Chloride 85 L (98-107) mmol/L BUN 37 H (7-17) mg/dL Creatinine 1.18 H (0.52-1.04) mg/dL Glucose 204 H (74-99) mg/dL Plasma Lactic Acid Zachariah 2.3 H* (0.7-2.0) mmol/L 01/16/20 01/16/20 Range/Units 06:44 06:44 WBC 18.2 H (3.8-10.6) k/uL Hgb 10.9 L (11.4-16.0) gm/dL MCV (80.0-100.0) fL MCH 23.6 L (25.0-35.0) pg MCHC 29.3 L (31.0-37.0) g/dL RDW 21.7 H (11.5-15.5) % Neutrophils # 13.5 H (1.3-7.7) k/uL Monocytes # 1.8 H (0-1.0) k/uL Sodium 128 L (137-145) mmol/L Chloride 92 L (98-107) mmol/L BUN 32 H (7-17) mg/dL Creatinine 1.05 H (0.52-1.04) mg/dL Glucose 125 H (74-99) mg/dL Plasma Lactic Acid Zachariah (0.7-2.0) mmol/L Thrombosis Risk Factor Assmnt - Choose All That Apply Each Factor Represents 1 point: Medical pt on bed rest, Obesity (BMI >25) Each Risk Factor Represents 3 Points: Age 75 years or older Thrombosis Risk Factor Assessment Total Risk Factor Score: 5 Thrombosis Risk Factor Assessment Level: High Risk Assessment and Plan Plan: 1. Leukocytosis cause is unclear blood culture urine culture and chest x-ray were ordered, recommendation by infectious disease is to hold antibiotics until results are available. 2. Skin rash likely related to Augmentin, improving now patient is off antibiotic Will monitor 3. Hyponatremia patient is maintained on IV normal saline will monitor closely 4. Tachycardia on presentation, will increase metoprolol to 25 mg twice daily and monitor closely 5. Recent urinary tract infection was hospitalization Will follow during this admission please see orders
--- NOTE | 2020-01-16 19:28 | XR ---
EXAMINATION TYPE: XR chest 1V portable DATE OF EXAM: 01/16/2020 Comparison: 01/03/2020 Clinical History: 84-year-old female leukocytosis Findings: Heart borderline enlarged. Retrocardiac lucency suggesting underlying hernia. Interstitial infiltrate s bilaterally show improvement from 01/03/2020. Impression: 1. Mild residual interstitial pulmonary edema, improved from 01/03/2020. 2. Given leukocytosis, correlate with patient's symptoms to exclude superimposed atypical pneumonias. 3. Moderate-sized hiatal hernia.
[2020-01-16] MEDS: METOPROLOL TARTRATE 25 MG TAB PO SCH (21:14)
--- NOTE | 2020-01-16 23:34 | P.CONS ---
History of Present Illness - Reason for Consult Consult date: 01/16/20 rash and leukocytosis Requesting physician: Dalton Madden - Chief Complaint rash x few days - History of Present Illness Patient is 84-year-old female who was recently admitted to this facility with the patient has been treated with a UTI and colitis she was on IV Unasyn and subsequently discharged to correction on oral Augmentin patient will be brought back to the hospital with complaint of rash will be developed about 2 to 3 days ago patient has been rash mostly in the upper and lower extremity on the trunk area and the patient complaining of itching associated with it. Denies having any blister. Denies any oral sores no difficulty in breathing denies of any fever or any chills with the symptom the patient was brought into the ER on arrival to the ER patient has been afebrile and no fever has been recorded since admission to the hospital patient on admission did have white count 21.7 did came back to 18.2 currently not on antibiotic therapy and her Augmentin has been put on hold lactic acid was mildly elevated though subsequent normalized the results are normal, gomes PCR was negative patient did not have any x-rays during this admission. Review of Systems Positive point has been mentioned in HPI rest of the systems are negative Past Medical History Past Medical History: Cancer, Hypertension, Musculoskeletal Disorder Additional Past Medical History / Comment(s): CONSITPATION, DIVERTICULITIS, CHRONIC BACK PAIN, ANEMIA History of Any Multi-Drug Resistant Organisms: None Reported Past Surgical History: Breast Surgery, Hysterectomy Additional Past Surgical History / Comment(s): RIGHT MASTECTOMY, EYE SURGERY(hole in left retina) 4-5 yrs ago. wilbert cataracts. Past Anesthesia/Blood Transfusion Reactions: No Reported Reaction Past Psychological History: Depression Smoking Status: Never smoker Past Alcohol Use History: Rare Past Drug Use History: None Reported - Past Family History Brother(s) Additional Family Medical History / Comment(s): Hodgkin's Lymphoma Mother Family Medical History: Cancer Medications and Allergies Home Medications Medication Instructions Recorded Confirmed Type Baclofen [Lioresal] 10 mg PO Q6H PRN 12/23/19 01/15/20 History Docusate [Colace] 100 mg PO DAILY@2100 12/23/19 01/15/20 History HYDROcodone/APAP 7.5-325MG [[place] 1 tab PO TID@0600,1300,2099 12/23/19 01/15/20 History 7.5-325] ALPRAZolam [Xanax] 0.25 mg PO QID PRN tab 01/05/20 01/15/20 Rx Acetaminophen Tab [Tylenol] 650 mg PO Q4H PRN 01/15/20 01/15/20 History Calcium Carbonate [Tums] 1,000 mg PO Q6H PRN 01/15/20 01/15/20 History Folic Acid 1 mg PO DAILY@0900 01/15/20 01/15/20 History Furosemide [Lasix] 40 mg PO DAILY@0600 01/15/20 01/15/20 History Menthol [Biofreeze] 1 applic TOPICAL Q6H PRN 01/15/20 01/15/20 History Metoprolol Tartrate [Lopressor] 25 mg PO ONCE 01/15/20 01/15/20 History Pantoprazole [Protonix] 40 mg PO DAILY@59901/15/20 01/15/20 History Allergies Allergy/AdvReac Type Severity Reaction Status Date / Time codeine AdvReac Nausea & Verified 01/15/20 22:49 Vomiting Physical Exam Vitals: Vital Signs Temp Pulse Resp BP Pulse Ox 01/16/20 21:25 98.5 F 99 17 122/82 97 01/16/20 16:00 102 H 01/16/20 15:32 98.1 F 88 16 114/73 96 01/16/20 07:25 98.2 F 102 H 16 124/80 97 01/16/20 04:17 97.6 F 102 H 18 129/79 98 01/16/20 00:01 97.5 F L 16 115/77 96 Intake and Output 01/16/20 01/16/20 01/17/20 14:59 22:59 06:59 Intake Total 300 540 Balance 300 540 Intake: Intake, IV Titration 300 Amount Sodium Chloride 0.9% 1, 300 000 ml @ 75 mls/hr IV . [id number] [facility] Rx#:[id number] Oral 540 Other: # Voids 3 3 GENERAL DESCRIPTION: Elderly female lying in bed, no distress. No tachypnea or accessory muscle of respiration use. HEENT: Shows Pallor , no scleral icterus. Oral mucous membrane is dry. NECK: Trachea central, no thyromegaly. LUNGS: Unlabored breathing. Clear to auscultation anteriorly. No wheeze or crackle. HEART: S1, S2, regular rate and rhythm. ABDOMEN: Soft, no tenderness , guarding or rigidity EXTREMITIES: No edema of feet. SKIN: Mild erythematous rash upper body, no masses palpable. NEUROLOGICAL: The patient is awake, alert, oriented x3, mood and affect normal. Results CBC & Chem 7: 01/16/20 06:44 01/16/20 06:44 Labs: Abnormal Lab Results - Last 24 Hours (Table) 01/16/20 01/16/20 Range/Units 06:44 06:44 WBC 18.2 H (3.8-10.6) k/uL Hgb 10.9 L (11.4-16.0) gm/dL MCH 23.6 L (25.0-35.0) pg MCHC 29.3 L (31.0-37.0) g/dL RDW 21.7 H (11.5-15.5) % Neutrophils # 13.5 H (1.3-7.7) k/uL Monocytes # 1.8 H (0-1.0) k/uL Sodium 128 L (137-145) mmol/L Chloride 92 L (98-107) mmol/L BUN 32 H (7-17) mg/dL Creatinine 1.05 H (0.52-1.04) mg/dL Glucose 125 H (74-99) mg/dL Microbiology - Last 24 Hours (Table) 01/15/20 20:48 Blood Culture - Preliminary Blood No Growth after 24 hours Assessment and Plan Assessment: 1-patient present hospital with rash and itching more likely secondary to Augmentin which has been discontinued 2-leukocytosis some more likely related to acute allergic reaction at the pat ient currently do not have any obvious clinical focus of infection no urine symptoms no respiratory symptoms and no evidence of any cellulitis abdominal soft on examination (1) Drug rash Current Visit: Yes Status: Acute Code(s): L27.0 - GEN SKIN ERUPTION DUE TO DRUGS AND MEDS TAKEN INTERNALLY SNOMED Code(s): 22863069 (2) Leukocytosis Current Visit: Yes Status: Acute Priority: High Code(s): D72.829 - ELEVATED WHITE BLOOD CELL COUNT, UNSPECIFIED SNOMED Code(s): 684400936 Plan: 1-advised to continue holding Augmentin and documented beta-lactam allergy 2-no need for systemic antibiotic or steroid therapy at this point 3 gentle IV fluid- 4-repeat CBC tomorrow and follow-up on the cultures we will follow on clinical condition and cultures to further adjust medication if needed Thank you for this consultation we will follow the patient along with you Time with Patient: Greater than 30
[2020-01-17] MEDS: PANTOPRAZOLE 40 MG TABLET PO SCH (05:56)
[2020-01-17] MEDS: HYDROcodone/APAP 7.5-325MG 1 EACH TAB PO SCH ×3 (05:56→20:05)
[2020-01-17 08:05] LABS: Anisocytosis Moderate; Basophils # (A) 0.1 k/uL (0-0.2); Basophils % (A) 1 %; Eosinophils # (A) 0.6 k/uL (0-0.7); Eosinophils % (A) 4 %; HCT 35.8 % (34.0-46.0); HGB 10.3 gm/dL (11.4-16.0); Hypochromasia Marked; Lymphocytes # (A) 1.8 k/uL (1.0-4.8); Lymphocytes % (A) 13 %; MCH 23.2 pg (25.0-35.0); MCHC 28.7 g/dL (31.0-37.0); Mean Platelet Volume 8.5; Microcytosis Moderate; Monocytes # (A) 1.4 k/uL (0-1.0); Monocytes % (A) 10 %; Neutrophils % (A) 71 %; Platelet Count 360 k/uL (150-450); RBC 4.42 m/uL (3.80-5.40); RDW 21.6 % (11.5-15.5); WBC 14.2 k/uL (3.8-10.6)
[2020-01-17 08:22] LABS: Albumin 3.3 g/dL (3.5-5.0); Calcium 8.8 mg/dL (8.4-10.2); Potassium 3.9 mmol/L (3.5-5.1); Total Bilirubin 0.3 mg/dL (0.2-1.3); Total Protein 6.7 g/dL (6.3-8.2)
[2020-01-17] MEDS: METOPROLOL TARTRATE 25 MG TAB PO SCH ×2 (08:39→20:04)
--- NOTE | 2020-01-17 14:32 | PN ---
PROGRESS NOTE DATE OF SERVICE: 01/17/2020 REASON FOR FOLLOWUP: 1. Drug rash. 2. Leukocytosis likely reactive. INTERVAL HISTORY: The patient is currently afebrile. The patient is breathing comfortably. The patient's rash on the upper arm has improved. Still has some rash on the lower extremity. Patient denies having any chest pain. No shortness of breath or cough. No difficulty breathing or tongue swelling. No oral lesions. PHYSICAL EXAMINATION: Blood pressure 121/73 with a pulse of 71, temperature 98.2, she is 97% on room air. General description is an elderly female, lying in bed in no distress. RESPIRATORY SYSTEM: Unlabored breathing, clear to auscultation anteriorly. HEART: S1, S2. Regular rate and rhythm. ABDOMEN: Soft, no tenderness. LABS: Hemoglobin is 10.8, white count of 14.2, BUN of 25, creatinine 0.8. DIAGNOSTIC IMPRESSION AND PLAN: 1. Patient with a rash more likely a drug rash and possibly to Augmentin, which has been discontinued. 2. Patient with leukocytosis more likely reactive and possible component of dehydration, prerenal. She has a white count showing a downward trend without antibiotics. Will be continued to monitor closely off antibiotic. Continue supportive care. MMODL / IJN: [id number] /
[2020-01-17] MEDS: SODIUM CHLORIDE 0.9% 1,000 ML IV SCH ×2 (15:18→20:40)
--- NOTE | 2020-01-17 18:58 | P.PN ---
Subjective Progress Note Date: 01/17/20 Jaqui Garza is an 84-year-old female who presented to [facility] emergency room, due to skin rash, leukocytosis with white blood count of more than 20,000, and tachycardia with heart rate of 110 she was evaluated in emergency room and was admitted to medical floor for further evaluation, patient was recently admitted to [facility] with severe leukocytosis white blood count was in excess of 40,000 at that time it was felt that patient had urinary tract infection she was kept on Unasyn and was discharged to the detention on oral Augmentin, white blood count at the time of discharge was 10,000, however patient developed a rash tachycardia and her white blood count was up again to 20,000 patient was admitted to medical floor and consultation for infectious disease was initiated at culture urine culture and urinalysis was ordered On 01/17/2020 patient was seen and examined on the medical floor she is doing better there is no fever or chills no headache or dizziness no chest pain no shortness of breath no cough no nausea or vomiting no abdominal pain no diarrhea and no urinary symptoms she is not febrile was temperature of 97.5 white blood count is improving it's down from 18.2-14.2 case was discussed with Dr. Vail, he thinks that leukocytosis is related to dehydration and ALLERGIC reaction to Augmentin, he does not recommend any antibiotic at this time, sodium level is up from 128-131, will continue was current management possible transfer back to the detention tomorrow Objective - Vital Signs Vital signs: Vital Signs Temp 97.5 F L 01/17/20 14:46 Pulse 72 01/17/20 16:00 Resp 16 01/17/20 16:00 BP 117/66 01/17/20 14:46 Pulse Ox 100 01/17/20 14:46 Intake & Output 01/16/20 01/17/20 01/17/20 18:59 06:59 18:59 Intake Total 840 225 540 Output Total 1100 400 Balance 840 -875 140 Intake: Intake, IV Titration 300 225 Amount Sodium Chloride 0.9% 1, 300 225 000 ml @ 75 mls/hr IV . [id number] [facility] Rx#:[id number] Oral 540 540 Output: Urine 1100 400 Other: Voiding Method Incontinent # Voids 3 - Exam In general patient is alert and oriented 3 in no apparent distress HEENT head normocephalic and atraumatic neck is supple no JVD no goiter no lymphadenopathy Chest exam reveals a few scattered rhonchi no wheezing Cardiac exam reveals regular heart sounds S1 and S2 no gallops no murmurs Abdomen is soft nontender no organomegaly with normal bowel sounds Extremity exam reveals no edema no cyanosis or clubbing Neurological examination reveals no gross focal deficit - Labs CBC & Chem 7: 01/17/20 07:30 01/17/20 07:30 Labs: Abnormal Lab Results - Last 24 Hours (Table) 01/17/20 01/17/20 Range/Units 07:30 07:30 WBC 14.2 H (3.8-10.6) k/uL Hgb 10.3 L (11.4-16.0) gm/dL MCH 23.2 L (25.0-35.0) pg MCHC 28.7 L (31.0-37.0) g/dL RDW 21.6 H (11.5-15.5) % Neutrophils # 10.0 H (1.3-7.7) k/uL Monocytes # 1.4 H (0-1.0) k/uL Sodium 131 L (137-145) mmol/L Chloride 95 L (98-107) mmol/L BUN 25 H (7-17) mg/dL Glucose 132 H (74-99) mg/dL Albumin 3.3 L (3.5-5.0) g/dL Microbiology - Last 24 Hours (Table) 01/15/20 20:48 Blood Culture - Preliminary Blood No Growth after 24 hours Assessment and Plan Plan: 1. Leukocytosis cause is unclear blood culture urine culture and chest x-ray were ordered, recommendation by infectious disease is to hold antibiotics until results are available. 2. Skin rash likely related to Augmentin, improving now patient is off antibiotic Will monitor 3. Hyponatremia patient is maintained on IV normal saline will monitor closely 4. Tachycardia on presentation, will increase metoprolol to 25 mg twice daily and monitor closely 5. Recent urinary tract infection was hospitalization Will follow during this admission please see orders
[2020-01-18] MEDS: ALPRAZolam 0.25 MG TAB PO PRN ×2 (00:09→09:24)
[2020-01-18] MEDS: HYDROcodone/APAP 7.5-325MG 1 EACH TAB PO SCH ×2 (05:48→12:45)
[2020-01-18] MEDS: PANTOPRAZOLE 40 MG TABLET PO SCH (05:48)
[2020-01-18 08:05] LABS: Albumin 3.3 g/dL (3.5-5.0); Calcium 9.1 mg/dL (8.4-10.2); Potassium 3.8 mmol/L (3.5-5.1); Total Bilirubin 0.3 mg/dL (0.2-1.3); Total Protein 6.6 g/dL (6.3-8.2)
[2020-01-18 08:40] LABS: Anisocytosis Moderate; Basophils # (A) 0.1 k/uL (0-0.2); Basophils % (A) 0 %; Eosinophils # (A) 0.6 k/uL (0-0.7); Eosinophils % (A) 4 %; HCT 33.9 % (34.0-46.0); HGB 10.2 gm/dL (11.4-16.0); Hypochromasia Marked; Lymphocytes # (A) 1.6 k/uL (1.0-4.8); Lymphocytes % (A) 11 %; MCH 25.4 pg (25.0-35.0); MCHC 30.1 g/dL (31.0-37.0); MCV 84.4 fL (80.0-100.0); Mean Platelet Volume 9.2; Microcytosis Slight; Monocytes # (A) 1.5 k/uL (0-1.0); Monocytes % (A) 10 %; Neutrophils # (A) 10.2 k/uL (1.3-7.7); Neutrophils % (A) 72 %; Platelet Count 290 k/uL (150-450); RBC 4.01 m/uL (3.80-5.40); RDW 21.2 % (11.5-15.5); WBC 14.2 k/uL (3.8-10.6)
[2020-01-18] MEDS: METOPROLOL TARTRATE 25 MG TAB PO SCH (09:24)
[2020-01-18 15:34] VITALS: BP 120/81; PULSE 88; RESP 16; TEMP 98.4
--- NOTE | 2020-01-18 15:41 | P.DS ---
Providers Date of admission: 01/15/20 22:47 Expected date of discharge: 01/18/20 Attending physician: Dalton Madden Consults: 01/16/20 10:54 Consult Physician Routine Consulting Provider: Yasmeen Vail Consult Reason/Comments: leukocytosis Do you want consulting provider notified?: Yes Primary care physician: [facility] Course: Diagnoses on discharge: 1. Leukocytosis cause is unclear, likely related to dehydration and allergic reaction. blood culture urine culture and chest x-ray were ordered, recommendation by infectious disease is to hold antibiotics until results are available. No antibiotics were given during this admission 2. Skin rash likely related to Augmentin, improving now patient is off antibiotic Will monitor 3. Hyponatremia patient is maintained on IV normal saline will monitor closely 4. Tachycardia on presentation, will increase metoprolol to 25 mg twice daily and monitor closely 5. Recent urinary tract infection was hospitalization Hospital course: Jqaui Garza is an 84-year-old female who presented to [facility] emergency room, due to skin rash, leukocytosis with white blood count of more than 20,000, and tachycardia with heart rate of 110 she was evaluated in emergency room and was admitted to medical floor for further evaluation, patient was recently admitted to [facility] with severe leukocytosis white blood count was in excess of 40,000 at that time it was felt that patient had urinary tract infection she was kept on Unasyn and was discharged to the long-term on oral Augmentin, white blood count at the time of discharge was 10,000, however patient developed a rash tachycardia and her white blood count was up again to 20,000 patient was admitted to medical floor and consultation for infectious disease was initiated at culture urine culture and urinalysis was ordered On 01/17/2020 patient was seen and examined on the medical floor she is doing better there is no fever or chills no headache or dizziness no chest pain no shortness of breath no cough no nausea or vomiting no abdominal pain no diarrhea and no urinary symptoms she is not febrile was temperature of 97.5 white blood count is improving it's down from 18.2-14.2 case was discussed with Dr. Vail, he thinks that leukocytosis is related to dehydration and ALLERGIC reaction to Augmentin, he does not recommend any antibiotic at this time, sodium level is up from 128-131, will continue was current management possible transfer back to the long-term tomorrow On 01/18/2020 patient was seen and examined on the medical floor she is alert and oriented in no distress, there is no fever or chills no cough and no urinary symptms patient white blood count is still elevated at 14.2 patient was evaluated by Dr Vail and was cleared for discharge. Patient Condition at Discharge: Stable Plan - Discharge Summary New Discharge Prescriptions: New Metoprolol Tartrate [Lopressor] 25 mg PO BID tab Continue Docusate [Colace] 100 mg PO DAILY@2099 Baclofen [Lioresal] 10 mg PO Q6H PRN PRN Reason: Muscle Pain HYDROcodone/APAP 7.5-325MG [[place] 7.5-325] 1 tab PO TID@0600,1300,2099 ALPRAZolam [Xanax] 0.25 mg PO QID PRN tab PRN Reason: Anxiety Calcium Carbonate [Tums] 1,000 mg PO Q6H PRN PRN Reason: Gi Upset Acetaminophen Tab [Tylenol] 650 mg PO Q4H PRN PRN Reason: Pain Menthol [Biofreeze] 1 applic TOPICAL Q6H PRN PRN Reason: Pain Pantoprazole [Protonix] 40 mg PO DAILY@0600 Furosemide [Lasix] 40 mg PO DAILY@0600 Folic Acid 1 mg PO DAILY@0900 Discontinued Metoprolol Tartrate [Lopressor] 25 mg PO ONCE Discharge Medication List Baclofen [Lioresal] 10 mg PO Q6H PRN 12/23/19 [History] Docusate [Colace] 100 mg PO DAILY@209912/23/19 [History] HYDROcodone/APAP 7.5-325MG [[place] 7.5-325] 1 tab PO TID@0600,1300,2100 12/23/19 [History] ALPRAZolam [Xanax] 0.25 mg PO QID PRN tab 01/05/20 [Rx] Acetaminophen Tab [Tylenol] 650 mg PO Q4H PRN 01/15/20 [History] Calcium Carbonate [Tums] 1,000 mg PO Q6H PRN 01/15/20 [History] Folic Acid 1 mg PO DAILY@0900 01/15/20 [History] Furosemide [Lasix] 40 mg PO DAILY@0600 01/15/20 [History] Menthol [Biofreeze] 1 applic TOPICAL Q6H PRN 01/15/20 [History] Pantoprazole [Protonix] 40 mg PO DAILY@59901/15/20 [History] Metoprolol Tartrate [Lopressor] 25 mg PO BID tab 01/18/20 [Rx] Follow up Appointment(s)/Referral(s): Dalton Madden MD [Primary Care Provider] - 1-2 days
--- NOTE | 2020-01-18 16:34 | PN ---
PROGRESS NOTE DATE OF SERVICE: 01/18/2020 REASON FOR FOLLOWUP: 1. Drug rash. 2. Leukocytosis. INTERVAL HISTORY: The patient is currently afebrile. The patient is breathing comfortably. The patient denies having any chest pain or shortness of breath or cough. No nausea, no vomiting. No abdominal pain or diarrhea. Overall rash has improved. No further itching. PHYSICAL EXAMINATION: Blood pressure 120/81 with a pulse of 88, temperature 98.4. She is 97% on room air. General description is an elderly female up in the bed in no distress. RESPIRATORY SYSTEM: Unlabored breathing. Clear to auscultation anteriorly. HEART: S1, S2. Regular rate and rhythm. ABDOMEN: Soft. No tenderness. LEGS: Rash on most of the leg but has been decreasing in intensity. LABS: Hemoglobin is 10.8, white count 14.2, BUN of 21, creatinine 0.82. DIAGNOSTIC IMPRESSION AND PLAN: 1. Patient admitted to hospital with a rash possibly related to Augmentin, which has been discontinued, and the rash has decreased in intensity. 2. Patient with leukocytosis, possibly secondary to allergic reaction versus dehydration plus/minus oropharyngeal candidiasis. Will add Diflucan and see clinical response to it. Monitor her clinical course. MMODL / IJN: [id number] /
[2020-01-18] MEDS: ACETAMINOPHEN TAB 325 MG TAB PO PRN (16:47)
[2020-01-18] MEDS: SODIUM CHLORIDE 0.9% 1,000 ML IV SCH (16:47)
[2020-01-18] MEDS ORDERED: FLUCONAZOLE 100 MG TAB PO ONE (17:00)
== END 2020-01-18 17:12 | disposition home or self-care (01) | DRG 607 ==
LOC: EC 20:05 → 4SSUR 22:47
PROVIDERS: ADMIT Internal Medicine; ATTEND Internal Medicine
DX: L27.0 Generalized skin eruption due to drugs and medicaments taken internally (principal); E87.1 Hypo-osmolality and hyponatremia; T36.0X5A Adverse effect of penicillins, initial encounter; T36.1X5A Adverse effect of cephalosporins and other beta-lactam antibiotics, initial encounter; D72.829 Elevated white blood cell count, unspecified; E86.0 Dehydration; F32.9 Major depressive disorder, single episode, unspecified; I10 Essential (primary) hypertension; Z79.899 Other long term (current) drug therapy; Z80.7 Family history of other malignant neoplasms of lymphoid, hematopoietic and related tissues; Z90.11 Acquired absence of right breast and nipple; Z90.710 Acquired absence of both cervix and uterus; Z11.59 Encounter for screening for other viral diseases; Z98.42 Cataract extraction status, left eye; Z98.41 Cataract extraction status, right eye; Z88.5 Allergy status to narcotic agent; Z87.440 Personal history of urinary (tract) infections; R00.0 Tachycardia, unspecified
CPT/HCPCS: 36415; 71045; 80048; 80053; 83605; 85025; 85610; 85730; 87040; 93005; 96361; 96374; 99284

== ENCOUNTER 2020-01-20 19:18 | Inpatient (IN) | payer MEDICARE, OTHER ==
[2020-01-20] MEDS ORDERED: SODIUM CHLORIDE 0.9% 1,000 ML IV STA (19:51)
[2020-01-20] MEDS ORDERED: SODIUM CHLORIDE 0.9% 1,000 ML IV ONE (19:51)
--- NOTE | 2020-01-20 20:11 | ED ---
Altered Mental Status HPI - General Chief Complaint: Altered Mental Status Stated Complaint: UTI Time Seen by Provider: 01/20/20 19:29 Source: EMS, RN notes reviewed, old records reviewed Mode of arrival: EMS Limitations: no limitations - History of Present Illness Initial Comments: This is a 84-year-old female DF for evaluation patient Dese for evaluation regards to fever and altered mental status was not acting appropriately weakness patient is a poor historian and unable to give history history obtained from EMS prior charts and staff MD Complaint: altered mental status, confusion, weakness -: unknown Severity: severe Consistency of Symptoms: getting worse Context: history of similar presentation, recent fever Associated Symptoms: chest pain, cough, diaphoresis, fever/chills, loss of appetite, malaise, shortness of breath, weakness, foul smelling urine - Related Data Home Medications Medication Instructions Recorded Confirmed Baclofen [Lioresal] 10 mg PO Q6H PRN 12/23/19 01/15/20 Docusate [Colace] 100 mg PO DAILY@209912/23/19 01/15/20 HYDROcodone/APAP 7.5-325MG [[place] 1 tab PO TID@0600,1300,209912/23/19 01/15/20 7.5-325] Acetaminophen Tab [Tylenol] 650 mg PO Q4H PRN 01/15/20 01/15/20 Calcium Carbonate [Tums] 1,000 mg PO Q6H PRN 01/15/20 01/15/20 Folic Acid 1 mg PO DAILY@0901/15/20 01/15/20 Furosemide [Lasix] 40 mg PO DAILY@59901/15/20 01/15/20 Menthol [Biofreeze] 1 applic TOPICAL Q6H PRN 01/15/20 01/15/20 Pantoprazole [Protonix] 40 mg PO DAILY@59901/15/20 01/15/20 Previous Rx's Medication Instructions Recorded ALPRAZolam [Xanax] 0.25 mg PO QID PRN tab 01/05/20 Metoprolol Tartrate [Lopressor] 25 mg PO BID tab 01/18/20 Allergies Allergy/AdvReac Type Severity Reaction Status Date / Time codeine AdvReac Nausea & Verified 01/15/20 22:49 Vomiting Review of Systems ROS Statement: Those systems with pertinent positive or pertinent negative responses have been documented in the HPI. ROS Other: All systems not noted in ROS Statement are negative. 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 wilbert cataracts. Past Anesthesia/Blood Transfusion Reactions: No Reported Reaction Past Psychological History: Depression Smoking Status: Never smoker Past Alcohol Use History: Rare Past Drug Use History: None Reported - Past Family History Brother(s) Additional Family Medical History / Comment(s): Hodgkin's Lymphoma Mother Family Medical History: Cancer General Exam Limitations: altered mental status General appearance: alert, anxious, lethargic, in distress Head exam: Present: atraumatic, normocephalic, normal inspection Eye exam: Present: normal appearance, PERRL, EOMI. Absent: scleral icterus, conjunctival injection, periorbital swelling ENT exam: Present: normal exam, mucous membranes moist Neck exam: Present: normal inspection. Absent: tenderness, meningismus, lymph adenopathy Respiratory exam: Present: normal lung sounds bilaterally. Absent: respiratory distress, wheezes, rales, rhonchi, stridor Cardiovascular Exam: Present: normal rhythm, tachycardia, normal heart sounds. Absent: systolic murmur, diastolic murmur, rubs, gallop, clicks GI/Abdominal exam: Present: soft, normal bowel sounds. Absent: distended, tenderness, guarding, rebound, rigid Extremities exam: Present: normal inspection, full ROM, normal capillary refill. Absent: tenderness, pedal edema, joint swelling, calf tenderness Back exam: Present: normal inspection Neurological exam: Present: alert, oriented X3, CN II-XII intact Psychiatric exam: Present: normal affect, normal mood Skin exam: Present: warm, dry, intact, normal color. Absent: rash Course Vital Signs 01/20/20 01/20/20 01/20/20 19:27 20:00 20:30 Temperature 102.8 F H Pulse Rate 118 H 120 H 110 H Respiratory 20 16 16 Rate Blood Pressure 150/76 150/76 144/80 O2 Sat by Pulse 96 99 99 Oximetry 01/20/20 01/20/20 21:00 21:10 Temperature 101.3 F H Pulse Rate 100 106 H Respiratory 16 16 Rate Blood Pressure 136/48 123/64 O2 Sat by Pulse 100 100 Oximetry - Reevaluation(s) Reevaluation #1: 01/20/20 20:11 Medical record is reviewed Reevaluation #2: 01/20/20 20:11 Patient still having and not feeling well here in the ER Reevaluation #3: 01/20/20 21:17 Patient continues to improve with fever control blood Pressure is maintaining - Consultations Consultation #1: Spoke with Dr. Madden who agrees to admit patient Medical Decision Making - Medical Decision Making 84 female DF for evaluation, recurrent evaluation for sepsis leukocytosis fever and significant urinary tract infection, patient be admitted for IV antibiotics - Lab Data Result diagrams: 01/20/20 20:13 01/20/20 20:13 Lab Results 01/20/20 01/20/20 01/20/20 Range/Units 20:13 20:13 20:13 WBC 26.5 H (3.8-10.6) k/uL RBC 4.91 (3.80-5.40) m/uL Hgb 12.5 (11.4-16.0) gm/dL Hct 40.3 (34.0-46.0) % MCV 82.2 (80.0-100.0) fL MCH 25.4 (25.0-35.0) pg MCHC 30.9 L (31.0-37.0) g/dL RDW 21.2 H (11.5-15.5) % Plt Count 328 (150-450) k/uL Hypochromasia Marked Anisocytosis Moderate Microcytosis Moderate Sodium 130 L (137-145) mmol/L Potassium 4.6 (3.5-5.1) mmol/L Chloride 93 L (98-107) mmol/L Carbon Dioxide 20 L (22-30) mmol/L Anion Gap 17 mmol/L BUN 19 H (7-17) mg/dL Creatinine 0.96 (0.52-1.04) mg/dL Est GFR (CKD-EPI)AfAm 63 (>60 ml/min/1.73 sqM) Est GFR (CKD-EPI)NonAf 55 (>60 ml/min/1.73 sqM) Glucose 184 H (74-99) mg/dL Plasma Lactic Acid Zachariah 1.7 (0.7-2.0) mmol/L Calcium 9.5 (8.4-10.2) mg/dL Magnesium 1.7 (1.6-2.3) mg/dL Total Bilirubin 0.8 (0.2-1.3) mg/dL AST 26 (14-36) U/L ALT 10 (4-34) U/L Alkaline Phosphatase 120 (38-126) U/L Ammonia <9 (<30) umol/L Lactate Dehydrogenase 589 (313-618) U/L Creatine Kinase <20 L (30-135) U/L Total Protein 8.2 (6.3-8.2) g/dL Albumin 4.2 (3.5-5.0) g/dL Urine Color Urine Appearance (Clear) Urine pH (5.0-8.0) Ur Specific [place] (1.001-1.035) Urine Protein (Negative) Urine Glucose (UA) (Negative) Urine Ketones (Negative) Urine Blood (Negative) Urine Nitrite (Negative) Urine Bilirubin (Negative) Urine Urobilinogen (<2.0) mg/dL Ur Leukocyte Esterase (Negative) Urine RBC (0-5) /hpf Urine WBC (0-5) /hpf Urine WBC Clumps (None) /hpf Urine Bacteria (None) /hpf Urine Opiates Screen (NotDetected) Ur Oxycodone Screen (NotDetected) Urine Methadone Screen (NotDetected) Ur Propoxyphene Screen (NotDetected) Ur Barbiturates Screen (NotDetected) U Tricyclic Antidepress (NotDetected) Ur Phencyclidine Scrn (NotDetected) Ur Amphetamines Screen (NotDetected) U Methamphetamines Scrn (NotDetected) U Benzodiazepines Scrn (NotDetected) Urine Cocaine Screen (NotDetected) U Marijuana (THC) Screen (NotDetected) 01/20/20 Range/Units 20:23 WBC (3.8-10.6) k/uL RBC (3.80-5.40) m/uL Hgb (11.4-16.0) gm/dL Hct (34.0-46.0) % MCV (80.0-100.0) fL MCH (25.0-35.0) pg MCHC (31.0-37.0) g/dL RDW (11.5-15.5) % Plt Count (150-450) k/uL Hypochromasia Anisocytosis Microcytosis Sodium (137-145) mmol/L Potassium (3.5-5.1) mmol/L Chloride (98-107) mmol/L Carbon Dioxide (22-30) mmol/L Anion Gap mmol/L BUN (7-17) mg/dL Creatinine (0.52-1.04) mg/dL Est GFR (CKD-EPI)AfAm (>60 ml/min/1.73 sqM) Est GFR (CKD-EPI)NonAf (>60 ml/min/1.73 sqM) Glucose (74-99) mg/dL Plasma Lactic Acid Zachariah (0.7-2.0) mmol/L Calcium (8.4-10.2) mg/dL Magnesium (1.6-2.3) mg/dL Total Bilirubin (0.2-1.3) mg/dL AST (14-36) U/L ALT (4-34) U/L Alkaline Phosphatase (38-126) U/L Ammonia (<30) umol/L Lactate Dehydrogenase (313-618) U/L Creatine Kinase (30-135) U/L Total Protein (6.3-8.2) g/dL Albumin (3.5-5.0) g/dL Urine Color Yellow Urine Appearance Turbid H (Clear) Urine pH 6.0 (5.0-8.0) Ur Specific [place] 1.015 (1.001-1.035) Urine Protein 2+ H (Negative) Urine Glucose (UA) Negative (Negative) Urine Ketones Negative (Negative) Urine Blood Large H (Negative) Urine Nitrite Negative (Negative) Urine Bilirubin Negative (Negative) Urine Urobilinogen <2.0 (<2.0) mg/dL Ur Leukocyte Esterase Large H (Negative) Urine RBC >182 H (0-5) /hpf Urine WBC >182 H (0-5) /hpf Urine WBC Clumps Many H (None) /hpf Urine Bacteria Occasional H (None) /hpf Urine Opiates Screen Detected H (NotDetected) Ur Oxycodone Screen Not Detected (NotDetected) Urine Methadone Screen Not Detected (NotDetected) Ur Propoxyphene Screen Not Detected (NotDetected) Ur Barbiturates Screen Not Detected (NotDetected) U Tricyclic Antidepress Not Detected (NotDetected) Ur Phencyclidine Scrn Not Detected (NotDetected) Ur Amphetamines Screen Not Detected (NotDetected) U Methamphetamines Scrn Not Detected (NotDetected) U Benzodiazepines Scrn Detected H (NotDetected) Urine Cocaine Screen Not Detected (NotDetected) U Marijuana (THC) Screen Not Detected (NotDetected) - EKG Data -: EKG Interpreted by Me (EKG shows sinus tachycardia of 123 WA 150 QRS 82 QTC 460) - Radiology Data Radiology results: report reviewed (Chest x-ray shows likely CHF), image reviewed Critical Care Time Critical Care Time: Yes Total Critical Care Time: 31 Disposition Clinical Impression: Delirium due to general medical condition, Leukocytosis, Urinary tract infection, Sepsis, CHF (congestive heart failure), Pulmonary edema Disposition: ADMITTED IP TO THIS [facility] Condition: Fair Is patient prescribed a controlled substance at d/c from ED?: No Referrals: Dalton Madden MD [Primary Care Provider] - 1-2 days
[2020-01-20] MEDS ORDERED: ACETAMINOPHEN IV (For NPO) 1,000 MG in EMPTY BAG 1 BAG IVPB STA (20:29)
[2020-01-20 20:50] LABS: Appearance,Urine Turbid (Clear); Bacteria,Urine Occasional /hpf; Bilirubin,Urine Negative (Negative); Blood,Urine Large (Negative); Color,Urine Yellow; Glucose,Urine (UA) Negative (Negative); Ketones,Urine Negative (Negative); Leukocyte Esterase,Urine Large (Negative); Nitrite,Urine Negative (Negative); Protein,Urine 2+ (Negative); RBC,Urine >182 /hpf (0-5); Urobilinogen,Urine <2.0 mg/dL (<2.0); WBC,Urine >182 /hpf (0-5)
[2020-01-20 20:51] LABS: Amphetamine Screen,Urine Not Detected (NotDetected); Barbiturate Screen,Urine Not Detected (NotDetected); Benzodiazepines Screen,Urine Detected (NotDetected); Cocaine Screen,Urine Not Detected (NotDetected); Methadone Screen, Urine Not Detected (NotDetected); Opiate Screen,Urine Detected (NotDetected); Oxycodone Screen, Urine Not Detected (NotDetected); Phencyclidine Screen,Urine Not Detected (NotDetected); Tricyclic Antidepressant,Urine Not Detected (NotDetected); Urn Cannabinoid Scrn Not Detected (NotDetected)
[2020-01-20 20:52] LABS: Anisocytosis Moderate; HCT 40.3 % (34.0-46.0); HGB 12.5 gm/dL (11.4-16.0); Hypochromasia Marked; MCH 25.4 pg (25.0-35.0); MCHC 30.9 g/dL (31.0-37.0); MCV 82.2 fL (80.0-100.0); Mean Platelet Volume 9.1; Microcytosis Moderate; Platelet Count 328 k/uL (150-450); RBC 4.91 m/uL (3.80-5.40); RDW 21.2 % (11.5-15.5); WBC 26.5 k/uL (3.8-10.6)
[2020-01-20 20:54] LABS: Lactic Acid, Venous 1.7 mmol/L (0.7-2.0)
[2020-01-20 20:54] LABS: Specific Gravity,Urine 1.015 (1.001-1.035)
[2020-01-20 20:58] LABS: ALT 10 U/L (4-34); AST 26 U/L (14-36); African American GFR (CKD) 63 (>60 ml/min/1.73 sqM); Albumin 4.2 g/dL (3.5-5.0); Alkaline Phosphatase 120 U/L (38-126); Anion Gap 17 mmol/L; Blood Urea Nitrogen 19 mg/dL (7-17); Calcium 9.5 mg/dL (8.4-10.2); Carbon Dioxide 20 mmol/L (22-30); Chloride 93 mmol/L (98-107); Creatine Kinase <20 U/L (30-135); Glucose 184 mg/dL (74-99); LDH 589 U/L (313-618); Magnesium 1.7 mg/dL (1.6-2.3); Non-African American GFR(CKD) 55 (>60 ml/min/1.73 sqM); Sodium 130 mmol/L (137-145); Total Bilirubin 0.8 mg/dL (0.2-1.3); Total Protein 8.2 g/dL (6.3-8.2)
--- NOTE | 2020-01-20 20:58 | XR ---
EXAMINATION TYPE: XR chest 1V portable DATE OF EXAM: 01/20/2020 COMPARISON: 01/16/2020 INDICATION: Altered mental status TECHNIQUE: Single frontal view of the chest is obtained. FINDINGS: The heart size is normal. The pulmonary vasculature is prominent. Upper lung field infiltrates are present. Findings are increasing from comparison IMPRESSION: 1. Clinical correlation recommended for volume overload.
[2020-01-20 21:00] LABS: Potassium 4.6 mmol/L (3.5-5.1)
[2020-01-20] MEDS ORDERED: PIPERACILLIN-TAZOBACTAM 3.375 GM in SODIUM CHLORIDE 0.9% 100 ML IVPB STA (21:13)
[2020-01-20 21:21] LABS: Partial Thromboplastin Time 24.1 sec (22.0-30.0); Prothrombin Time 10.7 sec (9.0-12.0)
[2020-01-20 21:25] LABS: D-Dimer 2.43 mg/L FEU (<0.60)
[2020-01-20 21:28] LABS: C Reactive Protein 433.1 mg/L (<10.0)
[2020-01-20 21:44] LABS: Eosinophils # (M) 0.27 k/uL (0-0.7); Lymphocytes # (M) 2.12 k/uL (1.0-4.8); Monocytes # (M) 1.59 k/uL (0-1.0); Neutrophils # (M) 22.53 k/uL (1.3-7.7); Neutrophils % (M) 85 %; Nucleated Red Blood Cells 0 /100 WBC (0-0); Total Cells Counted 100
[2020-01-21] MEDS: SODIUM CHLORIDE 0.9% 1,000 ML IV SCH ×4 (03:57→20:41)
[2020-01-21] MEDS: PIPERACILLIN-TAZOBACTAM 3.375 GM in SODIUM CHLORIDE 0.9% 100 ML IVPB SCH ×2 (05:53→17:40)
[2020-01-21] MEDS ORDERED: METHYL SALICYLATE/MENTHOL CREAM 5 OZ TOPICAL PRN (09:14)
[2020-01-21] MEDS ORDERED: CALCIUM CARBONATE 500 MG CHEWABLE PO PRN (09:14)
[2020-01-21] MEDS: ENOXAPARIN 40 MG/0.4 ML SYRINGE SQ SCH (09:15)
[2020-01-21 10:56] LABS: Ferritin 886.9 ng/mL (10.0-291.0)
[2020-01-21] MEDS: HYDROcodone/APAP 7.5-325MG 1 EACH TAB PO SCH ×2 (11:28→20:42)
[2020-01-21] MEDS: ACETAMINOPHEN TAB 325 MG TAB PO PRN ×2 (11:28→20:41)
[2020-01-21] MEDS: METOPROLOL TARTRATE 25 MG TAB PO SCH ×2 (11:29→20:42)
--- NOTE | 2020-01-21 13:00 | P.HPIM ---
History of Present Illness H&P Date: 01/21/20 Chief Complaint: Fever and generalized weakness Jaqui Garza, is an 84-year-old female who presented to [facility] emergency room due to elevated temperature of 102.4 at the [facility], and generalized weakness, patient had 2 recent admissions, on the first admission she had evidence of urinary tract infection, her white blood count was elevated at 50,000, she was treated with IV antibiotics, she was seen by hematology and infectious disease, she was discharged to [facility]p on oral Augmentin, white blood count at the time of discharge was 10,000 patient developed generalized rash, and her white blood count was up to 21,000 she was readmitted to the hospital and was seen by infectious disease who advised to withhold antibiotic and thought that her symptoms are related to ALLERGIC reaction to Augmentin white blood count came down to 14,000 patient was transferred back to the [facility], patient was therefore few days then she started having elevated temperature at 102.4 she had evidence of urinary tract infection and her white blood count was elevated again to 26.5 patient was admitted to medical floor she was started on IV Zosyn infectious disease consultation was requested. Patient was seen and examined on 01/21/2020 she is alert and oriented in no apparent distress she is complaining of fatigue and generalized weakness otherwi se no specific complaints her temperature on arrival to emergency room was 102.8 she denies any chest pain or shortness of breath no cough no nausea or vomiting no abdominal pain no diarrhea no burning with urination no frequency or urgency and no hematuria Past Medical History Past Medical History: Cancer, Hypertension, Musculoskeletal Disorder Additional Past Medical History / Comment(s): CONSITPATION, DIVERTICULITIS, CHRONIC BACK PAIN, ANEMIA History of Any Multi-Drug Resistant Organisms: None Reported Past Surgical History: Breast Surgery, Hysterectomy Additional Past Surgical History / Comment(s): RIGHT MASTECTOMY, EYE SURGERY(hole in left retina) 4-5 yrs ago. wilbert cataracts. Past Anesthesia/Blood Transfusion Reactions: No Reported Reaction Past Psychological History: Depression Smoking Status: Never smoker Past Alcohol Use History: Rare Past Drug Use History: None Reported - Past Family History Brother(s) Additional Family Medical History / Comment(s): Hodgkin's Lymphoma Mother Family Medical History: Cancer Medications and Allergies Home Medications Medication Instructions Recorded Confirmed Type Baclofen [Lioresal] 10 mg PO Q6H PRN 12/23/19 01/21/20 History Docusate [Colace] 100 mg PO DAILY@209912/23/19 01/21/20 History HYDROcodone/APAP 7.5-325MG [[place] 1 tab PO TID@0600,1300,2100 12/23/19 01/21/20 History 7.5-325] ALPRAZolam [Xanax] 0.25 mg PO QID PRN tab 01/05/20 01/21/20 Rx Acetaminophen Tab [Tylenol] 650 mg PO Q4H PRN 01/15/20 01/21/20 History Calcium Carbonate [Tums] 1,000 mg PO Q6H PRN 01/15/20 01/21/20 History Folic Acid 1 mg PO DAILY@0901/15/20 01/21/20 History Furosemide [Lasix] 40 mg PO DAILY@59901/15/20 01/21/20 History Menthol [Biofreeze] 1 applic TOPICAL Q6H PRN 01/15/20 01/21/20 History Pantoprazole [Protonix] 40 mg PO DAILY@59901/15/20 01/21/20 History Metoprolol Tartrate [Lopressor] 25 mg PO BID tab 01/18/20 01/21/20 Rx Allergies Allergy/AdvReac Type Severity Reaction Status Date / Time codeine AdvReac Nausea & Verified 01/21/20 09:41 Vomiting Physical Exam Vitals: Vital Signs Temp Pulse Pulse Resp BP BP Pulse Ox 01/21/20 11:33 101 H 20 117/65 99 01/21/20 08:00 99.9 F H 112 H 20 112/70 99 01/21/20 04:00 98.4 F 111 H 16 112/81 100 01/21/20 00:00 97.6 F 96 16 131/85 100 01/20/20 22:00 99.6 F 104 H 16 117/75 100 01/20/20 21:51 98.6 F 106 H 16 110/62 99 01/20/20 21:10 101.3 F H 106 H 16 123/64 100 01/20/20 21:00 100 16 136/48 100 01/20/20 20:30 110 H 16 144/80 99 01/20/20 20:00 120 H 16 150/76 99 01/20/20 19:27 102.8 F H 118 H 20 150/76 96 Intake and Output 01/20/20 01/21/20 01/21/20 22:59 06:59 14:59 Intake Total 450 275 Output Total 725 Balance 450 -450 Intake: Oral 450 275 Output: Urine 725 Other: Voiding Method Indwelling Catheter Indwelling Catheter Indwelling Catheter Weight 81.647 kg 85.5 kg In general patient is alert and oriented 3 in no apparent distress HEENT head normocephalic and atraumatic Neck is supple no JVD no goiter no lymphadenopathy Chest exam reveals a few scattered crackles no wheezing Cardiac exam reveals regular heart sounds S1 and S2 no gallops no murmurs Abdomen is soft nontender no organomegaly with normal bowel sounds Extremity exam reveals 1+ edema bilaterally no cyanosis or clubbing Neurological examination reveals no gross focal deficit Results CBC & Chem 7: 01/20/20 20:13 01/20/20 20:13 Labs: Abnormal Lab Results - Last 24 Hours (Table) 01/20/20 01/20/20 01/20/20 Range/Units 20:13 20:13 20:13 WBC 26.5 H (3.8-10.6) k/uL MCHC 30.9 L (31.0-37.0) g/dL RDW 21.2 H (11.5-15.5) % Neutrophils # (Manual) 22.53 H (1.3-7.7) k/uL Monocytes # (Manual) 1.59 H (0-1.0) k/uL D-Dimer 2.43 H (<0.60) mg/L FEU Sodium 130 L (137-145) mmol/L Chloride 93 L (98-107) mmol/L Carbon Dioxide 20 L (22-30) mmol/L BUN 19 H (7-17) mg/dL Glucose 184 H (74-99) mg/dL Ferritin 886.9 H (10.0-291.0) ng/mL Creatine Kinase <20 L (30-135) U/L C-Reactive Protein 433.1 H (<10.0) mg/L Procalcitonin (0.02-0.09) ng/mL Urine Appearance (Clear) Urine Protein (Negative) Urine Blood (Negative) Ur Leukocyte Esterase (Negative) Urine RBC (0-5) /hpf Urine WBC (0-5) /hpf Urine WBC Clumps (None) /hpf Urine Bacteria (None) /hpf Urine Opiates Screen (NotDetected) U Benzodiazepines Scrn (NotDetected) 01/20/20 01/20/20 Range/Units 20:13 20:23 WBC (3.8-10.6) k/uL MCHC (31.0-37.0) g/dL RDW (11.5-15.5) % Neutrophils # (Manual) (1.3-7.7) k/uL Monocytes # (Manual) (0-1.0) k/uL D-Dimer (<0.60) mg/L FEU Sodium (137-145) mmol/L Chloride (98-107) mmol/L Carbon Dioxide (22-30) mmol/L BUN (7-17) mg/dL Glucose (74-99) mg/dL Ferritin (10.0-291.0) ng/mL Creatine Kinase (30-135) U/L C-Reactive Protein (<10.0) mg/L Procalcitonin 0.42 H (0.02-0.09) ng/mL Urine Appearance Turbid H (Clear) Urine Protein 2+ H (Negative) Urine Blood Large H (Negative) Ur Leukocyte Esterase Large H (Negative) Urine RBC >182 H (0-5) /hpf Urine WBC >182 H (0-5) /hpf Urine WBC Clumps Many H (None) /hpf Urine Bacteria Occasional H (None) /hpf Urine Opiates Screen Detected H (NotDetected) U Benzodiazepines Scrn Detected H (NotDetected) Microbiology - Last 24 Hours (Table) 01/20/20 20:23 Urine Culture - Preliminary Urine,Catheterized Assessment and Plan Plan: 1. Sepsis with fever, leukocytosis 2. Urinary tract infection. Recurrent, will check ultrasound of the kidneys to rule out any structural abnormality or kidney stone causing recurrent infections. 3. Elevated d-dimer will check computed tomography scan angiogram of the chest to rule out pulmonary embolism 4. Underlying history of hypertension well-controlled on current medications 5. Underlying history of gastroesophageal reflux disease maintained on Protonix At this time patient is admitted to medical floor she is started on IV antibiotics Cultures are still pending, will review culture results from the hospital and from the [facility], unfortunately we do not have any positive cultures to direct antibiotic treatment so far Infectious disease consultation requested Will follow closely
--- NOTE | 2020-01-21 14:23 | US ---
EXAMINATION TYPE: US kidneys/renal and bladder DATE OF EXAM: 01/21/2020 COMPARISON: Previous study dated 12/24/2019. CLINICAL HISTORY: recurrent UTI. UTI Exam limited due to patient unable to roll. EXAM MEASUREMENTS: Right Kidney: 8.6 x 3.2 x 3.3 cm Left Kidney: 7.1 x 4.1 x 3.2 cm Right Kidney: Atrophic limited patient unable to roll. Left Kidney: Atrophic limited patient unable to roll. Bladder: Catheter seen. Bilateral Jets seen: No Both kidneys are small in caliber. The patient's hydronephrosis has resolved. There is a Thacker cathet er within the bladder. IMPRESSION: SUBOPTIMAL EXAMINATION DEMONSTRATING NO EVIDENCE OF HYDRONEPHROSIS AT THIS TIME. THERE IS EVIDENCE OF RENAL ATROPHY.
--- NOTE | 2020-01-21 16:03 | CT ---
EXAMINATION TYPE: CT chest angio for PE DATE OF EXAM: 01/21/2020 COMPARISON: None HISTORY: chest pain, SOB CT DLP: 313 mGycm Automated exposure control for dose reduction was used. CONTRAST: Performed with IV Contrast, patient injected with 70cc mL of Isovue 370. There are 3-D post processed images. FINDINGS: There is coarse interstitial infiltrates throughout the lungs. There is groundglass patchy infiltrate . 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 There is no dissection. Heart appears slightly enlarged. There is hiatal hernia. There is some airspace mild infiltrate and atelectasis at the posterior lung bases. There are no hilar masses. There is no mediastinal adenopathy. There is normal contrast opacification of the pulmonary arteries. I see no filling defect. There are small pleural effusions. There is spondylotic changes in the thoracic spine. There is anterior wedgin g of T8 vertebra with 40% loss of height. IMPRESSION: Cardiomegaly with patchy pulmonary interstitial infiltrates and atelectasis. Mild airspace infiltrate s and pleural fluid at the lung bases. No evidence of pulmonary embolism.
[2020-01-21] MEDS: CEFEPIME 2 GM in SODIUM CHLORIDE 0.9% 100 ML IVPB SCH (17:42)
[2020-01-21] MEDS: DOCUSATE 100 MG CAP PO SCH (20:42)
[2020-01-22] MEDS: HYDROcodone/APAP 7.5-325MG 1 EACH TAB PO SCH ×3 (05:38→20:32)
[2020-01-22] MEDS: SODIUM CHLORIDE 0.9% 1,000 ML IV SCH ×3 (05:38→14:54)
[2020-01-22] MEDS: PANTOPRAZOLE 40 MG TABLET PO SCH (05:38)
[2020-01-22] MEDS: FUROSEMIDE 40 MG TAB PO SCH (05:39)
[2020-01-22] MEDS: FOLIC ACID 1 MG TAB PO SCH (08:24)
[2020-01-22] MEDS: CEFEPIME 2 GM in SODIUM CHLORIDE 0.9% 100 ML IVPB SCH (08:24)
[2020-01-22] MEDS: METOPROLOL TARTRATE 25 MG TAB PO SCH ×2 (08:24→20:32)
[2020-01-22] MEDS: ENOXAPARIN 40 MG/0.4 ML SYRINGE SQ SCH (08:24)
--- NOTE | 2020-01-22 09:19 | P.CONS ---
History of Present Illness - Reason for Consult Consult date: 01/21/20 sepsis Requesting physician: Dalton Madden - Chief Complaint Fever and weakenss x 1 day - History of Present Illness Patient is 84-year-old female who was recently admitted at this facility in this patient was initially diagnosed with a urinary tract infection and possible colitis on first admission there he did have white count of 15,000 patient symptoms subsequently improved and white count normalized and she was [facility] to the [facility] on oral Augmentin subsequently readmitted to hospital with generalized rash and did have elevated white count thought to be related to Augmentin which was discontinued the patient white count did improved she was afebrile on her second admission and her UA was negative subsequently discharged back to [facility] on no antibiotic patient has not been brought back to the [facility] ER with generalized weakness mental status changes and a fever that started apparently the day of presentation the hospital on arrival to the ER patient did have a fever of 102 F she was noted to be tachycardic with a heart rate of 104 white count was 26,000 she did have elevated CRP and urine has been positive patient has been started on Zosyn admitted to hospital infectious disease was consulted for further management of antibiotic therapy patient did have a ultrasound of the abdominal liver suboptimal study with no evidence of hydronephrosis patient has been complaining of generalized weakness no energy no chest pain shortness of breath or cough no nausea no vomiting and no diarrhea. Review of Systems Positive point has been mentioned in HPI rest of the systems are negative Past Medical History Past Medical History: Cancer, Hypertension, Musculoskeletal Disorder Additional Past Medical History / Comment(s): CONSITPATION, DIVERTICULITIS, CHRONIC BACK PAIN, ANEMIA History of Any Multi-Drug Resistant Organisms: None Reported Past Surgical History: Breast Surgery, Hysterectomy Additional Past Surgical History / Comment(s): RIGHT MASTECTOMY, EYE SURGERY(hole in left retina) 4-5 yrs ago. wilbert cataracts. Past Anesthesia/Blood Transfusion Reactions: No Reported Reaction Past Psychological History: Depression Smoking Status: Never smoker Past Alcohol Use History: Rare Past Drug Use History: None Reported - Past Family History Brother(s) Additional Family Medical History / Comment(s): Hodgkin's Lymphoma Mother Family Medical History: Cancer Medications and Allergies Home Medications Medication Instructions Recorded Confirmed Type Baclofen [Lioresal] 10 mg PO Q6H PRN 12/23/19 01/21/20 History Docusate [Colace] 100 mg PO DAILY@209912/23/19 01/21/20 History HYDROcodone/APAP 7.5-325MG [[place] 1 tab PO TID@0600,1300,2100 12/23/19 01/21/20 History 7.5-325] ALPRAZolam [Xanax] 0.25 mg PO QID PRN tab 01/05/20 01/21/20 Rx Acetaminophen Tab [Tylenol] 650 mg PO Q4H PRN 01/15/20 01/21/20 History Calcium Carbonate [Tums] 1,000 mg PO Q6H PRN 01/15/20 01/21/20 History Folic Acid 1 mg PO DAILY@89901/15/20 01/21/20 History Furosemide [Lasix] 40 mg PO DAILY@59901/15/20 01/21/20 History Menthol [Biofreeze] 1 applic TOPICAL Q6H PRN 01/15/20 01/21/20 History Pantoprazole [Protonix] 40 mg PO DAILY@59901/15/20 01/21/20 History Metoprolol Tartrate [Lopressor] 25 mg PO BID tab 01/18/20 01/21/20 Rx Allergies Allergy/AdvReac Type Severity Reaction Status Date / Time codeine AdvReac Nausea & Verified 01/21/20 09:41 Vomiting Physical Exam Vitals: Vital Signs Temp Pulse Pulse Resp BP BP Pulse Ox 01/21/20 11:33 101 H 20 117/65 99 01/21/20 08:00 99.9 F H 112 H 20 112/70 99 01/21/20 04:00 98.4 F 111 H 16 112/81 100 01/21/20 00:00 97.6 F 96 16 131/85 100 01/20/20 22:00 99.6 F 104 H 16 117/75 100 01/20/20 21:51 98.6 F 106 H 16 110/62 99 01/20/20 21:10 101.3 F H 106 H 16 123/64 100 01/20/20 21:00 100 16 136/48 100 01/20/20 20:30 110 H 16 144/80 99 01/20/20 20:00 120 H 16 150/76 99 01/20/20 19:27 102.8 F H 118 H 20 150/76 96 Intake and Output 01/21/20 01/21/20 01/21/20 06:59 14:59 22:59 Intake Total 275 Output Total 725 Balance -450 Intake: Oral 275 Output: Urine 725 Other: Voiding Method Indwelling Catheter Indwelling Catheter Weight 85.5 kg GENERAL DESCRIPTION: Elderly female lying in bed, no distress. No tachypnea or accessory muscle of respiration use. HEENT: Shows Pallor , no scleral icterus. Oral mucous membrane is dry. NECK: Trachea central, no thyromegaly. LUNGS: Unlabored breathing. Clear to auscultation anteriorly. No wheeze or crackle. HEART: S1, S2, regular rate and rhythm. ABDOMEN: Soft, no tenderness , guarding or rigidity EXTREMITIES: No edema of feet. SKIN: No rash, no masses palpable. NEUROLOGICAL: The patient is awake, alert, oriented x2, mood and affect normal. Results CBC & Chem 7: 01/20/20 20:13 01/20/20 20:13 Labs: Abnormal Lab Results - Last 24 Hours (Table) 01/20/20 01/20/20 01/20/20 Range/Units 20:13 20:13 20:13 WBC 26.5 H (3.8-10.6) k/uL MCHC 30.9 L (31.0-37.0) g/dL RDW 21.2 H (11.5-15.5) % Neutrophils # (Manual) 22.53 H (1.3-7.7) k/uL Monocytes # (Manual) 1.59 H (0-1.0) k/uL D-Dimer 2.43 H (<0.60) mg/L FEU Sodium 130 L (137-145) mmol/L Chloride 93 L (98-107) mmol/L Carbon Dioxide 20 L (22-30) mmol/L BUN 19 H (7-17) mg/dL Glucose 184 H (74-99) mg/dL Ferritin 886.9 H (10.0-291.0) ng/mL Creatine Kinase <20 L (30-135) U/L C-Reactive Protein 433.1 H (<10.0) mg/L Procalcitonin (0.02-0.09) ng/mL Urine Appearance (Clear) Urine Protein (Negative) Urine Blood (Negative) Ur Leukocyte Esterase (Negative) Urine RBC (0-5) /hpf Urine WBC (0-5) /hpf Urine WBC Clumps (None) /hpf Urine Bacteria (None) /hpf Urine Opiates Screen (NotDetected) U Benzodiazepines Scrn (NotDetected) 01/20/20 01/20/20 Range/Units 20:13 20:23 WBC (3.8-10.6) k/uL MCHC (31.0-37.0) g/dL RDW (11.5-15.5) % Neutrophils # (Manual) (1.3-7.7) k/uL Monocytes # (Manual) (0-1.0) k/uL D-Dimer (<0.60) mg/L FEU Sodium (137-145) mmol/L Chloride (98-107) mmol/L Carbon Dioxide (22-30) mmol/L BUN (7-17) mg/dL Glucose (74-99) mg/dL Ferritin (10.0-291.0) ng/mL Creatine Kinase (30-135) U/L C-Reactive Protein (<10.0) mg/L Procalcitonin 0.42 H (0.02-0.09) ng/mL Urine Appearance Turbid H (Clear) Urine Protein 2+ H (Negative) Urine Blood Large H (Negative) Ur Leukocyte Esterase Large H (Negative) Urine RBC >182 H (0-5) /hpf Urine WBC >182 H (0-5) /hpf Urine WBC Clumps Many H (None) /hpf Urine Bacteria Occasional H (None) /hpf Urine Opiates Screen Detected H (NotDetected) U Benzodiazepines Scrn Detected H (NotDetected) Microbiology - Last 24 Hours (Table) 01/20/20 20:23 Urine Culture - Preliminary Urine,Catheterized Assessment and Plan Assessment: patient presented to hospital with sepsis in this patient who did have a fever tachycardia elevated white count and significantly positive UA likely the source patient currently with no respiratory symptoms abdominal soft routine examination and no evidence of any cellulitis with recent admission to hospital with a rash and concern for possible Augmentin related, ultrasound was negative for any structural abnormality/hydronephrosis (1) Sepsis Current Visit: Yes Status: Acute Code(s): A41.9 - SEPSIS, UNSPECIFIED ORGANISM SNOMED Code(s): 87906397 (2) Urinary tract infection Current Visit: Yes Status: Acute Code(s): N39.0 - URINARY TRACT INFECTION, SITE NOT SPECIFIED SNOMED Code(s): 89560133 Plan: 1-discontinue Zosyn 2-start the patient cefepime 2 g every 12 hours 3-gentle IV fluid We will follow on clinical condition and cultures to further adjust medication if needed Thank you for this consultation we will follow the patient along with you Time with Patient: Greater than 30
[2020-01-22 12:03] LABS: Albumin 2.7 g/dL (3.5-5.0); Calcium 7.8 mg/dL (8.4-10.2); Potassium 2.9 mmol/L (3.5-5.1); Total Bilirubin 0.2 mg/dL (0.2-1.3); Total Protein 5.7 g/dL (6.3-8.2)
[2020-01-22 12:20] LABS: Anisocytosis Moderate; HCT 29.9 % (34.0-46.0); Hypochromasia Marked; MCH 24.1 pg (25.0-35.0); Mean Platelet Volume 7.8; Microcytosis Slight; Platelet Count 267 k/uL (150-450); RDW 21.7 % (11.5-15.5); WBC 25.6 k/uL (3.8-10.6)
[2020-01-22] MEDS ORDERED: Potassium Replacement Protocol 1 EACH MISC MISCELLANE PRN (12:25)
[2020-01-22 12:26] LABS: HGB 8.7 gm/dL (11.4-16.0)
--- NOTE | 2020-01-22 12:29 | P.PN ---
Subjective Progress Note Date: 01/22/20 Jaqui Garza, is an 84-year-old female who presented to [facility] emergency room due to elevated temperature of 102.4 at the detention, and generalized weakness, patient had 2 recent admissions, on the first admission she had evidence of urinary tract infection, her white blood count was elevated at 50,000, she was treated with IV antibiotics, she was seen by hematology and infectious disease, she was discharged to detention on oral Augmentin, white blood count at the time of discharge was 10,000 patient developed generalized rash, and her white blood count was up to 21,000 she was readmitted to the hospital and was seen by infectious disease who advised to withhold antibiotic and thought that her symptoms are related to ALLERGIC reaction to Augmentin white blood count came down to 14,000 patient was transferred back to the detention, patient was therefore few days then she started having elevated temperature at 102.4 she had evidence of urinary tract infection and her white blood count was elevated again to 26.5 patient was admitted to medical floor she was started on IV Zosyn infectious disease consultation was requested. Patient was seen and examined on 01/21/2020 she is alert and oriented in no apparent distress she is complaining of fatigue and generalized weakness otherwise no specific complaints her temperature on arrival to emergency room was 102.8 she denies any chest pain or shortness of breath no cough no nausea or vomiting no abdominal pain no diarrhea no burning with urination no frequency or urgency and no hematuria On 01/22/2020, patient was seen and examined on the medical floor , she is alert and oriented 3 in no apparent distress, she is afebrile and reports feeling much better, there is no fever or chills no headache or dizziness no chest pain no shortness of breath no cough no nausea or vomiting no abdominal pain no diarr hea no burning with urination no frequency or urgency and no hematuria, patient has Thacker catheter in. Objective - Vital Signs Vital signs: Vital Signs Temp 98.6 F 01/22/20 10:58 Pulse 103 H 01/22/20 10:58 Resp 18 01/22/20 10:58 BP 117/54 01/22/20 10:58 Pulse Ox 98 01/22/20 10:58 Intake & Output 01/21/20 01/22/20 01/22/20 18:59 06:59 18:59 Intake Total 450 360 Output Total 300 800 Balance 150 -440 Weight 55 kg Intake: Oral 450 360 Output: Urine 300 800 Other: Voiding Method Indwelling Catheter Indwelling Catheter Indwelling Catheter - Exam In general patient is alert and oriented 3 in no apparent distress HEENT head normocephalic and atraumatic Neck is supple no JVD no goiter no lymphadenopathy Chest exam reveals a few scattered crackles no wheezing Cardiac exam reveals regular heart sounds S1 and S2 no gallops no murmurs Abdomen is soft nontender no organomegaly with normal bowel sounds Extremity exam reveals 1+ edema bilaterally no cyanosis or clubbing Neurological examination reveals no gross focal deficit - Labs CBC & Chem 7: 01/22/20 11:30 01/22/20 11:30 Labs: Microbiology - Last 24 Hours (Table) 01/20/20 20:23 Urine Culture - Preliminary Urine,Catheterized Gram Neg Bacilli 01/20/20 20:13 Blood Culture - Preliminary Blood No Growth after 24 hours Assessment and Plan Plan: 1. Sepsis with fever, leukocytosis 2. Urinary tract infection. Recurrent, will check ultrasound of the kidneys to rule out any structural abnormality or kidney stone causing recurrent infecti ons. 3. Elevated d-dimer will check computed tomography scan angiogram of the chest to rule out pulmonary embolism 4. Underlying history of hypertension well-controlled on current medications 5. Underlying history of gastroesophageal reflux disease maintained on Protonix At this time patient is admitted to medical floor she is started on IV antibiotics Cultures are still pending, will review culture results from the hospital and from the detention, unfortunately we do not have any positive cultures to direct antibiotic treatment so far Infectious disease consultation requested Will follow closely
[2020-01-22 13:11] LABS: Lymphocytes # (M) 0.77 k/uL (1.0-4.8); Monocytes # (M) 3.33 k/uL (0-1.0); Neutrophils % (M) 84 %; Nucleated Red Blood Cells 0 /100 WBC (0-0); Total Cells Counted 100
[2020-01-22] MEDS: BACLOFEN 10 MG TAB PO PRN (13:31)
[2020-01-22] MEDS: DOCUSATE 100 MG CAP PO SCH (20:32)
[2020-01-22 20:56] LABS: Glucose,Whole Blood 171 mg/dL (75-99)
--- NOTE | 2020-01-23 03:53 | PN ---
PROGRESS NOTE DATE OF SERVICE: 01/22/2020 REASON FOR FOLLOWUP: Leukocytosis and urinary tract infection. INTERVAL HISTORY: The patient is currently afebrile. The patient is more awake and alert today. She is breathing comfortably. Denies having any chest pain or cough. No abdominal pain or diarrhea. She did have Thacker catheter with draining clear urine. PHYSICAL EXAMINATION: Blood pressure 133/64 with a pulse of 82, temperature 99.6. She is 97% on room air. General description is an elderly female lying in bed in no distress. RESPIRATORY SYSTEM: Unlabored breathing, clear to auscultation anteriorly. HEART: S1, S2. Regular rate and rhythm. ABDOMEN: Soft, no tenderness. LABS: Hemoglobin 8.7, white count 25.6. BUN of 15, creatinine 0.76. Urine showing gram- negative bacilli. DIAGNOSTIC IMPRESSION AND PLAN: Patient admitted to the hospital with fever and mental status changes likely urinary tract infection, positive Gram-negative. Urine cultures currently pending. White count is elevated. Keep the patient on cefepime. Will adjust antibiotic further based on culture report and continue supportive care. MMODL / IJN: [id number] /
[2020-01-23] MEDS: ALPRAZolam 0.25 MG TAB PO PRN (04:46)
[2020-01-23] MEDS: SODIUM CHLORIDE 0.9% 1,000 ML IV SCH ×2 (04:46→11:17)
[2020-01-23] MEDS: FUROSEMIDE 40 MG TAB PO SCH (05:56)
[2020-01-23] MEDS: PANTOPRAZOLE 40 MG TABLET PO SCH (05:56)
[2020-01-23] MEDS: HYDROcodone/APAP 7.5-325MG 1 EACH TAB PO SCH ×3 (05:57→20:38)
[2020-01-23 07:42] LABS: ALT 9 U/L (4-34); AST 19 U/L (14-36); African American GFR (CKD) >90 (>60 ml/min/1.73 sqM); Albumin 2.5 g/dL (3.5-5.0); Alkaline Phosphatase 76 U/L (38-126); Anion Gap 9 mmol/L; Blood Urea Nitrogen 14 mg/dL (7-17); Calcium 7.9 mg/dL (8.4-10.2); Carbon Dioxide 22 mmol/L (22-30); Chloride 104 mmol/L (98-107); Glucose 111 mg/dL (74-99); Non-African American GFR(CKD) 83 (>60 ml/min/1.73 sqM); Potassium 2.9 mmol/L (3.5-5.1); Sodium 135 mmol/L (137-145); Total Bilirubin 0.3 mg/dL (0.2-1.3); Total Protein 5.6 g/dL (6.3-8.2)
[2020-01-23 08:17] LABS: Anisocytosis Moderate; Basophils # (A) 0.1 k/uL (0-0.2); Basophils % (A) 0 %; Eosinophils # (A) 0.5 k/uL (0-0.7); Eosinophils % (A) 2 %; HCT 27.5 % (34.0-46.0); HGB 8.3 gm/dL (11.4-16.0); Hypochromasia Marked; Lymphocytes # (A) 1.5 k/uL (1.0-4.8); Lymphocytes % (A) 7 %; MCH 24.9 pg (25.0-35.0); MCHC 30.1 g/dL (31.0-37.0); MCV 82.6 fL (80.0-100.0); Mean Platelet Volume 8.1; Microcytosis Slight; Monocytes # (A) 1.7 k/uL (0-1.0); Monocytes % (A) 8 %; Neutrophils # (A) 16.8 k/uL (1.3-7.7); Neutrophils % (A) 80 %; Platelet Count 257 k/uL (150-450); RBC 3.32 m/uL (3.80-5.40); RDW 21.2 % (11.5-15.5); WBC 21.2 k/uL (3.8-10.6)
[2020-01-23] MEDS: FOLIC ACID 1 MG TAB PO SCH (09:08)
[2020-01-23] MEDS: CEFEPIME 2 GM in SODIUM CHLORIDE 0.9% 100 ML IVPB SCH (09:08)
[2020-01-23] MEDS: ENOXAPARIN 40 MG/0.4 ML SYRINGE SQ SCH (09:08)
[2020-01-23] MEDS: METOPROLOL TARTRATE 25 MG TAB PO SCH ×2 (09:09→20:38)
[2020-01-23] MEDS ORDERED: Potassium Replacement Protocol 1 EACH MISC MISCELLANE PRN (10:16)
[2020-01-23] MEDS: POTASSIUM CHLORIDE ER 20 MEQ TAB.ER PO SCH ×3 (11:14→15:33)
[2020-01-23] MEDS: FUROSEMIDE 10 MG/ML 2 ML VIAL IV SCH ×2 (11:17→20:39)
[2020-01-23 12:04] LABS: Glucose,Whole Blood 162 mg/dL (75-99)
--- NOTE | 2020-01-23 14:48 | P.CNPUL ---
History of Present Illness Consult date: 01/23/20 Requesting physician: Dalton Madden Reason for consult: dyspnea Chief complaint: dyspnea, interstitial pulmonary infiltrates History of present illness: 84-year-old female patient of Dr. Madden with past medical history of hypertension, chronic back pain, osteoarthritis, history of breast cancer status post right mastectomy, depression, urinary incontinence, history of recurrent urinary tract infections, who we had previously seen in consultation in December 2019 for shortness of breath related to fluid volume overload and acute exacerbation of CHF. During that hospitalization patient was admitted with acute urinary tract infection and possibility of colitis. her echocardiogram from December 2019 showed a preserved LV function with EF of 60-65%, mild aortic regurgitation, mild MR, mild TR, and moderately severe pulmonary hypertension with right-sided pressures of 52.8 mmHg. patient was diuresed, she was breathing easier, she was treated with antibiotics, and was discharged to [facility] on the [place] on 01/18/2020 on oral Augmentin. on 01/20/2020 patient was brought in to the hospital per EMS for evaluation of fever, altered mental status, weakness and confusion. Patient also had loss of appetite, shortness of breath, and foul smelling urine. urine culture was positive for pseudomonas aeruginosa and patient is currently on cefepime. Her chest x-ray showed prominent pulmonary vasculature. admission blood work showed white blood cell, 26.5, hemoglobin of 12.5, patient had elevated d-dimer at 2.43, but her CT angios of the chest showed cardiomegaly with patchy pulmonary interstitial infiltrates and atelectasis, mild airspace infiltrates and pleural fluid at the lung bases, no evidence of pulmonary embolism. urinalysis was positive for large amount of leuks, greater than 182 of WBCs and white blood cells in clumps. Urine drug screen was positive for opiates, and benzodiazepines, coronavirus PCR was negative. Were asked to see the patient in evaluation for pulmonary infiltrates seen on the chest x-ray and CTA chest. at the time of our evaluation patient is calm and comfortable, she is on room air, her pulse ox is 97%, lung sounds reveal diminished breath sounds at the bases, no significant wheezing or rhonchi, she is afebrile, she remains on cefepime for pseudomonal urinary tract infection. patient appears to be quite edematous in her lower extremities, we will add IV diuretics for fluid overload small pleural effusions, and interstitial prominence likely related to mild exacerbation of CHF Review of Systems All systems: negative Constitutional: Reports fatigue, Reports lethargy, Reports poor appetite, Reports weakness, Denies chills, Denies fever Eyes: denies blurred vision, denies pain Ears, nose, mouth and throat: Denies headache, Denies sore throat Cardiovascular: Denies chest pain, Denies shortness of breath Respiratory: Reports dyspnea, Denies cough Gastrointestinal: Denies abdominal pain, Denies diarrhea, Denies nausea, Denies vomiting Genitourinary: Denies dysuria, Denies hematuria Musculoskeletal: Denies myalgias Integumentary: Denies pruritus, Denies rash Neurological: Denies numbness, Denies weakness Psychiatric: Denies anxiety, Denies depression Endocrine: Denies fatigue, Denies weight change Past Medical History Past Medical History: Cancer, Hypertension, Musculoskeletal Disorder Additional Past Medical History / Comment(s): CONSITPATION, DIVERTICULITIS, CHRONIC BACK PAIN, ANEMIA History of Any Multi-Drug Resistant Organisms: None Reported Past Surgical History: Breast Surgery, Hysterectomy Additional Past Surgical History / Comment(s): RIGHT MASTECTOMY, EYE SURGERY(hole in left retina) 4-5 yrs ago. wilbert cataracts. Past Anesthesia/Blood Transfusion Reactions: No Reported Reaction Past Psychological History: Depression Smoking Status: Never smoker Past Alcohol Use History: Rare Past Drug Use History: None Reported - Past Family History Brother(s) Additional Family Medical History / Comment(s): Hodgkin's Lymphoma Mother Family Medical History: Cancer Medications and Allergies Home Medications Medication Instructions Recorded Confirmed Type Baclofen [Lioresal] 10 mg PO Q6H PRN 12/23/19 01/21/20 History Docusate [Colace] 100 mg PO DAILY@209912/23/19 01/21/20 History HYDROcodone/APAP 7.5-325MG [[place] 1 tab PO TID@0600,1300,209912/23/19 01/21/20 History 7.5-325] ALPRAZolam [Xanax] 0.25 mg PO QID PRN tab 01/05/20 01/21/20 Rx Acetaminophen Tab [Tylenol] 650 mg PO Q4H PRN 01/15/20 01/21/20 History Calcium Carbonate [Tums] 1,000 mg PO Q6H PRN 01/15/20 01/21/20 History Folic Acid 1 mg PO DAILY@0901/15/20 01/21/20 History Furosemide [Lasix] 40 mg PO DAILY@59901/15/20 01/21/20 History Menthol [Biofreeze] 1 applic TOPICAL Q6H PRN 01/15/20 01/21/20 History Pantoprazole [Protonix] 40 mg PO DAILY@59901/15/20 01/21/20 History Metoprolol Tartrate [Lopressor] 25 mg PO BID tab 01/18/20 01/21/20 Rx Allergies Allergy/AdvReac Type Severity Reaction Status Date / Time codeine AdvReac Nausea & Verified 01/21/20 09:41 Vomiting Physical Exam Vitals: Vital Signs Temp Pulse Resp BP Pulse Ox 01/23/20 11:15 97.5 F L 67 18 134/60 97 01/23/20 07:45 97.4 F L 91 18 140/76 97 01/23/20 04:00 98.3 F 91 18 148/68 95 01/23/20 01:09 98.3 F 81 18 141/67 97 01/22/20 21:41 99.6 F 82 18 133/64 97 01/22/20 16:00 98.7 F 85 18 111/55 96 Intake and Output 01/22/20 01/23/20 01/23/20 22:59 06:59 14:59 Intake Total 480 1530 236 Output Total 300 1400 3250 Balance 180 130 -3014 Intake: Intake, IV Titration 1430 Amount Sodium Chloride 0.9% 1, 1430 000 ml @ 20 mls/hr IV . Q24H [facility] Rx#:[id number] Oral 480 100 236 Output: Urine 300 1400 3250 Uretheral (Thacker) 700 Other: Voiding Method Indwelling Catheter Incontinent Indwelling Catheter # Bowel Movements 1 Weight 52.5 kg GENERAL EXAM: Alert,very pleasant, 84-year-old white female on room air with a pulse ox of 97%, comfortable in no apparent distress. HEAD: Normocephalic/atraumatic. EYES: Normal reaction of pupils, equal size. Conjunctiva pink, sclera white. NOSE: Clear with pink turbinates. THROAT: No erythema or exudates. NECK: No masses, no JVD, no thyroid enlargement, no adenopathy. CHEST: No chest wall deformity. Symmetrical expansion. LUNGS: Equal air entry with no crackles, wheeze, rhonchi or dullness. CVS: Regular rate and rhythm, normal S1 and S2, no gallops, no murmurs, no rubs ABDOMEN: Soft, nontender. No hepatosplenomegaly, normal bowel sounds, no guarding or rigidity. EXTREMITIES: No clubbing, 2+ lower extremity edema,no cyanosis, 2+ pulses and upper and lower extremities. MUSCULOSKELETAL: Muscle strength and tone normal. SPINE: No scoliosis or deformity SKIN: No rashes CENTRAL NERVOUS SYSTEM: Alert and oriented -3. No focal deficits, tone is normal in all 4 extremities. PSYCHIATRIC: Alert and oriented -3. Appropriate affect. Intact judgment and insight. Results - Laboratory Findings CBC and BMP: 01/23/20 06:21 01/23/20 06:21 PT/INR, D-dimer PT 10.7 sec (9.0-12.0) 01/20/20 20:13 INR 1.0 (<1.2) 01/20/20 20:13 D-Dimer 2.43 mg/L FEU (<0.60) H 01/20/20 20:13 Abnormal lab findings: Abnormal Labs 01/20/20 01/20/20 01/20/20 20:13 20:13 20:13 WBC 26.5 H RBC Hgb Hct MCH MCHC 30.9 L RDW 21.2 H Neutrophils # Neutrophils # (Manual) 22.53 H Lymphocytes # (Manual) Monocytes # Monocytes # (Manual) 1.59 H D-Dimer 2.43 H Sodium 130 L Potassium Chloride 93 L Carbon Dioxide 20 L BUN 19 H Glucose 184 H POC Glucose (mg/dL) Calcium Ferritin 886.9 H Creatine Kinase <20 L C-Reactive Protein 433.1 H Total Protein Albumin Procalcitonin Urine Appearance Urine Protein Urine Blood Ur Leukocyte Esterase Urine RBC Urine WBC Urine WBC Clumps Urine Bacteria Urine Opiates Screen U Benzodiazepines Scrn 01/20/20 01/20/20 01/22/20 20:13 20:23 11:30 WBC 25.6 H RBC 3.60 L Hgb 8.7 L D Hct 29.9 L MCH 24.1 L MCHC 29.0 L RDW 21.7 H Neutrophils # Neutrophils # (Manual) 21.50 H Lymphocytes # (Manual) 0.77 L Monocytes # Monocytes # (Manual) 3.33 H D-Dimer Sodium Potassium Chloride Carbon Dioxide BUN Glucose POC Glucose (mg/dL) Calcium Ferritin Creatine Kinase C-Reactive Protein Total Protein Albumin Procalcitonin 0.42 H Urine Appearance Turbid H Urine Protein 2+ H Urine Blood Large H Ur Leukocyte Esterase Large H Urine RBC >182 H Urine WBC >182 H Urine WBC Clumps Many H Urine Bacteria Occasional H Urine Opiates Screen Detected H U Benzodiazepines Scrn Detected H 01/22/20 01/22/20 01/23/20 11:30 20:50 06:21 WBC 21.2 H RBC 3.32 L Hgb 8.3 L Hct 27.5 L MCH 24.9 L MCHC 30.1 L RDW 21.2 H Neutrophils # 16.8 H Neutrophils # (Manual) Lymphocytes # (Manual) Monocytes # 1.7 H Monocytes # (Manual) D-Dimer Sodium 133 L Potassium 2.9 L Chloride Carbon Dioxide 21 L BUN Glucose 135 H POC Glucose (mg/dL) 171 H Calcium 7.8 L Ferritin Creatine Kinase C-Reactive Protein Total Protein 5.7 L Albumin 2.7 L Procalcitonin Urine Appearance Urine Protein Urine Blood Ur Leukocyte Esterase Urine RBC Urine WBC Urine WBC Clumps Urine Bacteria Urine Opiates Screen U Benzodiazepines Scrn 01/23/20 01/23/20 06:21 12:02 WBC RBC Hgb Hct MCH MCHC RDW Neutrophils # Neutrophils # (Manual) Lymphocytes # (Manual) Monocytes # Monocytes # (Manual) D-Dimer Sodium 135 L Potassium 2.9 L Chloride Carbon Dioxide BUN Glucose 111 H POC Glucose (mg/dL) 162 H Calcium 7.9 L Ferritin Creatine Kinase C-Reactive Protein Total Protein 5.6 L Albumin 2.5 L Procalcitonin Urine Appearance Urine Protein Urine Blood Ur Leukocyte Esterase Urine RBC Urine WBC Urine WBC Clumps Urine Bacteria Urine Opiates Screen U Benzodiazepines Scrn - Diagnostic Findings Chest x-ray: report reviewed, image reviewed CT scan - chest: report reviewed, image reviewed Additional studies: EKG results have been reviewed, ultrasound the kidneys renal and bladder have been reviewed showing no evidence of hydronephrosis Assessment and Plan Plan: Assessment: #1. Mild interstitial pulmonary infiltrates, and minimal pleural fluid at the lung bases not enough for thoracentesis, likely related to fluid overload, and acute exacerbation of diastolic CHF #2. Acute urinary tract infection related to pseudomonas aeruginosa with sepsis #3. Acute leukocytosis related to the above #4. Recent admission for urinary tract infection, treated with Unasyn, discharg ed to the [facility] on 01/18/2020 on oral Augmentin, and urine culture did not show growth during that admission #5. History of sigmoid diverticulosis #6. History of iron deficiency anemia, with history of EGD showing multiple gastric ulcers #7. chronic back pain #8. Hypertension #9. Urinary incontinence #10. No evidence of hydronephrosis on the ultrasound of the kidneys #11. History of osteoporosis #14. Hypokalemia #15. lifetime nonsmoker #16. History of diverticulitis #17. Previous history of right mastectomy #18. Elevated d-dimer, nonspecific, CT chest showed no evidence of pulmonary embolism Plan: Patient is chest x-ray and CTA chest have been reviewed, showing interstitial pulmonary infiltrates, minimal amount of pleural fluid, and patient is quite edematous, we will add IV Lasix at 20 mg every 12 hours, will cut back to IV fluids to KVO. Patient has had no fever in the last 24 hours, she denies any cough or congestion, denies any chest pain. No significant dyspnea, patient is on room air I performed a history & physical examination of the patient and discussed their management with my nurse practitioner, Kayy Pimentel. I reviewed the nurse practitioner's note and agree with the documented findings and plan of care. Lung sounds are positive for basilar rales The findings and the impression was discussed with the patient. I attest to the documentation by the nurse practitioner. Time with Patient: Greater than 30
[2020-01-23 16:57] LABS: Glucose,Whole Blood 156 mg/dL (75-99)
--- NOTE | 2020-01-23 17:21 | P.PN ---
Subjective Progress Note Date: 01/23/20 Jaqui Garza, is an 84-year-old female who presented to [facility] emergency room due to elevated temperature of 102.4 at the [facility], and generalized weakness, patient had 2 recent admissions, on the first admission she had evidence of urinary tract infection, her white blood count was elevated at 50,000, she was treated with IV antibiotics, she was seen by hematology and infectious disease, she was discharged to [facility] on oral Augmentin, white blood count at the time of discharge was 10,000 patient developed generalized rash, and her white blood count was up to 21,000 she was readmitted to the hospital and was seen by infectious disease who advised to withhold antibiotic and thought that her symptoms are related to ALLERGIC reaction to Augmentin white blood count came down to 14,000 patient was transferred back to the [facility], patient was therefore few days then she started having elevated temperature at 102.4 she had evidence of urinary tract infection and her white blood count was elevated again to 26.5 patient was admitted to medical floor she was started on IV Zosyn infectious disease consultation was requested. Patient was seen and examined on 01/21/2020 she is alert and oriented in no apparent distress she is complaining of fatigue and generalized weakness otherwise no specific complaints her temperature on arrival to emergency room was 102.8 she denies any chest pain or shortness of breath no cough no nausea or vomiting no abdominal pain no diarrhea no burning with urination no frequency or urgency and no hematuria On 01/22/2020, patient was seen and examined on the medical floor , she is alert and oriented 3 in no apparent distress, she is afebrile and reports feeling much better, there is no fever or chills no headache or dizziness no chest pain no shortness of breath no cough no nausea or vomiting no abdominal pain no diarr hea no burning with urination no frequency or urgency and no hematuria, patient has Thacker catheter in. On 01/23/2020 patient was seen and examined on the medical floor she is alert and oriented in no distress no new episodes of fever no chills no headache or dizziness no chest pain no shortness of breath no cough no nausea or vomiting no abdominal pain no diarrhea no urinary symptoms Thacker catheter is still in. Patient has significant debility Will consult physical therapy and occupational therapy she will need to return to [facility] after this admission. Objective - Vital Signs Vital signs: Vital Signs Temp 97.5 F L 01/23/20 11:15 Pulse 67 01/23/20 11:15 Resp 18 01/23/20 11:15 BP 134/60 01/23/20 11:15 Pulse Ox 97 01/23/20 11:15 Intake & Output 01/22/20 01/23/20 01/23/20 18:59 06:59 18:59 Intake Total 1080 1530 236 Output Total 1850 1400 3250 Balance -770 130 -3014 Weight 52.5 kg Intake: Intake, IV Titration 1430 Amount Sodium Chloride 0.9% 1, 1430 000 ml @ 20 mls/hr IV . Q24H [facility] Rx#:[id number] Oral 1080 100 236 Output: Urine 1850 1400 3250 Uretheral (Thacker) 700 Other: Voiding Method Indwelling Catheter Incontinent Indwelling Catheter # Bowel Movements 1 - Exam In general patient is alert and oriented 3 in no apparent distress HEENT head normocephalic and atraumatic Neck is supple no JVD no goiter no lymphadenopathy Chest exam reveals a few scattered crackles no wheezing Cardiac exam reveals regular heart sounds S1 and S2 no gallops no murmurs Abdomen is soft nontender no organomegaly with normal bowel sounds Extremity exam reveals 1+ edema bilaterally no cyanosis or clubbing Neurological examination reveals no gross focal deficit - Labs CBC & Chem 7: 01/23/20 06:21 01/23/20 06:21 Labs: Abnormal Lab Results - Last 24 Hours (Table) 01/22/20 01/23/20 01/23/20 Range/Units 20:50 06:21 06:21 WBC 21.2 H (3.8-10.6) k/uL RBC 3.32 L (3.80-5.40) m/uL Hgb 8.3 L (11.4-16.0) gm/dL Hct 27.5 L (34.0-46.0) % MCH 24.9 L (25.0-35.0) pg MCHC 30.1 L (31.0-37.0) g/dL RDW 21.2 H (11.5-15.5) % Neutrophils # 16.8 H (1.3-7.7) k/uL Monocytes # 1.7 H (0-1.0) k/uL Sodium 135 L (137-145) mmol/L Potassium 2.9 L (3.5-5.1) mmol/L Glucose 111 H (74-99) mg/dL POC Glucose (mg/dL) 171 H (75-99) mg/dL Calcium 7.9 L (8.4-10.2) mg/dL Total Protein 5.6 L (6.3-8.2) g/dL Albumin 2.5 L (3.5-5.0) g/dL 01/23/20 01/23/20 Range/Units 12:02 16:41 WBC (3.8-10.6) k/uL RBC (3.80-5.40) m/uL Hgb (11.4-16.0) gm/dL Hct (34.0-46.0) % MCH (25.0-35.0) pg MCHC (31.0-37.0) g/dL RDW (11.5-15.5) % Neutrophils # (1.3-7.7) k/uL Monocytes # (0-1.0) k/uL Sodium (137-145) mmol/L Potassium (3.5-5.1) mmol/L Glucose (74-99) mg/dL POC Glucose (mg/dL) 162 H 156 H (75-99) mg/dL Calcium (8.4-10.2) mg/dL Total Protein (6.3-8.2) g/dL Albumin (3.5-5.0) g/dL Microbiology - Last 24 Hours (Table) 01/20/20 20:23 Urine Culture - Final Urine,Catheterized Pseudomonas aeruginosa 01/20/20 20:13 Blood Culture - Preliminary Blood No Growth after 48 hours Assessment and Plan Plan: 1. Sepsis with fever, leukocytosis 2. Urinary tract infection. Recurrent, will check ultrasound of the kidneys to rule out any structural abnormality or kidney stone causing recurrent infections. 3. Elevated d-dimer will check computed tomography scan angiogram of the chest to rule out pulmonary embolism 4. Underlying history of hypertension well-controlled on current medications 5. Underlying history of gastroesophageal reflux disease maintained on Protonix 6. Physical debility Will consult physical therapy and occupational therapy patient will need to return to [facility] after this admission 7. Bilateral infiltrates on computed tomography scan of the chest pulmonary consultation was requested At this time patient is admitted to medical floor she is started on IV antibiotics Cultures are still pending, will review culture results from the hospital and from the [facility], unfortunately we do not have any positive cultures to direct antibiotic treatment so far Infectious disease consultation requested Will follow closely
[2020-01-23] MEDS: DOCUSATE 100 MG CAP PO SCH (20:38)
[2020-01-24] MEDS: CIPROFLOXACIN HCL 250 MG TAB PO SCH ×3 (00:33→20:04)
--- NOTE | 2020-01-24 02:51 | PN ---
PROGRESS NOTE DATE OF SERVICE: 01/23/2020 REASON FOR FOLLOWUP: Urinary tract infection. INTERVAL HISTORY: The patient is currently afebrile. The patient has been breathing comfortably. No chest pain, shortness of breath or cough. No abdominal pain or diarrhea. PHYSICAL EXAMINATION: Blood pressure 133/65 with a pulse of 64, temperature of 98.4. She is 98% on room air. General description is an elderly female lying in bed in no distress. RESPIRATORY SYSTEM: Unlabored breathing, clear to auscultation anteriorly. HEART: S1, S2. Regular rate and rhythm. ABDOMEN: Soft. LABS: White count still elevated 21,000. Urine has now been finalized with Pseudomonas aeruginosa that is resistant to the cefepime and Zosyn. DIAGNOSTIC IMPRESSION AND PLAN: Patient with Pseudomonas urinary tract infection with resistant pattern, though sensitive to Cipro. We will switch her over to oral Cipro and see clinical response to it and monitor clinical course closely. MMODL / IJN: [id number] /
[2020-01-24] MEDS: PANTOPRAZOLE 40 MG TABLET PO SCH (06:06)
[2020-01-24] MEDS: HYDROcodone/APAP 7.5-325MG 1 EACH TAB PO SCH ×3 (06:06→20:05)
[2020-01-24 07:12] LABS: Anisocytosis Moderate; Basophils # (A) 0.1 k/uL (0-0.2); Basophils % (A) 0 %; Eosinophils # (A) 0.4 k/uL (0-0.7); Eosinophils % (A) 2 %; HCT 30.1 % (34.0-46.0); HGB 9.1 gm/dL (11.4-16.0); Hypochromasia Marked; Lymphocytes # (A) 1.7 k/uL (1.0-4.8); Lymphocytes % (A) 8 %; MCHC 30.4 g/dL (31.0-37.0); MCV 82.3 fL (80.0-100.0); Mean Platelet Volume 7.7; Microcytosis Slight; Monocytes # (A) 1.9 k/uL (0-1.0); Monocytes % (A) 9 %; Neutrophils # (A) 17.2 k/uL (1.3-7.7); Neutrophils % (A) 79 %; Platelet Count 298 k/uL (150-450); RBC 3.65 m/uL (3.80-5.40); RDW 21.4 % (11.5-15.5); WBC 21.7 k/uL (3.8-10.6)
[2020-01-24 07:14] LABS: ALT 11 U/L (4-34); AST 21 U/L (14-36); African American GFR (CKD) >90 (>60 ml/min/1.73 sqM); Albumin 2.9 g/dL (3.5-5.0); Alkaline Phosphatase 85 U/L (38-126); Anion Gap 9 mmol/L; Blood Urea Nitrogen 13 mg/dL (7-17); Calcium 8.1 mg/dL (8.4-10.2); Carbon Dioxide 26 mmol/L (22-30); Chloride 100 mmol/L (98-107); Glucose 119 mg/dL (74-99); Non-African American GFR(CKD) 83 (>60 ml/min/1.73 sqM); Potassium 3.2 mmol/L (3.5-5.1); Sodium 135 mmol/L (137-145); Total Bilirubin 0.4 mg/dL (0.2-1.3); Total Protein 6.2 g/dL (6.3-8.2)
[2020-01-24] MEDS ORDERED: Potassium Replacement Protocol 1 EACH MISC MISCELLANE PRN (07:32)
[2020-01-24] MEDS: POTASSIUM CHLORIDE ER 20 MEQ TAB.ER PO SCH ×2 (08:16→11:31)
[2020-01-24] MEDS: FOLIC ACID 1 MG TAB PO SCH (08:16)
[2020-01-24] MEDS: METOPROLOL TARTRATE 25 MG TAB PO SCH ×2 (08:17→20:04)
[2020-01-24] MEDS: ENOXAPARIN 40 MG/0.4 ML SYRINGE SQ SCH (08:17)
[2020-01-24] MEDS: FUROSEMIDE 10 MG/ML 2 ML VIAL IV SCH ×2 (08:17→20:05)
[2020-01-24] MEDS: SODIUM CHLORIDE 0.9% 1,000 ML IV SCH (11:31)
--- NOTE | 2020-01-24 12:41 | P.PN ---
Subjective Progress Note Date: 01/24/20 Principal diagnosis: Dyspnea, interstitial pulmonary infiltrates 84-year-old female patient of Dr. Madden with past medical history of hypertension, chronic back pain, osteoarthritis, history of breast cancer status post right mastectomy, depression, urinary incontinence, history of recurrent urinary tract infections, who we had previously seen in consultation in December 2019 for shortness of breath related to fluid volume overload and acute exacerbation of CHF. During that hospitalization patient was admitted with acute urinary tract infection and possibility of colitis. her echocardiogram from December 2019 showed a preserved LV function with EF of 60-65%, mild aortic regurgitation, mild MR, mild TR, and moderately severe pulmonary hypertension with right-sided pressures of 52.8 mmHg. patient was diuresed, she was breathing easier, she was treated with antibiotics, and was discharged to [facility] on the [place] on 01/18/2020 on oral Augmentin. on 01/20/2020 patient was brought in to the hospital per EMS for evaluation of fever, altered mental status, weakness and confusion. Patient also had loss of appetite, shortness of breath, and foul smelling urine. urine culture was positive for pseudomonas aeruginosa and patient is currently on cefepime. Her chest x-ray showed prominent pulmonary vasculature. admission blood work showed white blood cell, 26.5, hemoglobin of 12.5, patient had elevated d-dimer at 2.43, but her CT angios of the chest showed cardiomegaly with patchy pulmonary interstitial infiltrates and atelectasis, mild airspace infiltrates and pleural fluid at the lung bases, no evidence of pulmonary embolism. urinalysis was positive for large amount of leuks, greater than 182 of WBCs and white blood cells in clumps. Urine drug screen was positive for opiates, and benzodiazepines, coronavirus PCR was negative. Were asked to see the patient in evaluation for pulmonary infiltrates seen on the chest x-ray and CTA chest. at the time of our evaluation patient is calm and comfortable, she is on room air, her pulse ox is 97%, lung sounds reveal diminished breath sounds at the bases, no significant wheezing or rhonchi, she is afebrile, she remains on cefepime for pseudomonal urinary tract infection. patient appears to be quite edematous in her lower extremities, we will add IV diuretics for fluid overload small pleural effusions, and interstiti al prominence likely related to mild exacerbation of CHF On 01/24/2020 patient seen in follow-up on selective care unit, she is resting comfortably in the recliner, she denies any shortness of breath, she is on room air, lung sounds are diminished at the bases, no rhonchi, no wheezing. Patient remains on IV Lasix at 20 mg every 12 hours she is in -4.6 L over the last 24 hours. Today's labs have been reviewed, showing white blood cell count of 21.7, hemoglobin of 9.1, sodium is 135, potassium is 3.2, the rest at a lecture lites and renal profile were negative, patient remains on antibiotics in the form of Cipro for pseudomonal urinary tract infection. Hemodynamically stable, no altered mentation, no fever or chills. No complaints of chest pain, no complaints of abdominal pain, or diarrhea Objective - Vital Signs Vital signs: Vital Signs Temp 97.7 F 01/24/20 08:15 Pulse 95 01/24/20 08:15 Resp 18 01/24/20 08:15 BP 119/58 01/24/20 08:15 Pulse Ox 96 01/24/20 08:15 Intake & Output 01/23/20 01/24/20 01/24/20 18:59 06:59 18:59 Intake Total 476 480 240 Output Total 3250 2375 450 Balance -2774 -1895 -210 Weight 51.5 kg Intake: Oral 476 480 240 Output: Urine 3250 2375 450 Uretheral (Thacker) 2375 Other: Voiding Method Indwelling Catheter Indwelling Catheter Indwelling Catheter # Bowel Movements 1 1 - Exam GENERAL EXAM: Alert,very pleasant, 84-year-old white female on room air with a pulse ox of 97%, comfortable in no apparent distress. HEAD: Normocephalic/atraumatic. EYES: Normal reaction of pupils, equal size. Conjunctiva pink, sclera white. NOSE: Clear with pink turbinates. THROAT: No erythema or exudates. NECK: No masses, no JVD, no thyroid enlargement, no adenopathy. CHEST: No chest wall deformity. Symmetrical expansion. LUNGS: Equal air entry with no crackles, wheeze, rhonchi or dullness. CVS: Regular rate and rhythm, normal S1 and S2, no gallops, no murmurs, no rubs ABDOMEN: Soft, nontender. No hepatosplenomegaly, normal bowel sounds, no guarding or rigidity. EXTREMITIES: No clubbing, 2+ lower extremity edema,no cyanosis, 2+ pulses and upper and lower extremities. MUSCULOSKELETAL: Muscle strength and tone normal. SPINE: No scoliosis or deformity SKIN: No rashes CENTRAL NERVOUS SYSTEM: Alert and oriented -3. No focal deficits, tone is normal in all 4 extremities. PSYCHIATRIC: Alert and oriented -3. Appropriate affect. Intact judgment and insight. - Labs CBC & Chem 7: 01/24/20 06:21 01/24/20 06:21 Labs: Abnormal Lab Results - Last 24 Hours (Table) 01/23/20 01/24/20 01/24/20 Range/Units 16:41 06:21 06:21 WBC 21.7 H (3.8-10.6) k/uL RBC 3.65 L (3.80-5.40) m/uL Hgb 9.1 L (11.4-16.0) gm/dL Hct 30.1 L (34.0-46.0) % MCHC 30.4 L (31.0-37.0) g/dL RDW 21.4 H (11.5-15.5) % Neutrophils # 17.2 H (1.3-7.7) k/uL Monocytes # 1.9 H (0-1.0) k/uL Sodium 135 L (137-145) mmol/L Potassium 3.2 L (3.5-5.1) mmol/L Glucose 119 H (74-99) mg/dL POC Glucose (mg/dL) 156 H (75-99) mg/dL Calcium 8.1 L (8.4-10.2) mg/dL Total Protein 6.2 L (6.3-8.2) g/dL Albumin 2.9 L (3.5-5.0) g/dL Microbiology - Last 24 Hours (Table) 01/20/20 20:13 Blood Culture - Preliminary Blood No Growth after 72 hours Assessment and Plan Plan: Assessment: #1. Mild interstitial pulmonary infiltrates, and minimal pleural fluid at the lung bases not enough for thoracentesis, likely related to fluid overload, and acute exacerbation of diastolic CHF #2. Acute urinary tract infection related to pseudomonas aeruginosa with sepsis #3. Acute leukocytosis related to the above #4. Recent admission for urinary tract infection, treated with Unasyn, discharged to the [facility] on 01/18/2020 on oral Augmentin, and urine culture did not show growth during that admission #5. History of sigmoid diverticulosis #6. History of iron deficiency anemia, with history of EGD showing multiple gastric ulcers #7. chronic back pain #8. Hypertension #9. Urinary incontinence #10. No evidence of hydronephrosis on the ultrasound of the kidneys #11. History of osteoporosis #14. Hypokalemia #15. lifetime nonsmoker #16. History of diverticulitis #17. Previous history of right mastectomy #18. Elevated d-dimer, nonspecific, CT chest showed no evidence of pulmonary embolism Plan: Patient denies any pulmonary complaints, no shortness of breath, she is currently on room air, she has diuresed significantly and last 24 hours, she remains on antibiotics for pseudomonal urinary tract infection, she is in negative fluid balance. She is up in the chair, no specific complaints. Patient could probably be considered for discharge back to [facility] once cleared by ID service. I performed a history & physical examination of the patient and discussed their management with my nurse practitioner, Kayy Pimentel. I reviewed the nurse practitioner's note and agree with the documented findings and plan of care. Lung sounds are positive for basilar rales The findings and the impression was discussed with the patient. I attest to the documentation by the nurse practitioner. Time with Patient: Less than 30
[2020-01-24] MEDS ORDERED: FLUCONAZOLE 100 MG TAB PO ONE (14:30)
--- NOTE | 2020-01-24 15:11 | PN ---
PROGRESS NOTE DATE OF SERVICE: 01/24/2020 REASON FOR FOLLOWUP: Pseudomonas urinary tract infection. INTERVAL HISTORY: The patient is currently afebrile, patient is breathing comfortably. Patient denies having any chest pain. No shortness of breath, no cough. No nausea, no vomiting, abdominal pain or diarrhea. PHYSICAL EXAMINATION: On examination, her blood pressure 119/58 with a pulse of 95, temperature is 97.7. She is 96% on room air. General description is an elderly female, lying in bed in no distress. RESPIRATORY SYSTEM: Unlabored breathing, clear to auscultation anteriorly. HEART: S1, S2. Regular rate and rhythm. ABDOMEN: Soft, no tenderness. LABS: Hemoglobin 9.8, white count 1.7 creatinine 0.63. DIAGNOSTIC IMPRESSION AND PLAN: Patient admitted to the hospital with sepsis with concern for urinary tract infection. Urine has been Pseudomonas. Antibiotic was switched over to Cipro. History of white count still elevated. Will add Diflucan for possible oral candidiasis and see response. Continue supportive care. MMODL / IJN: [id number] /
--- NOTE | 2020-01-24 17:52 | P.PN ---
Subjective Progress Note Date: 01/24/20 Jaqui Garza, is an 84-year-old female who presented to [facility] emergency room due to elevated temperature of 102.4 at the senior care, and generalized weakness, patient had 2 recent admissions, on the first admission she had evidence of urinary tract infection, her white blood count was elevated at 50,000, she was treated with IV antibiotics, she was seen by hematology and infectious disease, she was discharged to senior care on oral Augmentin, white blood count at the time of discharge was 10,000 patient developed generalized rash, and her white blood count was up to 21,000 she was readmitted to the hospital and was seen by infectious disease who advised to withhold antibiotic and thought that her symptoms are related to ALLERGIC reaction to Augmentin white blood count came down to 14,000 patient was transferred back to the senior care, patient was therefore few days then she started having elevated temperature at 102.4 she had evidence of urinary tract infection and her white blood count was elevated again to 26.5 patient was admitted to medical floor she was started on IV Zosyn infectious disease consultation was requested. Patient was seen and examined on 01/21/2020 she is alert and oriented in no apparent distress she is complaining of fatigue and generalized weakness otherwise no specific complaints her temperature on arrival to emergency room was 102.8 she denies any chest pain or shortness of breath no cough no nausea or vomiting no abdominal pain no diarrhea no burning with urination no frequency or urgency and no hematuria On 01/22/2020, patient was seen and examined on the medical floor , she is alert and oriented 3 in no apparent distress, she is afebrile and reports feeling much better, there is no fever or chills no headache or dizziness no chest pain no shortness of breath no cough no nausea or vomiting no abdominal pain no diarr hea no burning with urination no frequency or urgency and no hematuria, patient has Thacker catheter in. On 01/23/2020 patient was seen and examined on the medical floor she is alert and oriented in no distress no new episodes of fever no chills no headache or dizziness no chest pain no shortness of breath no cough no nausea or vomiting no abdominal pain no diarrhea no urinary symptoms Thacker catheter is still in. Patient has significant debility Will consult physical therapy and occupational therapy she will need to return to senior care after this admission. On 01/24/2020 patient was seen and examined on the telemetry floor she is alert and oriented 3 in no distress she is feeling better there is no fever or chills no headache or dizziness no chest pain no shortness of breath no cough no nausea or vomiting no abdominal pain no diarrhea no blood in the stools no burning was urination no frequency or urgency no hematuria Thacker catheter is still in and patient is resistant to having it removed to weakness and gait disturbance. Physical therapy and occupational therapy consult has been requested. Objective - Vital Signs Vital signs: Vital Signs Temp 98.2 F 01/24/20 11:25 Pulse 86 01/24/20 11:25 Resp 18 01/24/20 11:25 BP 141/65 01/24/20 11:25 Pulse Ox 97 01/24/20 11:25 Intake & Output 01/23/20 01/24/20 01/24/20 18:59 06:59 18:59 Intake Total 476 480 780 Output Total 3250 2375 450 Balance -9534 -1853 330 Weight 51.5 kg Intake: Oral 476 480 780 Output: Urine 3250 2375 450 Uretheral (Thacker) 2375 Other: Voiding Method Indwelling Catheter Indwelling Catheter Indwelling Catheter # Bowel Movements 1 1 - Exam In general patient is alert and oriented 3 in no apparent distress HEENT head normocephalic and atraumatic Neck is supple no JVD no goiter no lymphadenopathy Chest exam reveals a few scattered crackles no wheezing Cardiac exam reveals regular heart sounds S1 and S2 no gallops no murmurs Abdomen is soft nontender no organomegaly with normal bowel sounds Extremity exam reveals 1+ edema bilaterally no cyanosis or clubbing Neurological examination reveals no gross focal deficit - Labs CBC & Chem 7: 01/24/20 06:21 01/24/20 06:21 Labs: Abnormal Lab Results - Last 24 Hours (Table) 01/24/20 01/24/20 Range/Units 06:21 06:21 WBC 21.7 H (3.8-10.6) k/uL RBC 3.65 L (3.80-5.40) m/uL Hgb 9.1 L (11.4-16.0) gm/dL Hct 30.1 L (34.0-46.0) % MCHC 30.4 L (31.0-37.0) g/dL RDW 21.4 H (11.5-15.5) % Neutrophils # 17.2 H (1.3-7.7) k/uL Monocytes # 1.9 H (0-1.0) k/uL Sodium 135 L (137-145) mmol/L Potassium 3.2 L (3.5-5.1) mmol/L Glucose 119 H (74-99) mg/dL Calcium 8.1 L (8.4-10.2) mg/dL Total Protein 6.2 L (6.3-8.2) g/dL Albumin 2.9 L (3.5-5.0) g/dL Microbiology - Last 24 Hours (Table) 01/20/20 20:13 Blood Culture - Preliminary Blood No Growth after 72 hours Assessment and Plan Plan: 1. Sepsis with fever, leukocytosis 2. Urinary tract infection. Recurrent, will check ultrasound of the kidneys to rule out any structural abnormality or kidney stone causing recurrent infections. 3. Elevated d-dimer will check computed tomography scan angiogram of the chest to rule out pulmonary embolism 4. Underlying history of hypertension well-controlled on current medications 5. Underlying history of gastroesophageal reflux disease maintained on Protonix 6. Physical debility Will consult physical therapy and occupational therapy patient will need to return to senior care after this admission 7. Bilateral infiltrates on computed tomography scan of the chest pulmonary consultation was requested At this time patient is admitted to medical floor she is started on IV antibiotics Cultures are still pending, will review culture results from the hospital and from the senior care, unfortunately we do not have any positive cultures to direct antibiotic treatment so far Infectious disease consultation requested Will follow closely
[2020-01-24] MEDS: DOCUSATE 100 MG CAP PO SCH (20:04)
[2020-01-24] MEDS: ALPRAZolam 0.25 MG TAB PO PRN (22:55)
[2020-01-25] MEDS: PANTOPRAZOLE 40 MG TABLET PO SCH (05:54)
[2020-01-25] MEDS: HYDROcodone/APAP 7.5-325MG 1 EACH TAB PO SCH ×3 (05:54→20:10)
[2020-01-25 07:19] LABS: Anisocytosis Moderate; Basophils # (A) 0.1 k/uL (0-0.2); Basophils % (A) 0 %; Eosinophils # (A) 0.5 k/uL (0-0.7); Eosinophils % (A) 2 %; HCT 30.4 % (34.0-46.0); Hypochromasia Marked; Lymphocytes # (A) 1.5 k/uL (1.0-4.8); Lymphocytes % (A) 6 %; MCHC 29.5 g/dL (31.0-37.0); MCV 81.3 fL (80.0-100.0); Mean Platelet Volume 7.8; Microcytosis Moderate; Monocytes # (A) 2.6 k/uL (0-1.0); Monocytes % (A) 10 %; Neutrophils # (A) 20.2 k/uL (1.3-7.7); Neutrophils % (A) 79 %; Platelet Count 293 k/uL (150-450); RBC 3.74 m/uL (3.80-5.40); RDW 22.1 % (11.5-15.5); WBC 25.6 k/uL (3.8-10.6)
[2020-01-25 07:48] LABS: ALT 14 U/L (4-34); AST 33 U/L (14-36); African American GFR (CKD) >90 (>60 ml/min/1.73 sqM); Alkaline Phosphatase 85 U/L (38-126); Anion Gap 12 mmol/L; Blood Urea Nitrogen 16 mg/dL (7-17); Calcium 8.2 mg/dL (8.4-10.2); Carbon Dioxide 26 mmol/L (22-30); Chloride 96 mmol/L (98-107); Glucose 135 mg/dL (74-99); Non-African American GFR(CKD) 82 (>60 ml/min/1.73 sqM); Potassium 3.5 mmol/L (3.5-5.1); Sodium 134 mmol/L (137-145); Total Bilirubin 0.4 mg/dL (0.2-1.3); Total Protein 6.3 g/dL (6.3-8.2)
[2020-01-25] MEDS: ENOXAPARIN 40 MG/0.4 ML SYRINGE SQ SCH (08:11)
[2020-01-25] MEDS: CIPROFLOXACIN HCL 250 MG TAB PO SCH ×2 (08:11→20:10)
[2020-01-25] MEDS: FUROSEMIDE 10 MG/ML 2 ML VIAL IV SCH ×2 (08:11→20:10)
[2020-01-25] MEDS: METOPROLOL TARTRATE 25 MG TAB PO SCH ×2 (08:11→20:10)
[2020-01-25] MEDS: FOLIC ACID 1 MG TAB PO SCH (08:12)
[2020-01-25] MEDS: SODIUM CHLORIDE 0.9% 1,000 ML IV SCH (08:15)
[2020-01-25] MEDS: IOPAMIDOL CONTRAST (ORAL USE) VIAL PO PRN ×2 (12:32→12:55)
--- NOTE | 2020-01-25 14:05 | PN ---
PROGRESS NOTE DATE OF SERVICE: 01/25/2020 REASON FOR FOLLOWUP: 1. UTI. 2. Worsening leukocytosis. INTERVAL HISTORY: The patient is currently afebrile. The patient is breathing comfortably. The patient denies having any chest pain, shortness of breath, no cough. No nausea. No abdominal pain or diarrhea. PHYSICAL EXAMINATION: On examination, her blood pressure is 119/70 with a pulse of 96, temperature 98.4. She is 99% on 2 L nasal cannula. General description is an elderly female, lying in bed in no distress. RESPIRATORY SYSTEM: Unlabored breathing, clear to auscultation anteriorly. HEART: S1, S2. Regular rate and rhythm. ABDOMEN: Soft, no tenderness. LAB: Patient's white count up to 25,000. DIAGNOSTIC IMPRESSION AND PLAN: Patient with an admit to the hospital with fever with concern for UTI source in this patient. Urine culture finalized with Pseudomonas sensitive to Cipro. However, the patient did have persistent worsening of the white count. The patient at this time will continue Cipro. Will add Flagyl. Check CT abdominal, pelvis may show no evidence of any abdominal source and continue supportive care. MMODL / IJN: [id number] /
--- NOTE | 2020-01-25 16:50 | CT ---
EXAMINATION TYPE: CT abdomen pelvis wo con DATE OF EXAM: 01/25/2020 COMPARISON: 12/25/2019 INDICATION: leukocytosis, questionable colitis DLP: 472.3 mGycm, Automated exposure control for dose reduction was used. CONTRAST: 0 mL of Isovue 300. Study performed with Oral Contrast TECHNIQUE: Axial images were obtained from above the diaphragm to the pubic rami in the axial plane a t 5 mm thick sections. Reconstructed images are reviewed on the computer in the coronal plane. FINDINGS: Limited CT sections are obtained the lung bases. The lung bases are clear. There is a mild hiatal h ernia. Small left pleural effusion is present. CT ABDOMEN: Liver: Normal Spleen: Normal Pancreas: Atrophic Adrenal glands: The adrenal glands are normal. Gallbladder: Normal Kidneys: No masses are evident. No hydronephrosis is present. No cysts are present. Bilateral hydr onephrosis is present, greater on the left than the right. Some mild hydroureter is present. Nonobstr ucting ureteral stones are not identified. Aorta: Vascular calcification is within the aorta. Inferior vena cava: There is some flattening inferior vena cava which can be related to the patient's volume status. CT PELVIS: There is fecal debris through the ascending colon. There is a large fecal bolus at correlate for feca l impaction. Small bowel loops distended with oral contrast appear normal. There are loops of bowel w hich are incompletely distended or lack oral contrast limiting their evaluation. Appendix: Normal as visualized. Urinary bladder: Decompressed with a Thacker catheter. Genitourinary structures: Uterus and ovaries are not identified. Osseous structures: No suspicious lytic or sclerotic lesions. Facet degenerative changes are within t he lumbar spine. Postsurgical changes are through the lower lumbar spine. Vacuum disc phenomenon is p resent L5-S1. IMPRESSIONS: 1. Large fecal bolus at the rectum. Correlate for fecal impaction. 2. Bilateral hydronephrosis and milder bilateral hydroureter. An etiology for obstruction however is not identified. This was present on the comparison. 3. Small left pleural effusion. 4. Hiatal hernia.
[2020-01-25] MEDS: metroNIDAZOLE 500 MG TAB PO SCH ×2 (17:22→22:31)
--- NOTE | 2020-01-25 19:11 | P.PN ---
Subjective Progress Note Date: 01/25/20 Jaqui Garza, is an 84-year-old female who presented to [facility] emergency room due to elevated temperature of 102.4 at the senior living, and generalized weakness, patient had 2 recent admissions, on the first admission she had evidence of urinary tract infection, her white blood count was elevated at 50,000, she was treated with IV antibiotics, she was seen by hematology and infectious disease, she was discharged to senior living on oral Augmentin, white blood count at the time of discharge was 10,000 patient developed generalized rash, and her white blood count was up to 21,000 she was readmitted to the hospital and was seen by infectious disease who advised to withhold antibiotic and thought that her symptoms are related to ALLERGIC reaction to Augmentin white blood count came down to 14,000 patient was transferred back to the senior living, patient was therefore few days then she started having elevated temperature at 102.4 she had evidence of urinary tract infection and her white blood count was elevated again to 26.5 patient was admitted to medical floor she was started on IV Zosyn infectious disease consultation was requested. Patient was seen and examined on 01/21/2020 she is alert and oriented in no apparent distress she is complaining of fatigue and generalized weakness otherwise no specific complaints her temperature on arrival to emergency room was 102.8 she denies any chest pain or shortness of breath no cough no nausea or vomiting no abdominal pain no diarrhea no burning with urination no frequency or urgency and no hematuria On 01/22/2020, patient was seen and examined on the medical floor , she is alert and oriented 3 in no apparent distress, she is afebrile and reports feeling much better, there is no fever or chills no headache or dizziness no chest pain no shortness of breath no cough no nausea or vomiting no abdominal pain no diarr hea no burning with urination no frequency or urgency and no hematuria, patient has Thacker catheter in. On 01/23/2020 patient was seen and examined on the medical floor she is alert and oriented in no distress no new episodes of fever no chills no headache or dizziness no chest pain no shortness of breath no cough no nausea or vomiting no abdominal pain no diarrhea no urinary symptoms Thacker catheter is still in. Patient has significant debility Will consult physical therapy and occupational therapy she will need to return to senior living after this admission. On 01/24/2020 patient was seen and examined on the telemetry floor she is alert and oriented 3 in no distress she is feeling better there is no fever or chills no headache or dizziness no chest pain no shortness of breath no cough no nausea or vomiting no abdominal pain no diarrhea no blood in the stools no burning was urination no frequency or urgency no hematuria Thacker catheter is still in and patient is resistant to having it removed to weakness and gait disturbance. Physical therapy and occupational therapy consult has been requested. On 01/25/2020 patient was seen and examined on the medical floor she is alert and oriented 3 in no apparent distress white blood count is increased at this time up to 25,000 infectious disease following computed tomography scan of the abdomen and pelvis was ordered, clinically patient is stable there is no fever or chills no headache or dizziness no chest pain no shortness of breath no cough no nausea or vomiting no abdominal pain no diarrhea and no urinary symptoms Objective - Vital Signs Vital signs: Vital Signs Temp 98.4 F 01/25/20 11:58 Pulse 96 01/25/20 12:00 Resp 18 01/25/20 11:58 BP 119/70 01/25/20 11:58 Pulse Ox 99 01/25/20 11:58 Intake & Output 01/24/20 01/25/20 01/25/20 18:59 06:59 18:59 Intake Total 1320 Output Total 1350 1175 Balance -30 -1175 Weight 52.5 kg Intake: Oral 1320 Output: Urine 1350 1175 Other: Voiding Method Indwelling Catheter Indwelling Catheter Indwelling Catheter # Bowel Movements 1 - Exam In general patient is alert and oriented 3 in no apparent distress HEENT head normocephalic and atraumatic Neck is supple no JVD no goiter no lymphadenopathy Chest exam reveals a few scattered crackles no wheezing Cardiac exam reveals regular heart sounds S1 and S2 no gallops no murmurs Abdomen is soft nontender no organomegaly with normal bowel sounds Extremity exam reveals 1+ edema bilaterally no cyanosis or clubbing Neurological examination reveals no gross focal deficit - Labs CBC & Chem 7: 01/25/20 06:16 01/25/20 06:16 Labs: Abnormal Lab Results - Last 24 Hours (Table) 01/25/20 01/25/20 Range/Units 06:16 06:16 WBC 25.6 H (3.8-10.6) k/uL RBC 3.74 L (3.80-5.40) m/uL Hgb 9.0 L (11.4-16.0) gm/dL Hct 30.4 L (34.0-46.0) % MCH 24.0 L (25.0-35.0) pg MCHC 29.5 L (31.0-37.0) g/dL RDW 22.1 H (11.5-15.5) % Neutrophils # 20.2 H (1.3-7.7) k/uL Monocytes # 2.6 H (0-1.0) k/uL Sodium 134 L (137-145) mmol/L Chloride 96 L (98-107) mmol/L Glucose 135 H (74-99) mg/dL Calcium 8.2 L (8.4-10.2) mg/dL Albumin 3.0 L (3.5-5.0) g/dL Microbiology - Last 24 Hours (Table) 01/20/20 20:13 Blood Culture - Preliminary Blood No Growth after 96 hours Assessment and Plan Plan: 1. Sepsis with fever, leukocytosis 2. Urinary tract infection. Recurrent, will check ultrasound of the kidneys to rule out any structural abnormality or kidney stone causing recurrent infections. 3. Elevated d-dimer will check computed tomography scan angiogram of the chest to rule out pulmonary embolism 4. Underlying history of hypertension well-controlled on current medications 5. Underlying history of gastroesophageal reflux disease maintained on Protonix 6. Physical debility Will consult physical therapy and occupational therapy patient will need to return to senior living after this admission 7. Bilateral infiltrates on computed tomography scan of the chest pulmonary consultation was requested At this time patient is admitted to medical floor she is started on IV antibiotics Cultures are still pending, will review culture results from the hospital and from the senior living, unfortunately we do not have any positive cultures to direct antibiotic treatment so far Infectious disease consultation requested Will follow closely
[2020-01-25] MEDS: DOCUSATE 100 MG CAP PO SCH (20:10)
[2020-01-25 22:52] LABS: Appearance,Urine Clear (Clear); Bacteria,Urine Rare /hpf; Bilirubin,Urine Negative (Negative); Blood,Urine Moderate (Negative); Color,Urine Light Yellow; Glucose,Urine (UA) Negative (Negative); Ketones,Urine Negative (Negative); Leukocyte Esterase,Urine Large (Negative); Mucus,Urine Rare /hpf; Nitrite,Urine Negative (Negative); PH, Urine 6.5 (5.0-8.0); Protein,Urine 1+ (Negative); RBC,Urine 59 /hpf (0-5); Urobilinogen,Urine <2.0 mg/dL (<2.0); WBC,Urine 153 /hpf (0-5)
[2020-01-26] MEDS ORDERED: ACETAMINOPHEN TAB 325 MG TAB ONE (02:30)
[2020-01-26] MEDS: HYDROcodone/APAP 7.5-325MG 1 EACH TAB PO SCH ×3 (06:29→20:01)
[2020-01-26] MEDS: PANTOPRAZOLE 40 MG TABLET PO SCH (06:29)
[2020-01-26 06:38] LABS: Anisocytosis Moderate; Basophils # (A) 0.1 k/uL (0-0.2); Basophils % (A) 1 %; Eosinophils # (A) 0.7 k/uL (0-0.7); Eosinophils % (A) 3 %; HCT 32.5 % (34.0-46.0); HGB 9.7 gm/dL (11.4-16.0); Hypochromasia Marked; Lymphocytes % (A) 8 %; MCHC 29.8 g/dL (31.0-37.0); MCV 80.5 fL (80.0-100.0); Microcytosis Moderate; Monocytes # (A) 2.3 k/uL (0-1.0); Monocytes % (A) 10 %; Neutrophils # (A) 18.1 k/uL (1.3-7.7); Neutrophils % (A) 76 %; Platelet Count 351 k/uL (150-450); RBC 4.03 m/uL (3.80-5.40); RDW 22.1 % (11.5-15.5); WBC 23.9 k/uL (3.8-10.6)
[2020-01-26 07:07] LABS: Albumin 3.1 g/dL (3.5-5.0); Calcium 8.7 mg/dL (8.4-10.2); Potassium 3.7 mmol/L (3.5-5.1); Total Bilirubin 0.5 mg/dL (0.2-1.3); Total Protein 6.6 g/dL (6.3-8.2)
[2020-01-26] MEDS: SODIUM CHLORIDE 0.9% 1,000 ML IV SCH (08:59)
[2020-01-26] MEDS: CIPROFLOXACIN HCL 250 MG TAB PO SCH (09:01)
[2020-01-26] MEDS: FUROSEMIDE 10 MG/ML 2 ML VIAL IV SCH ×2 (09:01→20:01)
[2020-01-26] MEDS: FOLIC ACID 1 MG TAB PO SCH (09:02)
[2020-01-26] MEDS: METOPROLOL TARTRATE 25 MG TAB PO SCH ×2 (09:02→20:01)
[2020-01-26] MEDS: ENOXAPARIN 40 MG/0.4 ML SYRINGE SQ SCH (09:02)
[2020-01-26] MEDS: metroNIDAZOLE 500 MG TAB PO SCH ×3 (09:02→20:00)
--- NOTE | 2020-01-26 15:49 | P.GSCN ---
History of Present Illness Consult date: 01/26/20 Reason for Consult: bilateral hydronephrosis History of present illness: Ms Sandoval is an 84-year-old female who presented with fever, leucocytosis. She had a recent hospital admission for UTI. She Underwent a CT abd/pelvis which showed bilateral hydroureteronephrosis upto the bladder. she had CT in 12/2019 which showed similar finding. Denies any urinary issues or any gross hematuria. denies any hx of kidney stones. She has hx of incomplete bladder emptying and was seen by Dr Davenport for urinary retention in 2016. At this time she denies any flank pain, he creat is stable at baseline Review of Systems - Constitutional Reports fever, Reports weakness, Denies chills - Cardiovascular Denies chest pain, Denies dyspnea on exertion - Respiratory Denies cough, Denies dyspnea - Genitourinary Genitourinary: Denies flank pain, Denies urgency - Endocrine Reports fatigue Past Medical History Past Medical History: Cancer, Hypertension, Musculoskeletal Disorder Additional Past Medical History / Comment(s): CONSITPATION, DIVERTICULITIS, CHRONIC BACK PAIN, ANEMIA History of Any Multi-Drug Resistant Organisms: None Reported Past Surgical History: Breast Surgery, Hysterectomy Additional Past Surgical History / Comment(s): RIGHT MASTECTOMY, EYE SURGERY(hole in left retina) 4-5 yrs ago. wilbert cataracts. Past Anesthesia/Blood Transfusion Reactions: No Reported Reaction Past Psychological History: Depression Smoking Status: Never smoker Past Alcohol Use History: Rare Past Drug Use History: None Reported - Past Family History Brother(s) Additional Family Medical History / Comment(s): Hodgkin's Lymphoma Mother Family Medical History: Cancer Medications and Allergies Home Medications Medication Instructions Recorded Confirmed Type Baclofen [Lioresal] 10 mg PO Q6H PRN 12/23/19 01/21/20 History Docusate [Colace] 100 mg PO DAILY@209912/23/19 01/21/20 History HYDROcodone/APAP 7.5-325MG [[place] 1 tab PO TID@0600,1300,209912/23/19 01/21/20 History 7.5-325] ALPRAZolam [Xanax] 0.25 mg PO QID PRN tab 01/05/20 01/21/20 Rx Acetaminophen Tab [Tylenol] 650 mg PO Q4H PRN 01/15/20 01/21/20 History Calcium Carbonate [Tums] 1,000 mg PO Q6H PRN 01/15/20 01/21/20 History Folic Acid 1 mg PO DAILY@89901/15/20 01/21/20 History Furosemide [Lasix] 40 mg PO DAILY@59901/15/20 01/21/20 History Menthol [Biofreeze] 1 applic TOPICAL Q6H PRN 01/15/20 01/21/20 History Pantoprazole [Protonix] 40 mg PO DAILY@59901/15/20 01/21/20 History Metoprolol Tartrate [Lopressor] 25 mg PO BID tab 01/18/20 01/21/20 Rx Allergies Allergy/AdvReac Type Severity Reaction Status Date / Time codeine AdvReac Nausea & Verified 01/21/20 09:41 Vomiting Surgical - Exam Vital Signs Temp Pulse Resp BP Pulse Ox 102.8 F H 118 H 20 150/76 96 01/20/20 19:27 01/20/20 19:27 01/20/20 19:27 01/20/20 19:27 01/20/20 19:27 - General no distress, no pain - Eyes PERRL, normal ocular movement - Respiratory normal expansion, normal respiratory effort - Abdomen Abdomen: soft, no rigid - Genitourinary ardon clear yellow urine - Psychiatric oriented to time, oriented to person, oriented to place Results - Labs 01/26/20 06:06 01/26/20 06:06 Abnormal Lab Results - Last 24 Hours (Table) 01/25/20 01/26/20 01/26/20 Range/Units 22:37 06:06 06:06 WBC 23.9 H (3.8-10.6) k/uL Hgb 9.7 L (11.4-16.0) gm/dL Hct 32.5 L (34.0-46.0) % MCH 24.0 L (25.0-35.0) pg MCHC 29.8 L (31.0-37.0) g/dL RDW 22.1 H (11.5-15.5) % Neutrophils # 18.1 H (1.3-7.7) k/uL Monocytes # 2.3 H (0-1.0) k/uL Sodium 133 L (137-145) mmol/L Chloride 94 L (98-107) mmol/L BUN 20 H (7-17) mg/dL Glucose 151 H (74-99) mg/dL Albumin 3.1 L (3.5-5.0) g/dL Urine Protein 1+ H (Negative) Urine Blood Moderate H (Negative) Ur Leukocyte Esterase Large H (Negative) Urine RBC 59 H (0-5) /hpf Urine WBC 153 H (0-5) /hpf Urine Bacteria Rare H (None) /hpf Urine Mucus Rare H (None) /hpf Microbiology - Last 24 Hours (Table) 01/25/20 22:37 Urine Culture - Preliminary Urine,Voided 01/20/20 20:13 Blood Culture - Preliminary Blood No Growth after 120 hours Diabetes panel 01/26/20 Range/Units 06:06 Sodium 133 L (137-145) mmol/L Potassium 3.7 (3.5-5.1) mmol/L Chloride 94 L (98-107) mmol/L Carbon Dioxide 28 (22-30) mmol/L BUN 20 H (7-17) mg/dL Creatinine 0.74 (0.52-1.04) mg/dL Glucose 151 H (74-99) mg/dL Calcium 8.7 (8.4-10.2) mg/dL AST 27 (14-36) U/L ALT 15 (4-34) U/L Alkaline Phosphatase 85 (38-126) U/L Total Protein 6.6 (6.3-8.2) g/dL Albumin 3.1 L (3.5-5.0) g/dL Calcium panel 01/26/20 Range/Units 06:06 Calcium 8.7 (8.4-10.2) mg/dL Albumin 3.1 L (3.5-5.0) g/dL Pituitary panel 01/26/20 Range/Units 06:06 Sodium 133 L (137-145) mmol/L Potassium 3.7 (3.5-5.1) mmol/L Chloride 94 L (98-107) mmol/L Carbon Dioxide 28 (22-30) mmol/L BUN 20 H (7-17) mg/dL Creatinine 0.74 (0.52-1.04) mg/dL Glucose 151 H (74-99) mg/dL Calcium 8.7 (8.4-10.2) mg/dL Adrenal panel 01/26/20 Range/Units 06:06 Sodium 133 L (137-145) mmol/L Potassium 3.7 (3.5-5.1) mmol/L Chloride 94 L (98-107) mmol/L Carbon Dioxide 28 (22-30) mmol/L BUN 20 H (7-17) mg/dL Creatinine 0.74 (0.52-1.04) mg/dL Glucose 151 H (74-99) mg/dL Calcium 8.7 (8.4-10.2) mg/dL Total Bilirubin 0.5 (0.2-1.3) mg/dL AST 27 (14-36) U/L ALT 15 (4-34) U/L Alkaline Phosphatase 85 (38-126) U/L Total Protein 6.6 (6.3-8.2) g/dL Albumin 3.1 L (3.5-5.0) g/dL Assessment and Plan Assessment: 84 yo female admitted to the hospital with UTI, fever and leucocytosis. CT abd/pelvis showed bilateral hydroureteronephrosis. Her creat is at baseline and she denies any flank pain. of not she has hx of urinary retention. He hydronephrosis is most likely secondary to urinary retention or neurogenic bladder. No indication for ureteral stent at this time given lack of symptoms and stable kidney function -Keep ardon in place for at least one week or until patient is back to baseline. Obtain PVR after ardon is removed -F/U in 3-4 weeks in Urology clinic
[2020-01-26] MEDS: ALPRAZolam 0.25 MG TAB PO PRN (16:18)
--- NOTE | 2020-01-26 16:35 | PN ---
PROGRESS NOTE DATE OF SERVICE: 01/26/2020 REASON FOR FOLLOWUP: Pseudomonas urinary tract infection and persistent elevated white count. INTERVAL HISTORY: The patient is currently afebrile. The patient is breathing comfortably. Denies having any chest pain. No shortness of breath or cough. Did have nausea but no vomiting and no diarrhea. PHYSICAL EXAMINATION: Blood pressure 111/60 with a pulse of 89, temperature 98.6, she is 99% on 2 L nasal cannula. General description is an elderly female, lying in bed in no distress. RESPIRATORY SYSTEM: Unlabored breathing, clear to auscultation anteriorly. HEART: S1, S2. Regular rate and rhythm. ABDOMEN: Soft, no tenderness. LABS: Hemoglobin 9.2, white count of 23.9, BUN of 20, creatinine 0.74. DIAGNOSTIC IMPRESSION AND PLAN: Patient in the hospital with fever, source was likely urinary and the patient did have a positive UA. Urine culture subsequently shows Pseudomonas and the patient is on oral Cipro because of the resistant pattern with concern for possible abdominal source. Flagyl was added. CT did show some constipation, but no evidence of any colitis. Will monitor white count closely. Continue Cipro and Flagyl and continue supportive care. MMODL / IJN: [id number] /
--- NOTE | 2020-01-26 17:55 | P.PN ---
Subjective Progress Note Date: 01/26/20 Jaqui Garza, is an 84-year-old female who presented to [facility] emergency room due to elevated temperature of 102.4 at the shelter, and generalized weakness, patient had 2 recent admissions, on the first admission she had evidence of urinary tract infection, her white blood count was elevated at 50,000, she was treated with IV antibiotics, she was seen by hematology and infectious disease, she was discharged to shelter on oral Augmentin, white blood count at the time of discharge was 10,000 patient developed generalized rash, and her white blood count was up to 21,000 she was readmitted to the hospital and was seen by infectious disease who advised to withhold antibiotic and thought that her symptoms are related to ALLERGIC reaction to Augmentin white blood count came down to 14,000 patient was transferred back to the shelter, patient was therefore few days then she started having elevated temperature at 102.4 she had evidence of urinary tract infection and her white blood count was elevated again to 26.5 patient was admitted to medical floor she was started on IV Zosyn infectious disease consultation was requested. Patient was seen and examined on 01/21/2020 she is alert and oriented in no apparent distress she is complaining of fatigue and generalized weakness otherwise no specific complaints her temperature on arrival to emergency room was 102.8 she denies any chest pain or shortness of breath no cough no nausea or vomiting no abdominal pain no diarrhea no burning with urination no frequency or urgency and no hematuria On 01/22/2020, patient was seen and examined on the medical floor , she is alert and oriented 3 in no apparent distress, she is afebrile and reports feeling much better, there is no fever or chills no headache or dizziness no chest pain no shortness of breath no cough no nausea or vomiting no abdominal pain no diarr hea no burning with urination no frequency or urgency and no hematuria, patient has Thacker catheter in. On 01/23/2020 patient was seen and examined on the medical floor she is alert and oriented in no distress no new episodes of fever no chills no headache or dizziness no chest pain no shortness of breath no cough no nausea or vomiting no abdominal pain no diarrhea no urinary symptoms Thacker catheter is still in. Patient has significant debility Will consult physical therapy and occupational therapy she will need to return to shelter after this admission. On 01/24/2020 patient was seen and examined on the telemetry floor she is alert and oriented 3 in no distress she is feeling better there is no fever or chills no headache or dizziness no chest pain no shortness of breath no cough no nausea or vomiting no abdominal pain no diarrhea no blood in the stools no burning was urination no frequency or urgency no hematuria Thacker catheter is still in and patient is resistant to having it removed to weakness and gait disturbance. Physical therapy and occupational therapy consult has been requested. On 01/25/2020 patient was seen and examined on the medical floor she is alert and oriented 3 in no apparent distress white blood count is increased at this time up to 25,000 infectious disease following computed tomography scan of the abdomen and pelvis was ordered, clinically patient is stable there is no fever or chills no headache or dizziness no chest pain no shortness of breath no cough no nausea or vomiting no abdominal pain no diarrhea and no urinary symptoms On 01/26/2020 patient was seen and examined on the medical floor she is alert and oriented 3 in no apparent distress there is no fever or chills no headache or dizziness no chest pain shortness of breath no cough no nausea or vomiting no abdominal pain no diarrhea no burning was urination no frequency or urgency no hematuria patient has Thacker catheter in, infectious disease and urology input reviewed Objective - Vital Signs Vital signs: Vital Signs Temp 98.2 F 01/26/20 16:00 Pulse 83 01/26/20 16:00 Resp 18 01/26/20 16:00 BP 118/63 01/26/20 16:00 Pulse Ox 96 01/26/20 16:00 Intake & Output 01/25/20 01/26/20 01/26/20 18:59 06:59 18:59 Intake Total 225 Output Total 800 700 450 Balance -575 -700 -450 Weight 49 kg 49 kg Intake: Oral 225 Output: Urine 800 700 450 Other: Voiding Method Indwelling Catheter Indwelling Catheter Indwelling Catheter - Exam In general patient is alert and oriented 3 in no apparent distress HEENT head normocephalic and atraumatic Neck is supple no JVD no goiter no lymphadenopathy Chest exam reveals a few scattered crackles no wheezing Cardiac exam reveals regular heart sounds S1 and S2 no gallops no murmurs Abdomen is soft nontender no organomegaly with normal bowel sounds Extremity exam reveals 1+ edema bilaterally no cyanosis or clubbing Neurological examination reveals no gross focal deficit - Labs CBC & Chem 7: 01/26/20 06:06 01/26/20 06:06 Labs: Abnormal Lab Results - Last 24 Hours (Table) 01/25/20 01/26/20 01/26/20 Range/Units 22:37 06:06 06:06 WBC 23.9 H (3.8-10.6) k/uL Hgb 9.7 L (11.4-16.0) gm/dL Hct 32.5 L (34.0-46.0) % MCH 24.0 L (25.0-35.0) pg MCHC 29.8 L (31.0-37.0) g/dL RDW 22.1 H (11.5-15.5) % Neutrophils # 18.1 H (1.3-7.7) k/uL Monocytes # 2.3 H (0-1.0) k/uL Sodium 133 L (137-145) mmol/L Chloride 94 L (98-107) mmol/L BUN 20 H (7-17) mg/dL Glucose 151 H (74-99) mg/dL Albumin 3.1 L (3.5-5.0) g/dL Urine Protein 1+ H (Negative) Urine Blood Moderate H (Negative) Ur Leukocyte Esterase Large H (Negative) Urine RBC 59 H (0-5) /hpf Urine WBC 153 H (0-5) /hpf Urine Bacteria Rare H (None) /hpf Urine Mucus Rare H (None) /hpf Microbiology - Last 24 Hours (Table) 01/25/20 22:37 Urine Culture - Preliminary Urine,Voided 01/20/20 20:13 Blood Culture - Preliminary Blood No Growth after 120 hours Assessment and Plan Plan: 1. Sepsis with fever, leukocytosis 2. Urinary tract infection. Recurrent, will check ultrasound of the kidneys to rule out any structural abnormality or kidney stone causing recurrent infections. 3. Elevated d-dimer will check computed tomography scan angiogram of the chest to rule out pulmonary embolism 4. Underlying history of hypertension well-controlled on current medications 5. Underlying history of gastroesophageal reflux disease maintained on Protonix 6. Physical debility Will consult physical therapy and occupational therapy patient will need to return to shelter after this admission 7. Bilateral infiltrates on computed tomography scan of the chest pulmonary consultation was requested At this time patient is admitted to medical floor she is started on IV antibiotics Cultures are still pending, will review culture results from the hospital and from the shelter, unfortunately we do not have any positive cultures to direct antibiotic treatment so far Infectious disease consultation requested Will follow closely
[2020-01-26] MEDS: DOCUSATE 100 MG CAP PO SCH (20:00)
[2020-01-26] MEDS: BACLOFEN 10 MG TAB PO PRN (20:01)
[2020-01-26] MEDS: CIPROFLOXACIN HCL 500 MG TAB PO SCH (20:01)
[2020-01-27] MEDS: ALPRAZolam 0.25 MG TAB PO PRN (00:50)
[2020-01-27] MEDS: HYDROcodone/APAP 7.5-325MG 1 EACH TAB PO SCH ×3 (05:32→21:44)
[2020-01-27] MEDS: PANTOPRAZOLE 40 MG TABLET PO SCH (05:33)
[2020-01-27] MEDS: METOPROLOL TARTRATE 25 MG TAB PO SCH ×2 (08:33→21:44)
[2020-01-27] MEDS: FUROSEMIDE 10 MG/ML 2 ML VIAL IV SCH ×2 (08:33→21:44)
[2020-01-27] MEDS: ENOXAPARIN 40 MG/0.4 ML SYRINGE SQ SCH (08:33)
[2020-01-27] MEDS: metroNIDAZOLE 500 MG TAB PO SCH ×3 (08:33→21:43)
[2020-01-27] MEDS: FOLIC ACID 1 MG TAB PO SCH (08:33)
[2020-01-27] MEDS: CIPROFLOXACIN HCL 500 MG TAB PO SCH ×2 (10:38→21:51)
--- NOTE | 2020-01-27 14:14 | PN ---
PROGRESS NOTE DATE OF SERVICE: 01/27/2020 REASON FOR FOLLOWUP: Pseudomonas urinary tract infection and leukocytosis. INTERVAL HISTORY: The patient is currently afebrile, the patient is breathing comfortably. Not feeling as good today. Slight nausea, no vomiting. No chest pain or cough, no diarrhea. PHYSICAL EXAMINATION: Blood pressure 110/74 with pulse of 87, temperature 98. She is 99% on 4 L nasal cannula. General description is an elderly female, lying in bed in no distress. RESPIRATORY SYSTEM: Unlabored breathing, clear to auscultation anteriorly. HEART: S1, S2. Regular rate and rhythm. ABDOMEN: Soft, no tenderness. LABS: Hemoglobin 9.1, white count is 3.9, BUN of 20, creatinine 0.74. DIAGNOSTIC IMPRESSION AND PLAN: Patient admitted to the hospital with sepsis. Source is urinary tract infection and has been Pseudomonas. Abdominal wound did shows hydronephrosis. Urology has seen the patient yesterday, no plan for any surgical intervention. Initial white count showing a downward trend. Continue with Cipro and Flagyl, so far negative. Monitor clinical course closely. MMODL / IJN: [id number] /
[2020-01-27] MEDS ORDERED: ONDANSETRON 4 MG/2 ML VIAL IVP PRN (14:24)
--- NOTE | 2020-01-27 14:27 | P.PN ---
Subjective Progress Note Date: 01/27/20 Jaqui Garza, is an 84-year-old female who presented to [facility] emergency room due to elevated temperature of 102.4 at the senior care, and generalized weakness, patient had 2 recent admissions, on the first admission she had evidence of urinary tract infection, her white blood count was elevated at 50,000, she was treated with IV antibiotics, she was seen by hematology and infectious disease, she was discharged to senior care on oral Augmentin, white blood count at the time of discharge was 10,000 patient developed generalized rash, and her white blood count was up to 21,000 she was readmitted to the hospital and was seen by infectious disease who advised to withhold antibiotic and thought that her symptoms are related to ALLERGIC reaction to Augmentin white blood count came down to 14,000 patient was transferred back to the senior care, patient was therefore few days then she started having elevated temperature at 102.4 she had evidence of urinary tract infection and her white blood count was elevated again to 26.5 patient was admitted to medical floor she was started on IV Zosyn infectious disease consultation was requested. Patient was seen and examined on 01/21/2020 she is alert and oriented in no apparent distress she is complaining of fatigue and generalized weakness otherwise no specific complaints her temperature on arrival to emergency room was 102.8 she denies any chest pain or shortness of breath no cough no nausea or vomiting no abdominal pain no diarrhea no burning with urination no frequency or urgency and no hematuria On 01/22/2020, patient was seen and examined on the medical floor , she is alert and oriented 3 in no apparent distress, she is afebrile and reports feeling much better, there is no fever or chills no headache or dizziness no chest pain no shortness of breath no cough no nausea or vomiting no abdominal pain no diarr hea no burning with urination no frequency or urgency and no hematuria, patient has Thacker catheter in. On 01/23/2020 patient was seen and examined on the medical floor she is alert and oriented in no distress no new episodes of fever no chills no headache or dizziness no chest pain no shortness of breath no cough no nausea or vomiting no abdominal pain no diarrhea no urinary symptoms Thacker catheter is still in. Patient has significant debility Will consult physical therapy and occupational therapy she will need to return to senior care after this admission. On 01/24/2020 patient was seen and examined on the telemetry floor she is alert and oriented 3 in no distress she is feeling better there is no fever or chills no headache or dizziness no chest pain no shortness of breath no cough no nausea or vomiting no abdominal pain no diarrhea no blood in the stools no burning was urination no frequency or urgency no hematuria Thacker catheter is still in and patient is resistant to having it removed to weakness and gait disturbance. Physical therapy and occupational therapy consult has been requested. On 01/25/2020 patient was seen and examined on the medical floor she is alert and oriented 3 in no apparent distress white blood count is increased at this time up to 25,000 infectious disease following computed tomography scan of the abdomen and pelvis was ordered, clinically patient is stable there is no fever or chills no headache or dizziness no chest pain no shortness of breath no cough no nausea or vomiting no abdominal pain no diarrhea and no urinary symptoms On 01/26/2020 patient was seen and examined on the medical floor she is alert and oriented 3 in no apparent distress there is no fever or chills no headache or dizziness no chest pain shortness of breath no cough no nausea or vomiting no abdominal pain no diarrhea no burning was urination no frequency or urgency no hematuria patient has Thacker catheter in, infectious disease and urology input reviewed On 01/27/2020 patient was seen and examined on the medical floor she is alert and oriented 3 she is complaining of abdominal discomfort and nausea today otherwise she denies any complaints there is no fever or chills no headache or dizziness no chest pain no shortness of breath no cough no vomiting and no urinary symptoms Objective - Vital Signs Vital signs: Vital Signs Temp 97.5 F L 01/27/20 13:46 Pulse 94 01/27/20 13:46 Resp 18 01/27/20 13:46 BP 122/82 01/27/20 13:46 Pulse Ox 96 01/27/20 13:46 Intake & Output 01/26/20 01/27/20 01/27/20 18:59 06:59 18:59 Intake Total 100 100 Output Total 866 837 1974 Balance -278 -300 -5060 Weight 49 kg 55.5 kg Intake: Oral 100 100 Output: Urine 299 767 8492 Uretheral (Thacker) 800 Other: Voiding Method Indwelling Catheter Indwelling Catheter Indwelling Catheter - Exam In general patient is alert and oriented 3 in no apparent distress HEENT head normocephalic and atraumatic Neck is supple no JVD no goiter no lymphadenopathy Chest exam reveals a few scattered crackles no wheezing Cardiac exam reveals regular heart sounds S1 and S2 no gallops no murmurs Abdomen is soft nontender no organomegaly with normal bowel sounds Extremity exam reveals 1+ edema bilaterally no cyanosis or clubbing Neurological examination reveals no gross focal deficit - Labs CBC & Chem 7: 01/26/20 06:06 01/26/20 06:06 Labs: Microbiology - Last 24 Hours (Table) 01/25/20 22:37 Urine Culture - Final Urine,Voided 01/20/20 20:13 Blood Culture - Final Blood No Growth after 144 hours Assessment and Plan Plan: 1. Sepsis with fever, leukocytosis, currently maintained on Cipro and Flagyl, infectious disease following, white blood count is still elevated at 23,000 2. Urinary tract infection. Recurrent, will check ultrasound of the kidneys to rule out any structural abnormality or kidney stone causing recurrent infections. 3. Elevated d-dimer will check computed tomography scan angiogram of the chest to rule out pulmonary embolism 4. Underlying history of hypertension well-controlled on current medications 5. Underlying history of gastroesophageal reflux disease maintained on Protonix 6. Physical debility Will consult physical therapy and occupational therapy patient will need to return to senior care after this admission 7. Bilateral infiltrates on computed tomography scan of the chest pulmonary consultation was requested At this time patient is admitted to medical floor she is started on IV antibiotics Cultures are still pending, will review culture results from the hospital and from the senior care, unfortunately we do not have any positive cultures to direct antibiotic treatment so far Infectious disease consultation requested Will follow closely
[2020-01-27] MEDS: DOCUSATE 100 MG CAP PO SCH (21:44)
[2020-01-27] MEDS: SODIUM CHLORIDE 0.9% 1,000 ML IV SCH (22:36)
[2020-01-28] MEDS: ALPRAZolam 0.25 MG TAB PO PRN ×2 (03:40→17:03)
[2020-01-28] MEDS: PANTOPRAZOLE 40 MG TABLET PO SCH (05:39)
[2020-01-28] MEDS: HYDROcodone/APAP 7.5-325MG 1 EACH TAB PO SCH ×3 (05:39→21:01)
[2020-01-28] MEDS: ENOXAPARIN 40 MG/0.4 ML SYRINGE SQ SCH (08:36)
[2020-01-28] MEDS: FUROSEMIDE 10 MG/ML 2 ML VIAL IV SCH ×2 (08:36→21:00)
[2020-01-28] MEDS: FOLIC ACID 1 MG TAB PO SCH (08:36)
[2020-01-28] MEDS: metroNIDAZOLE 500 MG TAB PO SCH ×3 (08:36→22:07)
[2020-01-28] MEDS: METOPROLOL TARTRATE 25 MG TAB PO SCH ×2 (08:36→21:01)
[2020-01-28] MEDS: CIPROFLOXACIN HCL 500 MG TAB PO SCH ×2 (08:36→21:01)
[2020-01-28 09:05] LABS: Anisocytosis Moderate; Basophils # (A) 0.1 k/uL (0-0.2); Basophils % (A) 0 %; Eosinophils # (A) 0.5 k/uL (0-0.7); Eosinophils % (A) 3 %; HCT 34.7 % (34.0-46.0); HGB 10.7 gm/dL (11.4-16.0); Hypochromasia Marked; Lymphocytes % (A) 11 %; MCH 25.4 pg (25.0-35.0); MCHC 30.7 g/dL (31.0-37.0); MCV 82.7 fL (80.0-100.0); Mean Platelet Volume 7.8; Microcytosis Slight; Monocytes # (A) 1.8 k/uL (0-1.0); Monocytes % (A) 10 %; Neutrophils # (A) 13.8 k/uL (1.3-7.7); Neutrophils % (A) 74 %; Platelet Count 363 k/uL (150-450); RDW 20.6 % (11.5-15.5); WBC 18.6 k/uL (3.8-10.6)
[2020-01-28 09:12] LABS: Albumin 3.3 g/dL (3.5-5.0); Calcium 8.7 mg/dL (8.4-10.2); Potassium 3.6 mmol/L (3.5-5.1); Total Bilirubin 0.5 mg/dL (0.2-1.3); Total Protein 6.8 g/dL (6.3-8.2)
[2020-01-28] MEDS: SODIUM CHLORIDE 0.9% 1,000 ML IV SCH (12:04)
--- NOTE | 2020-01-28 14:36 | P.PN ---
Subjective Progress Note Date: 01/28/20 Jaqui Garza, is an 84-year-old female who presented to [facility] emergency room due to elevated temperature [facility] 102.4 at the [facility], and generalized weakness, patient had 2 recent admissions, on the first admission she had evidence of urinary tract infection, her white blood count was elevated at 50,000, she was treated with IV antibiotics, she was seen by hematology and infectious disease, she was discharged to [facility] on oral Augmentin, white blood count at the time of discharge was 10,000 patient developed generalized rash, and her white blood count was up to 21,000 she was readmitted to the hospital and was seen by infectious disease who advised to withhold antibiotic and thought that her symptoms are related to ALLERGIC reaction to Augmentin white blood count came down to 14,000 patient was transferred back to the [facility], patient was therefore few days then she started having elevated temperature at 102.4 she had evidence of urinary tract infection and her white blood count was elevated again to 26.5 patient was admitted to medical floor she was started on IV Zosyn infectious disease consultation was requested. Patient was seen and examined on 01/21/2020 she is alert and oriented in no apparent distress she is complaining of fatigue and generalized weakness otherwise no specific complaints her temperature on arrival to emergency room was 102.8 she denies any chest pain or shortness of breath no cough no nausea or vomiting no abdominal pain no diarrhea no burning with urination no frequency or urgency and no hematuria On 01/22/2020, patient was seen and examined on the medical floor , she is alert and oriented 3 in no apparent distress, she is afebrile and reports feeling much better, there is no fever or chills no headache or dizziness no chest pain no shortness of breath no cough no nausea or vomiting no abdominal pain no diarr hea no burning with urination no frequency or urgency and no hematuria, patient has Thacker catheter in. On 01/23/2020 patient was seen and examined on the medical floor she is alert and oriented in no distress no new episodes of fever no chills no headache or dizziness no chest pain no shortness of breath no cough no nausea or vomiting no abdominal pain no diarrhea no urinary symptoms Thacker catheter is still in. Patient has significant debility Will consult physical therapy and occupational therapy she will need to return to [facility] after this admission. On 01/24/2020 patient was seen and examined on the telemetry floor she is alert and oriented 3 in no distress she is feeling better there is no fever or chills no headache or dizziness no chest pain no shortness of breath no cough no nausea or vomiting no abdominal pain no diarrhea no blood in the stools no burning was urination no frequency or urgency no hematuria Thacker catheter is still in and patient is resistant to having it removed to weakness and gait disturbance. Physical therapy and occupational therapy consult has been requested. On 01/25/2020 patient was seen and examined on the medical floor she is alert and oriented 3 in no apparent distress white blood count is increased at this time up to 25,000 infectious disease following computed tomography scan of the abdomen and pelvis was ordered, clinically patient is stable there is no fever or chills no headache or dizziness no chest pain no shortness of breath no cough no nausea or vomiting no abdominal pain no diarrhea and no urinary symptoms On 01/26/2020 patient was seen and examined on the medical floor she is alert and oriented 3 in no apparent distress there is no fever or chills no headache or dizziness no chest pain shortness of breath no cough no nausea or vomiting no abdominal pain no diarrhea no burning was urination no frequency or urgency no hematuria patient has Thacker catheter in, infectious disease and urology input reviewed On 01/27/2020 patient was seen and examined on the medical floor she is alert and oriented 3 she is complaining of abdominal discomfort and nausea today otherwise she denies any complaints there is no fever or chills no headache or dizziness no chest pain no shortness of breath no cough no vomiting and no urinary symptoms On 01/28/2020 patient was seen and examined on the medical floor she is alert and oriented 3 in no apparent distress she is complaining of nausea otherwise no complaints there is no fever or chills no headache or dizziness no chest pain no shortness of breath no cough no vomiting no abdominal pain no diarrhea no burning was urination no frequency or urgency no hematuria Objective - Vital Signs Vital signs: Vital Signs Temp 98.0 F 01/28/20 07:00 Pulse 84 01/28/20 07:00 Resp 16 01/28/20 07:00 BP 102/69 01/28/20 07:00 Pulse Ox 96 01/28/20 12:10 Intake & Output 01/27/20 01/28/20 01/28/20 18:59 06:59 18:59 Intake Total 100 Output Total 1850 625 Balance -1750 -625 Weight 55.5 kg 58.967 kg Intake: Oral 100 Output: Urine 1850 625 Uretheral (Thacker) 800 Other: Voiding Method Indwelling Catheter Indwelling Catheter Indwelling Catheter - Exam In general patient is alert and oriented 3 in no apparent distress HEENT head normocephalic and atraumatic Neck is supple no JVD no goiter no lymphadenopathy Chest exam reveals a few scattered crackles no wheezing Cardiac exam reveals regular heart sounds S1 and S2 no gallops no murmurs Abdomen is soft nontender no organomegaly with normal bowel sounds Extremity exam reveals 1+ edema bilaterally no cyanosis or clubbing Neurological examination reveals no gross focal deficit - Labs CBC & Chem 7: 01/28/20 07:50 01/28/20 07:50 Labs: Abnormal Lab Results - Last 24 Hours (Table) 01/28/20 01/28/20 Range/Units 07:50 07:50 WBC 18.6 H (3.8-10.6) k/uL Hgb 10.7 L (11.4-16.0) gm/dL MCHC 30.7 L (31.0-37.0) g/dL RDW 20.6 H (11.5-15.5) % Neutrophils # 13.8 H (1.3-7.7) k/uL Monocytes # 1.8 H (0-1.0) k/uL Sodium 131 L (137-145) mmol/L Chloride 90 L (98-107) mmol/L BUN 23 H (7-17) mg/dL Glucose 142 H (74-99) mg/dL Albumin 3.3 L (3.5-5.0) g/dL Microbiology - Last 24 Hours (Table) 01/25/20 22:37 Urine Culture - Final Urine,Voided Assessment and Plan Plan: 1. Sepsis with fever, leukocytosis, currently maintained on Cipro and Flagyl, infectious disease following, white blood count is still elevated at 23,000 2. Urinary tract infection. Recurrent, will check ultrasound of the kidneys to rule out any structural abnormality or kidney stone causing recurrent infections. 3. Elevated d-dimer will check computed tomography scan angiogram of the chest to rule out pulmonary embolism 4. Underlying history of hypertension well-controlled on current medications 5. Underlying history of gastroesophageal reflux disease maintained on Protonix 6. Physical debility Will consult physical therapy and occupational therapy pat ient will need to return to [facility] after this admission 7. Bilateral infiltrates on computed tomography scan of the chest pulmonary consultation was requested At this time patient is admitted to medical floor she is started on IV antibiotics Cultures are still pending, will review culture results from the hospital and from the [facility], unfortunately we do not have any positive cultures to direct antibiotic treatment so far Infectious disease consultation requested Will follow closely
[2020-01-28] MEDS: ACETAMINOPHEN TAB 325 MG TAB PO PRN (17:03)
[2020-01-28] MEDS: BACLOFEN 10 MG TAB PO PRN (21:01)
[2020-01-28] MEDS: DOCUSATE 100 MG CAP PO SCH (21:01)
--- NOTE | 2020-01-28 23:06 | PN ---
PROGRESS NOTE DATE OF SERVICE: 01/28/2020 REASON FOR FOLLOWUP: Urinary tract infection and a question of colitis. INTERVAL HISTORY: The patient is currently afebrile. The patient is breathing comfortably. Denies having any chest pain. No shortness of breath or cough. Patient overall not feeling well. No diarrhea. PHYSICAL EXAMINATION: Blood pressure 120/77 with a pulse of 91, temperature 97.8. She is 96% on room air. General description is an elderly female lying in bed in no distress. Respiratory system: Unlabored breathing, clear to auscultation anteriorly. Heart S1, S2. Regular rate and rhythm. Abdomen soft, no tenderness. LABS: White count is down to 18,000 creatinine 0.73. DIAGNOSTIC IMPRESSION AND PLAN: Patient admitted to the hospital with fever with concern for urinary source. Urine did show Pseudomonas, has been currently covered with Rocephin and Cipro. However, the white count did show downward trend, did improve with addition of oral Flagyl, to continue and will monitor her white count closely. Continue supportive care. MMODL / IJN: [id number] /
[2020-01-29] MEDS: ACETAMINOPHEN TAB 325 MG TAB PO PRN ×2 (00:21→08:02)
[2020-01-29] MEDS: ALPRAZolam 0.25 MG TAB PO PRN ×3 (00:21→12:58)
[2020-01-29] MEDS: HYDROcodone/APAP 7.5-325MG 1 EACH TAB PO SCH ×3 (05:38→20:14)
[2020-01-29] MEDS: PANTOPRAZOLE 40 MG TABLET PO SCH (05:38)
[2020-01-29] MEDS: METOPROLOL TARTRATE 25 MG TAB PO SCH ×2 (08:02→20:13)
[2020-01-29] MEDS: FUROSEMIDE 10 MG/ML 2 ML VIAL IV SCH ×2 (08:02→20:14)
[2020-01-29] MEDS: ENOXAPARIN 40 MG/0.4 ML SYRINGE SQ SCH (08:02)
[2020-01-29] MEDS: metroNIDAZOLE 500 MG TAB PO SCH ×3 (08:03→21:14)
[2020-01-29] MEDS: BACLOFEN 10 MG TAB PO PRN ×2 (08:03→21:15)
[2020-01-29] MEDS: FOLIC ACID 1 MG TAB PO SCH (08:03)
[2020-01-29] MEDS: CIPROFLOXACIN HCL 500 MG TAB PO SCH ×2 (08:03→20:14)
[2020-01-29] MEDS: SODIUM CHLORIDE 0.9% 1,000 ML IV SCH (12:00)
--- NOTE | 2020-01-29 13:02 | P.PN ---
Subjective Jaqui Garza, is an 84-year-old female who presented to [facility] emergency room due to elevated temperature of 102.4 at the [facility], and generalized weakness, patient had 2 recent admissions, on the first admission she had evidence of urinary tract infection, her white blood count was elevated at 50,000, she was treated with IV antibiotics, she was seen by hematology and infectious disease, she was discharged to [facility] on oral Augmentin, white blood count at the time of discharge was 10,000 patient developed generalized rash, and her white blood count was up to 21,000 she was readmitted to the hospital and was seen by infectious disease who advised to withhold antibiotic and thought that her symptoms are related to ALLERGIC reaction to Augmentin white blood count came down to 14,000 patient was transferred back to the [facility], patient was therefore few days then she started having elevated temperature at 102.4 she had evidence of urinary tract infection and her white blood count was elevated again to 26.5 patient was admitted to medical floor she was started on IV Zosyn infectious disease cons ultation was requested. Patient was seen and examined on 01/21/2020 she is alert and oriented in no apparent distress she is complaining of fatigue and generalized weakness otherwise no specific complaints her temperature on arrival to emergency room was 102.8 she denies any chest pain or shortness of breath no cough no nausea or vomiting no abdominal pain no diarrhea no burning with urination no frequency or urgency and no hematuria On 01/22/2020, patient was seen and examined on the medical floor , she is alert and oriented 3 in no apparent distress, she is afebrile and reports feeling mu ch better, there is no fever or chills no headache or dizziness no chest pain no shortness of breath no cough no nausea or vomiting no abdominal pain no diarrhea no burning with urination no frequency or urgency and no hematuria, patient has Thacker catheter in. On 01/23/2020 patient was seen and examined on the medical floor she is alert and oriented in no distress no new episodes of fever no chills no headache or dizziness no chest pain no shortness of breath no cough no nausea or vomiting no abdominal pain no diarrhea no urinary symptoms Thacker catheter is still in. Patient has significant debility Will consult physical therapy and occupational therapy she will need to return to [facility] after this admission. On 01/24/2020 patient was seen and examined on the telemetry floor she is alert and oriented 3 in no distress she is feeling better there is no fever or chills no headache or dizziness no chest pain no shortness of breath no cough no nausea or vomiting no abdominal pain no diarrhea no blood in the stools no burning was urination no frequency or urgency no hematuria Thacker catheter is still in and patient is resistant to having it removed to weakness and gait disturbance. Physical therapy and occupational therapy consult has been requested. On 01/25/2020 patient was seen and examined on the medical floor she is alert and oriented 3 in no apparent distress white blood count is increased at this time up to 25,000 infectious disease following computed tomography scan of the abdomen and pelvis was ordered, clinically patient is stable there is no fever or chills no headache or dizziness no chest pain no shortness of breath no cough no nausea or vomiting no abdominal pain no diarrhea and no urinary symptoms On 01/26/2020 patient was seen and examined on the medical floor she is alert and oriented 3 in no apparent distress there is no fever or chills no headache or dizziness no chest pain shortness of breath no cough no nausea or vomiting no abdominal pain no diarrhea no burning was urination no frequency or urgency no hematuria patient has Thacker catheter in, infectious disease and urology input reviewed On 01/27/2020 patient was seen and examined on the medical floor she is alert and oriented 3 she is complaining of abdominal discomfort and nausea today otherwise she denies any complaints there is no fever or chills no headache or dizziness no chest pain no shortness of breath no cough no vomiting and no urinary symptoms On 01/28/2020 patient was seen and examined on the medical floor she is alert and oriented 3 in no apparent distress she is complaining of nausea otherwise no complaints there is no fever or chills no headache or dizziness no chest pain no shortness of breath no cough no vomiting no abdominal pain no diarrhea no burning was urination no frequency or urgency no hematuria. On 01/29/2020 patient was seen and examined on the medical floor she is alert and oriented in no distress there is no fever or chills no headache or dizziness no chest pain no shortness of breath no cough no nausea or vomiting no abdominal pain no diarrhea no burning was urination no frequency or urgency and no hematuria Objective - Vital Signs Vital signs: Vital Signs Temp 98.2 F 01/29/20 07:00 Pulse 89 01/29/20 07:00 Resp 16 01/29/20 07:00 BP 123/78 01/29/20 07:00 Pulse Ox 96 01/29/20 07:00 Intake & Output 01/28/20 01/29/20 01/29/20 18:59 06:59 18:59 Intake Total 540 Output Total 400 700 Balance 140 -700 Intake: Oral 540 Output: Urine 400 700 Other: Voiding Method Indwelling Catheter Indwelling Catheter Indwelling Catheter # Bowel Movements 1 - Exam In general patient is alert and oriented 3 in no apparent distress HEENT head normocephalic and atraumatic Neck is supple no JVD no goiter no lymphadenopathy Chest exam reveals a few scattered crackles no wheezing Cardiac exam reveals regular heart sounds S1 and S2 no gallops no murmurs Abdomen is soft nontender no organomegaly with normal bowel sounds Extremity exam reveals 1+ edema bilaterally no cyanosis or clubbing Neurological examination reveals no gross focal deficit - Labs CBC & Chem 7: 01/28/20 07:50 01/28/20 07:50 Assessment and Plan Plan: 1. Sepsis with fever, leukocytosis, currently maintained on Cipro and Flagyl, infectious disease following, white blood count is still elevated at 23,000 2. Urinary tract infection. Recurrent, will check ultrasound of the kidneys to rule out any structural abnormality or kidney stone causing recurrent infections. 3. Elevated d-dimer will check computed tomography scan angiogram of the chest to rule out pulmonary embolism 4. Underlying history of hypertension well-controlled on current medications 5. Underlying history of gastroesophageal reflux disease maintained on Protonix 6. Physical debility Will consult physical therapy and occupational therapy patient will need to return to [facility] after this admission 7. Bilateral infiltrates on computed tomography scan of the chest pulmonary consultation was requested At this time patient is admitted to medical floor she is started on IV antibiotics Cultures are still pending, will review culture results from the hospital and from the [facility], unfortunately we do not have any positive cultures to direct antibiotic treatment so far Infectious disease consultation requested Will follow closely
[2020-01-29] MEDS: DOCUSATE 100 MG CAP PO SCH (20:13)
--- NOTE | 2020-01-30 02:03 | PN ---
PROGRESS NOTE DATE OF SERVICE: 01/29/2020 REASON FOR FOLLOWUP: Pseudomonas UTI and possible colitis. INTERVAL HISTORY: The patient is currently afebrile. The patient is feeling better today. Breathing comfortably. Denies having any chest pain. No shortness of breath or cough. No nausea or vomiting. No abdominal pain or diarrhea. PHYSICAL EXAMINATION: Blood pressure 118/80 with a pulse of 100, temperature 98.2. She is 96% on room air. General description is an elderly female lying in bed in no distress. RESPIRATORY SYSTEM: Unlabored breathing, clear to auscultation anteriorly. HEART: S1, S2. Regular rate and rhythm. ABDOMEN: Soft, no tenderness. LABS: No new labs have been obtained today. DIAGNOSTIC IMPRESSION AND PLAN: Patient admitted to the hospital with fever and sepsis and concern for possible urinary source. Urine did grow Pseudomonas. White count remains to be elevated, but seemed to have a downward trend with addition of Flagyl, to be continued. Repeat a CBC tomorrow. Monitor clinical course closely. MMODL / IJN: [id number] /
[2020-01-30] MEDS: HYDROcodone/APAP 7.5-325MG 1 EACH TAB PO SCH ×3 (05:49→20:57)
[2020-01-30] MEDS: PANTOPRAZOLE 40 MG TABLET PO SCH (05:50)
[2020-01-30] MEDS: CIPROFLOXACIN HCL 500 MG TAB PO SCH (08:21)
[2020-01-30] MEDS: metroNIDAZOLE 500 MG TAB PO SCH ×3 (08:21→21:07)
[2020-01-30] MEDS: ENOXAPARIN 40 MG/0.4 ML SYRINGE SQ SCH (08:21)
[2020-01-30] MEDS: ACETAMINOPHEN TAB 325 MG TAB PO PRN (08:21)
[2020-01-30] MEDS: FOLIC ACID 1 MG TAB PO SCH (08:21)
[2020-01-30] MEDS: ALPRAZolam 0.25 MG TAB PO PRN (08:21)
[2020-01-30] MEDS: METOPROLOL TARTRATE 25 MG TAB PO SCH ×2 (08:21→20:56)
[2020-01-30] MEDS: BACLOFEN 10 MG TAB PO PRN (08:21)
[2020-01-30] MEDS: FUROSEMIDE 10 MG/ML 2 ML VIAL IV SCH ×2 (08:21→20:57)
[2020-01-30 08:40] LABS: ALT 9 U/L (4-34); AST 20 U/L (14-36); African American GFR (CKD) >90 (>60 ml/min/1.73 sqM); Albumin 3.4 g/dL (3.5-5.0); Alkaline Phosphatase 81 U/L (38-126); Anion Gap 12 mmol/L; Blood Urea Nitrogen 27 mg/dL (7-17); Calcium 9.1 mg/dL (8.4-10.2); Carbon Dioxide 27 mmol/L (22-30); Chloride 92 mmol/L (98-107); Glucose 180 mg/dL (74-99); Non-African American GFR(CKD) 82 (>60 ml/min/1.73 sqM); Potassium 3.6 mmol/L (3.5-5.1); Sodium 131 mmol/L (137-145); Total Bilirubin 0.4 mg/dL (0.2-1.3)
[2020-01-30 08:52] LABS: C Reactive Protein 57.7 mg/L (<10.0)
[2020-01-30 09:00] LABS: Anisocytosis Moderate; Basophils % (A) 0 %; Eosinophils # (A) 0.4 k/uL (0-0.7); Eosinophils % (A) 2 %; HCT 34.2 % (34.0-46.0); HGB 10.7 gm/dL (11.4-16.0); Hypochromasia Marked; Lymphocytes # (A) 1.8 k/uL (1.0-4.8); Lymphocytes % (A) 9 %; MCH 25.5 pg (25.0-35.0); MCHC 31.2 g/dL (31.0-37.0); MCV 81.9 fL (80.0-100.0); Mean Platelet Volume 7.8; Microcytosis Slight; Monocytes # (A) 1.4 k/uL (0-1.0); Monocytes % (A) 7 %; Neutrophils # (A) 16.4 k/uL (1.3-7.7); Neutrophils % (A) 81 %; Platelet Count 428 k/uL (150-450); RBC 4.18 m/uL (3.80-5.40); RDW 20.7 % (11.5-15.5); WBC 20.3 k/uL (3.8-10.6)
[2020-01-30] MEDS: SODIUM CHLORIDE 0.9% 1,000 ML IV SCH (11:28)
[2020-01-30] MEDS: MEROPENEM 1 GM in SODIUM CHLORIDE 0.9% 100 ML IVPB SCH ×2 (13:29→20:56)
[2020-01-30 16:28] LABS: Appearance,Urine Cloudy (Clear); Bacteria,Urine Rare /hpf; Bilirubin,Urine Negative (Negative); Blood,Urine Moderate (Negative); Color,Urine Yellow; Glucose,Urine (UA) Negative (Negative); Hyaline Casts,Urine 15 /lpf (0-2); Ketones,Urine Trace (Negative); Leukocyte Esterase,Urine Large (Negative); Mucus,Urine Rare /hpf; Nitrite,Urine Negative (Negative); Protein,Urine 1+ (Negative); RBC,Urine 65 /hpf (0-5); Specific Gravity,Urine 1.017 (1.001-1.035); Squamous Epithelial Cell,Urine 2 /hpf (0-4); Urobilinogen,Urine <2.0 mg/dL (<2.0); WBC,Urine 171 /hpf (0-5)
--- NOTE | 2020-01-30 17:45 | P.PN ---
Subjective Progress Note Date: 01/30/20 Jaqui Garza, is an 84-year-old female who presented to [facility] emergency room due to elevated temperature of 102.4 at the longterm, and generalized weakness, patient had 2 recent admissions, on the first admission she had evidence of urinary tract infection, her white blood count was elevated at 50,000, she was treated with IV antibiotics, she was seen by hematology and infectious disease, she was discharged to longterm on oral Augmentin, white blood count at the time of discharge was 10,000 patient developed generalized rash, and her white blood count was up to 21,000 she was readmitted to the hospital and was seen by infectious disease who advised to withhold antibiotic and thought that her symptoms are related to ALLERGIC reaction to Augmentin white blood count came down to 14,000 patient was transferred back to the longterm, patient was therefore few days then she started having elevated temperature at 102.4 she had evidence of urinary tract infection and her white blood count was elevated again to 26.5 patient was admitted to medical floor she was started on IV Zosyn infectious disease consultation was requested. Patient was seen and examined on 01/21/2020 she is alert and oriented in no apparent distress she is complaining of fatigue and generalized weakness otherwise no specific complaints her temperature on arrival to emergency room was 102.8 she denies any chest pain or shortness of breath no cough no nausea or vomiting no abdominal pain no diarrhea no burning with urination no frequency or urgency and no hematuria On 01/22/2020, patient was seen and examined on the medical floor , she is alert and oriented 3 in no apparent distress, she is afebrile and reports feeling much better, there is no fever or chills no headache or dizziness no chest pain no shortness of breath no cough no nausea or vomiting no abdominal pain no diarr hea no burning with urination no frequency or urgency and no hematuria, patient has Thacker catheter in. On 01/23/2020 patient was seen and examined on the medical floor she is alert and oriented in no distress no new episodes of fever no chills no headache or dizziness no chest pain no shortness of breath no cough no nausea or vomiting no abdominal pain no diarrhea no urinary symptoms Thacker catheter is still in. Patient has significant debility Will consult physical therapy and occupational therapy she will need to return to longterm after this admission. On 01/24/2020 patient was seen and examined on the telemetry floor she is alert and oriented 3 in no distress she is feeling better there is no fever or chills no headache or dizziness no chest pain no shortness of breath no cough no nausea or vomiting no abdominal pain no diarrhea no blood in the stools no burning was urination no frequency or urgency no hematuria Thacker catheter is still in and patient is resistant to having it removed to weakness and gait disturbance. Physical therapy and occupational therapy consult has been requested. On 01/25/2020 patient was seen and examined on the medical floor she is alert and oriented 3 in no apparent distress white blood count is increased at this time up to 25,000 infectious disease following computed tomography scan of the abdomen and pelvis was ordered, clinically patient is stable there is no fever or chills no headache or dizziness no chest pain no shortness of breath no cough no nausea or vomiting no abdominal pain no diarrhea and no urinary symptoms On 01/26/2020 patient was seen and examined on the medical floor she is alert and oriented 3 in no apparent distress there is no fever or chills no headache or dizziness no chest pain shortness of breath no cough no nausea or vomiting no abdominal pain no diarrhea no burning was urination no frequency or urgency no hematuria patient has Thacker catheter in, infectious disease and urology input reviewed On 01/27/2020 patient was seen and examined on the medical floor she is alert and oriented 3 she is complaining of abdominal discomfort and nausea today otherwise she denies any complaints there is no fever or chills no headache or dizziness no chest pain no shortness of breath no cough no vomiting and no urinary symptoms On 01/28/2020 patient was seen and examined on the medical floor she is alert and oriented 3 in no apparent distress she is complaining of nausea otherwise no complaints there is no fever or chills no headache or dizziness no chest pain no shortness of breath no cough no vomiting no abdominal pain no diarrhea no burning was urination no frequency or urgency no hematuria. On 01/29/2020 patient was seen and examined on the medical floor she is alert and oriented in no distress there is no fever or chills no headache or dizziness no chest pain no shortness of breath no cough no nausea or vomiting no abdominal pain no diarrhea no burning was urination no frequency or urgency and no hematuria. On 01/30/2020 patient was seen and examined on the medical floor, she is alert and oriented 3 there is no fever or chills no headache or dizziness no chest pain no shortness of breath no cough no nausea or vomiting no abdominal pain no diarrhea no burning was urination no frequency or urgency and no hematuria white blood count is still elevated at 20,000 Objective - Vital Signs Vital signs: Vital Signs Temp 98.2 F 01/30/20 15:00 Pulse 91 01/30/20 15:00 Resp 18 01/30/20 15:00 BP 113/78 01/30/20 15:00 Pulse Ox 96 01/30/20 15:00 Intake & Output 01/29/20 01/30/20 01/30/20 18:59 06:59 18:59 Intake Total 540 Output Total 850 1000 450 Balance -850 -460 -450 Weight 48.081 kg Intake: Oral 540 Output: Urine 850 1000 450 Other: Voiding Method Indwelling Catheter Indwelling Catheter Indwelling Catheter # Bowel Movements 1 - Exam In general patient is alert and oriented 3 in no apparent distress HEENT head normocephalic and atraumatic Neck is supple no JVD no goiter no lymphadenopathy Chest exam reveals a few scattered crackles no wheezing Cardiac exam reveals regular heart sounds S1 and S2 no gallops no murmurs Abdomen is soft nontender no organomegaly with normal bowel sounds Extremity exam reveals 1+ edema bilaterally no cyanosis or clubbing Neurological examination reveals no gross focal deficit - Labs CBC & Chem 7: 01/30/20 07:53 01/30/20 07:53 Labs: Abnormal Lab Results - Last 24 Hours (Table) 01/30/20 01/30/20 01/30/20 Range/Units 07:53 07:53 15:22 WBC 20.3 H (3.8-10.6) k/uL Hgb 10.7 L (11.4-16.0) gm/dL RDW 20.7 H (11.5-15.5) % Neutrophils # 16.4 H (1.3-7.7) k/uL Monocytes # 1.4 H (0-1.0) k/uL Sodium 131 L (137-145) mmol/L Chloride 92 L (98-107) mmol/L BUN 27 H (7-17) mg/dL Glucose 180 H (74-99) mg/dL C-Reactive Protein 57.7 H (<10.0) mg/L Albumin 3.4 L (3.5-5.0) g/dL Urine Appearance Cloudy H (Clear) Urine Protein 1+ H (Negative) Urine Ketones Trace H (Negative) Urine Blood Moderate H (Negative) Ur Leukocyte Esterase Large H (Negative) Urine RBC 65 H (0-5) /hpf Urine WBC 171 H (0-5) /hpf Urine WBC Clumps Rare H (None) /hpf Urine Bacteria Rare H (None) /hpf Hyaline Casts 15 H (0-2) /lpf Urine Mucus Rare H (None) /hpf Assessment and Plan Plan: 1. Sepsis with fever, leukocytosis, currently maintained on Cipro and Flagyl, infectious disease following, white blood count is still elevated at 23,000 2. Urinary tract infection. Recurrent, will check ultrasound of the kidneys to rule out any structural abnormality or kidney stone causing recurrent infections. 3. Elevated d-dimer will check computed tomography scan angiogram of the chest to rule out pulmonary embolism 4. Underlying history of hypertension well-controlled on current medications 5. Underlying history of gastroesophageal reflux disease maintained on Protonix 6. Physical debility Will consult physical therapy and occupational therapy patient will need to return to longterm after this admission 7. Bilateral infiltrates on computed tomography scan of the chest pulmonary consultation was requested At this time patient is admitted to medical floor she is started on IV antibiotics Cultures are still pending, will review culture results from the hospital and from the longterm, unfortunately we do not have any positive cultures to direct antibiotic treatment so far Infectious disease consultation requested Will follow closely
[2020-01-30] MEDS: DOCUSATE 100 MG CAP PO SCH (20:56)
--- NOTE | 2020-01-30 23:59 | PN ---
PROGRESS NOTE DATE OF SERVICE: 01/30/2020 REASON FOR FOLLOWUP: UTI and persistent elevated white count. INTERVAL HISTORY: The patient is currently afebrile. The patient is breathing comfortably, complaining of not feeling well. No chest pain. No cough. No abdominal pain or diarrhea. PHYSICAL EXAMINATION: Blood pressure 113/78 with a pulse of 91, temperature 98.2. She is 96% on room air. General description is an elderly female lying in bed in no distress. RESPIRATORY SYSTEM: Unlabored breathing, clear to auscultation anteriorly. HEART: S1, S2. Regular rate and rhythm. ABDOMEN: Soft, no tenderness. LABS: White count is up to 20,000. DIAGNOSTIC IMPRESSION AND PLAN: Patient admitted to the hospital with sepsis, source likely urinary. Urine did grow Pseudomonas. The patient is covered with Cipro, however, did notice to have worsening of the white count. We will repeat a UA with culture. Switch antibiotic to meropenem. If the patient's white count responds to meropenem, recommend getting a Midline to finish therapy with IV Merrem and continue supportive care. MMODL / IJN: [id number] /
[2020-01-31] MEDS: MEROPENEM 1 GM in SODIUM CHLORIDE 0.9% 100 ML IVPB SCH ×3 (04:19→19:33)
[2020-01-31] MEDS: PANTOPRAZOLE 40 MG TABLET PO SCH (05:44)
[2020-01-31] MEDS: HYDROcodone/APAP 7.5-325MG 1 EACH TAB PO SCH ×3 (05:44→21:34)
[2020-01-31] MEDS: ENOXAPARIN 40 MG/0.4 ML SYRINGE SQ SCH (07:03)
[2020-01-31] MEDS: metroNIDAZOLE 500 MG TAB PO SCH ×3 (07:03→21:33)
[2020-01-31] MEDS: METOPROLOL TARTRATE 25 MG TAB PO SCH ×2 (07:03→21:33)
[2020-01-31] MEDS: FUROSEMIDE 10 MG/ML 2 ML VIAL IV SCH ×2 (07:03→21:33)
[2020-01-31] MEDS: FOLIC ACID 1 MG TAB PO SCH (07:04)
[2020-01-31 08:01] LABS: Anisocytosis Moderate; Basophils % (A) 0 %; Eosinophils # (A) 0.4 k/uL (0-0.7); Eosinophils % (A) 2 %; HCT 36.1 % (34.0-46.0); HGB 10.7 gm/dL (11.4-16.0); Hypochromasia Marked; Lymphocytes # (A) 1.9 k/uL (1.0-4.8); Lymphocytes % (A) 10 %; MCH 24.1 pg (25.0-35.0); MCHC 29.7 g/dL (31.0-37.0); MCV 81.2 fL (80.0-100.0); Mean Platelet Volume 7.9; Microcytosis Moderate; Monocytes # (A) 1.7 k/uL (0-1.0); Monocytes % (A) 9 %; Neutrophils # (A) 13.4 k/uL (1.3-7.7); Neutrophils % (A) 75 %; Platelet Count 437 k/uL (150-450); RBC 4.45 m/uL (3.80-5.40); RDW 21.6 % (11.5-15.5); WBC 17.8 k/uL (3.8-10.6)
[2020-01-31 09:21] LABS: ALT 8 U/L (4-34); AST 18 U/L (14-36); African American GFR (CKD) >90 (>60 ml/min/1.73 sqM); Albumin 3.3 g/dL (3.5-5.0); Alkaline Phosphatase 87 U/L (38-126); Anion Gap 12 mmol/L; Blood Urea Nitrogen 25 mg/dL (7-17); Calcium 9.1 mg/dL (8.4-10.2); Carbon Dioxide 27 mmol/L (22-30); Chloride 93 mmol/L (98-107); Glucose 169 mg/dL (74-99); Non-African American GFR(CKD) 80 (>60 ml/min/1.73 sqM); Potassium 3.6 mmol/L (3.5-5.1); Sodium 132 mmol/L (137-145); Total Bilirubin 0.4 mg/dL (0.2-1.3)
[2020-01-31 11:07] VITALS: BMI 18.8
[2020-01-31] MEDS: SODIUM CHLORIDE 0.9% 1,000 ML IV SCH (11:56)
--- NOTE | 2020-01-31 13:10 | PN ---
PROGRESS NOTE DATE OF SERVICE: 01/31/2020 REASON FOR FOLLOWUP: Pneumonia with UTI and persistent elevated white count. INTERVAL HISTORY: The patient is currently afebrile. Patient is breathing comfortably, feeling weak and tired. No chest pain. No cough. No abdominal pain or diarrhea. PHYSICAL EXAMINATION: Blood pressure 110/72 with a pulse of 92, temperature 98, she is 95% on room air. General description is an elderly female, lying in bed in no distress. RESPIRATORY SYSTEM: Unlabored breathing, clear to auscultation anteriorly. HEART: S1, S2. Regular rate and rhythm. ABDOMEN: Soft, no tenderness. LABS: Hemoglobin 12.1, white count of 17.2, BUN of 25, creatinine 0.70. DIAGNOSTIC IMPRESSION AND PLAN: Patient admitted to the hospital with sepsis, source likely urinary in this patient who did have Pseudomonas with white cell resistant pattern. White count responded to meropenem to continue for about 10 days . Continue supportive care. MMODL / IJN: [id number] /
--- NOTE | 2020-01-31 17:13 | P.PN ---
Subjective Progress Note Date: 01/31/20 Jaqui Garza, is an 84-year-old female who presented to [facility] emergency room due to elevated temperature of 102.4 at the [facility], and generalized weakness, patient had 2 recent admissions, on the first admission she had evidence of urinary tract infection, her white blood count was elevated at 50,000, she was treated with IV antibiotics, she was seen by hematology and infectious disease, she was discharged to [facility] on oral Augmentin, white blood count at the time of discharge was 10,000 patient developed generalized rash, and her white blood count was up to 21,000 she was readmitted to the hospital and was seen by infectious disease who advised to withhold antibiotic and thought that her symptoms are related to ALLERGIC reaction to Augmentin white blood count came down to 14,000 patient was transferred back to the [facility], patient was therefore few days then she started having elevated temperature at 102.4 she had evidence of urinary tract infection and her white blood count was elevated again to 26.5 patient was admitted to medical floor she was started on IV Zosyn infectious disease consultation was requested. Patient was seen and examined on 01/21/2020 she is alert and oriented in no apparent distress she is complaining of fatigue and generalized weakness otherwise no specific complaints her temperature on arrival to emergency room was 102.8 she denies any chest pain or shortness of breath no cough no nausea or vomiting no abdominal pain no diarrhea no burning with urination no frequency or urgency and no hematuria On 01/22/2020, patient was seen and examined on the medical floor , she is alert and oriented 3 in no apparent distress, she is afebrile and reports feeling much better, there is no fever or chills no headache or dizziness no chest pain no shortness of breath no cough no nausea or vomiting no abdominal pain no diarr hea no burning with urination no frequency or urgency and no hematuria, patient has Thacker catheter in. On 01/23/2020 patient was seen and examined on the medical floor she is alert and oriented in no distress no new episodes of fever no chills no headache or dizziness no chest pain no shortness of breath no cough no nausea or vomiting no abdominal pain no diarrhea no urinary symptoms Thacker catheter is still in. Patient has significant debility Will consult physical therapy and occupational therapy she will need to return to [facility] after this admission. On 01/24/2020 patient was seen and examined on the telemetry floor she is alert and oriented 3 in no distress she is feeling better there is no fever or chills no headache or dizziness no chest pain no shortness of breath no cough no nausea or vomiting no abdominal pain no diarrhea no blood in the stools no burning was urination no frequency or urgency no hematuria Thacker catheter is still in and patient is resistant to having it removed to weakness and gait disturbance. Physical therapy and occupational therapy consult has been requested. On 01/25/2020 patient was seen and examined on the medical floor she is alert and oriented 3 in no apparent distress white blood count is increased at this time up to 25,000 infectious disease following computed tomography scan of the abdomen and pelvis was ordered, clinically patient is stable there is no fever or chills no headache or dizziness no chest pain no shortness of breath no cough no nausea or vomiting no abdominal pain no diarrhea and no urinary symptoms On 01/26/2020 patient was seen and examined on the medical floor she is alert and oriented 3 in no apparent distress there is no fever or chills no headache or dizziness no chest pain shortness of breath no cough no nausea or vomiting no abdominal pain no diarrhea no burning was urination no frequency or urgency no hematuria patient has Thacker catheter in, infectious disease and urology input reviewed On 01/27/2020 patient was seen and examined on the medical floor she is alert and oriented 3 she is complaining of abdominal discomfort and nausea today otherwise she denies any complaints there is no fever or chills no headache or dizziness no chest pain no shortness of breath no cough no vomiting and no urinary symptoms On 01/28/2020 patient was seen and examined on the medical floor she is alert and oriented 3 in no apparent distress she is complaining of nausea otherwise no complaints there is no fever or chills no headache or dizziness no chest pain no shortness of breath no cough no vomiting no abdominal pain no diarrhea no burning was urination no frequency or urgency no hematuria. On 01/29/2020 patient was seen and examined on the medical floor she is alert and oriented in no distress there is no fever or chills no headache or dizziness no chest pain no shortness of breath no cough no nausea or vomiting no abdominal pain no diarrhea no burning was urination no frequency or urgency and no hematuria. On 01/30/2020 patient was seen and examined on the medical floor, she is alert and oriented 3 there is no fever or chills no headache or dizziness no chest pain no shortness of breath no cough no nausea or vomiting no abdominal pain no diarrhea no burning was urination no frequency or urgency and no hematuria white blood count is still elevated at 20,000 On 01/31/2020 patient was seen and examined on the medical floor she is alert and oriented 3 in no apparent distress there is no fever or chills no headache or dizziness no chest pain no shortness of breath no cough no nausea or vomiting no abdominal pain no diarrhea no burning was urination no frequency or urgency and no hematuria white blood count is improving down to 17,000 case was discussed with Dr. Maryann fisher infectious disease plan at this time is to proceed with midline placement hopefully patient can be transferred back to [facility] tomorrow Objective - Vital Signs Vital signs: Vital Signs Temp 97.5 F L 01/31/20 15:00 Pulse 105 H 01/31/20 15:00 Resp 17 01/31/20 15:00 BP 115/78 01/31/20 15:00 Pulse Ox 97 01/31/20 15:00 Intake & Output 01/30/20 01/31/20 01/31/20 18:59 06:59 18:59 Intake Total 50 260 Output Total 450 600 Balance -450 -550 260 Weight 48.081 kg Intake: Intake, IV Titration 260 Amount Meropenem 1 gm In Sodium 100 Chloride 0.9% 100 ml @ 200 mls/hr IVPB Q8H MARIBETH Rx#:[id number] Sodium Chloride 0.9% 1, 160 000 ml @ 20 mls/hr IV . Q24H MARIBEHT Rx#:[id number] Oral 50 Output: Urine 450 600 Other: Voiding Method Indwelling Catheter Indwelling Catheter Indwelling Catheter - Exam In general patient is alert and oriented 3 in no apparent distress HEENT head normocephalic and atraumatic Neck is supple no JVD no goiter no lymphadenopathy Chest exam reveals a few scattered crackles no wheezing Cardiac exam reveals regular heart sounds S1 and S2 no gallops no murmurs Abdomen is soft nontender no organomegaly with normal bowel sounds Extremity exam reveals 1+ edema bilaterally no cyanosis or clubbing Neurological examination reveals no gross focal deficit - Labs CBC & Chem 7: 01/31/20 07:12 01/31/20 07:12 Labs: Abnormal Lab Results - Last 24 Hours (Table) 01/31/20 01/31/20 Range/Units 07:12 07:12 WBC 17.8 H (3.8-10.6) k/uL Hgb 10.7 L (11.4-16.0) gm/dL MCH 24.1 L (25.0-35.0) pg MCHC 29.7 L (31.0-37.0) g/dL RDW 21.6 H (11.5-15.5) % Neutrophils # 13.4 H (1.3-7.7) k/uL Monocytes # 1.7 H (0-1.0) k/uL Sodium 132 L (137-145) mmol/L Chloride 93 L (98-107) mmol/L BUN 25 H (7-17) mg/dL Glucose 169 H (74-99) mg/dL Albumin 3.3 L (3.5-5.0) g/dL Microbiology - Last 24 Hours (Table) 01/30/20 15:22 Urine Culture - Preliminary Urine,Voided Assessment and Plan Plan: 1. Sepsis with fever, leukocytosis, currently maintained on Cipro and Flagyl, infectious disease following, white blood count is still elevated at 23,000 2. Urinary tract infection. Recurrent, will check ultrasound of the kidneys to rule out any structural abnormality or kidney stone causing recurrent infections. 3. Elevated d-dimer will check computed tomography scan angiogram of the chest to rule out pulmonary embolism 4. Underlying history of hypertension well-controlled on current medications 5. Underlying history of gastroesophageal reflux disease maintained on Protonix 6. Physical debility Will consult physical therapy and occupational therapy patient will need to return to [facility] after this admission 7. Bilateral infiltrates on computed tomography scan of the chest pulmonary consultation was requested At this time patient is admitted to medical floor she is started on IV antibiotics Cultures are still pending, will review culture results from the hospital and from the [facility], unfortunately we do not have any positive cultures to direct antibiotic treatment so far Infectious disease consultation requested Will follow closely
[2020-01-31] MEDS: DOCUSATE 100 MG CAP PO SCH (21:33)
[2020-02-01] MEDS: MEROPENEM 1 GM in SODIUM CHLORIDE 0.9% 100 ML IVPB SCH ×2 (04:26→11:24)
[2020-02-01] MEDS: PANTOPRAZOLE 40 MG TABLET PO SCH (06:01)
[2020-02-01] MEDS: HYDROcodone/APAP 7.5-325MG 1 EACH TAB PO SCH ×2 (06:01→14:48)
[2020-02-01 08:26] VITALS: BP 118/77; PULSE 86; RESP 17; TEMP 98
[2020-02-01] MEDS: metroNIDAZOLE 500 MG TAB PO SCH (09:27)
[2020-02-01] MEDS: FOLIC ACID 1 MG TAB PO SCH (09:27)
[2020-02-01] MEDS: METOPROLOL TARTRATE 25 MG TAB PO SCH (09:27)
[2020-02-01] MEDS: FUROSEMIDE 10 MG/ML 2 ML VIAL IV SCH (09:28)
[2020-02-01] MEDS: ENOXAPARIN 40 MG/0.4 ML SYRINGE SQ SCH (09:28)
--- NOTE | 2020-02-01 12:44 | PN ---
PROGRESS NOTE DATE OF SERVICE: 02/01/2020 REASON FOR FOLLOWUP: Pseudomonas urinary tract infection and elevated white count. INTERVAL HISTORY: The patient is currently afebrile. The patient has been complaining of feeling nauseated. Did not have vomiting, though. No chest pain. No cough. No abdominal pain and no diarrhea. PHYSICAL EXAMINATION: Blood pressure 119/77 with a pulse of 83, temperature of 98, she is 97% on room air. General description is an elderly female, up in the chair in no distress. RESPIRATORY SYSTEM: Unlabored breathing, clear to auscultation anteriorly. HEART: S1, S2. Regular rate and rhythm. ABDOMEN: Soft, no tenderness. LABS: No new labs have been obtained today. Urine culture repeat is currently pending. DIAGNOSTIC IMPRESSION AND PLAN: Patient admitted to the hospital with sepsis, source likely urine, grew Pseudomonas with multidrug resistant pattern. White count did show downward trend yesterday after meropenem. She did have a midline and will continue meropenem 1 g q.8 for another 10 days to finish a course of therapy. Continue supportive care. MMODL / IJN: [id number] /
--- NOTE | 2020-02-01 12:50 | P.DS ---
Providers Date of admission: 01/20/20 21:13 Expected date of discharge: 02/01/20 Attending physician: Dalton Madden Consults: 01/20/20 21:20 Consult Physician Routine Consulting Provider: Yasmeen Vail Consult Reason/Comments: sepsis Do you want consulting provider notified?: Yes 01/23/20 10:05 Consult Physician Routine Consulting Provider: Esequiel Abad Consult Reason/Comments: fever, infiltrate on CT scan of the chest Do you want consulting provider notified?: Yes 01/25/20 19:11 Consult Physician Routine Consulting Provider: George Dsouza Consult Reason/Comments: hydronephrosis Do you want consulting provider notified?: Yes Primary care physician: Dalton Maryanne [facility] Course: diagnosis on discharge: 1. Sepsis with fever, leukocytosis, currently maintained on Cipro and Flagyl, infectious disease following, white blood count is still elevated at 23,000 . urine culture was positive for pseudomonas aeruginosa, sensitivity for meropenem. Antibiotic were switched to IV meropenem 1 g every 8 hours, patient improved she will be transferred back to the alf. 2. Urinary tract infection. Recurrent, will check ultrasound of the kidneys to rule out any structural abnormality or kidney stone causing recurrent infections. 3. Elevated d-dimer will check computed tomography scan angiogram of the chest to rule out pulmonary embolism 4. Underlying history of hypertension well-controlled on current medications 5. Underlying history of gastroesophageal reflux disease maintained on Protonix 6. Physical debility Will consult physical therapy and occupational therapy patient will need to return to alf after this admission 7. Bilateral infiltrates on computed tomography scan of the chest pulmonary consultation was requested Hospital course: Jaqui Garza, is an 84-year-old female who presented to [facility] emergency room due to elevated temperature of 102.4 at the alf, and generalized weakness, patient had 2 recent admissions, on the first admission she had evidence of urinary tract infection, her white blood count was elevated at 50,000, she was treated with IV antibiotics, she was seen by hematology and infectious disease, she was discharged to alf on oral Augmentin, white blood count at the time of discharge was 10,000 patient developed generalized rash, and her white blood count was up to 21,000 she was readmitted to the hospital and was seen by infectious disease who advised to withhold antibiotic and thought that her symptoms are related to ALLERGIC reaction to Augmentin white blood count came down to 14,000 patient was transferred back to the alf, patient was therefore few days then she started having elevated temperature at 102.4 she had evidence of urinary tract infection and her white blood count was elevated again to 26.5 patient was admitted to medical floor she was started on IV Zosyn infectious disease consultation was requested. Patient was seen and examined on 01/21/2020 she is alert and oriented in no apparent distress she is complaining of fatigue and generalized weakness otherwise no specific complaints her temperature on arrival to emergency room was 102.8 she denies any chest pain or shortness of breath no cough no nausea or vomiting no abdominal pain no diarrhea no burning with urination no frequency or urgency and no hematuria On 01/22/2020, patient was seen and examined on the medical floor , she is alert and oriented 3 in no apparent distress, she is afebrile and reports feeling much better, there is no fever or chills no headache or dizziness no chest pain no shortness of breath no cough no nausea or vomiting no abdominal pain no diarrhea no burning with urination no frequency or urgency and no hematuria, patient has Thacker catheter in. On 01/23/2020 patient was seen and examined on the medical floor she is alert and oriented in no distress no new episodes of fever no chills no headache or dizziness no chest pain no shortness of breath no cough no nausea or vomiting no abdominal pain no diarrhea no urinary symptoms Thacker catheter is still in. Patient has significant debility Will consult physical therapy and occupational therapy she will need to return to alf after this admission. On 01/24/2020 patient was seen and examined on the telemetry floor she is alert and oriented 3 in no distress she is feeling better there is no fever or chills no headache or dizziness no chest pain no shortness of breath no cough no nausea or vomiting no abdominal pain no diarrhea no blood in the stools no burning was urination no frequency or urgency no hematuria Thacker catheter is still in and patient is resistant to having it removed to weakness and gait disturbance. Physical therapy and occupational therapy consult has been requested. On 01/25/2020 patient was seen and examined on the medical floor she is alert and oriented 3 in no apparent distress white blood count is increased at this time up to 25,000 infectious disease following computed tomography scan of the abdomen and pelvis was ordered, clinically patient is stable there is no fever or chills no headache or dizziness no chest pain no shortness of breath no cough no nausea or vomiting no abdominal pain no diarrhea and no urinary symptoms On 01/26/2020 patient was seen and examined on the medical floor she is alert and oriented 3 in no apparent distress there is no fever or chills no headache or dizziness no chest pain shortness of breath no cough no nausea or vomiting no abdominal pain no diarrhea no burning was urination no frequency or urgency no hematuria patient has Thacker catheter in, infectious disease and urology input reviewed On 01/27/2020 patient was seen and examined on the medical floor she is alert and oriented 3 she is complaining of abdominal discomfort and nausea today otherwise she denies any complaints there is no fever or chills no headache or dizziness no chest pain no shortness of breath no cough no vomiting and no urinary symptoms On 01/28/2020 patient was seen and examined on the medical floor she is alert and oriented 3 in no apparent distress she is complaining of nausea otherwise no complaints there is no fever or chills no headache or dizziness no chest pain no shortness of breath no cough no vomiting no abdominal pain no diarrhea no burning was urination no frequency or urgency no hematuria. On 01/29/2020 patient was seen and examined on the medical floor she is alert and oriented in no distress there is no fever or chills no headache or dizziness no chest pain no shortness of breath no cough no nausea or vomiting no abdominal pain no diarrhea no burning was urination no frequency or urgency and no hematuria. On 01/30/2020 patient was seen and examined on the medical floor, she is alert and oriented 3 there is no fever or chills no headache or dizziness no chest pain no shortness of breath no cough no nausea or vomiting no abdominal pain no diarrhea no burning was urination no frequency or urgency and no hematuria white blood count is still elevated at 20,000 On 01/31/2020 patient was seen and examined on the medical floor she is alert and oriented 3 in no apparent distress there is no fever or chills no headache or dizziness no chest pain no shortness of breath no cough no nausea or vomiting no abdominal pain no diarrhea no burning was urination no frequency or urgency and no hematuria white blood count is improving down to 17,000 case was discussed with Dr. Maryann fisher infectious disease plan at this time is to proceed with midline placement hopefully patient can be transferred back to alf tomorrow on 02/01/2020 patient was seen and examined on the medical floor she is alert and oriented 3 in no apparent distress she was cleared for discharge by Dr. Vail with meropenem 1 g IV every 8 hours for 10 days Patient Condition at Discharge: Fair Plan - Discharge Summary Discharge Rx Participant: Yes New Discharge Prescriptions: New Meropenem [Merrem] 1 gm IVPB Q8H #30 vial Continue Docusate [Colace] 100 mg PO DAILY@2099 Baclofen [Lioresal] 10 mg PO Q6H PRN PRN Reason: Muscle Pain HYDROcodone/APAP 7.5-325MG [[place] 7.5-325] 1 tab PO TID@0600,1300,2099 ALPRAZolam [Xanax] 0.25 mg PO QID PRN tab PRN Reason: Anxiety Calcium Carbonate [Tums] 1,000 mg PO Q6H PRN PRN Reason: Gi Upset Acetaminophen Tab [Tylenol] 650 mg PO Q4H PRN PRN Reason: Pain Menthol [Biofreeze] 1 applic TOPICAL Q6H PRN PRN Reason: Pain Pantoprazole [Protonix] 40 mg PO DAILY@0600 Furosemide [Lasix] 40 mg PO DAILY@0600 Folic Acid 1 mg PO DAILY@0900 Metoprolol Tartrate [Lopressor] 25 mg PO BID tab Discharge Medication List Baclofen [Lioresal] 10 mg PO Q6H PRN 12/23/19 [History] Docusate [Colace] 100 mg PO DAILY@209912/23/19 [History] HYDROcodone/APAP 7.5-325MG [[place] 7.5-325] 1 tab PO TID@0600,1300,2100 12/23/19 [History] ALPRAZolam [Xanax] 0.25 mg PO QID PRN tab 01/05/20 [Rx] Acetaminophen Tab [Tylenol] 650 mg PO Q4H PRN 01/15/20 [History] Calcium Carbonate [Tums] 1,000 mg PO Q6H PRN 01/15/20 [History] Folic Acid 1 mg PO DAILY@0900 01/15/20 [History] Furosemide [Lasix] 40 mg PO DAILY@0600 01/15/20 [History] Menthol [Biofreeze] 1 applic TOPICAL Q6H PRN 01/15/20 [History] Pantoprazole [Protonix] 40 mg PO DAILY@0600 01/15/20 [History] Metoprolol Tartrate [Lopressor] 25 mg PO BID tab 01/18/20 [Rx] Meropenem [Merrem] 1 gm IVPB Q8H #30 vial 01/31/20 [Rx] Follow up Appointment(s)/Referral(s): Dalton Madden MD [Primary Care Provider] - 1-2 days
[2020-02-01] MEDS: SODIUM CHLORIDE 0.9% 1,000 ML IV SCH (14:48)
== END 2020-02-01 15:15 | DRG 871 ==
LOC: EC 19:18 → 3SCARD 21:13 → 4SSUR 01-26 21:15
PROVIDERS: ADMIT Internal Medicine; ATTEND Internal Medicine
PROC: 05HC33Z Insertion of Infusion Device into Left Basilic Vein, Percutaneous Approach (ICD-10-PCS; principal; 2020-01-31 13:55)
DX: A41.52 Sepsis due to Pseudomonas (principal); I50.33 Acute on chronic diastolic (congestive) heart failure; N39.0 Urinary tract infection, site not specified; F05 Delirium due to known physiological condition; J98.11 Atelectasis; N13.6 Pyonephrosis; Z16.24 Resistance to multiple antibiotics; Z20.828 Contact with and (suspected) exposure to other viral communicable diseases; E87.6 Hypokalemia; F32.9 Major depressive disorder, single episode, unspecified; G89.29 Other chronic pain; I11.0 Hypertensive heart disease with heart failure; I27.20 Pulmonary hypertension, unspecified; R79.1 Abnormal coagulation profile; K57.30 Diverticulosis of large intestine without perforation or abscess without bleeding; K59.00 Constipation, unspecified; M81.0 Age-related osteoporosis without current pathological fracture; N31.9 Neuromuscular dysfunction of bladder, unspecified; I08.3 Combined rheumatic disorders of mitral, aortic and tricuspid valves; R32 Unspecified urinary incontinence; Z66 Do not resuscitate; Z88.5 Allergy status to narcotic agent; Z79.899 Other long term (current) drug therapy; Z90.710 Acquired absence of both cervix and uterus; M54.9 Dorsalgia, unspecified; Z98.42 Cataract extraction status, left eye; Z98.41 Cataract extraction status, right eye; Z87.11 Personal history of peptic ulcer disease; Z87.440 Personal history of urinary (tract) infections; Z80.7 Family history of other malignant neoplasms of lymphoid, hematopoietic and related tissues; Z85.3 Personal history of malignant neoplasm of breast; Z90.11 Acquired absence of right breast and nipple
CPT/HCPCS: 36410; 36415; 51702; 71045; 71275; 74176; 76770; 76937; 80053; 80306; 81001; 82140; 82550; 82728; 83605; 83615; 83735; 84145; 84484; 85025; 85379; 85610; 85730; 86140; 87040; 87077; 87086; 87186; 93005; 94760; 96361; 96374; 99291